=== PATIENT | female | born 1965 | race African-American/Black ===

== ENCOUNTER 2017-06-26 07:31 | Inpatient (IN) | payer OTHER, MEDICARE ==
[~2017-06-26] VITALS: Ht 167.6 cm; Wt 81.4 kg
[~2017-06-26 07:31] MED LIST: AMLODIPINE BESY10 M1 PO; ASPIRIN325 M2 PO; ATORVASTATIN CA40 M1 PO; BUPROPION XL150 MG PO; CARDIZEM CD240 M1 PO; CARTIA XT120 MG PO; CARVEDILOL25 M1 PO; CLONIDINE1 EAC2 TOP; DILTIAZEM ER120 M2 PO; DOXYCYCLINE MO100 MG PO; ESCITALOPRAM OX20 MG PO; FLUOXETINE HCL40 MG PO; GABAPENTIN100 M2 PO; GEMFIBROZIL600 MG PO; HYDRALAZINE HCL25 M1 PO; ISOSORBIDE MONO30 M1 PO; LABETALOL HCL200 M1 PO; LANTUS SOL100 UNIT/1 SC; LANTUS SOLOS100 U/ML SC; LINZESS145 MC1 PO; MINOXIDIL2.5 M1 PO; MIRALAX17 GM PO; NITROGLYCER0.4 MG/HR TOP; NOVOLOG FL100 UNIT/1 SC; PRINIVIL20 M1 PO; PROTONIX40 M3 PO; PROZAC 10MG10 MG PO; RENVELA800 M1 PO; SIMVASTATIN40 MG PO; Senokot S PO
--- NOTE | 2017-06-26 07:40 | ED CARDIAC/CP/PALPITATIONS ---
History of Present Illness General Chief Complaint: Chest Pain Stated Complaint: CHEST PAIN RADIATING TO JAW Source: patient Exam Limitations: no limitations Vital Signs & Intake/Output Vital Signs & Intake/Output Vital Signs Date Time Temp Pulse Resp B/P B/P Pulse O2 O2 Flow FiO2 Mean Ox Delivery Rate 06/28 0940 100 101/58 06/28 0940 94 101/58 06/28 0940 91 101/52 06/28 0835 98.2 91 26 112/64 98 Room Air 06/28 0400 95 Room Air 06/28 0000 96 Room Air Room Air 06/28 0000 98.0 88 18 110/60 96 Room Air 06/27 2130 103 151/66 06/27 2130 103 151/66 06/27 2129 103 151/66 06/27 1600 98 Room Air 06/27 1600 98.0 88 20 132/60 98 Room Air 06/27 1545 88 160/92 ED Intake and Output 06/28 0000 06/27 1200 Intake Total 855 128 Output Total 2500 Balance -1645 128 Intake, IV 345 128 Intake, Oral 510 Output, 2500 Dialysate Patient 179 lb Weight Allergies Coded Allergies: NO KNOWN ALLERGIES (11/19/15) Reconcile Medications Aspirin (Aspirin*) 325 MG TABLET 325 MG PO DAILY HEART HEALTH Atorvastatin Calcium 40 MG TABLET 1 TAB PO QPM CHOLESTEROL (Reported) Bupropion HCl (Bupropion XL) 150 MG TAB.ER.24H 1 TAB PO QAM MENTAL HEALTH ( Reported) Clonidine 0.3 MG/24 HOUR PATCH.TDWK 1 PAT TOP QSUN HEART (Reported) Clopidogrel Bisulfate (Clopidogrel) 75 MG TABLET 1 TAB PO DAILY BLOOD THINNER (Reported) Diltiazem Cd (Diltiazem ER) 120 MG CAP.ER.DEG 120 MG PO DAILY high blood pressure Escitalopram Oxalate 20 MG TABLET 1 TAB PO DAILY MENTAL HEALTH (Reported) Gabapentin 100 MG CAPSULE 1 CAP PO TID NEUROPATHY (Reported) Heparin (Heparin-1/2NS 25,000 Units/500) 25,000 UNIT/500 ML (50 UNIT/ML) IV.SOLN 25,000 UNITS IV DAILY ACS Hydralazine HCl 25 MG TABLET 4 TAB PO TID BP (Reported) Insulin Aspart, Recombinant (Novolog Flexpen) (Unknown Strength) INSULN.PEN ( Unknown Dose) SC SEE SLIDING SCALE DIABETES (Reported) Insulin Glargine,Hum.rec.anlog (Lantus Solostar) 100 UNIT/ML (3 ML) INSULN.PEN 30 UNIT SC BID DM (Reported) Isosorbide Mononitrate (Isosorbide Mononitrate ER) 30 MG TAB.ER.24H 1 TAB PO DAILY HEART (Reported) Labetalol HCl 200 MG TABLET 2 TAB PO BID HEART (Reported) Linaclotide (Linzess) 145 MCG CAPSULE 1 CAP PO DAILY PRN CONSTIPATION ( Reported) Lisinopril (Prinivil) 20 MG TABLET 1 TAB PO BID HEART (Reported) Minoxidil 2.5 MG TABLET 2 TAB PO DAILY UNKNOWN (Reported) Pantoprazole Sodium (Protonix) 40 MG TABLET.DR 1 TAB PO DAILY ACID REFLUX ( Reported) Sevelamer Carbonate (Renvela) 800 MG TABLET 1 TAB PO TID KIDNEY (Reported) Sevelamer Carbonate (Renvela) 800 MG TABLET 1 TAB PO BID KIDNEY (Reported) Triage Nurses Notes Reviewed? yes Onset: Abrupt Duration: hour(s): (FEW) Timing: single episode today Location: substernal, JAW Activities at Onset: none Modifying Factors: Worsens With: lying down. HPI: This is a 51-year-old female with history of end-stage renal disease on hemodialysis Tuesday, hypertension, coronary disease status post ID and 10 cardiac stents who presents to the ER with chief complaint of jaw pain which woke her up at 2 AM. She states she felt nauseous and around 3:00 vomited once and after that developed chest pain. Chest pain is substernal and heavy. The pain in her chest does not radiate. The jaw pain is still there. She didn' t take aspirin at home. History of previous MIs but states the jaw pain feels different. Last stents were placed emergently in December in [place]. Her previous stents have been placed with Dr. Mccormack at [facility]. She is compliant with her medications. She denies any illicit drug use. Past History Travel History Traveled to [place] past 21 day No Medical History Any Pertinent Medical History? see below for history Neurological: NONE EENT: NONE Cardiovascular: AFIB, CAD, hypertension, hyperlipidemia, myocardial infarction, 3 CARDIAC STENTS Respiratory: NONE Gastrointestinal: constipation Hepatic: NONE Renal: CKD stage 5 DIALYSIS Musculoskeletal: NONE Psychiatric: depression Endocrine: diabetes, GERD thyroid nodule Blood Disorders: anemia Cancer(s): NONE SHINGLER/Reproductive: uterine fibriods History of MRSA: No History of VRE: No History of CDIFF: No Surgical History Surgical History: STENTS X3 Psychosocial History Who do you live with Significant Other Services at Home Patient previously had home health aide and nursing services but these services were recently discontinued What is your primary language Turkmen Family History Family History, If Any: Relation not specified for: FH: CAD (coronary artery disease) FH: cancer FH: diabetes mellitus FH: HTN (hypertension) FH: schizophrenia Hx Contributory? Yes Review of Systems Review of Systems Constitutional: Denies: chills, fever. EENTM: Reports: see HPI (JAW PAIN). Respiratory: Reports: short of breath. Denies: see HPI, sputum production. Cardiovascular: Reports: chest pain. Denies: palpitations. GI: Reports: no symptoms. Genitourinary: Reports: no symptoms. Musculoskeletal: Denies: back pain, joint pain. Skin: Reports: no symptoms. Neurological/Psychological: Reports: no symptoms. Hematologic/Endocrine: Reports: no symptoms. Immunologic/Allergic: Reports: no symptoms. All Other Systems: Reviewed and Negative Physical Exam Physical Exam General Appearance: well developed/nourished, alert, awake, anxious, moderate distress Head: atraumatic, normal appearance Eyes: Bilateral: normal appearance, PERRL, EOMI. Ears, Nose, Throat: normal pharynx, normal ENT inspection, hearing grossly normal Neck: normal inspection, supple, full range of motion Respiratory: normal breath sounds, chest non-tender, no respiratory distress Cardiovascular: regular rate/rhythm Peripheral Pulses: 2+ radial (R), 2+ radial (L) Gastrointestinal: normal bowel sounds, soft, non-tender Extremities: RIGHT ARM SHUNT Neurologic/Psych: no motor/sensory deficits, awake, alert, oriented x 3 Skin: intact, normal color, warm/dry Core Measures ACS in differential dx? Yes CVA/TIA Diagnosis No Sepsis Present: No Sepsis Focused Exam Completed? No Progress Differential Diagnosis: AMI, aortic dissection, HYPERTENSIVE URGENCY, AORTIC DISSECTION, PE Plan of Care: Orders Procedure Date/time Status Nothing by Mouth 06/29 B Active ICU LAB BUNDLE 06/29 0500 Active CBC WITHOUT DIFFERENTIAL 06/29 0500 Active Heparin Drip- ACS 06/28 0823 Active PARTIAL THROMBOPLASTIN TIME 06/28 0700 Complete ICU LAB BUNDLE 06/28 0500 Complete CBC WITHOUT DIFFERENTIAL 06/28 0500 Complete Consistent Carbohydrate 3 06/27 L Active TROPONIN LEVEL 06/27 2200 Complete PARTIAL THROMBOPLASTIN TIME 06/27 2200 Complete EKG 06/27 2200 Active Current Medications Sig/[place] Start time Last Medication Dose Stop Time Status Admin Magnesium Oxide 400 MG BID 06/28 1000 AC 06/28 (Mag-Ox) 0940 Insulin Aspart 0 TIDAC 06/27 1700 AC (NovoLOG) Bupropion HCl 150 MG QAM 06/27 1000 AC 06/28 (Wellbutrin XL) 0939 Clopidogrel Bisulfate 75 MG DAILY 06/27 1000 AC 06/28 (Plavix) 0940 Escitalopram Oxalate 20 MG DAILY 06/27 1000 AC 06/28 (Lexapro) 0940 Labetalol HCl 400 MG BID 06/27 1000 AC 06/28 (Trandate-Normodyne 0940 200MG Tab) Minoxidil 5 MG DAILY 06/27 1000 AC 06/28 (Minoxidil 2.5 MG 0940 Tab) Lidocaine/Prilocaine 1 DEE MoWeFr 06/27 0800 AC 06/27 (EMLA) 0800 Epoetin José 2,000 UNIT MoWeFr PRN 06/27 0700 AC (Epogen Inj 2000 (DIALYSIS PATIENTS) Epoetin José 3,000 UNIT MoWeFr PRN 06/27 0700 AC (Epogen Inj 3000 (DIALYSIS PATIENTS) Omeprazole 40 MG DAILY AC 06/27 0700 AC 06/28 (Prilosec) 0636 Paricalcitol 4 MCG MoWeFr PRN 06/27 0700 AC (Zemplar Inj. 2MCG/ ML) Atorvastatin Calcium 40 MG QPM 06/26 2200 AC 06/27 (Lipitor) 2129 Lisinopril 20 MG BID 06/26 2200 AC 06/28 (Prinivil) 0940 Gabapentin 100 MG TID 06/26 1600 AC 06/28 (Neurontin) 0940 Aspirin 325 MG DAILY 06/26 1430 AC 06/28 (Aspirin) 0940 Sevelamer Carbonate 800 MG TIDAC 06/26 1200 AC 06/28 (Renvela) 1211 Acetaminophen 650 MG Q4P PRN 06/26 1145 AC (Tylenol) Hydralazine HCl 100 MG TID 06/26 1108 AC 06/28 (Apresoline) 0940 Diltiazem HCl 120 MG DAILY 06/26 1107 AC 06/28 (Cardizem CD) 0940 Heparin Sodium 25,000 UNIT Q24H 06/26 0815 AC 06/28 (Porcine) 0752 (Heparin) Sodium Chloride 500 ML Laboratory Tests 06/28/17 0645: Anion Gap 14, Estimated GFR 9 L, Glucose 123 H, Calcium 8.7, Phosphorus 4.7 H , Magnesium 1.6, Total Bilirubin 0.3, AST 17, ALT 25, Albumin 3.5, APTT 80 H, CBC w Diff NO MAN DIFF REQ, RBC 3.18 L, MCV 90.2, MCH 30.4, RDW 15.1 H, MPV 9.4, Gran % 63.8, Lymphocytes % 19.8 L, Monocytes % 10.3 H, Eosinophils % 4.5, Basophils % 1.6, Absolute Granulocytes 6.9 H, Absolute Lymphocytes 2.1, Absolute Monocytes 1.1 H, Absolute Eosinophils 0.5, Absolute Basophils 0.2, PUBS MCHC 33.7 06/27/17 2300: Troponin I 1.05 *H 06/27/172009: APTT 51 H 06/27/17 1630: Troponin I 1.27 *H 7:56 AM D/W DR BRYANT. WILL REVIEW EKG'S. 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 8:[address] REBEKAH SOUZA. 8:13 AM HEPARIN, NITRO, ASPIRIN, PLAVIX LOADING DOSE. WOULD LIKE TO BRING DOWN BP AND REEVALUATE WITH REPEAT EKG. 8:54 AM RELIEF WITH SECOND NITRO AFTER SHE DEVELOPED SOME ADDITIONAL JAW PAIN. Diagnostic Imaging: Viewed by Me: Radiology Read. Discussed w/RAD: Radiology Read. CXR Impression: PATIENT: THOMAS BARRIOS PRESENT AGE: 51 PATIENT ACCOUNT NO: [id number] : 67 LOCATION: [facility] ([place] ORDERING PHYSICIAN: Estefani Ross MD SERVICE DATE: 06/26/17 EXAM TYPE: RAD - XRY-PORTABLE CHEST XRAY EXAMINATION: XR PORTABLE CHEST CLINICAL INFORMATION: Chest pain. COMPARISON: Several priors including most recent of 03/30/17. TECHNIQUE: Portable frontal view of the chest was obtained. FINDINGS: Evaluation is limited because of patient body habitus. The lungs are well expanded and clear. Accounting for portable technique, the heart and mediastinal structures are unremarkable. IMPRESSION: Limited evaluation. No abnormality demonstrated. DICTATED BY: Enio Liao MD DATE/TIME DICTATED:06/26/17822 BAG WORKER:CHUY DATE/TIME TRANSCRIBED:06/26/17822 CONFIDENTIAL, DO NOT COPY WITHOUT APPROPRIATE AUTHORIZATION. <Electronically signed in Other Vendor System> SIGNED BY: Enio Liao MD 06/26/17828 Initial ED EKG: NSR, ST ELEVATION MILD V1-V2, ? LVH, ST DEPRESSION 1, AVL, V5, V6 Prior EKG: changed Rhythm Strip: normal sinus rhythm Departure Departure Time of Disposition: 1004 Disposition: STILL A PATIENT Condition: Stable Clinical Impression Primary Impression: Abnormal EKG Secondary Impressions: Chest pain Referrals: Violetta Reddy APRN (PCP/Family) Departure Forms: Customer Survey General Discharge Information Prescriptions: Current Visit Scripts Heparin (Heparin-1/2NS 25,000 Units/500) 25,000 UNITS IV DAILY #3 UNITS Admission Note Spoke With: Rebekah ORTEGA PHD,Luis Daniel Bond Documentation of Exam: Documentation of any treatments & extenuating circumstances including Concerns Regarding Discharge (functional status, medication knowledge or non-compliance, living conditions, etc.) that warrant an admission rather than observation: [ICU MONITOR, IV HEPARIN, ASPIRIN, PLAVIX, NITRATES, BETA BLOCKERS, SERIAL EKG/ TROPONIN, CONSIDER ECHOCARDIOGRAM, POSSIBLE TRANSFER IF INCREASING TROPONINS, NEPHRO CONSULT FOR DIALYSIS TOMORROW] Critical Care Note Critical Care Note Critical Care Time: 30-74 min
[2017-06-26 08:05] LABS: ABSOLUTE BASOPHIL COUNT 0 /CUMM (0.0-0.2); ABSOLUTE EOSINOPHIL COUNT 0.4 /CUMM (0.0-0.7); ABSOLUTE GRANULOCYTE CT 9.5 /CUMM (1.4-6.5); ABSOLUTE MONOCYTE COUNT 0.6 /CUMM (0.10-0.60); BASOPHIL % 0.2 % (0.0-2.0); EOSINOPHIL % 3.6 % (0-5); GRANULOCYTE % 82.9 % (42.2-75.2); HEMATOCRIT 35.2 % (37-47); MEAN CORPUSCULAR HGB 29.9 PG (27.0-31.0); MEAN CORPUSCULAR HGB CONC 33.1 G/DL (33.0-37.0); MEAN CORPUSCULAR VOLUME 90.2 FL (81.0-99.0); MEAN PLATELET VOLUME 8.7 FL (7.4-10.4); PLATELET COUNT 306 /CUMM (130-400); RBC DISTRIBUTION WIDTH 15.4 % (11.5-14.5); RED BLOOD CELL CT 3.91 /CUMM (4.20-5.40); WHITE BLOOD CELL COUNT 11.5 /CUMM (4.8-10.8)
--- NOTE | 2017-06-26 08:29 | RADIOLOGY REPORT ---
EXAMINATION: XR PORTABLE CHEST CLINICAL INFORMATION: Chest pain. COMPARISON: Several priors including most recent of 03/30/17. TECHNIQUE: Portable frontal view of the chest was obtained. FINDINGS: Evaluation is limited because of patient body habitus. The lungs are well expanded and clear. Accounting for portable technique, the heart and mediastinal structures are unremarkable. IMPRESSION: Limited evaluation. No abnormality demonstrated.
--- NOTE | 2017-06-26 10:13 | History & Physical ---
General Information and HPI MD Statement: I have seen and personally examined THOMAS BARRIOS and documented this H&P. The patient is a 51 year old F who presented with a patient stated chief complaint of jaw pain Source of Information: patient, old records Exam Limitations: no limitations History of Present Illness: 50-year old woman with pmh significant for coronary artery disease, status post multiple angioplasties with multiple stent placements total of 11 (recently had 3 stents placed in December 2016), hypertension, IDDM, ESRD on HD (MWF), here for evaluation of bilateral jaw pain. States that around 2 AM this morning she had bilateral aching jaw pain which is about 8 out of 10. Nonradiating however after a few minutes of the jaw pain she also felt some discomfort in her chest. At this time she also felt very nauseated and had had 3 episodes of non-bloody vomiting. She took ibuprofen however did not have any relief of the pain. On interview she is completely pain-free states that the nitroglycerin given to her in ED helped. Last few days she's also been having orthopnea. Complains of mild lower extremity swelling. Denies fever, cough, shortness of breath, chills, diaphoresis, palpitations, nausea, headaches, bowel or bladder symptoms. Per patient she ran out of her clonidine patch and has not been on it recently. Allergies/Medications Allergies: Coded Allergies: NO KNOWN ALLERGIES (11/19/15) Home Med list Aspirin (Aspirin*) 325 MG TABLET 325 MG PO DAILY HEART HEALTH Atorvastatin Calcium 40 MG TABLET 1 TAB PO QPM CHOLESTEROL (Reported) Bupropion HCl (Bupropion XL) 150 MG TAB.ER.24H 1 TAB PO QAM MENTAL HEALTH ( Reported) Clonidine 0.3 MG/24 HOUR PATCH.TDWK 1 PAT TOP QSUN HEART (Reported) Clopidogrel Bisulfate (Clopidogrel) 75 MG TABLET 1 TAB PO DAILY BLOOD THINNER (Reported) Diltiazem Cd (Diltiazem ER) 120 MG CAP.ER.DEG 120 MG PO DAILY high blood pressure Escitalopram Oxalate 20 MG TABLET 1 TAB PO DAILY MENTAL HEALTH (Reported) Gabapentin 100 MG CAPSULE 1 CAP PO TID NEUROPATHY (Reported) Hydralazine HCl 25 MG TABLET 4 TAB PO TID BP (Reported) Insulin Aspart, Recombinant (Novolog Flexpen) (Unknown Strength) INSULN.PEN ( Unknown Dose) SC SEE SLIDING SCALE DIABETES (Reported) Insulin Glargine,Hum.rec.anlog (Lantus Solostar) 100 UNIT/ML (3 ML) INSULN.PEN 30 UNIT SC BID DM (Reported) Insulin Glargine,Hum.rec.anlog (Lantus Solostar) (Unknown Strength) INSULN.PEN (Unknown Dose) SC BID DIABETES (Reported) Isosorbide Mononitrate (Isosorbide Mononitrate ER) 30 MG TAB.ER.24H 1 TAB PO DAILY HEART (Reported) Labetalol HCl 200 MG TABLET 2 TAB PO BID HEART (Reported) Linaclotide (Linzess) 145 MCG CAPSULE 1 CAP PO DAILY PRN CONSTIPATION ( Reported) Lisinopril (Prinivil) 20 MG TABLET 1 TAB PO BID HEART (Reported) Minoxidil 2.5 MG TABLET 2 TAB PO DAILY UNKNOWN (Reported) Pantoprazole Sodium (Protonix) 40 MG TABLET.DR 1 TAB PO DAILY ACID REFLUX ( Reported) Sevelamer Carbonate (Renvela) 800 MG TABLET 1 TAB PO TID KIDNEY (Reported) Sevelamer Carbonate (Renvela) 800 MG TABLET 1 TAB PO BID KIDNEY (Reported) Compliance With Home Meds: GOOD Past History Travel History Traveled to [place] past 21 day No Medical History Neurological: NONE EENT: NONE Cardiovascular: AFIB, CAD, hypertension, hyperlipidemia, myocardial infarction, 10 CARDIAC STENTS Respiratory: NONE Gastrointestinal: constipation Hepatic: NONE Renal: CKD stage 5 DIALYSIS Musculoskeletal: NONE Psychiatric: depression Endocrine: diabetes, GERD thyroid nodule Blood Disorders: anemia Cancer(s): NONE 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 significant other, child Services at Home: Patient previously had home health aide and nursing services but these services were recently discontinued Primary Language: Tamazight Functional Ability ADLs Independent: dressing, eating, toileting, bathing. Ambulation: independent Review of Systems Review of Systems Constitutional: Denies: chills, diaphoresis, fever, malaise, weakness, unexplained weight loss. Cardiovascular: Reports: peripheral edema. Denies: chest pain, edema, orthopena, palpitations, syncope. Respiratory: Denies: cough, hemoptysis, orthopnea, short of breath, sputum production, stridor, wheezing. GI: Denies: abdominal pain, bloating, constipation, diarrhea, distention, bowel incontinence, melena, nausea, bloody stool, changes in stool, vomiting, steatorrhea. Genitourinary: Denies: discharge, dysuria, frequency, hematuria, hesitation, nocturia, pain, urgency. Exam & Diagnostic Data Last 24 Hrs of Vital Signs/I&O Vital Signs Date Time Temp Pulse Resp B/P B/P Pulse O2 O2 Flow FiO2 Mean Ox Delivery Rate 06/26 1041 98.2 91 16 171/78 100 Nasal 2.0L Cannula 06/26 0931 97 18 151/72 06/26 0931 97 18 151/72 06/26 0913 95 Nasal 2.0L Cannula 06/26 0903 100 196/94 06/26 0903 98.3 94 15 151/73 95 Nasal 2.0L Cannula 06/26 0849 100 20 196/94 Nasal 2.0L Cannula 06/26 0833 98 15 167/81 06/26 0811 98 15 162/70 06/26 0810 106 181/85 06/26 0743 97.0 106 18 191/90 93 Room Air Intake & Output 06/26 1600 06/26 0800 06/26 0000 Intake Total 0 Output Total Balance 0 Intake, Oral 0 Patient 180 lb Weight Weight Reported by Patient Measurement Method Physical Exam General Appearance Alert, Oriented X3, Cooperative, No Acute Distress HEENT Atraumatic, PERRLA, EOMI, Mucous Membr. moist/pink Neck Supple, No JVD, No thryomegaly Lymphatic Axillary nl Cardiovascular Regular Rate, Normal S1, Normal S2 Lungs Clear to Auscultation, Normal Air Movement Abdomen Normal Bowel Sounds, Soft, No Tenderness Extremities b/l 2+edema Last 24 Hrs of Labs/Michi: Laboratory Tests 06/26/17 0750: Anion Gap 23 H, Estimated GFR 6 L, BUN/Creatinine Ratio 5.4 L, Glucose 184 H , Calcium 9.7, Total Bilirubin 0.5, AST 14, ALT 22, Alkaline Phosphatase 90, Troponin I 0.11 *H, Total Protein 8.8 H, Albumin 5.1 H, Globulin 3.7, Albumin/ Globulin Ratio 1.4, CBC w Diff NO MAN DIFF REQ, RBC 3.91 L, MCV 90.2, MCH 29.9, RDW 15.4 H, MPV 8.7, Gran % 82.9 H, Lymphocytes % 8.3 L, Monocytes % 5.0, Eosinophils % 3.6, Basophils % 0.2, Absolute Granulocytes 9.5 H, Absolute Lymphocytes 1.0 L, Absolute Monocytes 0.6, Absolute Eosinophils 0.4, Absolute Basophils 0, PUBS MCHC 33.1 Microbiology 06/26 1041 UPPER RESP: Surveillance Culture - COLB 06/26 104 GI: Surveillance Culture - COLB Diagnostic Data EKG Results Normal sinus, rate 92, QTC 505 left ventricular hypertrophy, ST depression in lead I,II, ST elevation 1mm in V1,V2 CXR Results SERVICE DATE: 06/26/17 EXAM TYPE: RAD - XRY-PORTABLE CHEST XRAY FINDINGS: Evaluation is limited because of patient body habitus. The lungs are well expanded and clear. Accounting for portable technique, the heart and mediastinal structures are unremarkable. IMPRESSION: Limited evaluation. No abnormality demonstrated. Assessment/Plan Assessment: 50-year old woman with pmh significant for coronary artery disease, status post multiple angioplasties with multiple stent placements total of 11 (recently had 3 stents placed in December 2016), hypertension, IDDM, ESRD on HD ([place]), here for evaluation of bilateral jaw pain. Vitals on it examination MAXIMUM TEMPERATURE 97.0, heart rate 106, respiratory rate 18, blood pressure 191/90, lab significant for WBC 11.5 hemoglobin 11.7, hematocrit 35.2, platelet 306, sodium 145, potassium 4.6, chloride 101, BUN 38, creatinine 7.0, glucose 184, troponin 0.11, anion gap 23, proBNP 18, 900 UA pending EKG shows normal sinus rhythm left ventricle hypertrophy prolonged QTC at 505 ST depression in lead I,II, ST wave elevation 1mm in V1-V2 ED course: Started on IV heparin given loading dose of Plavix started on nitroglycerin and given Lopressor Problem list: NSTEMI JESSICA on CKD ESRD on dialysis Anion gap metabolic acidosis HTN IDDM Plan: 1 unstable angina versus NSTEMI vs demand ischemia secondary to renal insufficiency * we'll admit the patient to ICU * patient started on IV heparin * we will do serial troponin EKG to rule out underlying ACS * Continue with high-dose aspirin, Plavix, atorvastatin, labetalol. * Continue sublingual nitroglycerin for chest pain * Last echo done 01/04/2016 showed normal EF of 60% with impaired LV relaxation, severe left ventricular hypertrophy mild left atrial enlargement and trace tricuspid regurgitation * Will keep the patient nothing by mouth for now for possible cardiac catheterization 2 Hypertension * we'll continue with home dose of labetalol, hydralazine and lisinopril (ok with nephro) 3. JESSICA on CKD/ End-stage renal disease(on dialysis) * nephrology consult placed * She will need dialysis tomorrow * will hold lisinopril for now 4. History of insulin-dependent diabetes * We'll start the patient on nothing by mouth insulin sliding scale. * half normal saline at 75 cc for one bag * Accu-Cheks. 5. History of Anxietyand depression * continue lexapro and buproprion 6.Mild pain pathway with Tylenol 7. DVT prophylaxis: IV heparin 8. Patient is full code As Ranked By This Provider Problem List: 1. Diabetes mellitus 2. Hypertension 3. HLD (hyperlipidemia) 4. CAD S/P percutaneous coronary angioplasty 5. NSTEMI (non-ST elevated myocardial infarction) Core Measures/Misc (02/27) Acute Coronary Syndrome ACS Diagnosis: Yes Last Known EF % 55 Congestive Heart Failure Congestive Heart Failure Diagnosis No Cerebrovascular Accident CVA/TIA Diagnosis: No VTE (View Protocol) VTE Risk Factors Age>40 No Mechanical VTE Prophylaxis d/t N/A MechProphylax Ordered No VTE Pharm Prophylaxis d/t NA PharmProphylax ordered Sepsis (View protocol) Sepsis Present: No
[2017-06-26 11:30] VITALS: BP 158/64
[2017-06-26] MEDS ORDERED: LANTUS SOL100 UNIT/1 SC (12:57)
--- NOTE | 2017-06-26 14:39 | Cons- Cardiology ---
General Information and HPI Consulting Request Date of Consult: 06/26/17 Requested By: Ksenia ORTEGA PHD,Luis Daniel Bond Reason for Consult: Chest pain; known coronary artery disease with history of multiple stents Source of Information: patient, family, old records Exam Limitations: no limitations History of Present Illness: The patient is a 50-year-old female who is followed by Dr. 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 Her past medical history is significant for significant coronary artery disease, status post multiple interventions, angioplasties and stents (sees reportedly 10-11) sees. The patient recently had 3 stents placed in December 2016. She also has history of hypertension, insulin-dependent diabetes, end-stage renal disease on hemodialysis, etc. The patient woke at approximately 2 AM this morning with chest discomfort and bilateral jaw discomfort which she rated at approximately an 8/10 in severity. She also had a sense of nausea and had multiple episodes of nonbloody emesis. Ultimately, the patient came to the emergency room. In the emergency him, the patient continued to have symptoms. An ECG was performed which showed nonspecific worsening of her prior ECG abnormalities with more prominent ST elevation in leads V1 and V2 and more prominent ST depressions in the lateral leads. At that time, the case was discussed with her regular wool brusher Dr. Mccormack in case emergent intervention would be required. After discussion with Dr. Mccormack, the decision was made to aggressively treat the patient medically with antiplatelet agents, anticoagulation, blood pressure control, etc. With medical management, the patient became asymptomatic and her ECG abnormalities improved somewhat. At the moment, the patient remains asymptomatic. She is to be admitted to the ICU for closer monitoring, she will likely need intervention at some point in the near future. Allergies/Medications Allergies: Coded Allergies: NO KNOWN ALLERGIES (11/19/15) Home Med List: Aspirin (Aspirin*) 325 MG TABLET 325 MG PO DAILY HEART HEALTH Atorvastatin Calcium 40 MG TABLET 1 TAB PO QPM CHOLESTEROL (Reported) Bupropion HCl (Bupropion XL) 150 MG TAB.ER.24H 1 TAB PO QAM MENTAL HEALTH ( Reported) Clonidine 0.3 MG/24 HOUR PATCH.TDWK 1 PAT TOP QSUN HEART (Reported) Clopidogrel Bisulfate (Clopidogrel) 75 MG TABLET 1 TAB PO DAILY BLOOD THINNER (Reported) Diltiazem Cd (Diltiazem ER) 120 MG CAP.ER.DEG 120 MG PO DAILY high blood pressure Escitalopram Oxalate 20 MG TABLET 1 TAB PO DAILY MENTAL HEALTH (Reported) Gabapentin 100 MG CAPSULE 1 CAP PO TID NEUROPATHY (Reported) Hydralazine HCl 25 MG TABLET 4 TAB PO TID BP (Reported) Insulin Aspart, Recombinant (Novolog Flexpen) (Unknown Strength) INSULN.PEN ( Unknown Dose) SC SEE SLIDING SCALE DIABETES (Reported) Insulin Glargine,Hum.rec.anlog (Lantus Solostar) 100 UNIT/ML (3 ML) INSULN.PEN 30 UNIT SC BID DM (Reported) Insulin Glargine,Hum.rec.anlog (Lantus Solostar) (Unknown Strength) INSULN.PEN (Unknown Dose) SC BID DIABETES (Reported) Isosorbide Mononitrate (Isosorbide Mononitrate ER) 30 MG TAB.ER.24H 1 TAB PO DAILY HEART (Reported) Labetalol HCl 200 MG TABLET 2 TAB PO BID HEART (Reported) Linaclotide (Linzess) 145 MCG CAPSULE 1 CAP PO DAILY PRN CONSTIPATION ( Reported) Lisinopril (Prinivil) 20 MG TABLET 1 TAB PO BID HEART (Reported) Minoxidil 2.5 MG TABLET 2 TAB PO DAILY UNKNOWN (Reported) Pantoprazole Sodium (Protonix) 40 MG TABLET.DR 1 TAB PO DAILY ACID REFLUX ( Reported) Sevelamer Carbonate (Renvela) 800 MG TABLET 1 TAB PO TID KIDNEY (Reported) Sevelamer Carbonate (Renvela) 800 MG TABLET 1 TAB PO BID KIDNEY (Reported) Current Medications: Current Medications Sig/[place] Start time Last Medication Dose Route Stop Time Status Admin Acetaminophen 650 MG Q4P PRN 06/26 1145 AC PO Aspirin 325 MG DAILY 06/27 1000 DC PO Aspirin 325 MG DAILY 06/26 1430 AC 06/26 PO 1430 Atorvastatin Calcium 40 MG QPM 06/26 2200 AC PO Bupropion HCl 150 MG QAM 06/27 1000 AC PO Clopidogrel Bisulfate 75 MG DAILY 06/27 1000 AC PO Clopidogrel Bisulfate 300 MG ONCE ONE 06/26 0815 DC 06/26 PO 06/26 0816 0837 Diltiazem HCl 120 MG DAILY 06/26 1107 AC 06/26 PO 1428 Escitalopram Oxalate 20 MG DAILY 06/27 1000 AC PO Gabapentin 100 MG TID 06/26 1600 AC PO Heparin Sodium 0 .STK-MED ONE 06/26 0828 DC (Porcine) .ROUTE Heparin Sodium 5,000 UNIT ONCE ONE 06/26 0815 DC 06/26 (Porcine) IV 06/26 0816 0837 Heparin Sodium 25,000 UNIT Q24H 06/26 0815 AC 06/26 (Porcine) IV 0837 Sodium Chloride 500 ML Hydralazine HCl 100 MG TID 06/26 1108 AC PO Insulin Human Regular 0 Q6 06/26 1200 AC SC Labetalol HCl 400 MG BID 06/26 2200 AC PO Lisinopril 20 MG BID 06/26 2200 CAN PO Metoprolol Tartrate 5 MG ONCE ONE 06/26 0930 DC 06/26 IV 06/26 0931 0931 Metoprolol Tartrate 0 .STK-MED ONE 06/26 0928 DC IV Metoprolol Tartrate 5 MG ONCE ONE 06/26 0900 DC 06/26 IV 06/26 0901 0903 Metoprolol Tartrate 0 .STK-MED ONE 06/26 0853 DC IV Metoprolol Tartrate 5 MG ONCE ONE 06/26 0800 DC 06/26 IV 06/26 0801 0810 Metoprolol Tartrate 0 .STK-MED ONE 06/26 0758 DC IV Minoxidil 5 MG DAILY 06/27 1000 AC PO Nitroglycerin 0.4 MG ONCE ONE 06/26 0900 DC 06/26 SL 06/26 0901 0903 Nitroglycerin 0 .STK-MED ONE 06/26 0828 [facility] Nitroglycerin 1 GM ONCE ONE 06/26 0815 DC 06/26 TOP 06/26 0816 0837 Nitroglycerin 0.4 MG ONCE ONE 06/26 0800 DC 06/26 SL 06/26 0801 0800 Nitroglycerin 0 .STK-MED ONE 06/26 0758 [facility] Omeprazole 40 MG DAILY AC 06/27 0700 AC PO Sevelamer Carbonate 800 MG TIDAC 06/26 1200 AC PO Sodium Chloride 1,000 ML .Q20H 06/26 1130 AC 06/26 IV 06/27 0627 1257 Past History Travel History Traveled to [place] past 21 day No Medical History Blood Transfusion Hx: No Neurological: NONE EENT: NONE Cardiovascular: AFIB, CAD, hypertension, hyperlipidemia, myocardial infarction, 10 CARDIAC STENTS Respiratory: NONE Gastrointestinal: constipation Hepatic: NONE Renal: CKD stage 5 DIALYSIS Musculoskeletal: NONE Psychiatric: depression Endocrine: diabetes, GERD thyroid nodule Blood Disorders: anemia Cancer(s): NONE 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 Home Who Do You Live With? significant other, child Services at Home: Patient previously had home health aide and nursing services but these services were recently discontinued Primary Language: Tamazight Smoking Status: Never Smoked Functional Ability ADLs Independent: dressing, eating, toileting, bathing. Ambulation: independent ECHO Results (as available) Date of last Echo 01/04/16 EF% 60 Exam & Diagnostic Data Vital Signs and I&O Vital Signs Date Time Temp Pulse Resp B/P B/P Pulse O2 O2 Flow FiO2 Mean Ox Delivery Rate 06/26 1140 100 Nasal 2.0L Cannula 06/26 1130 97.1 92 18 158/64 100 Nasal 2.0L Cannula 06/26 1041 98.2 91 16 171/78 100 Nasal 2.0L Cannula 06/26 0931 97 18 151/72 06/26 0931 97 18 151/72 06/26 0913 95 Nasal 2.0L Cannula 06/26 0903 100 196/94 06/26 0903 98.3 94 15 151/73 95 Nasal 2.0L Cannula 06/26 0849 100 20 196/94 Nasal 2.0L Cannula 06/26 0833 98 15 167/81 06/26 0811 98 15 162/70 06/26 0810 106 181/85 06/26 0743 97.0 106 18 191/90 93 Room Air Intake & Output 06/26 1600 06/26 0800 06/26 0000 06/25 1600 06/25 0800 06/25 0000 Intake Total 0 Output Total Balance 0 Intake, Oral 0 Patient 181 lb 180 lb Weight Weight Bed scale Reported by Patient Measurement Method Physical Exam: General Appearance well-developed, pleasant, overweight, -British female , Alert, Oriented X3, Cooperative, No Acute Distress at the present time HEENT Atraumatic, PERRLA, EOMI, Mucous Membr. moist/pink Neck Supple, No JVD, No thryomegaly, carotid upstroke normal bilaterally Lymphatic Axillary nl Cardiovascular Regular Rate, Normal S1, Normal S2, 1 to 2/6 systolic murmur left lower sternal border Lungs Clear to Auscultation and percussion bilaterally; no chest wall tenderness Abdomen Normal Bowel Sounds, Soft, No Tenderness Extremities b/l 1-2+edema Labs/Michi Results: Laboratory Tests 06/26 06/26 06/26 1430 1135 0750 Chemistry Sodium (137 - 145 mmol/L) 145 Potassium (3.5 - 5.1 mmol/L) 4.6 Chloride (98 - 107 mmol/L) 101 Carbon Dioxide (22 - 30 mmol/L) 21 L Anion Gap (5 - 16) 23 H BUN (7 - 17 mg/dL) 38 H Creatinine (0.5 - 1.0 mg/dL) 7.0 *H Estimated GFR (>60 ml/min) 6 L BUN/Creatinine Ratio (7 - 25 %) 5.4 L Glucose (65 - 99 mg/dL) 184 H Calcium (8.4 - 10.2 mg/dL) 9.7 Total Bilirubin (0.2 - 1.3 mg/dL) 0.5 AST (14 - 36 U/L) 14 ALT (9 - 52 U/L) 22 Alkaline Phosphatase (<127 U/L) 90 Troponin I (< 0.11 ng/ml) 0.21 *H 0.11 *H Fbj-F-[id number] Pept (<125 pg/mL) 29801 H Total Protein (6.3 - 8.2 g/dL) 8.8 H Albumin (3.5 - 5.0 g/dL) 5.1 H Globulin (1.9 - 4.2 gm/dL) 3.7 Albumin/Globulin Ratio (1.1 - 2.2 %) 1.4 TSH (0.270 - 4.200 uIU/mL) 0.776 Thyroxine (T4) (4.5 - 10.9 ug/dL) 8.4 Coagulation APTT Pending Hematology CBC w Diff NO MAN DIFF REQ WBC (4.8 - 10.8 /CUMM) 11.5 H RBC (4.20 - 5.40 /CUMM) 3.91 L Hgb (12.0 - 16.0 G/DL) 11.7 L Hct (37 - 47 %) 35.2 L MCV (81.0 - 99.0 FL) 90.2 MCH (27.0 - 31.0 PG) 29.9 RDW (11.5 - 14.5 %) 15.4 H Plt Count (130 - 400 /CUMM) 306 MPV (7.4 - 10.4 FL) 8.7 Gran % (42.2 - 75.2 %) 82.9 H Lymphocytes % (20.5 - 51.1 %) 8.3 L Monocytes % (1.7 - 9.3 %) 5.0 Eosinophils % (0 - 5 %) 3.6 Basophils % (0.0 - 2.0 %) 0.2 Absolute Granulocytes (1.4 - 6.5 /CUMM) 9.5 H Absolute Lymphocytes (1.2 - 3.4 /CUMM) 1.0 L Absolute Monocytes (0.10 - 0.60 /CUMM) 0.6 Absolute Eosinophils (0.0 - 0.7 /CUMM) 0.4 Absolute Basophils (0.0 - 0.2 /CUMM) 0 PUBS MCHC (33.0 - 37.0 G/DL) 33.1 Diagnostic Data EKG Results Sinus rhythm; left atrial under maladies; poorly progression; probable LVH with associated ST-T changes. ST segment abnormalities more prominent than noted on previous EKG. CXR Results FINDINGS: Evaluation is limited because of patient body habitus. The lungs are well expanded and clear. Accounting for portable technique, the heart and mediastinal structures are unremarkable. IMPRESSION: Limited evaluation. No abnormality demonstrated. Assessment/Plan Assessment/Plan Assessment: 1. Chest pain syndrome consistent with unstable angina versus non-ST elevation myocardial infarction with minimally elevated troponin. 2. Hypertension 3. Abnormal ECG 4. End-stage renal disease on hemodialysis 5. Insulin-dependent diabetes 6. History of anxiety/depression 7. Mild normocytic anemia 8. Elevated proBNP Recommendations: -Admit the patient to the ICU -Serial troponins until decreasing -ECG tonight and again in the morning -Antiplatelet and anticoagulant regimen as recommended by Dr. Mccormack -Continue other cardiac medications -Beta blockers adjusted per heart rate -Follow-up echocardiogram to reassess left ventricular function and wall motion -Nephrology consult -Follow-up laboratories in the morning -Please keep the patient nothing by mouth after midnight tonight pending further decisions with Dr. Mccormack about possible cardiac catheterization tomorrow. Consult Acknowledgment - Thank you for your consult request.
[2017-06-26 15:57] LABS: PTT 62 SEC (25-37)
[2017-06-26 16:00] VITALS: BP 152/88
--- NOTE | 2017-06-26 16:30 | Cons- Nephrology ---
General Information and HPI Consulting Request Date of Consult: 06/26/17 Requested By: Ksenia ORTEGA PHD,Luis Daniel Bond Reason for Consult: Evaluation and management of end-stage renal disease Source of Information: patient, old records Exam Limitations: no limitations History of Present Illness: This 51-year-old woman has a history of diabetes, hypertension and coronary artery disease. She is status post AK in the past. She presents now with not feeling well and with recurrent jaw pain. She tells me when she had her heart attack in the past that she actually had chest pain, not jaw pain. She's been on dialysis now since November 2015. She has had a number of percutaneous coronary interventions in the past. She is dialyzed 3 times a week at [facility]. Her estimated dry weight is listed as 78 kg. Her weight, post dialysis on Tuesday, was 82.5 kg. The last time that she had reached a weight of 78 kg was on 06/12/2017 essentially 2 weeks ago. Otherwise her dialysis has been uneventful. She has experienced jaw pain on occasion. Allergies/Medications Allergies: Coded Allergies: NO KNOWN ALLERGIES (11/19/15) Home Med List: Aspirin (Aspirin*) 325 MG TABLET 325 MG PO DAILY HEART HEALTH Atorvastatin Calcium 40 MG TABLET 1 TAB PO QPM CHOLESTEROL (Reported) Bupropion HCl (Bupropion XL) 150 MG TAB.ER.24H 1 TAB PO QAM MENTAL HEALTH ( Reported) Clonidine 0.3 MG/24 HOUR PATCH.TDWK 1 PAT TOP QSUN HEART (Reported) Clopidogrel Bisulfate (Clopidogrel) 75 MG TABLET 1 TAB PO DAILY BLOOD THINNER (Reported) Diltiazem Cd (Diltiazem ER) 120 MG CAP.ER.DEG 120 MG PO DAILY high blood pressure Escitalopram Oxalate 20 MG TABLET 1 TAB PO DAILY MENTAL HEALTH (Reported) Gabapentin 100 MG CAPSULE 1 CAP PO TID NEUROPATHY (Reported) Hydralazine HCl 25 MG TABLET 4 TAB PO TID BP (Reported) Insulin Aspart, Recombinant (Novolog Flexpen) (Unknown Strength) INSULN.PEN ( Unknown Dose) SC SEE SLIDING SCALE DIABETES (Reported) Insulin Glargine,Hum.rec.anlog (Lantus Solostar) 100 UNIT/ML (3 ML) INSULN.PEN 30 UNIT SC BID DM (Reported) Insulin Glargine,Hum.rec.anlog (Lantus Solostar) (Unknown Strength) INSULN.PEN (Unknown Dose) SC BID DIABETES (Reported) Isosorbide Mononitrate (Isosorbide Mononitrate ER) 30 MG TAB.ER.24H 1 TAB PO DAILY HEART (Reported) Labetalol HCl 200 MG TABLET 2 TAB PO BID HEART (Reported) Linaclotide (Linzess) 145 MCG CAPSULE 1 CAP PO DAILY PRN CONSTIPATION ( Reported) Lisinopril (Prinivil) 20 MG TABLET 1 TAB PO BID HEART (Reported) Minoxidil 2.5 MG TABLET 2 TAB PO DAILY UNKNOWN (Reported) Pantoprazole Sodium (Protonix) 40 MG TABLET.DR 1 TAB PO DAILY ACID REFLUX ( Reported) Sevelamer Carbonate (Renvela) 800 MG TABLET 1 TAB PO TID KIDNEY (Reported) Sevelamer Carbonate (Renvela) 800 MG TABLET 1 TAB PO BID KIDNEY (Reported) Review of Systems Review of Systems Constitutional: Reports: no symptoms. Denies: chills, diaphoresis, fever, malaise, weakness. EENTM: Denies: blurred vision, double vision, visual changes. Cardiovascular: Reports: see HPI. Denies: orthopena, palpitations. Respiratory: Denies: cough, hemoptysis, orthopnea. GI: Reports: constipation. Denies: abdominal pain, bloating, distention, melena, nausea, bloody stool, changes in stool. Musculoskeletal: Denies: back pain. Skin: Denies: cysts. Neurological/Psychological: Denies: confusion, paresthesia, tingling, tremors, tonic-clonic seizures, weakness. 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 Home Who Do You Live With? significant other, child Services at Home: Patient previously had home health aide and nursing services but these services were recently discontinued Primary Language: Amharic Smoking Status: Never Smoked Functional Ability ADLs Independent: dressing, eating, toileting, bathing. Ambulation: independent ECHO Results (as available) Date of last Echo 01/04/16 EF% 60 Exam & Diagnostic Data Vital Signs and I&O Vital Signs Date Time Temp Pulse Resp B/P B/P Pulse O2 O2 Flow FiO2 Mean Ox Delivery Rate 06/26 1140 100 Nasal 2.0L Cannula 06/26 1130 97.1 92 18 158/64 100 Nasal 2.0L Cannula 06/26 1041 98.2 91 16 171/78 100 Nasal 2.0L Cannula 06/26 0931 97 18 151/72 06/26 0931 97 18 151/72 06/26 0913 95 Nasal 2.0L Cannula 06/26 0903 100 196/94 06/26 0903 98.3 94 15 151/73 95 Nasal 2.0L Cannula 06/26 0849 100 20 196/94 Nasal 2.0L Cannula 06/26 0833 98 15 167/81 06/26 0811 98 15 162/70 06/26 0810 106 181/85 06/26 0743 97.0 106 18 191/90 93 Room Air Intake & Output 06/26 1600 06/26 0400 06/25 1600 06/25 0400 06/24 1600 06/24 0400 Intake Total 190 Output Total Balance 190 Intake, IV 190 Intake, Oral 0 Patient 181 lb Weight Weight Bed scale Measurement Method Physical Exam General Appearance: well developed/nourished, no apparent distress, alert, awake , comfortable Head: atraumatic, normal appearance Eyes: Bilateral: PERRL, EOMI, pale conjunctivae. Ears, Nose, Throat: normal pharynx, normal ENT inspection Neck: normal inspection, supple, full range of motion, trachea mid line, no midline tenderness Respiratory: chest non-tender, no respiratory distress, quiet respiration Cardiovascular: regular rate/rhythm Peripheral Pulses: 2+ popliteal (R), 2+ popliteal (L), 2+ tibialis posterior (R), 2+ tibialis posterior (L), 2+ dorsalis pedis (R), 2+ dorsalis pedis (L) Back: normal inspection, no vertebral tenderness Extremities: normal inspection Neurologic/Psych: no motor/sensory deficits, awake, alert, oriented x 3 Cranial Nerves: normal hearing, normal speech, PERRL Lymphatic: adenopathy, no anterior cervical dinah Results Pertinent Lab Results: Laboratory Tests 06/26 06/26 06/26 1430 1135 0750 Chemistry Sodium (137 - 145 mmol/L) 145 Potassium (3.5 - 5.1 mmol/L) 4.6 Chloride (98 - 107 mmol/L) 101 Carbon Dioxide (22 - 30 mmol/L) 21 L Anion Gap (5 - 16) 23 H BUN (7 - 17 mg/dL) 38 H Creatinine (0.5 - 1.0 mg/dL) 7.0 *H Estimated GFR (>60 ml/min) 6 L BUN/Creatinine Ratio (7 - 25 %) 5.4 L Glucose (65 - 99 mg/dL) 184 H Calcium (8.4 - 10.2 mg/dL) 9.7 Total Bilirubin (0.2 - 1.3 mg/dL) 0.5 AST (14 - 36 U/L) 14 ALT (9 - 52 U/L) 22 Alkaline Phosphatase (<127 U/L) 90 Troponin I (< 0.11 ng/ml) 0.21 *H 0.11 *H Ali-X-Xxyqibhiubs Pept (<125 pg/mL) 76552 H Total Protein (6.3 - 8.2 g/dL) 8.8 H Albumin (3.5 - 5.0 g/dL) 5.1 H Globulin (1.9 - 4.2 gm/dL) 3.7 Albumin/Globulin Ratio (1.1 - 2.2 %) 1.4 TSH (0.270 - 4.200 uIU/mL) 0.776 Thyroxine (T4) (4.5 - 10.9 ug/dL) 8.4 Coagulation APTT (25 - 37 SEC) 62 H Hematology CBC w Diff NO MAN DIFF REQ WBC (4.8 - 10.8 /CUMM) 11.5 H RBC (4.20 - 5.40 /CUMM) 3.91 L Hgb (12.0 - 16.0 G/DL) 11.7 L Hct (37 - 47 %) 35.2 L MCV (81.0 - 99.0 FL) 90.2 MCH (27.0 - 31.0 PG) 29.9 RDW (11.5 - 14.5 %) 15.4 H Plt Count (130 - 400 /CUMM) 306 MPV (7.4 - 10.4 FL) 8.7 Gran % (42.2 - 75.2 %) 82.9 H Lymphocytes % (20.5 - 51.1 %) 8.3 L Monocytes % (1.7 - 9.3 %) 5.0 Eosinophils % (0 - 5 %) 3.6 Basophils % (0.0 - 2.0 %) 0.2 Absolute Granulocytes (1.4 - 6.5 /CUMM) 9.5 H Absolute Lymphocytes (1.2 - 3.4 /CUMM) 1.0 L Absolute Monocytes (0.10 - 0.60 /CUMM) 0.6 Absolute Eosinophils (0.0 - 0.7 /CUMM) 0.4 Absolute Basophils (0.0 - 0.2 /CUMM) 0 PUBS MCHC (33.0 - 37.0 G/DL) 33.1 Assessment/Plan Assessment/Recommendations Assessment: 1. Jaw pain. Cardiac evaluation underway. 2. End-stage renal disease. She is due for dialysis tomorrow. Her weight leaving dialysis yesterday, was 82.5 kg. This is 4.2 kg above her dry weight she does not appear to be that fluid overloaded. 3. Known coronary artery disease 4. Hypertension Recommendations: 1. We'll plan dialysis in the morning 2. Fluid restrict to 2 g sodium 2 g potassium diet 3. Would limit by mouth fluids less than 1000 mL per day
[2017-06-27] VITALS: BP 152/60
[2017-06-27 02:56] LABS: PTT 49 SEC (25-37)
[2017-06-27 06:57] LABS: ABSOLUTE BASOPHIL COUNT 0.1 /CUMM (0.0-0.2); ABSOLUTE EOSINOPHIL COUNT 0.5 /CUMM (0.0-0.7); ABSOLUTE GRANULOCYTE CT 7.4 /CUMM (1.4-6.5); ABSOLUTE LYMPH COUNT 1.5 /CUMM (1.2-3.4); ABSOLUTE MONOCYTE COUNT 0.9 /CUMM (0.10-0.60); BASOPHIL % 0.6 % (0.0-2.0); EOSINOPHIL % 4.9 % (0-5); GRANULOCYTE % 71.3 % (42.2-75.2); HEMATOCRIT 30.5 % (37-47); MEAN CORPUSCULAR HGB 29.7 PG (27.0-31.0); MEAN CORPUSCULAR HGB CONC 32.9 G/DL (33.0-37.0); MEAN CORPUSCULAR VOLUME 90.4 FL (81.0-99.0); MEAN PLATELET VOLUME 9.2 FL (7.4-10.4); PLATELET COUNT 297 /CUMM (130-400); RBC DISTRIBUTION WIDTH 15.3 % (11.5-14.5); RED BLOOD CELL CT 3.37 /CUMM (4.20-5.40); WHITE BLOOD CELL COUNT 10.3 /CUMM (4.8-10.8)
--- NOTE | 2017-06-27 07:40 | Cons- CRCU ---
General Information and HPI Allergies/Medications Allergies: Coded Allergies: NO KNOWN ALLERGIES (11/19/15) Home Med List: Aspirin (Aspirin*) 325 MG TABLET 325 MG PO DAILY HEART HEALTH Atorvastatin Calcium 40 MG TABLET 1 TAB PO QPM CHOLESTEROL (Reported) Bupropion HCl (Bupropion XL) 150 MG TAB.ER.24H 1 TAB PO QAM MENTAL HEALTH ( Reported) Clonidine 0.3 MG/24 HOUR PATCH.TDWK 1 PAT TOP QSUN HEART (Reported) Clopidogrel Bisulfate (Clopidogrel) 75 MG TABLET 1 TAB PO DAILY BLOOD THINNER (Reported) Diltiazem Cd (Diltiazem ER) 120 MG CAP.ER.DEG 120 MG PO DAILY high blood pressure Escitalopram Oxalate 20 MG TABLET 1 TAB PO DAILY MENTAL HEALTH (Reported) Gabapentin 100 MG CAPSULE 1 CAP PO TID NEUROPATHY (Reported) Hydralazine HCl 25 MG TABLET 4 TAB PO TID BP (Reported) Insulin Aspart, Recombinant (Novolog Flexpen) (Unknown Strength) INSULN.PEN ( Unknown Dose) SC SEE SLIDING SCALE DIABETES (Reported) Insulin Glargine,Hum.rec.anlog (Lantus Solostar) 100 UNIT/ML (3 ML) INSULN.PEN 30 UNIT SC BID DM (Reported) Insulin Glargine,Hum.rec.anlog (Lantus Solostar) (Unknown Strength) INSULN.PEN (Unknown Dose) SC BID DIABETES (Reported) Isosorbide Mononitrate (Isosorbide Mononitrate ER) 30 MG TAB.ER.24H 1 TAB PO DAILY HEART (Reported) Labetalol HCl 200 MG TABLET 2 TAB PO BID HEART (Reported) Linaclotide (Linzess) 145 MCG CAPSULE 1 CAP PO DAILY PRN CONSTIPATION ( Reported) Lisinopril (Prinivil) 20 MG TABLET 1 TAB PO BID HEART (Reported) Minoxidil 2.5 MG TABLET 2 TAB PO DAILY UNKNOWN (Reported) Pantoprazole Sodium (Protonix) 40 MG TABLET.DR 1 TAB PO DAILY ACID REFLUX ( Reported) Sevelamer Carbonate (Renvela) 800 MG TABLET 1 TAB PO TID KIDNEY (Reported) Sevelamer Carbonate (Renvela) 800 MG TABLET 1 TAB PO BID KIDNEY (Reported) Past History Travel History Traveled to [place] past 21 day No Medical History Blood Transfusion Hx: No Neurological: NONE EENT: NONE Cardiovascular: AFIB, CAD, hypertension, hyperlipidemia, myocardial infarction, NSTEMI, 10 CARDIAC STENTS Respiratory: NONE Gastrointestinal: constipation Hepatic: NONE Renal: CKD stage 5 DIALYSIS Musculoskeletal: NONE Psychiatric: depression Endocrine: diabetes, GERD thyroid nodule Blood Disorders: anemia Cancer(s): NONE 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 Home Who Do You Live With? significant other, child Services at Home: Patient previously had home health aide and nursing services but these services were recently discontinued Primary Language: Togolese Smoking Status: Never Smoked Functional Ability ADLs Independent: dressing, eating, toileting, bathing. Ambulation: independent ECHO Results (as available) Date of last Echo 01/04/16 EF% 60 Assessment/Plan Consult Acknowledgment - Thank you for your consult request.
[2017-06-27 08:00] VITALS: BP 120/62
--- NOTE | 2017-06-27 08:36 | PN- Resident CRCU ---
Subjective HPI/CRCU Issues: NSTEMI vs demand ischemia JESSICA on CKD 24 Hour Events: No complaints overnight. She denies CP, palpitations, SOB, abdominal pain, nausea or vomiting Objective Vital Signs & I&O Last 8 Hrs of Vitals and I&O: BP: 104-150/43-73 HR:93-98 I:128 O:0 Exam General Appearance: well developed/nourished, no apparent distress, alert, awake , comfortable Head: atraumatic, normal appearance Ears, Nose, Throat: normal pharynx, normal ENT inspection, hearing grossly normal Neck: normal inspection, supple, full range of motion Respiratory: normal breath sounds, chest non-tender, no respiratory distress Cardiovascular: regular rate/rhythm Gastrointestinal: normal bowel sounds, soft, non-tender, no organomegaly Extremities: normal inspection, R arm AVF Current Medications: Current Medications Sig/[place] Start time Last Medication Dose Route Stop Time Status Admin Acetaminophen 650 MG Q4P PRN 06/26 1145 AC PO Aspirin 325 MG DAILY 06/27 1000 DC PO Aspirin 325 MG DAILY 06/26 1430 AC 06/26 PO 1430 Atorvastatin Calcium 40 MG QPM 06/26 2200 AC 06/26 PO 2213 Bupropion HCl 150 MG QAM 06/27 1000 AC PO Clopidogrel Bisulfate 75 MG DAILY 06/27 1000 AC PO Diltiazem HCl 120 MG DAILY 06/26 1107 AC 06/26 PO 1428 Epoetin José 2,000 UNIT MoWeFr PRN 06/27 0700 AC IV Epoetin José 3,000 UNIT MoWeFr PRN 06/27 0700 AC IV Escitalopram Oxalate 20 MG DAILY 06/27 1000 AC PO Gabapentin 100 MG TID 06/26 1600 AC 06/26 PO 2213 Heparin Sodium 2,500 UNIT ONCE ONE 06/27 0400 DC 06/27 (Porcine) IV 06/27 0401 0400 Heparin Sodium 25,000 UNIT Q24H 06/26 0815 AC 06/26 (Porcine) IV 0837 Sodium Chloride 500 ML Hydralazine HCl 100 MG TID 06/26 1108 AC 06/26 PO 2214 Insulin Aspart 0 TIDAC 06/26 1700 DC SC 06/27 0000 Insulin Human Regular 0 Q6 06/27 0000 AC 06/27 SC 0634 Insulin Human Regular 0 Q6 06/26 1200 DC SC Labetalol HCl 400 MG BID 06/27 1000 AC PO Labetalol HCl 400 MG BID 06/26 2200 DC PO Lidocaine/Prilocaine 1 DEE MoWeFr 06/27 0800 AC TOP Lisinopril 20 MG BID 06/26 2200 CAN PO Lisinopril 20 MG BID 06/26 2200 AC 06/26 PO 2213 Metoprolol Tartrate 5 MG ONCE ONE 06/26 0930 DC 06/26 IV 06/26 0931 0931 Metoprolol Tartrate 0 .STK-MED ONE 06/26 0928 DC IV Metoprolol Tartrate 5 MG ONCE ONE 06/26 0900 DC 06/26 IV 06/26 0901 0903 Metoprolol Tartrate 0 .STK-MED ONE 06/26 0853 DC IV Minoxidil 5 MG DAILY 06/27 1000 AC PO Nitroglycerin 0.4 MG ONCE ONE 06/26 0900 DC 06/26 SL 06/26 0901 0903 Omeprazole 40 MG DAILY AC 06/27 0700 AC PO Paricalcitol 4 MCG MoWeFr PRN 06/27 0700 AC IV Sevelamer Carbonate 800 MG TIDAC 06/26 1200 AC 06/26 PO 1709 Sodium Chloride 1,000 ML .Q20H 06/26 1130 DC 06/26 IV 06/27 0627 1257 Impression/Plan Impression/Problem List Impression: 50-year old woman with pmh significant for coronary artery disease, status post multiple angioplasties with multiple stent placements total of 11 (recently had 3 stents placed in December 2016), hypertension, IDDM, ESRD on HD ([facility]), here for evaluation of bilateral jaw pain. Problem list: NSTEMI vs demand ischemia JESSICA on CKD Anion gap metabolic acidosis History of ESRD on dialysis History of HTN History of IDDM Plan: * Patient is scheduled to have a cardiac cath today at 4:[address] Mccormack * Continue HD for ESRD, Cr 7.0>>7.5 * Continue Heparin, ASA, Plavix, Labatelol * Serial TROP/ECG .91>>1.16 * Keep NPO * Accuchecks and Novolog SS Code: Full Problem List: 1. ESRD (end stage renal disease) 2. NSTEMI (non-ST elevated myocardial infarction) Pain Ratin Tomorrow's Labs & Rationales: NA Plan DVT/Prophylaxis: pharmacological
--- NOTE | 2017-06-27 08:46 | Discharge Summary ---
See Addendum Visit Information Visit Dates Admission Date: 06/26/17 Discharge Date: 06/27/2017 Hospital Course Course Attending Physician: Ksenia ORTEGA PHD,Luis Daniel Bond Primary Care Physician: Violetta Reddy APRN [facility] Course: 50-year old woman with past medical history significant for coronary artery disease, NSTEMI, status post multiple angioplasties and multiple stent placements total of 11 (recently had 3 stents placed in December 2016), hypertension , IDDM, diabetic gastroparesis, ESRD on HD (MWF), anemia,thyroid nodule, depression, admitted to [facility] on 06/26/14 for evaluation of bilateral jaw pain which started around 2 AM on day of admission associated with some discomfort in her chest. Symptoms resolved after administration of nitroglycerin given to her in ED helped. Vitals on admission MAXIMUM TEMPERATURE 97.0, heart rate 106, respiratory rate 18, blood pressure 191/90, lab significant for WBC 11.5 hemoglobin 11.7, hematocrit 35.2, platelet 306, sodium 145, potassium 4.6, chloride 101, BUN 38, creatinine 7.0, glucose 184, troponin 0.11, anion gap 23, proBNP 18, 900 EKG: normal sinus rhythm left ventricle hypertrophy, prolonged QTC at 505, prominent ST elevation in leads V1 and V2 and more prominent ST depressions in the lateral leads. ED course: Started on IV heparin, given loading dose of Plavix and nitroglycerin. Ms Thapa was admitted to the ICU and the following issues were addressed: Unstable angina versus NSTEMI Troponins trended up to 1.16, with EKGs showing same changes as on admission. She was continued on high-dose aspirin, Plavix, atorvastatin, labetalol. Nitro sublingual nitroglycerin for chest pain. During her hospitalization she continue to have symptoms of jaw pain intermittently. Her last echo done 01/04/2016 showed normal EF of 60% with impaired LV relaxation, severe left ventricular hypertrophy mild left atrial enlargement and trace tricuspid regurgitation. Decision was made to transfer her for cardiac catheterization. Hypertension She was continue on her home doses of labetalol, hydralazine and lisinopril JESSICA on CKD/ End-stage renal disease(on dialysis) She has been on dialysis since November 2015. Dialyzed 3 times a week at [facility]. Her estimated dry weight is listed as 78 kg. Recieved dialysis on . Her next dialysis is due 06/29/17. History of insulin-dependent diabetes Kept on nothing by mouth insulin sliding scale. History of depression Continued home dose of Lexapro and Buproprion DVT prophylaxis: IV heparin Diet: Diabetic diet with 2 g sodium 2 g potassium and 1L fluid restriction. Patient is full code Complications: none Allergies: Coded Allergies: NO KNOWN ALLERGIES (11/19/15) Significant Procedures: SERVICE DATE: 06/26/17 EXAM TYPE: RAD - XRY-PORTABLE CHEST XRAY FINDINGS: Evaluation is limited because of patient body habitus. The lungs are well expanded and clear. Accounting for portable technique, the heart and mediastinal structures are unremarkable. IMPRESSION: Limited evaluation. No abnormality demonstrated. Disposition Summary Disposition Principal Diagnosis: ACS Additional Diagnosis: CAD ESRD on dialysis DMT2 HTN HLD Discharge Disposition: other general hospital Discharge Instructions General Discharge Information Code Status: Full Code Patient's Diet: Diabetic diet with 2 g sodium 2 g potassium diet Limit by mouth fluids less than 1000 mL per day Patient's Activity: As tolerated Follow-Up Instructions/Appts: follow up with PCP upon discharge follow up with Mail Handler upon discharge follow up with Medications at Discharge Discharge Medications: Continue taking these medications: Labetalol HCl (Labetalol HCl) 200 MG TABLET 2 Tablet ORAL TWICE DAILY Hydralazine HCl (Hydralazine HCl) 25 MG TABLET 4 Tablet ORAL THREE TIMES DAILY Clopidogrel Bisulfate (Clopidogrel) 75 MG TABLET 1 Tablet ORAL DAILY Comments: Last Taken: 06/27/17 Time: 12:30 PM Lisinopril (Prinivil) 20 MG TABLET 1 Tablet ORAL TWICE DAILY Gabapentin (Gabapentin) 100 MG CAPSULE 1 Capsule ORAL THREE TIMES DAILY Comments: Last Taken: 06/27/17 Time: 12:30 PM Clonidine (Clonidine) 0.3 MG/24 HOUR PATCH.TDWK 1 Patch On the skin EVERY TUESDAY Comments: DID NOT RECEIVE IN HOSPITAL Pantoprazole Sodium (Protonix) 40 MG TABLET.DR 1 Tablet ORAL DAILY Linaclotide (Linzess) 145 MCG CAPSULE 1 Capsule ORAL DAILY as needed for CONSTIPATION Comments: DID NOT RECEIVE IN HOSPITAL Insulin Aspart, Recombinant (Novolog Flexpen) (Unknown Strength) INSULN.PEN Unknown Dose Inject into fatty tissue SEE SLIDING SCALE Comments: DID NOT RECEIVE TODAY Aspirin (Aspirin*) 325 MG TABLET 325 Milligram ORAL DAILY Days = 30 Comments: Last Taken: 06/27/17 Time: 12:30 PM Diltiazem Cd (Diltiazem ER) 120 MG CAP.ER.DEG 120 Milligram ORAL DAILY Days = 30 Comments: Last Taken: 06/27/17 Time: 12:30 PM Atorvastatin Calcium (Atorvastatin Calcium) 40 MG TABLET 1 Tablet ORAL Every night Qty = 90 Comments: Last Taken: 06/26/17 Time: 5:00 PM Isosorbide Mononitrate (Isosorbide Mononitrate ER) 30 MG TAB.ER.24H 1 Tablet ORAL DAILY Comments: DID NOT RECEIVE IN HOSPITAL Bupropion HCl (Bupropion XL) 150 MG TAB.ER.24H 1 Tablet ORAL Every Morning Qty = 30 Comments: Last Taken: 06/27/17 Time: 12:30 PM Escitalopram Oxalate (Escitalopram Oxalate) 20 MG TABLET 1 Tablet ORAL DAILY Comments: Last Taken: 06/27/17 Time: 12:30 PM Sevelamer Carbonate (Renvela) 800 MG TABLET 1 Tablet ORAL THREE TIMES DAILY Qty = 150 Comments: Last Taken: 06/26/17 Time: 5:00 PM Sevelamer Carbonate (Renvela) 800 MG TABLET 1 Tablet ORAL TWICE DAILY Comments: SNACKS Minoxidil (Minoxidil) 2.5 MG TABLET 2 Tablet ORAL DAILY Qty = 30 Comments: Last Taken: 06/27/17 Time: 12:30 PM Insulin Glargine,Hum.rec.anlog (Lantus Solostar) 100 UNIT/ML (3 ML) INSULN.PEN 30 Unit Inject into fatty tissue TWICE DAILY Comments: DID NOT RECEIVE IN HOSPITAL Start taking the following new medications: Heparin (Heparin-1/2NS 25,000 Units/500) 25,000 UNIT/500 ML (50 UNIT/ML) IV.SOLN 25,000 Units INTRAVEN DAILY Qty = 3 No Refills Comments: INFUSING @ 14UNITS/KG/HR Copies To: Violetta Reddy APRN
--- NOTE | 2017-06-27 09:16 | PN- Nephrology ---
Assessment/Plan Assessment: 1. Jaw pain. Patient is going for cardiac catheter afternoon 2. End-stage renal disease seen with hemodialysis in aggressive stop she is tolerating it well. She is only 2 kg above her EDW today. 3. Diabetes mellitus 4. Coronary artery disease see #1 5. Anemia 6. Hypertension Suggestion: 1. Continue with hemodialysis. 2.We will plan 2.5 L off and see if she tolerates this 3. Await cardiac cath results. 4. Next hemodialysis will be on Tuesday Subjective Subjective: Patient seen with hemodialysis in progress. She feels fairly well. No further jaw pain. Objective Vital Signs and I&Os Vital Signs Date Time Temp Pulse Resp B/P B/P Pulse O2 O2 Flow FiO2 Mean Ox Delivery Rate 06/27 0800 97.8 86 18 120/62 98 Room Air 06/27 0800 98 Room Air 06/27 0400 97 Room Air 06/27 0000 97.8 92 18 152/60 97 Room Air 06/27 0000 97 Room Air 06/26 2214 95 135/61 06/26 2213 98 135/61 06/26 2000 99 Room Air 06/26 1632 93 152/86 06/26 1600 100 Nasal 2.0L Cannula 06/26 1600 98.0 91 20 152/88 100 Nasal 2.0L Cannula Intake & Output 06/27 1600 06/27 0400 06/26 1600 06/26 0400 06/25 1600 06/25 0400 Intake Total 128 631 190 Output Total Balance 128 631 190 Intake, IV 128 151 190 Intake, Oral 480 0 Patient 181 lb Weight Weight Bed scale Measurement Method Physical Exam: General Appearance: well developed/nourished, no apparent distress, alert, awake , comfortable Head: atraumatic, normal appearance Eyes: Bilateral: PERRL, EOMI, pale conjunctivae. Neck: normal inspection, supple, full range of motion, trachea mid line, no midline tenderness Respiratory: chest non-tender, no respiratory distress, quiet respiration Cardiovascular: regular rate/rhythm, no rubs/murmurs Extremities: normal inspection Neurologic/Psych: no motor/sensory deficits, awake, alert, oriented x 3 Cranial Nerves: normal hearing, normal speech, PERRL Lymphatic: adenopathy, no anterior cervical dinah Current Medications: Current Medications Sig/[place] Start time Last Medication Dose Route Stop Time Status Admin Acetaminophen 650 MG Q4P PRN 06/26 1145 AC PO Aspirin 325 MG DAILY 06/27 1000 DC PO Aspirin 325 MG DAILY 06/26 1430 AC 06/26 PO 1430 Atorvastatin Calcium 40 MG QPM 06/26 2200 AC 06/26 PO 2213 Bupropion HCl 150 MG QAM 06/27 1000 AC PO Clopidogrel Bisulfate 75 MG DAILY 06/27 1000 AC PO Diltiazem HCl 120 MG DAILY 06/26 1107 AC 06/26 PO 1428 Epoetin José 2,000 UNIT MoWeFr PRN 06/27 0700 AC IV Epoetin José 3,000 UNIT MoWeFr PRN 06/27 0700 AC IV Escitalopram Oxalate 20 MG DAILY 06/27 1000 AC PO Gabapentin 100 MG TID 06/26 1600 AC 06/26 PO 2213 Heparin Sodium 2,500 UNIT ONCE ONE 06/27 0400 DC 06/27 (Porcine) IV 06/27 0401 0400 Heparin Sodium 25,000 UNIT Q24H 06/26 0815 AC 06/26 (Porcine) IV 0837 Sodium Chloride 500 ML Hydralazine HCl 100 MG TID 06/26 1108 AC 06/26 PO 2214 Insulin Aspart 0 TIDAC 06/26 1700 DC SC 06/27 0000 Insulin Human Regular 0 Q6 06/27 0000 AC 06/27 SC 0634 Insulin Human Regular 0 Q6 06/26 1200 DC SC Labetalol HCl 400 MG BID 06/27 1000 AC PO Labetalol HCl 400 MG BID 06/26 2200 DC PO Lidocaine/Prilocaine 1 DEE MoWeFr 06/27 0800 AC TOP Lisinopril 20 MG BID 06/26 2200 CAN PO Lisinopril 20 MG BID 06/26 2200 AC 06/26 PO 2213 Metoprolol Tartrate 5 MG ONCE ONE 06/26 0930 DC 06/26 IV 06/26 0931 0931 Metoprolol Tartrate 0 .STK-MED ONE 06/26 0928 DC IV Minoxidil 5 MG DAILY 06/27 1000 AC PO Omeprazole 40 MG DAILY AC 06/27 0700 AC PO Paricalcitol 4 MCG MoWeFr PRN 06/27 0700 AC IV Sevelamer Carbonate 800 MG TIDAC 06/26 1200 AC 06/26 PO 1709 Sodium Chloride 1,000 ML .Q20H 06/26 1130 DC 06/26 IV 06/27 0627 1257 Results Pertinent Lab Results: Laboratory Tests 06/27 06/27 06/27 0626 0600 0600 Chemistry Sodium (137 - 145 mmol/L) 142 Potassium (3.5 - 5.1 mmol/L) 5.0 Chloride (98 - 107 mmol/L) 103 Carbon Dioxide (22 - 30 mmol/L) 21 L Anion Gap (5 - 16) 19 H BUN (7 - 17 mg/dL) 51 H Creatinine (0.5 - 1.0 mg/dL) 7.5 *H Estimated GFR (>60 ml/min) 6 L Glucose (65 - 99 mg/dL) 154 H Calcium (8.4 - 10.2 mg/dL) 8.6 Phosphorus (2.5 - 4.5 mg/dL) 6.2 H Magnesium (1.6 - 2.3 mg/dL) 1.6 Total Bilirubin (0.2 - 1.3 mg/dL) 0.2 AST (14 - 36 U/L) 15 ALT (9 - 52 U/L) 29 Troponin I (< 0.11 ng/ml) Cancelled 0.91 *H Albumin (3.5 - 5.0 g/dL) 3.8 Triglycerides (<150 mg/dL) 147 Cholesterol (<200 MG/DL) 154 LDL Cholesterol, Calc (65 - 129 mg/dL) 82 HDL Cholesterol (40 - 60 mg/dL) 43 Cholesterol/HDL Ratio (0.00 - 4.23 %) 4 Hematology CBC w Diff NO MAN DIFF REQ WBC (4.8 - 10.8 /CUMM) 10.3 RBC (4.20 - 5.40 /CUMM) 3.37 L Hgb (12.0 - 16.0 G/DL) 10.0 L Hct (37 - 47 %) 30.5 L MCV (81.0 - 99.0 FL) 90.4 MCH (27.0 - 31.0 PG) 29.7 RDW (11.5 - 14.5 %) 15.3 H Plt Count (130 - 400 /CUMM) 297 MPV (7.4 - 10.4 FL) 9.2 Gran % (42.2 - 75.2 %) 71.3 Lymphocytes % (20.5 - 51.1 %) 14.6 L Monocytes % (1.7 - 9.3 %) 8.6 Eosinophils % (0 - 5 %) 4.9 Basophils % (0.0 - 2.0 %) 0.6 Absolute Granulocytes (1.4 - 6.5 /CUMM) 7.4 H Absolute Lymphocytes (1.2 - 3.4 /CUMM) 1.5 Absolute Monocytes (0.10 - 0.60 /CUMM) 0.9 H Absolute Eosinophils (0.0 - 0.7 /CUMM) 0.5 Absolute Basophils (0.0 - 0.2 /CUMM) 0.1 PUBS MCHC (33.0 - 37.0 G/DL) 32.9 L Serology Hep Bs Antigen Cancelled Hep Bs Antibody Cancelled 06/27 06/27 06/27 06/26 06/26 0500 0230 0020 1800 1430 Chemistry Troponin I (< 0.11 ng/ml) 0.86 *H 0.58 *H Triglycerides Cancelled Cholesterol Cancelled LDL Cholesterol, Calc Cancelled HDL Cholesterol Cancelled Cholesterol/HDL Ratio Cancelled Coagulation APTT (25 - 37 SEC) 49 H 62 H Serology Hep Bs Antigen (NONREACTIVE) Pending Hep Bs Antibody (NONREACTIVE) Pending 06/26 06/26 1135 0750 Chemistry Sodium (137 - 145 mmol/L) 145 Potassium (3.5 - 5.1 mmol/L) 4.6 Chloride (98 - 107 mmol/L) 101 Carbon Dioxide (22 - 30 mmol/L) 21 L Anion Gap (5 - 16) 23 H BUN (7 - 17 mg/dL) 38 H Creatinine (0.5 - 1.0 mg/dL) 7.0 *H Estimated GFR (>60 ml/min) 6 L BUN/Creatinine Ratio (7 - 25 %) 5.4 L Glucose (65 - 99 mg/dL) 184 H Calcium (8.4 - 10.2 mg/dL) 9.7 Total Bilirubin (0.2 - 1.3 mg/dL) 0.5 AST (14 - 36 U/L) 14 ALT (9 - 52 U/L) 22 Alkaline Phosphatase (<127 U/L) 90 Troponin I (< 0.11 ng/ml) 0.21 *H 0.11 *H Oor-H-Dynjsphgljy Pept (<125 pg/mL) 18962 H Total Protein (6.3 - 8.2 g/dL) 8.8 H Albumin (3.5 - 5.0 g/dL) 5.1 H Globulin (1.9 - 4.2 gm/dL) 3.7 Albumin/Globulin Ratio (1.1 - 2.2 %) 1.4 TSH (0.270 - 4.200 uIU/mL) 0.776 Thyroxine (T4) (4.5 - 10.9 ug/dL) 8.4 Hematology CBC w Diff NO MAN DIFF REQ WBC (4.8 - 10.8 /CUMM) 11.5 H RBC (4.20 - 5.40 /CUMM) 3.91 L Hgb (12.0 - 16.0 G/DL) 11.7 L Hct (37 - 47 %) 35.2 L MCV (81.0 - 99.0 FL) 90.2 MCH (27.0 - 31.0 PG) 29.9 RDW (11.5 - 14.5 %) 15.4 H Plt Count (130 - 400 /CUMM) 306 MPV (7.4 - 10.4 FL) 8.7 Gran % (42.2 - 75.2 %) 82.9 H Lymphocytes % (20.5 - 51.1 %) 8.3 L Monocytes % (1.7 - 9.3 %) 5.0 Eosinophils % (0 - 5 %) 3.6 Basophils % (0.0 - 2.0 %) 0.2 Absolute Granulocytes (1.4 - 6.5 /CUMM) 9.5 H Absolute Lymphocytes (1.2 - 3.4 /CUMM) 1.0 L Absolute Monocytes (0.10 - 0.60 /CUMM) 0.6 Absolute Eosinophils (0.0 - 0.7 /CUMM) 0.4 Absolute Basophils (0.0 - 0.2 /CUMM) 0 PUBS MCHC (33.0 - 37.0 G/DL) 33.1
--- NOTE | 2017-06-27 10:03 | Patient Discharge Instructions ---
Discharge Instructions General Discharge Information You were seen/treated for: Acute coronary syndrome You had these procedures: Dialysis Special Instructions: Your will be transferred to another hospital for cardiac cathterization please follow up with your PCP, liquor tester and dumbwaiter operator upon discharge Diet Recommended Diet: Diabetic, Renal Dialysis Limit DAILY fluid amt to mls: 1000 Acute Coronary Syndrome Inclusion Criteria At DC or during hospital stay patient has or had the following: ACS DIAGNOSIS Yes Discharge Core Measures Meds if any: Prescribed or Continued at Discharge VERONICA/ARB if EF <40% Yes Aspirin Yes Beta-Torres Yes Statin No Meds if any: NOT Prescribed or Continued at Discharge Congestive Heart Failure Inclusion Criteria At DC or during hospital stay patient has or had the following: CHF DIAGNOSIS No Discharge Core Measures Meds if any: Prescribed or Continued at Discharge Meds if any: NOT Prescribed or Continued at Discharge Cerebrovascular accident Inclusion Criteria At DC or during hospital stay patient has or had the following: CVA/TIA Diagnosis No Discharge Core Measures Meds if any: Prescribed or Continued at Discharge Meds if any: NOT Prescribed or Continued at Discharge Venous thromboembolism Inclusion Criteria VTE Diagnosis No VTE Type NONE VTE Confirmed by (Test) NONE Discharge Core Measures - Per Current guidelines, there needs to be overlap - treatment for the first 5 days of Warfarin therapy. - If discharged on Warfarin prior to 5 days of - overlap therapy, the patient will need to be - assessed for post discharge needs including - *Post discharge parental anticoagulation - *Warfarin and/or parental anticoagulation education - *Follow up date to check INR post discharge Meds if any: Prescribed or Continued at Discharge Note: Overlap Therapy is Warfarin and Anticoagulant Meds if any: NOT Prescribed or Continued at Discharge
[2017-06-27] MEDS ORDERED: HEPARIN-1/25000 UNI1 IV (10:08)
[2017-06-27 11:12] LABS: PTT 70 SEC (25-37)
[2017-06-27 16:00] VITALS: BP 132/60
--- NOTE | 2017-06-27 20:59 | PN- Cardiology ---
Subjective Subjective: * No chest discomfort. * no arrhythmias * increasing but mildly elevated cardiac enzymes * Doing well post dialysis Objective Vital Signs and I&Os Vital Signs Date Time Temp Pulse Resp B/P B/P Pulse O2 O2 Flow FiO2 Mean Ox Delivery Rate 06/27 1600 98 Room Air 06/27 1600 98.0 88 20 132/60 98 Room Air 06/27 1545 88 160/92 06/27 1200 98 Room Air 06/27 0800 97.8 86 18 120/62 98 Room Air 06/27 0800 98 Room Air 06/27 0400 97 Room Air 06/27 0000 97.8 92 18 152/60 97 Room Air 06/27 0000 97 Room Air 06/26 2214 95 135/61 06/26 2213 98 135/61 Intake & Output 06/27 1600 06/27 0800 06/27 0000 06/26 1600 06/26 0800 06/26 0000 Intake Total 210 128 631 190 0 Output Total 2500 Balance -2290 128 631 190 0 Intake, IV 180 128 151 190 Intake, Oral 30 480 0 Output, 2500 Dialysate Patient 179 lb 181 lb 180 lb Weight Weight Bed scale Reported by Patient Measurement Method Physical Exam: General: WD/WN female in NAD; alert and oriented x 3 Neck: no jvd Heart: RRR w/o murmur Lungs: clear bilaterally Extremities: no edema Assessment/Plan Assessment/Plan * This patient was admitted for chest pain and severe hypertension. She is pain free with contol of her BP but likely had subendocardial ischemia related to severe hypertension causing an MT. The patient also had decreased clearance of troponin due to renal failure but she is status post dialysis today. * Continue aspirin, Plavix and IV heparin. No change in other medications. * Follow cardiac enzymes until peak. Keep NPO x meds after midnight. Continue telemetry? Yes
[2017-06-27 23:06] LABS: PTT 51 SEC (25-37)
[2017-06-28] VITALS: BP 110/60
--- NOTE | 2017-06-28 07:45 | ECHOCARDIOGRAM REPORT ---
THOMAS BARRIOS Age: 51 : 1965 Gender: F Exam Date: 06/27/2017 15:41 Exam Location: [facility] Ht (in): 66 Wt (lb): 180 BSA: 1.97 BP: 152 / 60 Ordering Physician: Milton Wei MD Referring Physician: Luis Daniel Mccormack MD, PhD Technologist: Lexii Collier [facility] [email or web address]] Room Number: 101 Indications: CHEST PAIN Rhythm: Sinus Technical Quality: good FINDINGS Left Ventricle Normal left ventricular size with moderate left ventricular hypertrophy. Normal systolic function with no obvious regional wall motion abnormalities. Normal left ventricular diastolic filling pattern for age. The ejection fraction is visually estimated at 70%. Right Ventricle The right ventricle is normal in size and function. Right Atrium The right atrium is normal in size. Left Atrium The left atrium is mildly enlarged. The interatrial septum is intact. Mitral Valve The mitral valve is normal in structure and function. There is mild mitral regurgitation. Aortic Valve Mildly thickened aortic valve without significant sclerosis or stenosis. There is no aortic regurgitation. Tricuspid Valve The tricuspid valve is normal in structure and function. There is mild tricuspid regurgitation. Pulmonary artery systolic pressure is mildly elevated to 37mmHg. Pulmonic Valve Structurally normal pulmonic valve. There is no pulmonic regurgitation. Pericardium Normal pericardium without effusion. No pleural effusion. Great Vessels Normal aortic root dimension. The aortic arch and great vessels are well seen and are normal. CONCLUSIONS 1. Normal EF of 79%. 2. Moderate left ventricular hypertrophy. 3. Mild left atrial enlargement. 4. Mild mitral regurgitation. 5. Mild tricuspid regurgitation. 6. Mild pulmonary hypertension. Luis Daniel Mccormack M.D. (Electronically Signed) Final Date: 28 June 2017 07:44 MEASUREMENTS (Male / Female) Normal Values 2D ECHO LV Diastolic Diameter PLAX 4.4 cm 4.2 - 5.9 / 3.9 - 5.3 cm LV Systolic Diameter PLAX 2.9 cm 2.1 - 4.0 cm LV Fractional Shortening PLAX 34.1 % 25 - 46 % LV Ejection Fraction 2D Teich 63.3 % IVS Diastolic Thickness 1.8 cm LVPW Diastolic Thickness 1.6 cm LV Relative Wall Thickness 0.8 RV Internal Dim ED PLAX 2.8 cm 1.9 - 3.8 cm LVOT Diameter 1.8 cm Aortic Root Diameter 2.6 cm LA Systolic Diameter LX 4.4 cm 3.0 - 4.0 / 2.7 - 3.8 cm LA Volume 34.0 cm 18 - 58 / 22 - 52 cm Ascending Aorta Diameter 2.8 cm DOPPLER AV Peak Velocity 166.0 cm/s AV Peak Gradient 11.0 mmHg AV Mean Velocity 118.0 cm/s AV Mean Gradient 6.0 mmHg AV Velocity Time Integral 33.6 cm LVOT Peak Velocity 120.0 cm/s LVOT Peak Gradient 5.8 mmHg LVOT Mean Velocity 87.6 cm/s LVOT Mean Gradient 3.0 mmHg LVOT Velocity Time Integral 26.0 cm LVOT Stroke Volume 66.2 cm AV Area Cont Eq vti 2.0 cm AV Area Cont Eq pk 1.8 cm MV Peak Velocity 148.0 cm/s MV Peak Gradient 8.8 mmHg MV Mean Velocity 94.2 cm/s MV Mean Gradient 4.0 mmHg Mitral E Point Velocity 110.0 cm/s Mitral A Point Velocity 107.0 cm/s Mitral E to A Ratio 1.0 MV PHT Velocity 153.0 cm/s MV Deceleration [place] 1220.0 cm/s MV Pressure Half Time 37.6 ms MV Area PHT 5.8 cm MV Deceleration Time 230.0 ms TR Peak Velocity 284.0 cm/s TR Peak Gradient 32.3 mmHg Right Atrial Pressure 5.0 mmHg Pulmonary Artery Systolic Pressu 37.3 mmHg Right Ventricular Systolic Press 37.3 mmHg PV Peak Velocity 55.0 cm/s PV Peak Gradient 1.2 mmHg PV Mean Velocity 78.8 cm/s PV Mean Gradient 3.0 mmHg PV Velocity Time Integral 23.3 cm LV E' Lateral Velocity 8.3 cm/s Mitral E to LV E' Lateral Ratio 13.3 LV E' Septal Velocity 5.9 cm/s Mitral E to LV E' Septal Ratio 18.8
[2017-06-28 07:55] LABS: ABSOLUTE BASOPHIL COUNT 0.2 /CUMM (0.0-0.2); ABSOLUTE EOSINOPHIL COUNT 0.5 /CUMM (0.0-0.7); ABSOLUTE GRANULOCYTE CT 6.9 /CUMM (1.4-6.5); ABSOLUTE LYMPH COUNT 2.1 /CUMM (1.2-3.4); ABSOLUTE MONOCYTE COUNT 1.1 /CUMM (0.10-0.60); BASOPHIL % 1.6 % (0.0-2.0); EOSINOPHIL % 4.5 % (0-5); GRANULOCYTE % 63.8 % (42.2-75.2); HEMATOCRIT 28.6 % (37-47); MEAN CORPUSCULAR HGB 30.4 PG (27.0-31.0); MEAN CORPUSCULAR HGB CONC 33.7 G/DL (33.0-37.0); MEAN CORPUSCULAR VOLUME 90.2 FL (81.0-99.0); MEAN PLATELET VOLUME 9.4 FL (7.4-10.4); PLATELET COUNT 304 /CUMM (130-400); RBC DISTRIBUTION WIDTH 15.1 % (11.5-14.5); RED BLOOD CELL CT 3.18 /CUMM (4.20-5.40); WHITE BLOOD CELL COUNT 10.8 /CUMM (4.8-10.8)
[2017-06-28 07:58] LABS: PTT 80 SEC (25-37)
--- NOTE | 2017-06-28 08:22 | PN- Resident CRCU ---
Subjective HPI/CRCU Issues: Type II GA JESSICA on CKD 24 Hour Events: Slept comfortably, no overnight events. Offers no complaints. Objective Vital Signs & I&O Last 8 Hrs of Vitals and I&O: Intake & Output 06/28 1600 Intake Total Output Total Balance Patient 179 lb Weight Weight Bed scale Measurement Method Exam General Appearance: well developed/nourished, no apparent distress, alert, awake , comfortable Head: atraumatic, normal appearance Respiratory: normal breath sounds, chest non-tender, no respiratory distress Cardiovascular: regular rate/rhythm Gastrointestinal: normal bowel sounds, soft, non-tender Extremities: no edema, R arm AVF Current Medications: Current Medications Sig/[place] Start time Last Medication Dose Route Stop Time Status Admin Acetaminophen 650 MG Q4P PRN 06/26 1145 AC PO Aspirin 325 MG DAILY 06/26 1430 AC 06/27 PO 1243 Atorvastatin Calcium 40 MG QPM 06/26 2200 AC 06/27 PO 2129 Bupropion HCl 150 MG QAM 06/27 1000 AC 06/27 PO 1244 Clopidogrel Bisulfate 75 MG DAILY 06/27 1000 AC 06/27 PO 1243 Diltiazem HCl 120 MG DAILY 06/26 1107 AC 06/27 PO 1244 Epoetin José 2,000 UNIT MoWeFr PRN 06/27 0700 AC IV Epoetin José 3,000 UNIT MoWeFr PRN 06/27 0700 AC IV Escitalopram Oxalate 20 MG DAILY 06/27 1000 AC 06/27 PO 1243 Gabapentin 100 MG TID 06/26 1600 AC 06/27 PO 2129 Heparin Sodium 25,000 UNIT Q24H 06/26 0815 AC 06/28 (Porcine) IV 0752 Sodium Chloride 500 ML Hydralazine HCl 100 MG TID 06/26 1108 AC 06/27 PO 2129 Insulin Aspart 0 TIDAC 06/27 1700 AC SC Insulin Human Regular 0 Q6 06/27 0000 DC 06/27 SC 0634 Labetalol HCl 400 MG BID 06/27 1000 AC 06/27 PO 2130 Lidocaine/Prilocaine 1 DEE MoWeFr 06/27 0800 AC 06/27 TOP 0800 Lisinopril 20 MG BID 06/26 2200 AC 06/27 PO 2130 Minoxidil 5 MG DAILY 06/27 1000 AC 06/27 PO 1244 Omeprazole 40 MG DAILY AC 06/27 0700 AC 06/28 PO 0636 Paricalcitol 4 MCG MoWeFr PRN 06/27 0700 AC IV Sevelamer Carbonate 800 MG TIDAC 06/26 1200 AC 06/28 PO 0751 Impression/Plan Impression/Problem List Impression: 50-year old woman with pmh significant for coronary artery disease, status post multiple angioplasties with multiple stent placements total of 11 (recently had 3 stents placed in December 2016), hypertension, IDDM, ESRD on HD (MWF), here for evaluation of bilateral jaw pain. Problem list: Type II GA JESSICA on CKD Anion gap metabolic acidosis History of ESRD on dialysis History of HTN History of IDDM Plan: * Patient is scheduled to have a cardiac cath tomorrow with Dr Mccormack. * Her blood pressure has been running on the soft side today. Will hold her meds if needed. * HD tomorrow. * Continue IV Heparin, ASA, Plavix, * NPO after midnight for cardiac cath * Accuchecks and Novolog SS Code: Full Problem List: 1. ESRD (end stage renal disease) Pain Ratin Tomorrow's Labs & Rationales: CBC, ICU Bundle Plan DVT/Prophylaxis: pharmacological Code Status: Full Code
[2017-06-28 08:35] VITALS: BP 112/64
--- NOTE | 2017-06-28 10:28 | PN- Nephrology ---
Assessment/Plan Assessment: ACS - Troponin leak - chest pain free - s/p TTE without wall motion abnormalities. Pending LHC. HTN - Well controlled - even relatively hypotensive. Anemia - 2/2 ESRD - on Epogen - Hg just below goal (10-11) - cont to monitor - may need to adjust MARYANNE. MBD - Phos at goal. Suggestion: -Routine HD tomorrow (will plan for first shift; coordinating with schedule for [facility]) -Monitor BP - may need to de-escalate anti-hypertensive regimen -Cont MARYANNE -Cont Phos binder Please call [phone] with ?'s Subjective Subjective: Chest pain free Trop started to downtrend last night to 1.05 (peaked at 1.27) BP 100's-110's overnight Objective Vital Signs and I&Os Vital Signs Date Time Temp Pulse Resp B/P B/P Pulse O2 O2 Flow FiO2 Mean Ox Delivery Rate 06/28 0940 100 101/58 06/28 0940 94 101/58 06/28 0940 91 101/52 06/28 0835 98.2 91 26 112/64 98 Room Air 06/28 0400 95 Room Air 06/28 0000 96 Room Air Room Air 06/28 0000 98.0 88 18 110/60 96 Room Air 06/27 2130 103 151/66 06/27 2130 103 151/66 06/27 2129 103 151/66 06/27 1600 98 Room Air 06/27 1600 98.0 88 20 132/60 98 Room Air 06/27 1545 88 160/92 06/27 1200 98 Room Air Intake & Output 06/28 1600 06/28 0400 06/27 1600 06/27 0400 06/26 1600 06/26 0400 Intake Total 282 645 338 631 190 Output Total 1 2500 Balance 281 645 -2162 631 190 Intake, IV 182 165 308 151 190 Intake, Oral 100 480 30 480 0 Output, 2500 Dialysate Output, Urine 1 Patient 179 lb 179 lb 181 lb Weight Weight Bed scale Bed scale Measurement Method Physical Exam: Gen - NAD HEENT - supple CV - RRR, no m/r/g Chest - clear, no w/r/r Abd - soft, NTND Ext - trace edema Neuro - AOX3, grossly nonfocal Access - RUE AVF +bruit Current Medications: Current Medications Sig/[place] Start time Last Medication Dose Route Stop Time Status Admin Acetaminophen 650 MG Q4P PRN 06/26 1145 AC PO Aspirin 325 MG DAILY 06/26 1430 AC 06/28 PO 0940 Atorvastatin Calcium 40 MG QPM 06/26 2200 AC 06/27 PO 2129 Bupropion HCl 150 MG QAM 06/27 1000 AC 06/28 PO 0939 Clopidogrel Bisulfate 75 MG DAILY 06/27 1000 AC 06/28 PO 0940 Diltiazem HCl 120 MG DAILY 06/26 1107 AC 06/28 PO 0940 Epoetin José 2,000 UNIT MoWeFr PRN 06/27 0700 AC IV Epoetin José 3,000 UNIT MoWeFr PRN 06/27 0700 AC IV Escitalopram Oxalate 20 MG DAILY 06/27 1000 AC 06/28 PO 0940 Gabapentin 100 MG TID 06/26 1600 AC 06/28 PO 0940 Heparin Sodium 5,000 UNIT .STK-MED ONE 06/28 0100 DC (Porcine) IV 06/28 0101 Heparin Sodium 25,000 UNIT Q24H 06/26 0815 AC 06/28 (Porcine) IV 0752 Sodium Chloride 500 ML Hydralazine HCl 100 MG TID 06/26 1108 AC 06/28 PO 0940 Insulin Aspart 0 TIDAC 06/27 1700 AC SC Insulin Human Regular 0 Q6 06/27 0000 DC 06/27 SC 0634 Labetalol HCl 400 MG BID 06/27 1000 AC 06/28 PO 0940 Lidocaine/Prilocaine 1 DEE MoWeFr 06/27 0800 AC 06/27 TOP 0800 Lisinopril 20 MG BID 06/26 2200 AC 06/28 PO 0940 Magnesium Oxide 400 MG BID 06/28 1000 AC 06/28 PO 0940 Minoxidil 5 MG DAILY 06/27 1000 AC 06/28 PO 0940 Omeprazole 40 MG DAILY AC 06/27 0700 AC 06/28 PO 0636 Paricalcitol 4 MCG MoWeFr PRN 06/27 0700 AC IV Sevelamer Carbonate 800 MG TIDAC 06/26 1200 AC 06/28 PO 0751 Results Pertinent Lab Results: Laboratory Tests 06/28 06/27 06/27 0645 2300 2009 Chemistry Sodium (137 - 145 mmol/L) 140 Potassium (3.5 - 5.1 mmol/L) 5.3 H Chloride (98 - 107 mmol/L) 102 Carbon Dioxide (22 - 30 mmol/L) 24 Anion Gap (5 - 16) 14 BUN (7 - 17 mg/dL) 40 H Creatinine (0.5 - 1.0 mg/dL) 5.2 *H Estimated GFR (>60 ml/min) 9 L Glucose (65 - 99 mg/dL) 123 H Calcium (8.4 - 10.2 mg/dL) 8.7 Phosphorus (2.5 - 4.5 mg/dL) 4.7 H Magnesium (1.6 - 2.3 mg/dL) 1.6 Total Bilirubin (0.2 - 1.3 mg/dL) 0.3 AST (14 - 36 U/L) 17 ALT (9 - 52 U/L) 25 Troponin I (< 0.11 ng/ml) 1.05 *H Albumin (3.5 - 5.0 g/dL) 3.5 Coagulation APTT (25 - 37 SEC) 80 H 51 H Hematology CBC w Diff NO MAN DIFF REQ WBC (4.8 - 10.8 /CUMM) 10.8 RBC (4.20 - 5.40 /CUMM) 3.18 L Hgb (12.0 - 16.0 G/DL) 9.6 L Hct (37 - 47 %) 28.6 L MCV (81.0 - 99.0 FL) 90.2 MCH (27.0 - 31.0 PG) 30.4 RDW (11.5 - 14.5 %) 15.1 H Plt Count (130 - 400 /CUMM) 304 MPV (7.4 - 10.4 FL) 9.4 Gran % (42.2 - 75.2 %) 63.8 Lymphocytes % (20.5 - 51.1 %) 19.8 L Monocytes % (1.7 - 9.3 %) 10.3 H Eosinophils % (0 - 5 %) 4.5 Basophils % (0.0 - 2.0 %) 1.6 Absolute Granulocytes (1.4 - 6.5 /CUMM) 6.9 H Absolute Lymphocytes (1.2 - 3.4 /CUMM) 2.1 Absolute Monocytes (0.10 - 0.60 /CUMM) 1.1 H Absolute Eosinophils (0.0 - 0.7 /CUMM) 0.5 Absolute Basophils (0.0 - 0.2 /CUMM) 0.2 PUBS MCHC (33.0 - 37.0 G/DL) 33.7 06/27 06/27 06/27 06/27 06/27 1630 1055 0945 0626 0600 Chemistry Troponin I (< 0.11 ng/ml) 1.27 *H 1.16 *H Cancelled Coagulation APTT (25 - 37 SEC) 70 H Serology Hep Bs Antigen Cancelled Hep Bs Antibody Cancelled 06/27 06/27 06/27 0600 0500 0230 Chemistry Sodium (137 - 145 mmol/L) 142 Potassium (3.5 - 5.1 mmol/L) 5.0 Chloride (98 - 107 mmol/L) 103 Carbon Dioxide (22 - 30 mmol/L) 21 L Anion Gap (5 - 16) 19 H BUN (7 - 17 mg/dL) 51 H Creatinine (0.5 - 1.0 mg/dL) 7.5 *H Estimated GFR (>60 ml/min) 6 L Glucose (65 - 99 mg/dL) 154 H Calcium (8.4 - 10.2 mg/dL) 8.6 Phosphorus (2.5 - 4.5 mg/dL) 6.2 H Magnesium (1.6 - 2.3 mg/dL) 1.6 Total Bilirubin (0.2 - 1.3 mg/dL) 0.2 AST (14 - 36 U/L) 15 ALT (9 - 52 U/L) 29 Troponin I (< 0.11 ng/ml) 0.91 *H Albumin (3.5 - 5.0 g/dL) 3.8 Triglycerides (<150 mg/dL) 147 Cancelled Cholesterol (<200 MG/DL) 154 Cancelled LDL Cholesterol, Calc (65 - 129 mg/dL) 82 Cancelled HDL Cholesterol (40 - 60 mg/dL) 43 Cancelled Cholesterol/HDL Ratio (0.00 - 4.23 %) 4 Cancelled Coagulation APTT (25 - 37 SEC) 49 H Hematology CBC w Diff NO MAN DIFF REQ WBC (4.8 - 10.8 /CUMM) 10.3 RBC (4.20 - 5.40 /CUMM) 3.37 L Hgb (12.0 - 16.0 G/DL) 10.0 L Hct (37 - 47 %) 30.5 L MCV (81.0 - 99.0 FL) 90.4 MCH (27.0 - 31.0 PG) 29.7 RDW (11.5 - 14.5 %) 15.3 H Plt Count (130 - 400 /CUMM) 297 MPV (7.4 - 10.4 FL) 9.2 Gran % (42.2 - 75.2 %) 71.3 Lymphocytes % (20.5 - 51.1 %) 14.6 L Monocytes % (1.7 - 9.3 %) 8.6 Eosinophils % (0 - 5 %) 4.9 Basophils % (0.0 - 2.0 %) 0.6 Absolute Granulocytes (1.4 - 6.5 /CUMM) 7.4 H Absolute Lymphocytes (1.2 - 3.4 /CUMM) 1.5 Absolute Monocytes (0.10 - 0.60 /CUMM) 0.9 H Absolute Eosinophils (0.0 - 0.7 /CUMM) 0.5 Absolute Basophils (0.0 - 0.2 /CUMM) 0.1 PUBS MCHC (33.0 - 37.0 G/DL) 32.9 L 06/27 06/26 06/26 06/26 06/26 0020 2045 1800 1430 1135 Chemistry Troponin I (< 0.11 ng/ml) 0.86 *H 0.58 *H 0.21 *H Coagulation APTT (25 - 37 SEC) 62 H Serology Hep Bs Antigen (NONREACTIVE) NONREACTIVE Hep Bs Antibody (NONREACTIVE) REACTIVE Urines Urine Color Cancelled Urine Clarity Cancelled Urine pH Cancelled Ur Specific [place] Cancelled Urine Protein Cancelled Urine Ketones Cancelled Urine Nitrite Cancelled Urine Bilirubin Cancelled Urine Urobilinogen Cancelled Ur Leukocyte Esterase Cancelled Ur Microscopic Cancelled Urine Hemoglobin Cancelled Urine Glucose Cancelled 06/26 0750 Chemistry Sodium (137 - 145 mmol/L) 145 Potassium (3.5 - 5.1 mmol/L) 4.6 Chloride (98 - 107 mmol/L) 101 Carbon Dioxide (22 - 30 mmol/L) 21 L Anion Gap (5 - 16) 23 H BUN (7 - 17 mg/dL) 38 H Creatinine (0.5 - 1.0 mg/dL) 7.0 *H Estimated GFR (>60 ml/min) 6 L BUN/Creatinine Ratio (7 - 25 %) 5.4 L Glucose (65 - 99 mg/dL) 184 H Calcium (8.4 - 10.2 mg/dL) 9.7 Total Bilirubin (0.2 - 1.3 mg/dL) 0.5 AST (14 - 36 U/L) 14 ALT (9 - 52 U/L) 22 Alkaline Phosphatase (<127 U/L) 90 Troponin I (< 0.11 ng/ml) 0.11 *H [id number] Pept (<125 pg/mL) 69665 H Total Protein (6.3 - 8.2 g/dL) 8.8 H Albumin (3.5 - 5.0 g/dL) 5.1 H Globulin (1.9 - 4.2 gm/dL) 3.7 Albumin/Globulin Ratio (1.1 - 2.2 %) 1.4 TSH (0.270 - 4.200 uIU/mL) 0.776 Thyroxine (T4) (4.5 - 10.9 ug/dL) 8.4 Hematology CBC w Diff NO MAN DIFF REQ WBC (4.8 - 10.8 /CUMM) 11.5 H RBC (4.20 - 5.40 /CUMM) 3.91 L Hgb (12.0 - 16.0 G/DL) 11.7 L Hct (37 - 47 %) 35.2 L MCV (81.0 - 99.0 FL) 90.2 MCH (27.0 - 31.0 PG) 29.9 RDW (11.5 - 14.5 %) 15.4 H Plt Count (130 - 400 /CUMM) 306 MPV (7.4 - 10.4 FL) 8.7 Gran % (42.2 - 75.2 %) 82.9 H Lymphocytes % (20.5 - 51.1 %) 8.3 L Monocytes % (1.7 - 9.3 %) 5.0 Eosinophils % (0 - 5 %) 3.6 Basophils % (0.0 - 2.0 %) 0.2 Absolute Granulocytes (1.4 - 6.5 /CUMM) 9.5 H Absolute Lymphocytes (1.2 - 3.4 /CUMM) 1.0 L Absolute Monocytes (0.10 - 0.60 /CUMM) 0.6 Absolute Eosinophils (0.0 - 0.7 /CUMM) 0.4 Absolute Basophils (0.0 - 0.2 /CUMM) 0 PUBS MCHC (33.0 - 37.0 G/DL) 33.1 Imaging/Other Studies: TTE CONCLUSIONS 1. Normal EF of 79%. 2. Moderate left ventricular hypertrophy. 3. Mild left atrial enlargement. 4. Mild mitral regurgitation. 5. Mild tricuspid regurgitation. 6. Mild pulmonary hypertension. Chest X-ray EXAM TYPE: RAD - XRY-PORTABLE CHEST XRAY EXAMINATION: XR PORTABLE CHEST CLINICAL INFORMATION: Chest pain. COMPARISON: Several priors including most recent of 03/30/17. TECHNIQUE: Portable frontal view of the chest was obtained. FINDINGS: Evaluation is limited because of patient body habitus. The lungs are well expanded and clear. Accounting for portable technique, the heart and mediastinal structures are unremarkable. IMPRESSION: Limited evaluation. No abnormality demonstrated.
--- NOTE | 2017-06-28 13:27 | PN- Cardiology ---
Subjective Subjective: * Patient remains pain free. No lightheadedness. * cardiac enzymes are trending down * cardiac cath tomorrow 06/29 * Normal EF on echo with no regional wall motion abnormalities Objective Vital Signs and I&Os Vital Signs Date Time Temp Pulse Resp B/P B/P Pulse O2 O2 Flow FiO2 Mean Ox Delivery Rate 06/28 0940 100 101/58 06/28 0940 94 101/58 06/28 0940 91 101/52 06/28 0835 98.2 91 26 112/64 98 Room Air 06/28 0400 95 Room Air 06/28 0000 96 Room Air Room Air 06/28 0000 98.0 88 18 110/60 96 Room Air 06/27 2130 103 151/66 06/27 2130 103 151/66 06/27 2129 103 151/66 06/27 1600 98 Room Air 06/27 1600 98.0 88 20 132/60 98 Room Air 06/27 1545 88 160/92 Intake & Output 06/28 1600 06/28 0800 06/28 0000 06/27 1600 06/27 0800 06/27 0000 Intake Total 282 645 210 128 631 Output Total 1 2500 Balance 281 645 -2290 128 631 Intake, IV 182 165 180 128 151 Intake, Oral 100 480 30 480 Output, 2500 Dialysate Output, Urine 1 Patient 179 lb 179 lb Weight Weight Bed scale Measurement Method Physical Exam: General: WD/WN female in NAD; alert and oriented x 3 Neck: no jvd Heart: RRR w/o murmur Lungs: clear bilaterally Extremities: no edema Assessment/Plan Assessment/Plan * This patient was admitted for chest pain and severe hypertension. Her blood pressure is now well controlled and her chest pain has resolved. Normal EF without any regional wall motion abnormalities on her echo. LVH is noted. Cardiac enzymes are trending down. She likely has subendocardial ischemia related to severe hypertension. Her cardiac catheterization is planned for tomorrow. * The patient also had decreased clearance of troponin due to renal failure. Dialysis is planned again for tomorrow. * Continue aspirin, Plavix and IV heparin. No change in other medications. * Keep NPO x meds after midnight. Continue telemetry? Yes
[2017-06-28 16:00] VITALS: BP 120/60
[2017-06-28 19:06] LABS: PTT 84 SEC (25-37)
[2017-06-28 23:00] VITALS: BP 120/70
[2017-06-29] MEDS ORDERED: CLOPIDOGREL75 M1 PO (05:54)
== END 2017-06-29 06:30 | disposition short-term general hospital (02) | DRG 280 ==
LOC: ERH 07:31 → CRI 10:04 → ERHI 10:04 → ENRESERV 10:30 → ENTRNSPT 11:03 → EDTRNSPTSTS 11:07 → EDTRNSPT 11:07 → CRI 11:22 → CMPTRNSPT 11:26 → CRI 18:51 → ENTRNSPT 18:52 → EDTRNSPT 19:17 → EDTRNSPTSTS 19:17 → CMPTRNSPT 19:36 → CRI 06-29 06:30
PROVIDERS: Emergency Medicine; Internal Medicine; Internal Medicine Interventional Cardiology; Student in an Organized Health Care Education/Training Program
PROC: 5A1D70Z Performance of Urinary Filtration, Intermittent, Less than 6 Hours Per Day (ICD-10-PCS; principal; 2017-06-27)
DX: I21.4 Non-ST elevation (NSTEMI) myocardial infarction (principal); N18.6 End stage renal disease; E87.2 Acidosis; E11.22 Type 2 diabetes mellitus with diabetic chronic kidney disease; I12.0 Hypertensive chronic kidney disease with stage 5 chronic kidney disease or end stage renal disease; K31.84 Gastroparesis; E11.43 Type 2 diabetes mellitus with diabetic autonomic (poly)neuropathy; Z99.2 Dependence on renal dialysis; Z79.4 Long term (current) use of insulin; F32.9 Major depressive disorder, single episode, unspecified; I25.10 Atherosclerotic heart disease of native coronary artery without angina pectoris; Z95.5 Presence of coronary angioplasty implant and graft; I25.2 Old myocardial infarction; E04.1 Nontoxic single thyroid nodule; I36.1 Nonrheumatic tricuspid (valve) insufficiency; D63.1 Anemia in chronic kidney disease
CPT/HCPCS: CCU; 36415; 71045; 82436; 93005; 93010; 93306; 96374; 96375; 96376; 99291; J0885; J1644; J1815; J2501; J3490

== ENCOUNTER 2017-09-19 06:00 | Inpatient (IN) | payer OTHER, MEDICARE ==
[~2017-09-19] VITALS: Ht 167.6 cm; Wt 87.2 kg
[~2017-09-19 06:00] MED LIST changes: +CLOPIDOGREL75 M1 PO; +HEPARIN-1/25000 UNI1 IV
--- NOTE | 2017-09-19 06:13 | ED GI/GU/ABDOMINAL COMPLAINT ---
History of Present Illness General Chief Complaint: General Adult Stated Complaint: "+N+V-D,CP, PAIN RADIATES TO JAW" Source: patient Exam Limitations: no limitations Vital Signs & Intake/Output Vital Signs & Intake/Output Vital Signs Date Time Temp Pulse Resp B/P B/P Pulse O2 O2 Flow FiO2 Mean Ox Delivery Rate 09/19 637 87 194/91 09/19 0535 87 194/91 99 Nasal 2.0L Cannula 09/19 633 Nasal 2.0L Cannula 09/20 611 98.7 96 24 229/104 97 Room Air Allergies Coded Allergies: NO KNOWN ALLERGIES (11/19/15) Reconcile Medications Aspirin (Aspirin*) 325 MG TABLET 325 MG PO DAILY HEART HEALTH Atorvastatin Calcium 40 MG TABLET 1 TAB PO QPM CHOLESTEROL (Reported) Bupropion HCl (Bupropion XL) 150 MG TAB.ER.24H 1 TAB PO QAM MENTAL HEALTH ( Reported) Clonidine 0.3 MG/24 HOUR PATCH.TDWK 1 PAT TOP QSUN HEART (Reported) Clopidogrel Bisulfate (Clopidogrel) 75 MG TABLET 1 TAB PO DAILY BLOOD THINNER (Reported) Diltiazem Cd (Diltiazem ER) 120 MG CAP.ER.DEG 120 MG PO DAILY high blood pressure Escitalopram Oxalate 20 MG TABLET 1 TAB PO DAILY MENTAL HEALTH (Reported) Gabapentin 100 MG CAPSULE 1 CAP PO TID NEUROPATHY (Reported) Heparin (Heparin-1/2NS 25,000 Units/500) 25,000 UNIT/500 ML (50 UNIT/ML) IV.SOLN 25,000 UNITS IV DAILY ACS Hydralazine HCl 25 MG TABLET 4 TAB PO TID BP (Reported) Insulin Aspart, Recombinant (Novolog Flexpen) (Unknown Strength) INSULN.PEN ( Unknown Dose) SC SEE SLIDING SCALE DIABETES (Reported) Insulin Glargine,Hum.rec.anlog (Lantus Solostar) 100 UNIT/ML (3 ML) INSULN.PEN 30 UNIT SC BID DM (Reported) Isosorbide Mononitrate (Isosorbide Mononitrate ER) 30 MG TAB.ER.24H 1 TAB PO DAILY HEART (Reported) Labetalol HCl 200 MG TABLET 2 TAB PO BID HEART (Reported) Linaclotide (Linzess) 145 MCG CAPSULE 1 CAP PO DAILY PRN CONSTIPATION ( Reported) Lisinopril (Prinivil) 20 MG TABLET 1 TAB PO BID HEART (Reported) Minoxidil 2.5 MG TABLET 2 TAB PO DAILY UNKNOWN (Reported) Pantoprazole Sodium (Protonix) 40 MG TABLET.DR 1 TAB PO DAILY ACID REFLUX ( Reported) Sevelamer Carbonate (Renvela) 800 MG TABLET 1 TAB PO TID KIDNEY (Reported) Sevelamer Carbonate (Renvela) 800 MG TABLET 1 TAB PO BID KIDNEY (Reported) Triage Note: PT FROM HOME WITH C/O MIDSTERNAL CP RADIATING TO JAW THAT STARTED LAST NIGHT AND HAS PROGRESSIVELY GOTTEN WORSE. C/O NAUSEA WITH 2 EPISODE VOMITING. C/O SOB Triage Nurses Notes Reviewed? yes ? n Is pt currently ? No Onset: Gradual Duration: hour(s): Timing: recent history Quality/Severity: dullness Past History Travel History Traveled to [place] past 21 day No Medical History Any Pertinent Medical History? see below for history Neurological: NONE EENT: NONE Cardiovascular: AFIB, CAD, hypertension, hyperlipidemia, myocardial infarction, NSTEMI, 10 CARDIAC STENTS Respiratory: NONE Gastrointestinal: constipation Hepatic: NONE Renal: CKD stage 5 DIALYSIS Musculoskeletal: NONE Psychiatric: depression Endocrine: diabetes, GERD thyroid nodule Blood Disorders: anemia Cancer(s): NONE TRANSPORTATION CLERK/Reproductive: uterine fibriods History of MRSA: No History of VRE: No History of CDIFF: No Influenza Vaccine: 03/13/07 Surgical History Surgical History: STENTS X3 aVF Michel catheter Psychosocial History Who do you live with Significant Other Services at Home Patient previously had home health aide and nursing services but these services were recently discontinued What is your primary language Nepali Tobacco Use: Quit >30 days ago ETOH Use: denies use Family History Family History, If Any: MOTHER Chronic renal disease uncle Chronic renal disease Relation not specified for: FH: CAD (coronary artery disease) FH: cancer FH: diabetes mellitus FH: HTN (hypertension) FH: schizophrenia Hx Contributory? No Review of Systems Review of Systems Constitutional: Reports: no symptoms. EENTM: Reports: no symptoms. Respiratory: Reports: no symptoms. Cardiovascular: Reports: no symptoms. GI: Reports: no symptoms. Genitourinary: Reports: no symptoms. Musculoskeletal: Reports: no symptoms. Skin: Reports: no symptoms. Neurological/Psychological: Reports: no symptoms. Hematologic/Endocrine: Reports: no symptoms. Immunologic/Allergic: Reports: no symptoms. All Other Systems: Reviewed and Negative Progress Plan of Care: Orders Procedure Date/time Status PARTIAL THROMBOPLASTIN TIME 09/19 614 Active PROTHROMBIN TIME 09/19 614 Active XRY-PORTABLE CHEST XRAY 09/19 613 Active TROPONIN LEVEL 09/19 613 Active LIPASE 09/19 613 Active HEPATIC FUNCTION PANEL 09/19 613 Active CBC WITHOUT DIFFERENTIAL 09/19 613 Active BASIC METABOLIC PANEL 09/19 613 Active AMYLASE 09/19 613 Active EKG 09/20 603 Active Current Medications Sig/[place] Start time Last Medication Dose Stop Time Status Admin Lisinopril 20 MG ONCE ONE 09/19 699 UNVr (Prinivil) 09/19 700 Minoxidil 5 MG ONCE ONE 09/19 699 UNVr (Minoxidil 2.5 MG 09/19 700 Tab) Diltiazem HCl 180 MG DAILY 09/19 644 UNVr (Cardizem CD) Nitroglycerin 0.4 MG Q 5 MINUTES X 3 DOSE 09/19 629 AC 09/19 (Nitrostat) 0625 Laboratory Tests 09/19/17 0630: Sodium Pending, Potassium Pending, Chloride Pending, Carbon Dioxide Pending, Anion Gap Pending, BUN Pending, Creatinine Pending, BUN/Creatinine Ratio Pending , Glucose Pending, Calcium Pending, Total Bilirubin Pending, Direct Bilirubin Pending, AST Pending, ALT Pending, Alkaline Phosphatase Pending, Troponin I Pending, Total Protein Pending, Albumin Pending, Amylase Pending, Lipase Pending , PT Pending, INR Pending, APTT Pending, CBC w Diff Pending, WBC Pending, RBC Pending, Hgb Pending, Hct Pending, MCV Pending, MCH Pending, MCHC Pending, RDW Pending, Plt Count Pending, MPV Pending, Gran % Pending, Lymphocytes % Pending, Monocytes % Pending, Eosinophils % Pending, Basophils % Pending, Absolute Granulocytes Pending, Absolute Lymphocytes Pending, Absolute Monocytes Pending, Absolute Eosinophils Pending, Absolute Basophils Pending 09/19/17 0614: D-Dimer High Sensitivty Cancelled Initial ED EKG: ST DEPRESSIONS IN V4-6,I,II, ST SEG ELEVATION V1, EQUIVOCAL IN V2. FLIPPED T IN AVL Departure Departure Condition: Stable Referrals: Violetta Reddy APRN (PCP/Family) Departure Forms: Customer Survey General Discharge Information Comments 09/19/17, 6:34AM... discussed with dr. myriam marshall who evaluated ekg.... there are st depressions, but no st seg elevations to merit transfer.... will work to lower blood pressure. 09/19/17, 6:50am... after nitro x 1 and labetolol 20mg iv, her chest pain is 0/10. will give her usual AM blood pressure meds. labs pending.
[2017-09-19 06:46] LABS: ABSOLUTE BASOPHIL COUNT 0 /CUMM (0.0-0.2); ABSOLUTE EOSINOPHIL COUNT 0.5 /CUMM (0.0-0.7); ABSOLUTE GRANULOCYTE CT 15.1 /CUMM (1.4-6.5); ABSOLUTE LYMPH COUNT 0.7 /CUMM (1.2-3.4); ABSOLUTE MONOCYTE COUNT 0.3 /CUMM (0.10-0.60); BASOPHIL % 0.1 % (0.0-2.0); EOSINOPHIL % 3.1 % (0-5); GRANULOCYTE % 90.8 % (42.2-75.2); HEMATOCRIT 40.3 % (37-47); MEAN CORPUSCULAR HGB 29.7 PG (27.0-31.0); MEAN CORPUSCULAR HGB CONC 31.9 G/DL (33.0-37.0); MEAN PLATELET VOLUME 9.4 FL (7.4-10.4); PLATELET COUNT 224 /CUMM (130-400); RBC DISTRIBUTION WIDTH 15.2 % (11.5-14.5); RED BLOOD CELL CT 4.34 /CUMM (4.20-5.40); WHITE BLOOD CELL COUNT 16.7 /CUMM (4.8-10.8)
--- NOTE | 2017-09-19 06:52 | ED CARDIAC/CP/PALPITATIONS ---
History of Present Illness General Chief Complaint: General Adult Stated Complaint: "+N+V-D,CP, PAIN RADIATES TO JAW" Source: patient, family, old records Exam Limitations: no limitations Vital Signs & Intake/Output Vital Signs & Intake/Output Vital Signs Date Time Temp Pulse Resp B/P B/P Pulse O2 O2 Flow FiO2 Mean Ox Delivery Rate 09/19 1159 98.4 85 18 159/74 100 Nasal 2.0L Cannula 09/19 0832 107 175/84 09/19 0830 102 20 175/84 99 Room Air 09/20 0740 94 20 193/93 99 Room Air 09/19 0640 110 20 144/89 98 Room Air 09/19 0712 84 189/76 09/19 0711 84 189/76 09/19 0706 82 16 186/76 100 Room Air Room Air 09/19 0638 87 194/91 09/19 0635 87 194/91 99 Nasal 2.0L Cannula 09/19 0634 Nasal 2.0L Cannula 09/20 611 98.7 96 24 229/104 97 Room Air Triage Note: PT FROM HOME WITH C/O MIDSTERNAL CP RADIATING TO JAW THAT STARTED LAST NIGHT AND HAS PROGRESSIVELY GOTTEN WORSE. C/O NAUSEA WITH 2 EPISODE VOMITING. C/O SOB Triage Nurses Notes Reviewed? yes Onset: Abrupt Duration: hour(s): Timing: recent history Quality/Severity: moderate Location: central Radiation: no radiation Activities at Onset: none Prior Chest Pain/Card Workup: heart attack Nitro Today/Relief: no nitro taken today Aspirin Today: no aspirin today Associated Symptoms: nausea/vomiting Patient currently breastfeeds: No HPI: 51 yo woman h/o MO s/p multiple stents, most recently in Jun 2017, h/ esrd on hemodialysis, diabetes, presents with 5-6 hours of 8/10 sub sternal chest pressure, radiating to jaw, associated with nausea and vomiting. She was unable to take her morning BP meds. She notes this feels similar to her prior MO's. She notes no diaphoresis, syncopal symptoms. She is otherwise well. (Navarro ORTEGA,Gal Steen) Allergies Coded Allergies: NO KNOWN ALLERGIES (NONE 09/19/17) Reconcile Medications Aspirin (Aspirin*) 81 MG TAB.CHEW 2 TAB PO DAILY HEART HEALTH (Reported) Atorvastatin Calcium 40 MG TABLET 1 TAB PO QPM CHOLESTEROL (Reported) Bupropion HCl (Bupropion XL) 150 MG TAB.ER.24H 1 TAB PO QAM MENTAL HEALTH ( Reported) Clonidine 0.3 MG/24 HOUR PATCH.TDWK 1 PAT TOP QSUN HEART (Reported) Clopidogrel Bisulfate (Clopidogrel) 75 MG TABLET 1 TAB PO DAILY BLOOD THINNER (Reported) Diltiazem Cd (Diltiazem ER) 120 MG CAP.ER.DEG 120 MG PO DAILY high blood pressure Escitalopram Oxalate 20 MG TABLET 1 TAB PO DAILY MENTAL HEALTH (Reported) Gabapentin 100 MG CAPSULE 1 CAP PO TID NEUROPATHY (Reported) Heparin (Heparin-1/2NS 25,000 Units/500) 25,000 UNIT/500 ML (50 UNIT/ML) IV.SOLN 25,000 UNITS IV DAILY ACS Hydralazine HCl 25 MG TABLET 4 TAB PO TID BP (Reported) Insulin Aspart, Recombinant (Novolog Flexpen) (Unknown Strength) INSULN.PEN ( Unknown Dose) SC SEE SLIDING SCALE DIABETES (Reported) Insulin Glargine,Hum.rec.anlog (Lantus Solostar) 100 UNIT/ML (3 ML) INSULN.PEN 30 UNIT SC BID DM (Reported) Isosorbide Mononitrate (Isosorbide Mononitrate ER) 30 MG TAB.ER.24H 1 TAB PO DAILY HEART (Reported) Labetalol HCl 200 MG TABLET 2 TAB PO BID HEART (Reported) Linaclotide (Linzess) 145 MCG CAPSULE 1 CAP PO DAILY PRN CONSTIPATION ( Reported) Lisinopril (Prinivil) 20 MG TABLET 1 TAB PO BID HEART (Reported) Minoxidil 2.5 MG TABLET 2 TAB PO DAILY UNKNOWN (Reported) Pantoprazole Sodium (Protonix) 40 MG TABLET.DR 1 TAB PO DAILY ACID REFLUX ( Reported) Sevelamer Carbonate (Renvela) 800 MG TABLET 1 TAB PO TID KIDNEY (Reported) Sevelamer Carbonate (Renvela) 800 MG TABLET 1 TAB PO BID KIDNEY (Reported) (Hunter Thompson MD) Past History Travel History Traveled to [place] past 21 day No Medical History Any Pertinent Medical History? 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 History of MRSA: No History of VRE: No History of CDIFF: No Influenza Vaccine: 03/13/07 Surgical History Surgical History: STENTS X4 aVF Michel catheter Psychosocial History Who do you live with Significant Other Services at Home Patient previously had home health aide and nursing services but these services were recently discontinued What is your primary language Zambian Tobacco Use: Quit >30 days ago ETOH Use: denies use Family History Family History, If Any: MOTHER Chronic renal disease uncle Chronic renal disease Relation not specified for: FH: CAD (coronary artery disease) FH: cancer FH: diabetes mellitus FH: HTN (hypertension) FH: schizophrenia Hx Contributory? No (Navarro ORTEGA,Gal Steen) Review of Systems Review of Systems Constitutional: Reports: no symptoms. EENTM: Reports: no symptoms. Respiratory: Reports: no symptoms. Cardiovascular: Reports: no symptoms. GI: Reports: no symptoms. Genitourinary: Reports: no symptoms. Musculoskeletal: Reports: no symptoms. Skin: Reports: no symptoms. Neurological/Psychological: Reports: no symptoms. Hematologic/Endocrine: Reports: no symptoms. Immunologic/Allergic: Reports: no symptoms. All Other Systems: Reviewed and Negative (Navarro ORTEGA,Gal Steen) Physical Exam Physical Exam General Appearance: well developed/nourished, mild distress Head: atraumatic, normal appearance Eyes: Bilateral: normal appearance. Ears, Nose, Throat: normal pharynx, normal ENT inspection Neck: normal inspection, supple, full range of motion Respiratory: normal breath sounds, chest non-tender, no respiratory distress, quiet respiration, lungs clear Cardiovascular: regular rate/rhythm Gastrointestinal: normal bowel sounds, soft, non-tender Back: normal inspection Extremities: normal inspection, normal capillary refill, normal range of motion, no edema Neurologic/Psych: no motor/sensory deficits, awake, alert, oriented x 3 Skin: intact, normal color Core Measures ACS in differential dx? Yes No ASA d/t asa given CVA/TIA Diagnosis No Sepsis Present: No Sepsis Focused Exam Completed? No (Gal Briceño MD) Progress Differential Diagnosis: AMI, unstable angina, vs other Plan of Care: Orders Procedure Date/time Status CBC WITHOUT DIFFERENTIAL 09/20 599 Active BASIC ELECTROLYTES PLUS BUN&CR 04/10 0600 Active Renal Dialysis Diet 09/19 L Active TROPONIN LEVEL 09/19 1155 Active EKG 09/19 1155 Active STREP PNEUMO URINARY ANTIGEN 09/19 1110 Active LEGIONELLA URINARY ANTIGEN 09/19 1110 Active LOWER RESPIRATORY CULTURE 09/19 1109 Active URINALYSIS 09/19 1109 Active Pathway - chart 09/19 1009 Active Patient Data 09/19 0835 Active OXYGEN SETUP (GEN) 09/19 0800 Active Saline Lock 09/19 0800 Active Admit to inpatient 09/19 0800 Active Vital Signs 09/19 0800 Active Activity/Ambulation 09/19 0800 Active Code Status 09/19 0800 Active BLOOD CULTURE 09/19 0753 Active Intake & Output 09/19 0717 Active EKG 09/19 0652 Active PARTIAL THROMBOPLASTIN TIME 09/19 0615 Complete PROTHROMBIN TIME 09/19 0615 Complete TROPONIN LEVEL 09/19 0614 Complete LIPASE 09/19 0614 Complete HEPATIC FUNCTION PANEL 09/19 0614 Complete CBC WITHOUT DIFFERENTIAL 09/19 0614 Complete BASIC METABOLIC PANEL 09/19 0614 Complete AMYLASE 09/19 0614 Complete EKG 09/19 0604 Active House Staff 09/19 UNK Active VTE Mechanical Prophylaxis 09/19 UNK Active Vital Signs 09/19 UNK Active Intake & Output 09/19 UNK Active FingerStick- Glucose 09/19 UNK Active Current Medications Sig/[place] Start time Last Medication Dose Stop Time Status Admin Aspirin 162 MG DAILY 09/20 1000 AC (Aspirin) Clopidogrel Bisulfate 75 MG DAILY 09/20 1000 AC (Plavix) Escitalopram Oxalate 20 MG DAILY 09/20 1000 AC (Lexapro) Atorvastatin Calcium 40 MG QPM 09/19 2200 AC (Lipitor) Insulin Detemir 15 UNITS BID 09/19 2200 AC (Levemir) Sevelamer Carbonate 800 MG WM 09/19 1700 UNVr (Renvela) Gabapentin 100 MG TID 09/19 1600 AC (Neurontin) Heparin Sodium 5,000 UNIT Q8 09/19 1400 UNVr (Porcine) Clonidine 3 PAT Q168 09/19 1215 UNVr (Catapres) Bupropion HCl 150 MG QAM 09/19 1200 UNVr (Wellbutrin XL) Insulin Aspart 0 TIDAC 09/19 1200 AC (NovoLOG) Lisinopril 20 MG BID 09/19 1159 UNVr (Prinivil) Multivitamins 1 TAB DAILY 09/19 1158 UNVr (Nephrocaps) Labetalol HCl 400 MG BID 09/19 115 UNVr (Trandate-Normodyne 200MG Tab) Omeprazole 40 MG DAILY AC 09/19 111 AC (Prilosec) Diltiazem HCl 180 MG DAILY 09/19 0645 AC 09/19 (Cardizem CD) 0936 Nitroglycerin 0.4 MG Q 5 MINUTES X 3 DOSE 09/19 06 AC 09/19 (Nitrostat) 0625 Laboratory Tests 09/19/17 0630: Anion Gap 18 H, Estimated GFR 7 L, BUN/Creatinine Ratio 7.0, Glucose 143 H, Calcium 9.4, Total Bilirubin 0.7, Direct Bilirubin 0.7 H, AST 14, ALT 14, Alkaline Phosphatase 82, Troponin I 0.09, Total Protein 8.8 H, Albumin 4.8, Amylase 91, Lipase 201, PT 10.8, INR 0.99, APTT 34, CBC w Diff MAN DIFF ORDERED, RBC 4.34, MCV 93.0, MCH 29.7, MCHC 31.9 L, RDW 15.2 H, MPV 9.4, Gran % 90.8 H , Lymphocytes % 4.3 L, Monocytes % 1.7, Eosinophils % 3.1, Basophils % 0.1, Absolute Granulocytes 15.1 H, Segmented Neutrophils 91 H, Absolute Lymphocytes 0.7 L, Lymphocytes 4 L, Monocytes 3, Absolute Monocytes 0.3, Eosinophils 2, Absolute Eosinophils 0.5, Absolute Basophils 0, Platelet Estimate ADEQUATE, Hypochromic-Microcytic 1+, Ovalocytes FEW, Fld Total RBCs Counted 100 09/19/17 0614: D-Dimer High Sensitivty Cancelled Microbiology 09/19 111 URINE ROUT: Legionella Antigen - ORD 09/19 1109 URINE ROUT: Streptococcus pneumoniae Antigen (M - ORD 09/19 1109 LOWER RESP: Respiratory Culture - ORD 09/19 110 LOWER RESP: Gram Stain - ORD 09/20 839 BLOOD: Blood Culture - RECD 09/20 839 BLOOD: Blood Culture - RECD Diagnostic Imaging: Viewed by Me: Radiology Read. Discussed w/RAD: Radiology Read. Initial ED EKG: st elevation in v1, equivocal in v2, s st depressions in v4-6, I , L Hand-Off Endorsed To: Hunter Thompson MD Endorsed Time: 0700 Pending: labs, Xray (Gal Briceño MD) Comments: Recurrent SSCP with HTN, additional NTG ordered with IV enalaprilat (Hunter Thompson MD) Departure Departure Disposition: STILL A PATIENT Condition: Stable Referrals: Violetta Reddy APRN (PCP/Family) Departure Forms: Customer Survey General Discharge Information Comments 09/19/17, 6:34AM... discussed with dr. myriam marshall who evaluated ekg.... there are st depressions, but no st seg elevations to merit transfer.... will work to lower blood pressure. 09/19/17, 6:50am... after nitro x 1 and labetolol 20mg iv, her chest pain is 0/10. will give her usual AM blood pressure meds. labs pending. (Gal Briceño MD) Departure Clinical Impression Primary Impression: Unstable angina Secondary Impressions: ESRD (end stage renal disease), Hypertension, Pneumonia Admission Note Spoke With: Ginny Rivera MD Documentation of Exam: Documentation of any treatments & extenuating circumstances including Concerns Regarding Discharge (functional status, medication knowledge or non-compliance, living conditions, etc.) that warrant an admission rather than observation: Cardiac monitoring serial lab exam medication adjustment renal evaluation cardiology evaluation IV antibiotics follow cultures physical therapy continuing care discharge planning (Hunter Thompson MD) Critical Care Note Critical Care Note Critical Care Time: 30-74 min (Gal Briceño MD) Critical Care Note Critical Care Time: 30-74 min (45) (Hunter Thompson MD)
[2017-09-19 06:56] LABS: PT 10.8 SEC (9.4-12.5); PTT 34 SEC (25-37)
--- NOTE | 2017-09-19 07:08 | RADIOLOGY REPORT ---
EXAMINATION: XR PORTABLE CHEST CLINICAL INFORMATION: Chest pain COMPARISON: Multiple chest x-rays most recent prior dated 06/26/2017 TECHNIQUE: Portable frontal view of the chest was obtained. FINDINGS: Stable cardiomediastinal silhouette. Patchy opacities with decreased aeration noted in bilateral lower lungs suspicious for evolving airspace disease or infiltrate. Bony thorax is intact. IMPRESSION: Patchy airspace disease suspected in bilateral lung bases. Findings may represent pneumonia in the appropriate clinical setting.
--- NOTE | 2017-09-19 10:05 | History & Physical ---
Kelle Palmer MD,Veto 09/19/17 1005: General Information and HPI MD Statement: I have seen and personally examined THOMAS BARRIOS and documented this H&P. The patient is a 51 year old F who presented with a patient stated chief complaint of [chest pain]. Source of Information: patient, old records Exam Limitations: clinical condition History of Present Illness: 51-year-old female with past medical history significant for coronary artery disease, status post multiple angioplasties,3 stents placed in December 2016, recent cardiac catheterization in June 2017, hypertension, insulin-dependent diabetes, end-stage renal disease on hemodialysis Tuesday and Tuesday, history of anxiety/depression, history of anemia, recently admitted at [facility] from June 26 2017 to November 25, 2017 with similar complaints of jaw pain and chest pain and eventually got transferred for cardiac catheterization, came back to ED with similar complaints. According to the patient her symptoms started 3 days ago. Initially she had productive cough greenish sputum without any significant fever but did experience some chills. Her daughter is also sick and has similar type of symptoms. Tuesday patient experienced some mild chest pain. She stayed at home and Tuesday night she experienced more significant chest pain, 8/10 most specifically aggravating or relieving factors, radiating to jaw, similar to the character as seen previously with multiple visits. Patient decided to go to emergency department. Review of system was negative for any acute headaches, visual changes, nausea, vomiting, high-grade fever, rash, shortness of breath, or insignificantly increased bilateral lower extremity edema. Allergies/Medications Allergies: Coded Allergies: NO KNOWN ALLERGIES (NONE 09/19/17) Home Med list Aspirin (Aspirin*) 81 MG TAB.CHEW 2 TAB PO DAILY HEART HEALTH (Reported) Atorvastatin Calcium 40 MG TABLET 1 TAB PO QPM CHOLESTEROL (Reported) Bupropion HCl (Bupropion XL) 150 MG TAB.ER.24H 1 TAB PO QAM MENTAL HEALTH ( Reported) Clonidine 0.3 MG/24 HOUR PATCH.TDWK 1 PAT TOP QSUN HEART (Reported) Clopidogrel Bisulfate (Clopidogrel) 75 MG TABLET 1 TAB PO DAILY BLOOD THINNER (Reported) Diltiazem Cd (Diltiazem ER) 120 MG CAP.ER.DEG 120 MG PO DAILY high blood pressure Escitalopram Oxalate 20 MG TABLET 1 TAB PO DAILY MENTAL HEALTH (Reported) Gabapentin 100 MG CAPSULE 1 CAP PO TID NEUROPATHY (Reported) Heparin (Heparin-1/2NS 25,000 Units/500) 25,000 UNIT/500 ML (50 UNIT/ML) IV.SOLN 25,000 UNITS IV DAILY ACS Hydralazine HCl 25 MG TABLET 4 TAB PO TID BP (Reported) Insulin Aspart, Recombinant (Novolog Flexpen) (Unknown Strength) INSULN.PEN ( Unknown Dose) SC SEE SLIDING SCALE DIABETES (Reported) Insulin Glargine,Hum.rec.anlog (Lantus Solostar) 100 UNIT/ML (3 ML) INSULN.PEN 30 UNIT SC BID DM (Reported) Isosorbide Mononitrate (Isosorbide Mononitrate ER) 30 MG TAB.ER.24H 1 TAB PO DAILY HEART (Reported) Labetalol HCl 200 MG TABLET 2 TAB PO BID HEART (Reported) Linaclotide (Linzess) 145 MCG CAPSULE 1 CAP PO DAILY PRN CONSTIPATION ( Reported) Lisinopril (Prinivil) 20 MG TABLET 1 TAB PO BID HEART (Reported) Minoxidil 2.5 MG TABLET 2 TAB PO DAILY UNKNOWN (Reported) Pantoprazole Sodium (Protonix) 40 MG TABLET.DR 1 TAB PO DAILY ACID REFLUX ( Reported) Sevelamer Carbonate (Renvela) 800 MG TABLET 1 TAB PO TID KIDNEY (Reported) Sevelamer Carbonate (Renvela) 800 MG TABLET 1 TAB PO BID KIDNEY (Reported) Compliance With Home Meds: POOR Past History Travel History Traveled to [place] past 21 day No Medical History Neurological: NONE EENT: NONE Cardiovascular: AFIB, CAD, hypertension, hyperlipidemia, myocardial infarction, NSTEMI, 10 CARDIAC STENTS Respiratory: NONE Gastrointestinal: constipation Hepatic: NONE Renal: CKD stage 5 DIALYSIS Musculoskeletal: NONE Psychiatric: depression Endocrine: diabetes, GERD thyroid nodule Blood Disorders: anemia Cancer(s): NONE 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 significant other, child Services at Home: Patient previously had home health aide and nursing services but these services were recently discontinued Primary Language: Estonian ETOH Use: denies use Functional Ability ADLs Independent: dressing, eating, toileting, bathing. Ambulation: independent Review of Systems Review of Systems Constitutional: Reports: chills, fever. Cardiovascular: Reports: chest pain, palpitations. Respiratory: Reports: cough, short of breath. GI: Denies: abdominal pain, nausea, vomiting. Genitourinary: Denies: dysuria. Musculoskeletal: Denies: back pain, joint pain. All Other Systems: Reviewed and Negative Exam & Diagnostic Data Last 24 Hrs of Vital Signs/I&O Vital Signs Date Time Temp Pulse Resp B/P B/P Pulse O2 O2 Flow FiO2 Mean Ox Delivery Rate 09/20 931 107 175/84 09/19 0830 102 20 175/84 99 Room Air 09/19 0840 94 20 193/93 99 Room Air 09/19 0740 110 20 144/89 98 Room Air 09/19 0712 84 189/76 09/19 0711 84 189/76 09/19 0706 82 16 186/76 100 Room Air Room Air 09/19 0638 87 194/91 09/19 0635 87 194/91 99 Nasal 2.0L Cannula 09/19 0634 Nasal 2.0L Cannula 09/20 611 98.7 96 24 229/104 97 Room Air Physical Exam General Appearance Alert, Oriented X3, Cooperative, No Acute Distress Skin DRY SKIN HEENT Atraumatic, PERRLA, Dry mucous membranes Neck No JVD Cardiovascular Regular Rate, Normal S1, Normal S2, No Murmurs, NO RUB Lungs Rales, right lung, decreased air entry at the lung bases Abdomen Normal Bowel Sounds, Soft, No Tenderness Neurological Normal Speech, Normal Tone, Sensation Intact Extremities 1+ EDEMA B/L Vascular Normal Pulses Last 24 Hrs of Labs/Michi: Laboratory Tests 09/19/17 0630: Anion Gap 18 H, Estimated GFR 7 L, BUN/Creatinine Ratio 7.0, Glucose 143 H, Calcium 9.4, Total Bilirubin 0.7, Direct Bilirubin 0.7 H, AST 14, ALT 14, Alkaline Phosphatase 82, Troponin I 0.09, Total Protein 8.8 H, Albumin 4.8, Amylase 91, Lipase 201, PT 10.8, INR 0.99, APTT 34, CBC w Diff MAN DIFF ORDERED, RBC 4.34, MCV 93.0, MCH 29.7, MCHC 31.9 L, RDW 15.2 H, MPV 9.4, Gran % 90.8 H , Lymphocytes % 4.3 L, Monocytes % 1.7, Eosinophils % 3.1, Basophils % 0.1, Absolute Granulocytes 15.1 H, Segmented Neutrophils 91 H, Absolute Lymphocytes 0.7 L, Lymphocytes 4 L, Monocytes 3, Absolute Monocytes 0.3, Eosinophils 2, Absolute Eosinophils 0.5, Absolute Basophils 0, Platelet Estimate ADEQUATE, Hypochromic-Microcytic 1+, Ovalocytes FEW, Fld Total RBCs Counted 100 09/19/17 0614: D-Dimer High Sensitivty Cancelled Microbiology 09/19 111 URINE ROUT: Legionella Antigen - ORD 09/19 111 URINE ROUT: Streptococcus pneumoniae Antigen (M - ORD 09/19 1109 LOWER RESP: Respiratory Culture - ORD 09/19 1109 LOWER RESP: Gram Stain - ORD 09/20 839 BLOOD: Blood Culture - RECD 09/20 839 BLOOD: Blood Culture - RECD Diagnostic Data EKG Results SR, Prolonged QTc, repolarization changes CXR Results Patchy airspace disease suspected in bilateral lung bases. Findings may represent pneumonia in the appropriate clinical setting. Assessment/Plan Assessment: 51-year-old female with past medical history significant for coronary artery disease, status post multiple angioplasties,3 stents placed in December 2016, recent cardiac catheterization in June 2017, hypertension, insulin-dependent diabetes, end-stage renal disease on hemodialysis Tuesday and Tuesday, history of anxiety/depression, history of anemia, recently admitted at [facility] from June 26 2017 to November 25, 2017 with similar complaints of jaw pain and chest pain and eventually got transferred for cardiac catheterization, came back to ED with similar complaints. Vitals in emergency department patient afebrile, no significant tachycardia, mild tachypnea, systolic blood pressure 229 on admission and diastolic blood pressure of 104. Patient was in room air and examined the patient. Labs significant for leukocytosis white count of 16.7, left shift, no bandemia, no anemia, significant electrolyte abnormalities include BUN 47, creatinine 6.7, increased anion gap of 18, troponin 0.09 which increased to 0.12 on the floors, lactic acid pending, INR of 0.99, UA pending, microbiology data pending. Chest x-ray showed Patchy airspace disease suspected in bilateral lung bases. Findings may represent pneumonia in the appropriate clinical setting. Patient was admitted on the telemetry floor for the management of following problems Uncontrolled hypertension Positive troponins End-stage renal disease on hemodialysis Community acquired pneumonia Insulin-dependent diabetes mellitus Patient's uncontrolled hypertension is likely secondary to her noncompliance. Patient forgot to wear her patch of clonidine on Tuesday as she was not feeling well. Patient might have rebound hypertension from not being compliant with her medication. This uncontrolled hypertension might have been contributing to her chest pain although we will rule out ACS to make sure that she is not having any acute ischemic myocardial event. Initial set of troponins were negative. Stent fibrosis is another possibility to be ruled out in this current setting, if she starts making troponins. Next set of troponin mildly positive in the setting of uncontrolled hypertension and end-stage renal disease. No acute EKG changes noticed, mild T-wave depressions in 1 and aVL. Patient will require hemodialysis and has been evaluated by nephrology. Patient afebrile, no significant tachycardia or tachypnea on my examination, with possiblesource of infection in the lungs that can qualify for sepsis. We' ll cover the patient with broad-spectrum antibiotics. TRC nebs, Patient currently has uncontrolled hypertension and no episodes of hypotension happened. Does not drink to criteria for sepsis. Lactic acid pending. Microbiological data pending. Start the patient on half the dose off long-acting insulin. Follow blood sugars and start short-acting insulin sliding scale. Patient is full code patient is on heparin for DVT prophylaxis Patient is on renal dialysis diet As Ranked By This Provider Problem List: 1. Chest pain 2. Community acquired pneumonia 3. Pneumonia Core Measures/Misc (02/27) Acute Coronary Syndrome ACS Diagnosis: No Congestive Heart Failure Congestive Heart Failure Diagnosis No Cerebrovascular Accident CVA/TIA Diagnosis: No VTE (View Protocol) VTE Risk Factors Obesity No Mechanical VTE Prophylaxis d/t N/A MechProphylax Ordered No VTE Pharm Prophylaxis d/t NA PharmProphylax ordered Sepsis (View protocol) Sepsis Present: No Mckayla Ryan 09/19/17 1251: Attending Review Statement Attending Statement Attending MD Statement: examined this patient, discuss w/resident/PA/STUD SETTER, agreed w/resident/PA/STUD SETTER, discussed with family, reviewed EMR data (avail), discussed with nursing, discussed with case mgmt, reviewed images, amended to note Attending Assessment/Plan: Patient with known history of CAD comes with chest pain and b/l infiltrates on chest xray with elevation of cardiac enzymes. Patient is admitted for uncontrolled hypertension, possible NSTEMI type 1 vs type2 in setting of pneumonia likely community acquired or fluid overload needing dialysis. Nephrolgy and cardioloy consulted. Patient started on iv antibiotics, dialysis plan as per nephrology.
--- NOTE | 2017-09-19 10:33 | Cons- Nephrology ---
General Information and HPI Consulting Request Date of Consult: 09/19/17 Requested By: Ginny Rivera MD Reason for Consult: ESRD & CP Source of Information: patient, old records Exam Limitations: no limitations History of Present Illness: 51 yr old AA F w DM, HTN, CAD s/p MT & PCI, & ESRD on chronic HD admit now w several days of nonproductive cough followed by substernal CP associated w vomiting & SOB this AM. Found to have accelerated HTN & pulm infiltrates. Given SL NTG & started on IV antibiotics, & IV labetalol & Vasotec w improved sx. Denies fever or rigors. Last HD 3 days ago. Allergies/Medications Allergies: Coded Allergies: NO KNOWN ALLERGIES (NONE 09/19/17) Home Med List: Aspirin (Aspirin*) 325 MG TABLET 325 MG PO DAILY HEART HEALTH Atorvastatin Calcium 40 MG TABLET 1 TAB PO QPM CHOLESTEROL (Reported) Bupropion HCl (Bupropion XL) 150 MG TAB.ER.24H 1 TAB PO QAM MENTAL HEALTH ( Reported) Clonidine 0.3 MG/24 HOUR PATCH.TDWK 1 PAT TOP QSUN HEART (Reported) Clopidogrel Bisulfate (Clopidogrel) 75 MG TABLET 1 TAB PO DAILY BLOOD THINNER (Reported) Diltiazem Cd (Diltiazem ER) 120 MG CAP.ER.DEG 120 MG PO DAILY high blood pressure Escitalopram Oxalate 20 MG TABLET 1 TAB PO DAILY MENTAL HEALTH (Reported) Gabapentin 100 MG CAPSULE 1 CAP PO TID NEUROPATHY (Reported) Heparin (Heparin-1/2NS 25,000 Units/500) 25,000 UNIT/500 ML (50 UNIT/ML) IV.SOLN 25,000 UNITS IV DAILY ACS Hydralazine HCl 25 MG TABLET 4 TAB PO TID BP (Reported) Insulin Aspart, Recombinant (Novolog Flexpen) (Unknown Strength) INSULN.PEN ( Unknown Dose) SC SEE SLIDING SCALE DIABETES (Reported) Insulin Glargine,Hum.rec.anlog (Lantus Solostar) 100 UNIT/ML (3 ML) INSULN.PEN 30 UNIT SC BID DM (Reported) Isosorbide Mononitrate (Isosorbide Mononitrate ER) 30 MG TAB.ER.24H 1 TAB PO DAILY HEART (Reported) Labetalol HCl 200 MG TABLET 2 TAB PO BID HEART (Reported) Linaclotide (Linzess) 145 MCG CAPSULE 1 CAP PO DAILY PRN CONSTIPATION ( Reported) Lisinopril (Prinivil) 20 MG TABLET 1 TAB PO BID HEART (Reported) Minoxidil 2.5 MG TABLET 2 TAB PO DAILY UNKNOWN (Reported) Pantoprazole Sodium (Protonix) 40 MG TABLET.DR 1 TAB PO DAILY ACID REFLUX ( Reported) Sevelamer Carbonate (Renvela) 800 MG TABLET 1 TAB PO TID KIDNEY (Reported) Sevelamer Carbonate (Renvela) 800 MG TABLET 1 TAB PO BID KIDNEY (Reported) Current Medications: Current Medications Sig/[place] Start time Last Medication Dose Route Stop Time Status Admin Aspirin 0 .STK-MED ONE 09/19 710 DC PO Aspirin 325 MG ONCE ONE 09/19 699 DC 09/19 PO 09/19 700 07 Atorvastatin Calcium 40 MG ONCE ONE 09/19 699 DC 09/19 PO 09/19 700 07 Azithromycin 500 MG ONCE ONE 09/20 799 DC 09/19 Dextrose/Water 250 ML IV 09/19 858 09 Ceftriaxone Sodium 0 .STK-MED ONE 09/19 809 DC .ROUTE Ceftriaxone Sodium 1,000 MG ONCE ONE 09/20 799 DC 09/19 IV 09/19 800 09 Clopidogrel Bisulfate 75 MG ONCE ONE 09/19 699 DC 09/19 PO 09/19 700 0711 Diltiazem HCl 180 MG DAILY 09/19 644 AC 09/19 PO 0936 Enalaprilat 0 .STK-MED ONE 09/19 933 DC IV Enalaprilat 1.25 MG ONCE ONE 09/19 929 DC 09/19 IV 09/19 930 0932 Hydralazine HCl 100 MG STAT STA 09/20 643 DC 09/19 PO 09/19 0545 0711 Labetalol HCl 0 .STK-MED ONE 09/19 630 DC IV Labetalol HCl 20 MG ONCE ONE 09/19 629 DC 09/19 IV 09/19 630 0638 Lisinopril 20 MG ONCE ONE 09/19 699 DC 09/19 PO 09/19 700 0712 Minoxidil 5 MG ONCE ONE 09/19 699 DC 09/19 PO 09/19 0601 0711 Nitroglycerin 0.4 MG ONCE ONE 09/19 929 DC 09/19 SL 09/19 930 0915 Nitroglycerin 0 .STK-MED ONE 04/09 0648 DC TOP Nitroglycerin 2 GM STAT STA 09/19 0542 DC 09/19 TOP 09/19 0543 0647 Nitroglycerin 0.4 MG Q 5 MINUTES X 3 DOSE 09/19 629 AC 09/19 06 Review of Systems Review of Systems Constitutional: Reports: no symptoms. EENTM: Reports: no symptoms. Cardiovascular: Reports: see HPI, chest pain. Respiratory: Reports: see HPI, cough, short of breath. GI: Reports: see HPI, diarrhea, vomiting. Genitourinary: Reports: no symptoms. Musculoskeletal: Reports: no symptoms. Skin: Reports: no symptoms. Neurological/Psychological: Reports: no symptoms. Hematologic/Endocrine: Reports: no symptoms. Immunologic/Allergic: Reports: no symptoms. 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 significant other, child Services at Home: Patient previously had home health aide and nursing services but these services were recently discontinued Primary Language: Hebrew ETOH Use: denies use Functional Ability ADLs Independent: dressing, eating, toileting, bathing. Ambulation: independent Exam & Diagnostic Data Vital Signs and I&O Vital Signs Date Time Temp Pulse Resp B/P B/P Pulse O2 O2 Flow FiO2 Mean Ox Delivery Rate 09/20 931 107 175/84 09/20 839 94 20 193/93 99 Room Air 09/20 739 110 20 144/89 98 Room Air 09/19 0612 84 189/76 09/19 710 84 189/76 09/19 705 82 16 186/76 100 Room Air Room Air 09/19 637 87 194/91 09/19 634 87 194/91 99 Nasal 2.0L Cannula 09/19 633 Nasal 2.0L Cannula 09/20 611 98.7 96 24 229/104 97 Room Air Physical Exam General Appearance: well developed/nourished, no apparent distress, alert Head: atraumatic, normal appearance Eyes: Bilateral: normal appearance. Ears, Nose, Throat: normal ENT inspection Neck: normal inspection, supple Respiratory: no respiratory distress, quiet respiration, rhonchi (R base) Cardiovascular: regular rate/rhythm, friction rub (none) Gastrointestinal: soft, non-tender, no organomegaly Back: normal inspection Extremities: swelling, + bruit MANUEL AVF Neurologic/Psych: no motor/sensory deficits, awake, alert, oriented x 3, turbine operator II- XII nml as tested Skin: intact, normal color, warm/dry Lymphatic: no anterior cervical dinah, noaxil adenpathy Results Pertinent Lab Results: Laboratory Tests 09/19 09/19 0630 0614 Chemistry Sodium (137 - 145 mmol/L) 145 Potassium (3.5 - 5.1 mmol/L) 4.8 Chloride (98 - 107 mmol/L) 106 Carbon Dioxide (22 - 30 mmol/L) 21 L Anion Gap (5 - 16) 18 H BUN (7 - 17 mg/dL) 47 H Creatinine (0.5 - 1.0 mg/dL) 6.7 *H Estimated GFR (>60 ml/min) 7 L BUN/Creatinine Ratio (7 - 25 %) 7.0 Glucose (65 - 99 mg/dL) 143 H Calcium (8.4 - 10.2 mg/dL) 9.4 Total Bilirubin (0.2 - 1.3 mg/dL) 0.7 Direct Bilirubin (< 0.4 mg/dL) 0.7 H AST (14 - 36 U/L) 14 ALT (9 - 52 U/L) 14 Alkaline Phosphatase (<127 U/L) 82 Troponin I (< 0.11 ng/ml) 0.09 Total Protein (6.3 - 8.2 g/dL) 8.8 H Albumin (3.5 - 5.0 g/dL) 4.8 Amylase (30 - 110 U/L) 91 Lipase (23 - 300 U/L) 201 Coagulation PT (9.4 - 12.5 SEC) 10.8 INR (0.90 - 1.19) 0.99 APTT (25 - 37 SEC) 34 D-Dimer High Sensitivty Cancelled Hematology CBC w Diff MAN DIFF ORDERED WBC (4.8 - 10.8 /CUMM) 16.7 H RBC (4.20 - 5.40 /CUMM) 4.34 Hgb (12.0 - 16.0 G/DL) 12.9 Hct (37 - 47 %) 40.3 MCV (81.0 - 99.0 FL) 93.0 MCH (27.0 - 31.0 PG) 29.7 MCHC (33.0 - 37.0 G/DL) 31.9 L RDW (11.5 - 14.5 %) 15.2 H Plt Count (130 - 400 /CUMM) 224 MPV (7.4 - 10.4 FL) 9.4 Gran % (42.2 - 75.2 %) 90.8 H Lymphocytes % (20.5 - 51.1 %) 4.3 L Monocytes % (1.7 - 9.3 %) 1.7 Eosinophils % (0 - 5 %) 3.1 Basophils % (0.0 - 2.0 %) 0.1 Absolute Granulocytes (1.4 - 6.5 /CUMM) 15.1 H Segmented Neutrophils (42.2 - 75.2 %) 91 H Absolute Lymphocytes (1.2 - 3.4 /CUMM) 0.7 L Lymphocytes (20.5 - 51.1 %) 4 L Monocytes (1.7 - 9.3 %) 3 Absolute Monocytes (0.10 - 0.60 /CUMM) 0.3 Eosinophils (0 - 5.0 %) 2 Absolute Eosinophils (0.0 - 0.7 /CUMM) 0.5 Absolute Basophils (0.0 - 0.2 /CUMM) 0 Platelet Estimate (ADEQUATE) ADEQUATE Hypochromic-Microcytic 1+ Ovalocytes FEW Other Body Source Fld Total RBCs Counted (%) 100 Imaging/Other Studies: XR PORTABLE CHEST CLINICAL INFORMATION: Chest pain COMPARISON: Multiple chest x-rays most recent prior dated 06/26/2017 TECHNIQUE: Portable frontal view of the chest was obtained. FINDINGS: Stable cardiomediastinal silhouette. Patchy opacities with decreased aeration noted in bilateral lower lungs suspicious for evolving airspace disease or infiltrate. Bony thorax is intact. IMPRESSION: Patchy airspace disease suspected in bilateral lung bases. Findings may represent pneumonia in the appropriate clinical setting. Assessment/Plan Assessment/Recommendations Assessment: 1. ESRD: due to DM & HN; will require HD today 2. CP: to r/o MT 3. Pulm infiltrates: w leukocytosis ---> presumed pneumonia; contiue antibiotics 4. HTN: restart anti HTN meds Recommendations: 1. HD today 2. sevelamer 800 mg w meals 3. clonidine patch 0.3 qwk 4. labetalol 400 mg po bid 5. minoxidil 2.5 mg qday 6. diltiazem 120 mg qday 7. lisinopril 40 mg qday 8. nephrovite 1 po qday
[2017-09-19] MEDS ORDERED: ASPIRIN81 M4 PO (11:12)
[2017-09-19 18:56] VITALS: BP 166/77
[2017-09-19 19:52] VITALS: BP 132/64
--- NOTE | 2017-09-19 21:03 | Cons- Cardiology ---
General Information and HPI Consulting Request Date of Consult: 09/19/17 Requested By: Ginny Rivera MD History of Present Illness: Patience is a 51 year old female who carries a history of hypertension, dyslipidemia, and diabetes mellitus which she has had for approximately 23 years. She also has severe renal insufficiency and is now on dialysis. I initially saw this patient for chest discomfort and she is now s/p multiple angioplasties. Patience felt poorly last Tuesday and therefore did not take her clonidine as prescribed. She also had a productive cough. She presented to the ER with chest discomfort and shortness of breath. In the ER the patient appeared to have an infiltrate on her chest X-ray and she was severely hypertensive. At present she is pain free and is breathing better. Cardiac enzymes are mildly elevated. It should be noted that this patient had a recent PCI and presented to [facility] with chest discomfort and positive cardiac enzymes following her cardiac cath. We have been attempting to treat this medically. She is still very inactive and she continues to gain weight. To Review the Patient's Past History: Prior to her recent angioplasty, the patient reported multiple recurrent episodes of chest discomfort with no clear exertional component, although she did rule in for a small non-ST elevation [place] with a troponin of 0.76. There was also some relief with nitroglycerin. Approximately one and one-half years ago, in the setting of dull chest discomfort radiating to her arm with shortness of breath that was exertional in nature and a consideration of a non-ST elevation [place], the patient underwent a cardiac catheterization. This resulted in angioplasty to the PDA with a 50% residual stenosis. At that time, I did not feel that this vessel was amenable to stent placement due to its tortuosity. The LAD, however, did receive a 2.5 x 18 mm [place] stent with zero percent residual stenosis and the patient was brought back a second time for angioplasty to the left circumflex with placement of a 2.75 x 20 mm Taxus stent with plain balloon angioplasty to the ostium of the Obtuse Marginal-1. This resulted in zero percent residual stenosis in the AV groove left circumflex and a 20% non-flow limiting residual stenosis in the Obtuse Marginal-1. Postprocedure, there remained a 50-60% mid non-flow limiting stenosis in the LAD. There was also a 50% non-flow limiting ostial stenosis of the diagonal branch. Lastly, it should be noted that renal angiography was performed at that time and there was no evidence of renal artery stenosis. Her EF was 55% with anterior wall hypokinesis. In consideration of the above mentioned symptoms with recurrent non-ST elevation [place], I did risk stratify the patient with a stress test which was abnormal and therefore repeated her cardiac catheterization. This study showed the following anatomy: Her left main was short and patent. The left circumflex was diminutive in the AV groove distally. It parented a large obtuse marginal one vessel with a 40% ostial to proximal stenosis. The obtuse marginal two is also a large vessel with luminal irregularities. The LAD was a large vessel that wrapped around the apex. It harbored a 70% mid stenosis just after the take-off of the first diagonal branch. There are luminal irregularities throughout its course. The first diagonal branch is a small vessel with an 80% ostial stenosis superimposed on diffuse disease. The right coronary artery is dominant with a 50% ostial posterior lateral branch lesion. The PDA has a 40% ostial and 50% mid lesion. Repeat angiography showed no significant stenosis bilaterally. In consideration of the above, I directly stented the LAD with placement of a 3.5 x 24 mm Taxus stent and a plain balloon angioplasty was done on the diagonal branch with a 2.0 x 12 mm [place] balloon. This resulted in zero percent residual stenosis in the LAD and an 80% diagonal one lesion with zero percent postprocedure. Finally, it should be recalled that the patient was found to have a 7 x 6 x 4 mm hypoechoic nodule extrinsic to the lower pole of the left lobe of thyroid gland that was considered to be a lymph node on extrinsic nodule vs. a parathyroid adenoma. The thyroid gland was also enlarged. The patient was asked to followup with Dr. Schmidt regarding this problem but she has not seen him recently. was also noted to have microcytic anemia which is being treated with iron supplements. I believe she is following up with a documentation billing clerk at this point in time. Allergies/Medications Allergies: Coded Allergies: NO KNOWN ALLERGIES (NONE 09/19/17) Home Med List: Aspirin (Aspirin*) 81 MG TAB.CHEW 2 TAB PO DAILY HEART HEALTH (Reported) Atorvastatin Calcium 40 MG TABLET 1 TAB PO QPM CHOLESTEROL (Reported) Bupropion HCl (Bupropion XL) 150 MG TAB.ER.24H 1 TAB PO QAM MENTAL HEALTH ( Reported) Clonidine 0.3 MG/24 HOUR PATCH.TDWK 1 PAT TOP QSUN HEART (Reported) Clopidogrel Bisulfate (Clopidogrel) 75 MG TABLET 1 TAB PO DAILY BLOOD THINNER (Reported) Diltiazem Cd (Diltiazem ER) 120 MG CAP.ER.DEG 120 MG PO DAILY high blood pressure Escitalopram Oxalate 20 MG TABLET 1 TAB PO DAILY MENTAL HEALTH (Reported) Gabapentin 100 MG CAPSULE 1 CAP PO TID NEUROPATHY (Reported) Heparin (Heparin-1/2NS 25,000 Units/500) 25,000 UNIT/500 ML (50 UNIT/ML) IV.SOLN 25,000 UNITS IV DAILY ACS Hydralazine HCl 25 MG TABLET 4 TAB PO TID BP (Reported) Insulin Aspart, Recombinant (Novolog Flexpen) (Unknown Strength) INSULN.PEN ( Unknown Dose) SC SEE SLIDING SCALE DIABETES (Reported) Insulin Glargine,Hum.rec.anlog (Lantus Solostar) 100 UNIT/ML (3 ML) INSULN.PEN 30 UNIT SC BID DM (Reported) Isosorbide Mononitrate (Isosorbide Mononitrate ER) 30 MG TAB.ER.24H 1 TAB PO DAILY HEART (Reported) Labetalol HCl 200 MG TABLET 2 TAB PO BID HEART (Reported) Linaclotide (Linzess) 145 MCG CAPSULE 1 CAP PO DAILY PRN CONSTIPATION ( Reported) Lisinopril (Prinivil) 20 MG TABLET 1 TAB PO BID HEART (Reported) Minoxidil 2.5 MG TABLET 2 TAB PO DAILY UNKNOWN (Reported) Pantoprazole Sodium (Protonix) 40 MG TABLET.DR 1 TAB PO DAILY ACID REFLUX ( Reported) Sevelamer Carbonate (Renvela) 800 MG TABLET 1 TAB PO TID KIDNEY (Reported) Sevelamer Carbonate (Renvela) 800 MG TABLET 1 TAB PO BID KIDNEY (Reported) Review of Systems Review of Systems: A review of systems is remarkable for cough and headache. 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 Home Who Do You Live With? significant other, child Services at Home: Patient previously had home health aide and nursing services but these services were recently discontinued Primary Language: Irish Smoking Status: Never Smoked ETOH Use: denies use Functional Ability ADLs Independent: dressing, eating, toileting, bathing. Ambulation: independent ECHO Results (as available) Date of last Echo 06/27/17 EF% 70 Exam & Diagnostic Data Vital Signs and I&O Vital Signs Date Time Temp Pulse Resp B/P B/P Pulse O2 O2 Flow FiO2 Mean Ox Delivery Rate 09/19 2049 86 132/64 09/19 2049 86 132/64 09/19 195 99.3 101 16 132/64 100 Room Air 09/19 1856 98.7 88 18 166/77 98 Room Air 09/19 1840 98.7 88 18 166/77 98 Room Air 09/19 1259 98.4 85 18 159/74 09/19 1159 98.4 85 18 159/74 100 Nasal 2.0L Cannula 09/19 0932 107 175/84 09/19 0930 102 20 175/84 99 Room Air 09/19 0840 94 20 193/93 99 Room Air 09/19 0740 110 20 144/89 98 Room Air 09/19 0712 84 189/76 09/19 0711 84 189/76 09/19 0706 82 16 186/76 100 Room Air Room Air 09/19 0638 87 194/91 09/19 0635 87 194/91 99 Nasal 2.0L Cannula 09/19 0634 Nasal 2.0L Cannula 09/19 0612 98.7 96 24 229/104 97 Room Air Physical Exam: General: WD/WN female in NAD; alert and oriented x 3 HEENT: NC/AT, PERRL, EOMI Neck: no jvd, no carotid bruit Heart: RRR w/o murmur Lungs: clear bilaterally Abdomen: soft, obese, NT, +ve bowel sounds Extremities: no edema Assessment/Plan Assessment/Plan * This patient appears to have a severe productive cough due to a pneumonia. She will need antibiotic therapy. * In the setting of physiologic stress including severe hypertension this patient has a rise in cardiac enzymes. This appears to be a recurrent occurence in the setting of minor stress. I suspect that she has intimal fibrosis of her stents. It is reasonable to begin IV heparin and otherwise restart all her usual cardiac medications. Abrupt stopping of clonidine will give rebound hypertension. Continue a NTG patch. * This patient will need a repeat cardiac catheterization. Consult Acknowledgment - Thank you for your consult request.
[2017-09-19 23:05] VITALS: BP 138/60
[2017-09-20 03:54] LABS: PTT 73 SEC (25-37)
[2017-09-20 06:54] VITALS: BP 138/72
[2017-09-20 08:00] LABS: ABSOLUTE BASOPHIL COUNT 0 /CUMM (0.0-0.2); ABSOLUTE EOSINOPHIL COUNT 0.4 /CUMM (0.0-0.7); ABSOLUTE MONOCYTE COUNT 0.8 /CUMM (0.10-0.60); GRANULOCYTE % 72.7 % (42.2-75.2); MEAN CORPUSCULAR HGB 30.5 PG (27.0-31.0); WHITE BLOOD CELL COUNT 9.4 /CUMM (4.8-10.8)
[2017-09-20 08:21] LABS: ABSOLUTE GRANULOCYTE CT 6.9 /CUMM (1.4-6.5); ABSOLUTE LYMPH COUNT 1.3 /CUMM (1.2-3.4); BASOPHIL % 0.3 % (0.0-2.0); EOSINOPHIL % 4.5 % (0-5); MEAN CORPUSCULAR HGB CONC 33.1 G/DL (33.0-37.0); MEAN CORPUSCULAR VOLUME 92.2 FL (81.0-99.0); MEAN PLATELET VOLUME 9.7 FL (7.4-10.4); PLATELET COUNT 193 /CUMM (130-400); RBC DISTRIBUTION WIDTH 15.2 % (11.5-14.5); RED BLOOD CELL CT 3.57 /CUMM (4.20-5.40)
--- NOTE | 2017-09-20 08:54 | PN- Housestaff ---
Kelle Plamer MD,Veto 09/20/17 0854: Subjective Follow-up For: ESRD with anion gap metabolic acidosis ACute hypoxic resp failure A fib with RVR HTN anxiety Complaints: no complaints Tele-Events Since Last Visit: Sinus rhythm 65-72 Subjective: Patient is still complaining of productive cough. Mild chest discomfort with cough. No acute shortness of breath but feels weak. Review of Systems Constitutional: Denies: chills, fever. EENTM: Denies: visual changes. Cardiovascular: Denies: chest pain, palpitations. Respiratory: Reports: cough, short of breath (chronic). Gastrointestinal: Denies: abdominal pain, nausea, vomiting. Genitourinary: Denies: dysuria. Objective Last 24 Hrs of Vital Signs/I&O Vital Signs Date Time Temp Pulse Resp B/P B/P Pulse O2 O2 Flow FiO2 Mean Ox Delivery Rate 09/20 1113 Room Air 09/20 0957 62 130/56 09/20 0654 98.4 64 20 138/72 100 Room Air 09/19 2305 99.1 71 18 138/60 91 Room Air 09/19 2049 86 132/64 09/19 2049 86 132/64 09/19 1952 99.3 101 16 132/64 100 Room Air 09/19 1856 98.7 88 18 166/77 98 Room Air 09/19 1840 98.7 88 18 166/77 98 Room Air 09/19 1259 98.4 85 18 159/74 09/19 1159 98.4 85 18 159/74 100 Nasal 2.0L Cannula Intake & Output 09/20 1600 09/20 0800 09/20 0000 Intake Total 360 240 Output Total Balance 360 240 Intake, IV 160 Intake, Oral 200 240 Patient 188 lb Weight Physical Exam General Appearance: Alert, Oriented X3, Cooperative Skin Temp/Moisture Exam: Warm/Dry HEENT: Atraumatic Neck: No JVD Cardiovascular: Regular Rate, Normal S1, Normal S2 Lungs: occasional rales and decreased air entry at the lung bases. Abdomen: Normal Bowel Sounds, Soft, No Tenderness Neurological: Normal Speech, Normal Tone, Sensation Intact Extremities: trace bilateral lower extremity edema Vascular: Normal Pulses Current Medications: Current Medications Sig/[place] Start time Last Medication Dose Route Stop Time Status Admin Aspirin 162 MG DAILY 09/20 1000 AC 09/20 PO 0950 Atorvastatin Calcium 40 MG QPM 09/19 2200 AC 09/19 PO 2207 Azithromycin 500 MG DAILY 09/20 1000 AC Dextrose/Water 250 ML IV Bupropion HCl 150 MG QAM 09/19 1200 AC 09/20 PO 0958 Ceftriaxone Sodium 1,000 MG DAILY 09/20 1000 AC 09/20 IV 0947 Clonidine 3 PAT Q168 09/19 1215 AC 09/19 TOP 1259 Clopidogrel Bisulfate 75 MG DAILY 09/20 1000 AC PO Diltiazem HCl 180 MG DAILY 09/19 0645 AC 09/20 PO 0951 Epoetin José 4,000 UNIT MoWeFr PRN 09/21 1115 AC IV Escitalopram Oxalate 20 MG DAILY 09/20 1000 AC 09/20 PO 0951 Gabapentin 100 MG TID 09/19 1600 AC 09/20 PO 0953 Heparin Sodium 25,000 UNIT Q24H 09/19 2045 AC 09/19 (Porcine) IV 2053 Sodium Chloride 500 ML Heparin Sodium 5,000 UNIT Q8 09/19 1400 DC (Porcine) SC Insulin Aspart 0 TIDAC 09/19 1200 AC SC Insulin Detemir 15 UNITS BID 09/19 2200 AC 09/20 SC 0946 Labetalol HCl 400 MG BID 09/19 1150 AC 09/19 PO 2050 Lisinopril 20 MG BID 09/19 1159 AC 09/20 PO 0957 Multivitamins 1 TAB DAILY 09/19 1158 AC 09/20 PO 0952 Nitroglycerin 0.1 MG DAILY 09/20 1000 AC TOP Nitroglycerin 0.4 MG Q 5 MINUTES X 3 DOSE 09/19 0630 AC 09/19 SL 0625 Omeprazole 40 MG DAILY AC 09/19 1117 AC 09/20 PO 0553 Sevelamer Carbonate 800 MG WM 09/19 1700 AC 09/20 PO 0949 Last 24 Hrs of Lab/Michi Results Last 24 Hrs of Labs/Mics: Laboratory Tests 09/20/17 0625: Anion Gap 15, Estimated GFR 10 L, BUN/Creatinine Ratio 6.5 L, Troponin I 0.92 *H, CBC w Diff NO MAN DIFF REQ, RBC 3.57 L, MCV 92.2, MCH 30.5, MCHC 33.1, RDW 15.2 H, MPV 9.7, Gran % 72.7, Lymphocytes % 13.8 L, Monocytes % 8.7, Eosinophils % 4.5, Basophils % 0.3, Absolute Granulocytes 6.9 H, Absolute Lymphocytes 1.3, Absolute Monocytes 0.8 H, Absolute Eosinophils 0.4, Absolute Basophils 0 09/20/17 0300: APTT 73 H 09/20/17 0025: Troponin I 0.80 *H 09/19/17 1819: Troponin I 0.53 *H 09/19/17 1225: Troponin I 0.12 *H Lines/Diet/Fluids Fluids/Infusions: none Lines: peripheral lines Restraints: none Assessment/Plan Assessment: 51-year-old female with past medical history significant for coronary artery disease, status post multiple angioplasties,3 stents placed in December 2016, recent cardiac catheterization in June 2017, hypertension, insulin-dependent diabetes, end-stage renal disease on hemodialysis Tuesday and Tuesday, history of anxiety/depression, history of anemia, recently admitted at [facility] from June 26 2017 to November 25, 2017 with similar complaints of jaw pain and chest pain and eventually got transferred for cardiac catheterization, came back to ED with similar complaints. Vitals in emergency department patient afebrile, no significant tachycardia, mild tachypnea, systolic blood pressure 229 on admission and diastolic blood pressure of 104. Patient was in room air and examined the patient. Labs significant for leukocytosis white count of 16.7, left shift, no bandemia, no anemia, significant electrolyte abnormalities include BUN 47, creatinine 6.7, increased anion gap of 18, troponin 0.09 which increased to 0.12 on the floors, lactic acid pending, INR of 0.99, UA pending, microbiology data pending. Chest x-ray showed Patchy airspace disease suspected in bilateral lung bases. Findings may represent pneumonia in the appropriate clinical setting. Patient was admitted on the telemetry floor for the management of following problems Uncontrolled hypertension Positive troponins End-stage renal disease on hemodialysis Community acquired pneumonia Insulin-dependent diabetes mellitus Uncontrolled hypertension and positive troponins Patient's uncontrolled hypertension is likely secondary to her noncompliance. Patient forgot to wear her patch of clonidine on Tuesday as she was not feeling well. Patient might have rebound hypertension from not being compliant with her medication. This uncontrolled hypertension might have been contributing to her chest pain although we will rule out ACS to make sure that she is not having any acute ischemic myocardial event. Initial set of troponins were negative. Stent fibrosis is another possibility to be ruled out in this current setting, if she starts making troponins. Next set of troponin mildly positive in the setting of uncontrolled hypertension and end-stage renal disease. No acute EKG changes noticed, mild T-wave depressions in 1 and aVL. Hypertension is well controlled now. We will continue to follow the troponins until peak. If patient develops chest pain or significant EKG changes patient will need urgent cardiac catheterization. End-stage renal disease on hemodialysis Patient was evaluated by nephrology yesterday and had her hemodialysis Community acquired pneumonia Patient afebrile, no significant tachycardia or tachypnea on my examination, with possible source of infection in the lungs that can qualify for sepsis. We 'll cover the patient with broad-spectrum antibiotics. TRC nebs, Patient currently has uncontrolled hypertension and no episodes of hypotension happened. Does not drink to criteria for sepsis. Lactic acid pending. Microbiological data pending. [id number] diabetes mellitus Start the patient on half the dose off long-acting insulin. Follow blood sugars and start short-acting insulin sliding scale. Based on the fingersticks will keep the current insulin sliding scale Patient is full code patient is on heparin for DVT prophylaxis Patient is on renal dialysis Problem List: 1. Pneumonia 2. Community acquired pneumonia 3. Generalized weakness 4. ESRD (end stage renal disease) Pain Ratin Pain Location: na Pain Goal: Pain 4 or less Pain Plan: Continue current pain medications Tomorrow's Labs & Rationales: CBC and BP DVT/Prophylaxis: pharmacological Mckayla Ryan 09/20/17 1118: Attending MD Review Statement Attending Statement Attending MD Statement: examined this patient, discuss w/resident/PA/SPECIAL EDUCATION ITINERANT TEACHER, agreed w/resident/PA/SPECIAL EDUCATION ITINERANT TEACHER, discussed with family, reviewed EMR data (avail), discussed with nursing, discussed with case mgmt, reviewed images, amended to note Attending Assessment/Plan: Patient with known history of CAD s/p stent placement in Jun 2017 comes with chest pain and b/l infiltrates on chest xray with elevation of cardiac enzymes with non specific EKG changes. Patient is admitted for uncontrolled hypertension , possible NSTEMI type 1 vs type2 in setting of pneumonia likely community acquired or fluid overload needing dialysis. Nephrolgy and cardioloy consulted. She remained afebrile with stable hemodynamcis. Patient contine on iv antibiotics follow cultures, Cardiology reocmmend iv heparin, antiplatelet therapy as per cardiology, cardiac cath as per cardiology. dialysis plan as per nephrology. Cont current care...
--- NOTE | 2017-09-20 11:12 | PN- Nephrology ---
Assessment/Plan Nephrology Assessment: 1. ESRD: due to DM & HTN; no HD need today 2. CP: improved --> ? SC w troponin rise ? due to presumed pneumonia 3. Pneumonia: continue antibiotics 4. HTN: much improved w meds & post UF Suggestion: 1. HD tomorrow 2. add EPO w HD Subjective Subjective: Still intermittent cough & CP No SOB On heparin drip Objective Vital Signs and I&Os Vital Signs Date Time Temp Pulse Resp B/P B/P Pulse O2 O2 Flow FiO2 Mean Ox Delivery Rate 09/20 956 62 130/56 09/20 0654 98.4 64 20 138/72 100 Room Air 09/19 2305 99.1 71 18 138/60 91 Room Air 09/19 2049 86 132/64 09/190 86 132/64 09/19 195 99.3 101 16 132/64 100 Room Air 09/19 1856 98.7 88 18 166/77 98 Room Air 09/19 1840 98.7 88 18 166/77 98 Room Air 09/19 1259 98.4 85 18 159/74 09/19 1159 98.4 85 18 159/74 100 Nasal 2.0L Cannula Intake & Output 09/20 1600 09/20 0400 09/19 1600 09/19 0400 09/18 1600 09/18 0400 Intake Total 360 240 Output Total Balance 360 240 Intake, IV 160 Intake, Oral 200 240 Patient 188 lb Weight Physical Exam General Appearance: well developed/nourished, no apparent distress Head: atraumatic, normal appearance Ears, Nose, Throat: normal ENT inspection Neck: normal inspection Respiratory: normal breath sounds, no respiratory distress, quiet respiration, lungs clear Cardiovascular: regular rate/rhythm Abdomen: soft, non-tender Extremities: no edema, + bruit R arm AVF Neurologic/Psychiatric: no motor/sensory deficits, alert, oriented x 3, 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- XII nml as tested Lymphatic: no anterior cervical dinah Current Medications: Current Medications Sig/[place] Start time Last Medication Dose Route Stop Time Status Admin Aspirin 162 MG DAILY 09/20 1000 AC 09/20 PO 0950 Atorvastatin Calcium 40 MG QPM 09/19 2200 AC 09/19 PO 2207 Azithromycin 500 MG DAILY 09/20 1000 AC Dextrose/Water 250 ML IV Bupropion HCl 150 MG QAM 09/19 1200 AC 09/20 PO 0958 Ceftriaxone Sodium 1,000 MG DAILY 09/20 1000 AC 09/20 IV 0947 Clonidine 3 PAT Q168 09/19 1215 AC 09/19 TOP 1259 Clopidogrel Bisulfate 75 MG DAILY 09/20 1000 AC PO Diltiazem HCl 180 MG DAILY 09/19 0645 AC 09/20 PO 0951 Escitalopram Oxalate 20 MG DAILY 09/20 1000 AC 09/20 PO 0951 Gabapentin 100 MG TID 09/19 1600 AC 09/20 PO 0953 Heparin Sodium 25,000 UNIT Q24H 09/19 2045 AC 09/19 (Porcine) IV 205 Sodium Chloride 500 ML Heparin Sodium 5,000 UNIT Q8 09/19 1400 DC (Porcine) SC Insulin Aspart 0 TIDAC 09/19 1200 AC SC Insulin Detemir 15 UNITS BID 09/19 2200 AC 09/20 SC 0946 Labetalol HCl 400 MG BID 09/19 1150 AC 09/19 PO 2050 Lisinopril 20 MG BID 09/19 1159 AC 09/20 PO 0957 Multivitamins 1 TAB DAILY 09/19 1158 AC 09/20 PO 0952 Nitroglycerin 0.1 MG DAILY 09/20 1000 AC TOP Nitroglycerin 0.4 MG Q 5 MINUTES X 3 DOSE 09/19 0630 AC 09/19 SL 0625 Omeprazole 40 MG DAILY AC 09/19 1117 AC 09/20 PO 0553 Sevelamer Carbonate 800 MG WM 09/19 1700 AC 09/20 PO 0949 Results Pertinent Lab Results: Laboratory Tests 09/20 09/20 09/20 0625 0300 0025 Chemistry Sodium (137 - 145 mmol/L) 141 Potassium (3.5 - 5.1 mmol/L) 4.0 Chloride (98 - 107 mmol/L) 101 Carbon Dioxide (22 - 30 mmol/L) 26 Anion Gap (5 - 16) 15 BUN (7 - 17 mg/dL) 30 H Creatinine (0.5 - 1.0 mg/dL) 4.6 H Estimated GFR (>60 ml/min) 10 L BUN/Creatinine Ratio (7 - 25 %) 6.5 L Troponin I (< 0.11 ng/ml) 0.92 *H 0.80 *H Coagulation APTT (25 - 37 SEC) 73 H Hematology CBC w Diff NO MAN DIFF REQ WBC (4.8 - 10.8 /CUMM) 9.4 RBC (4.20 - 5.40 /CUMM) 3.57 L Hgb (12.0 - 16.0 G/DL) 10.9 L Hct (37 - 47 %) 33.0 L MCV (81.0 - 99.0 FL) 92.2 MCH (27.0 - 31.0 PG) 30.5 MCHC (33.0 - 37.0 G/DL) 33.1 RDW (11.5 - 14.5 %) 15.2 H Plt Count (130 - 400 /CUMM) 193 MPV (7.4 - 10.4 FL) 9.7 Gran % (42.2 - 75.2 %) 72.7 Lymphocytes % (20.5 - 51.1 %) 13.8 L Monocytes % (1.7 - 9.3 %) 8.7 Eosinophils % (0 - 5 %) 4.5 Basophils % (0.0 - 2.0 %) 0.3 Absolute Granulocytes (1.4 - 6.5 /CUMM) 6.9 H Absolute Lymphocytes (1.2 - 3.4 /CUMM) 1.3 Absolute Monocytes (0.10 - 0.60 /CUMM) 0.8 H Absolute Eosinophils (0.0 - 0.7 /CUMM) 0.4 Absolute Basophils (0.0 - 0.2 /CUMM) 0 09/19 09/19 09/19 1819 1225 0630 Chemistry Sodium (137 - 145 mmol/L) 145 Potassium (3.5 - 5.1 mmol/L) 4.8 Chloride (98 - 107 mmol/L) 106 Carbon Dioxide (22 - 30 mmol/L) 21 L Anion Gap (5 - 16) 18 H BUN (7 - 17 mg/dL) 47 H Creatinine (0.5 - 1.0 mg/dL) 6.7 *H Estimated GFR (>60 ml/min) 7 L BUN/Creatinine Ratio (7 - 25 %) 7.0 Glucose (65 - 99 mg/dL) 143 H Calcium (8.4 - 10.2 mg/dL) 9.4 Total Bilirubin (0.2 - 1.3 mg/dL) 0.7 Direct Bilirubin (< 0.4 mg/dL) 0.7 H AST (14 - 36 U/L) 14 ALT (9 - 52 U/L) 14 Alkaline Phosphatase (<127 U/L) 82 Troponin I (< 0.11 ng/ml) 0.53 *H 0.12 *H 0.09 Total Protein (6.3 - 8.2 g/dL) 8.8 H Albumin (3.5 - 5.0 g/dL) 4.8 Amylase (30 - 110 U/L) 91 Lipase (23 - 300 U/L) 201 Coagulation PT (9.4 - 12.5 SEC) 10.8 INR (0.90 - 1.19) 0.99 APTT (25 - 37 SEC) 34 Hematology CBC w Diff MAN DIFF ORDERED WBC (4.8 - 10.8 /CUMM) 16.7 H RBC (4.20 - 5.40 /CUMM) 4.34 Hgb (12.0 - 16.0 G/DL) 12.9 Hct (37 - 47 %) 40.3 MCV (81.0 - 99.0 FL) 93.0 MCH (27.0 - 31.0 PG) 29.7 MCHC (33.0 - 37.0 G/DL) 31.9 L RDW (11.5 - 14.5 %) 15.2 H Plt Count (130 - 400 /CUMM) 224 MPV (7.4 - 10.4 FL) 9.4 Gran % (42.2 - 75.2 %) 90.8 H Lymphocytes % (20.5 - 51.1 %) 4.3 L Monocytes % (1.7 - 9.3 %) 1.7 Eosinophils % (0 - 5 %) 3.1 Basophils % (0.0 - 2.0 %) 0.1 Absolute Granulocytes (1.4 - 6.5 /CUMM) 15.1 H Segmented Neutrophils (42.2 - 75.2 %) 91 H Absolute Lymphocytes (1.2 - 3.4 /CUMM) 0.7 L Lymphocytes (20.5 - 51.1 %) 4 L Monocytes (1.7 - 9.3 %) 3 Absolute Monocytes (0.10 - 0.60 /CUMM) 0.3 Eosinophils (0 - 5.0 %) 2 Absolute Eosinophils (0.0 - 0.7 /CUMM) 0.5 Absolute Basophils (0.0 - 0.2 /CUMM) 0 Platelet Estimate (ADEQUATE) ADEQUATE Hypochromic-Microcytic 1+ Ovalocytes FEW Other Body Source Fld Total RBCs Counted (%) 100 04/09 0614 Coagulation D-Dimer High Sensitivty Cancelled Imaging/Other Studies: CXR: Patchy airspace disease suspected in bilateral lung bases. Findings may represent pneumonia in the appropriate clinical setting.
[2017-09-20 14:36] VITALS: BP 110/70
[2017-09-20 15:23] LABS: PTT 44 SEC (25-37)
--- NOTE | 2017-09-20 18:00 | PN- Cardiology ---
Subjective Subjective: * Patient continues to have a cough but she denies chest discomfort or shortness of breath. * positive cardiac enzymes Objective Vital Signs and I&Os Vital Signs Date Time Temp Pulse Resp B/P B/P Pulse O2 O2 Flow FiO2 Mean Ox Delivery Rate 09/20 1436 98.2 72 20 110/70 99 Room Air 09/20 1113 Room Air 09/20 0957 62 130/56 09/20 0954 64 138/72 09/20 0654 98.4 64 20 138/72 100 Room Air 09/19 2305 99.1 71 18 138/60 91 Room Air 09/190 86 132/64 09/19 2050 86 132/64 09/19 1952 99.3 101 16 132/64 100 Room Air 09/19 1856 98.7 88 18 166/77 98 Room Air 09/19 1840 98.7 88 18 166/77 98 Room Air Intake & Output 09/20 1600 09/20 0800 09/20 0000 09/19 1600 09/19 0800 09/19 0000 Intake Total 360 240 Output Total Balance 360 240 Intake, IV 160 Intake, Oral 200 240 Patient 188 lb Weight Physical Exam: General: WD/WN female in NAD; alert and oriented x 3 HEENT: NC/AT, PERRL, EOMI Neck: no jvd, no carotid bruit Heart: RRR w/o murmur Lungs: clear bilaterally Abdomen: soft, obese, NT, +ve bowel sounds Extremities: no edema Assessment/Plan Assessment/Plan * This patient has demonstrated repeated episodes of positive cardiac enzymes with chest pain. We will pursue a cardiac cath tomorrow. Keep NPO except for medications. Cath [facility] at [facility]. * Blood pressure is better controlled now. * Continue her course of antibiotics. Continue telemetry? Yes
--- NOTE | 2017-09-20 18:27 | Discharge Summary ---
See Addendum Visit Information Visit Dates Admission Date: 09/19/17 Discharge Date: 09/21/17 Hospital Course Course Attending Physician: Connor Block MD Primary Care Physician: Violetta Reddy APRN Consulting Request: 1 Consulting Specialty: Cardiology Consulting Request: 2 Consulting Specialty: Nephrology Hospital Course: 51-year-old female with past medical history significant for coronary artery disease, status post multiple angioplasties,3 stents placed in December 2016, recent cardiac catheterization in June 2017, hypertension, insulin-dependent diabetes, thyromegaly, end-stage renal disease on hemodialysis Tuesday and Tuesday, history of anxiety/depression, history of anemia, recently admitted at [facility] from June 26 2017 to June 27, 2017 with similar complaints of jaw pain and chest pain and eventually got transferred for cardiac catheterization, came back to ED with similar complaints of chest pain, weakness , chills and productive cough. Vitals in emergency department patient afebrile, no significant tachycardia, mild tachypnea, systolic blood pressure 229 on admission and diastolic blood pressure of 104. Patient was in room air and examined the patient. Labs on admission significant for leukocytosis white count of 16.7, left shift, no bandemia, no anemia, significant electrolyte abnormalities include BUN 47, creatinine 6.7, increased anion gap of 18, troponin 0.09 which increased to 0.12 on the floors, lactic acid pending, INR of 0.99, UA pending, microbiology data pending. Chest x-ray showed Patchy airspace disease suspected in bilateral lung bases. Findings may represent pneumonia in the appropriate clinical setting. Patient was admitted on the telemetry floor for the management of following problems Uncontrolled hypertension and positive troponins Patient's uncontrolled hypertension was likely secondary to her noncompliance. Patient forgot to wear her patch of clonidine on Tuesday before admission as she was not feeling well. Patient might have rebound hypertension from not being compliant with her medication. This uncontrolled hypertension might have contributed to her chest pain although we wanted to rule out ACS to make sure that she is not having any acute ischemic myocardial event. Initial set of troponins were negative. Stent fibrosis was another possibility to be ruled out in this current setting. Patient initial set of troponins were negative but later on the trend was 0.12, 0.53, 0.80, peaked at 0.92, and came down to 0.69 in the setting of ESRD. There were some T-wave changes in the lateral leads. Given positive troponins patient was started on IV heparin. Dual antiplatelet therapy was continued. Patient's blood pressure improved as soon restarted her clonidine, lisinopril and home dose labetalol. Due to a significant drop in blood pressure and the risk of vasodilator effects we held patient's hydralazine and minoxidil. Patient had a recent echocardiogram in general 2018 showing ejection fraction of 70%, and moderate left ventricle hypertrophy. Therefore we did not repeat echocardiogram. There were no overt signs of heart failure. Cardiology evaluated the patient and decided to do repeat cardiac catheterization. End-stage renal disease on hemodialysis Patient was evaluated by nephrology had her hemodialysis during hospitalization. Her HD was held today 09/21/17 pending cardiac cath. As per d/w cardiology and nephrology, patient received 100mg of IV Lasix this AM, and will get dialysis at [place]. Community acquired pneumonia Patient on admission was afebrile, no significant tachycardia or tachypnea. Possible source of infection was in the lungs therefore she was treated with broad-spectrum antibiotics. TRC nebs were ordered. insulin-dependent diabetes mellitus We started the patient on half the dose off long-acting insulin, short-acting insulin sliding scale and Accu-Cheks. Patient was full code patient was on heparin for DVT prophylaxis Patient was on renal dialysis diet, currently NPO. Allergies: Coded Allergies: NO KNOWN ALLERGIES (NONE 09/19/17) Significant Procedures: SERVICE DATE: 09/19/17 EXAM TYPE: RAD - XRY-PORTABLE CHEST XRAY FINDINGS: Stable cardiomediastinal silhouette. Patchy opacities with decreased aeration noted in bilateral lower lungs suspicious for evolving airspace disease or infiltrate. Bony thorax is intact. IMPRESSION: Patchy airspace disease suspected in bilateral lung bases. Findings may represent pneumonia in the appropriate clinical setting. Disposition Summary Disposition Principal Diagnosis: Uncontrolled hypertension and positive troponins End-stage renal disease on hemodialysis Community acquired pneumonia Insulin-dependent diabetes mellitus Additional Diagnosis: History of uncontrolled hypertension secondary to noncompliance History of anemia History of thyromegaly Discharge Disposition: other general hospital Discharge Instructions General Discharge Information Code Status: Full Code Patient's Diet: Hemodialysis diet Patient's Activity: As tolerated Follow-Up Instructions/Appts: Follow-up with mechanical manufacturing technician after discharge Discuss with mechanical manufacturing technician about restarting hydralazine and minoxidil Follow-up with PCP after discharge Follow-up with damper fitter after discharge Follow-up with program therapist for regular dialysis after discharge Medications at Discharge Discharge Medications: Stop taking the following medications: Hydralazine HCl (Hydralazine HCl) 25 MG TABLET ORAL THREE TIMES DAILY Diltiazem Cd (Diltiazem ER) 120 MG CAP.ER.DEG ORAL DAILY Days = 30 Minoxidil (Minoxidil) 2.5 MG TABLET ORAL DAILY Qty = 30 Continue taking these medications: Labetalol HCl (Labetalol HCl) 200 MG TABLET 2 Tablet ORAL TWICE DAILY Comments: Last Taken: 09/21/17 Time: 1000 Clopidogrel Bisulfate (Clopidogrel) 75 MG TABLET 1 Tablet ORAL DAILY Comments: Last Taken: 09/21/17 Time: 1000 Lisinopril (Prinivil) 20 MG TABLET 1 Tablet ORAL TWICE DAILY Comments: Last Taken: 09/21/17 Time: 1000 Gabapentin (Gabapentin) 100 MG CAPSULE 1 Capsule ORAL THREE TIMES DAILY Comments: Last Taken: 09/21/17 Time: 1000 Clonidine (Clonidine) 0.3 MG/24 HOUR PATCH.TDWK 1 Patch On the skin EVERY TUESDAY Comments: Last Taken:09/19/17 Time:1000 Pantoprazole Sodium (Protonix) 40 MG TABLET.DR 1 Tablet ORAL DAILY Comments: NOT GIVEN THIS HOSPITAL STAY- RECEIVED PRILOSEC 09/21/17 Linaclotide (Linzess) 145 MCG CAPSULE 1 Capsule ORAL DAILY as needed for CONSTIPATION Comments: DID NOT TAKE IN HOSPITAL Insulin Aspart, Recombinant (Novolog Flexpen) 100 UNIT/ML INSULN.PEN 1 Unit Inject into fatty tissue SEE SLIDING SCALE Instructions: BEFORE MEALS Blood Insulin Sugar Units <80 0 81-100 1 101-200 2 201-250 6 251-300 8 301-350 10 351-400 12 >400 Call Doctor AT BEDTIME Blood Insulin Sugar Units <80 0 81-100 0 101-200 0 201-250 2 251-300 3 301-350 4 351-400 5 >400 Call Doctor Comments: Last Taken: 09/20/17 Time: 2100 Atorvastatin Calcium (Atorvastatin Calcium) 40 MG TABLET 1 Tablet ORAL Every night Qty = 90 Comments: Last Taken: 09/20/17 Time: 2110 Isosorbide Mononitrate (Isosorbide Mononitrate ER) 30 MG TAB.ER.24H 1 Tablet ORAL DAILY Comments: DID NOT RECEIVE IN HOSPITAL- RECEIVED TRANSDERMAL NITRO 0950 09/21/17 Bupropion HCl (Bupropion XL) 150 MG TAB.ER.24H 1 Tablet ORAL Every Morning Qty = 30 Comments: Last Taken: 09/21/17 Time: 0958 Escitalopram Oxalate (Escitalopram Oxalate) 20 MG TABLET 1 Tablet ORAL DAILY Comments: Last Taken: 09/21/17 Time: 1000 Sevelamer Carbonate (Renvela) 800 MG TABLET 1 Tablet ORAL THREE TIMES DAILY Qty = 150 Instructions: TAKE THIS MEDICATION WITH MEALS Comments: Last Taken: 09/21/17 Time: 1700 Insulin Glargine,Hum.rec.anlog (Lantus Solostar) 100 UNIT/ML (3 ML) INSULN.PEN 30 Unit Inject into fatty tissue TWICE DAILY Comments: DID NOT RECEIVE IN HOSPITAL- RECEIVED LEVEMIR 15 UNITS 1000 Aspirin (Aspirin*) 81 MG TAB.CHEW 2 Tablet ORAL DAILY Comments: Last Taken:09/21/17 Time:0950 Start taking the following new medications: Diltiazem HCl (Diltiazem 24HR Cd) 180 MG CAP.ER.24H 180 Milligram ORAL DAILY Qty = 60 No Refills Comments: Last Taken:09/21/17 Time:1100 Ceftriaxone Sodium (Ceftriaxone) 1 GRAM VIAL 1,000 Milligram INTRAVEN DAILY Qty = 5 No Refills Comments: Last Taken:09/21/17 Time:1000 Epoetin José (Epogen) 4,000 UNIT/ML VIAL 4,000 Unit INTRAVEN MoWeFr as needed for WITH HEMODIALYSIS Qty = 30 No Refills Instructions: w dialysis MWF Azithromycin (Azithromycin) 250 MG TABLET 1 Tablet ORAL DAILY Qty = 5 No Refills Comments: RECEIVED IV 09/21/17 1000 Benzonatate (Tessalon Perle) 100 MG CAPSULE 1 Capsule ORAL THREE TIMES DAILY as needed for COUGH Qty = 15 No Refills Comments: DID NOT RECEIVE IN HOSPITAL Heparin Sod,Porcine/0.9 % NaCl (Heparin 25,000 Unit/500 Ml-Ns) 25,000 UNIT/500 ML (50 UNIT/ML) IV.SOLN 25,000 Units INTRAVEN DAILY Qty = 1 No Refills Comments: RECEIVING 19.8 ML/HR, Copies To: Adrien ORTEGA,Dhruv Blanco; LinVioletta roldan APRN, MD PHD,Luis Daniel Ibarra MD Review Statement Documenting Attending: Connor ORTEGA,Mckayla Other Findings: Overnight events noted: No new complaints, vital stable, tolerating heparin and abx. Patient with known history of CAD s/p stent placement in Jun 2017 comes with chest pain and b/l infiltrates on chest xray with elevation of cardiac enzymes with non specific EKG changes. Patient is admitted for uncontrolled hypertension , possible NSTEMI type 1 or type 2 in setting of pneumonia likely community acquired or fluid overload needing dialysis. Nephrolgy and cardioloy consulted. Patient contine on iv antibiotics follow cultures remain negative, Cardiology reocmmend iv heparin, antiplatelet therapy as per cardiology, cardiac cath as per cardiology. dialysis plan as per nephrology. Patient transfered to higher facility for cardiac cathetrization.
--- NOTE | 2017-09-20 18:46 | Patient Discharge Instructions ---
Discharge Instructions General Discharge Information You were seen/treated for: Uncontrolled hypertension and positive troponins End-stage renal disease on hemodialysis Community acquired pneumonia Insulin-dependent diabetes mellitus Special Instructions: Follow-up with development and planning engineer after discharge Discuss with development and planning engineer about restarting hydralazine and minoxidil Follow-up with PCP after discharge Follow-up with louver door assembler after discharge Follow-up with storyboard artist for regular dialysis after discharge Diet Continue normal diet: No Recommended Diet: Renal Dialysis Acute Coronary Syndrome Inclusion Criteria At DC or during hospital stay patient has or had the following: ACS DIAGNOSIS No Discharge Core Measures Meds if any: Prescribed or Continued at Discharge Meds if any: NOT Prescribed or Continued at Discharge Congestive Heart Failure Inclusion Criteria At DC or during hospital stay patient has or had the following: CHF DIAGNOSIS No Discharge Core Measures Meds if any: Prescribed or Continued at Discharge Meds if any: NOT Prescribed or Continued at Discharge Cerebrovascular accident Inclusion Criteria At DC or during hospital stay patient has or had the following: CVA/TIA Diagnosis No Discharge Core Measures Meds if any: Prescribed or Continued at Discharge Meds if any: NOT Prescribed or Continued at Discharge Venous thromboembolism Inclusion Criteria VTE Diagnosis No VTE Type NONE VTE Confirmed by (Test) NONE Discharge Core Measures - Per Current guidelines, there needs to be overlap - treatment for the first 5 days of Warfarin therapy. - If discharged on Warfarin prior to 5 days of - overlap therapy, the patient will need to be - assessed for post discharge needs including - *Post discharge parental anticoagulation - *Warfarin and/or parental anticoagulation education - *Follow up date to check INR post discharge At least 5 days overlap therapy as Inpatient No Meds if any: Prescribed or Continued at Discharge Note: Overlap Therapy is Warfarin and Anticoagulant Meds if any: NOT Prescribed or Continued at Discharge
[2017-09-20] MEDS ORDERED: DILTIAZEM 24HR180 M1 PO (18:59)
[2017-09-20] MEDS ORDERED: CEFTRIAXONE1 G1 IV (21:17)
[2017-09-20] MEDS ORDERED: AZITHROMYCIN250 M1 PO (21:17)
[2017-09-20] MEDS ORDERED: TESSALON PERLE100 M1 PO (21:19)
[2017-09-20] MEDS ORDERED: [UNRECOGNIZED DRUG - CODE] IV (21:26)
[2017-09-20 21:28] VITALS: BP 130/72
[2017-09-20 23:00] LABS: PTT 104 SEC (25-37)
[2017-09-20] MEDS ORDERED: EPOGEN4000 UNIT/ IV (23:38)
--- NOTE | 2017-09-21 07:23 | PN- Housestaff ---
See Addendum Subjective Follow-up For: ESRD with anion gap metabolic acidosis ACute hypoxic resp failure A fib with RVR HTN anxiety Complaints: no complaints Tele-Events Since Last Visit: Sinus rythm 63-88. No events overnight. Subjective: Patient seen and exmained at bedside. She denies any CP, SOB, N/V. She is currently NPO pending cardiac catheterization. Review of Systems Constitutional: Denies: chills, fever, weakness. Cardiovascular: Denies: chest pain, orthopena, palpitations, peripheral edema. Respiratory: Denies: cough, orthopnea, short of breath, sputum production. Gastrointestinal: Denies: abdominal pain, nausea, vomiting. Genitourinary: Reports: no symptoms. Neurological/Psychological: Denies: headache, numbness, tingling, tremors. Objective Last 24 Hrs of Vital Signs/I&O Vital Signs Date Time Temp Pulse Resp B/P B/P Pulse O2 O2 Flow FiO2 Mean Ox Delivery Rate 09/21 0000 Room Air 09/21 2127 98.6 68 20 130/72 100 Room Air 09/20 2118 72 110/70 09/20 2117 72 110/70 09/20 1436 98.2 72 20 110/70 99 Room Air 09/20 1113 Room Air 09/20 0957 62 130/56 09/20 0954 64 138/72 Intake & Output 09/21 0800 09/21 0000 09/20 1600 Intake Total 173.4 200 Output Total Balance 173.4 200 Intake, IV 158.4 Intake, Oral 15 200 Patient 192 lb Weight Physical Exam General Appearance: Alert, Oriented X3, Cooperative, No Acute Distress Skin Temp/Moisture Exam: Warm/Dry HEENT: Atraumatic, PERRLA, EOMI, Mucous Membr. moist/pink Neck: Supple, No JVD, No LAD Cardiovascular: Regular Rate, Normal S1, Normal S2, No Murmurs Lungs: Clear to Auscultation, Normal Air Movement Abdomen: Normal Bowel Sounds, Soft, No Tenderness Neurological: Normal Speech, Strength at 5/5 X4 Ext, Normal Tone, Sensation Intact, Cranial Nerves 3-12 NL, Reflexes 2+ Extremities: No Edema, Normal Pulses Current Medications: Current Medications Sig/[place] Start time Last Medication Dose Route Stop Time Status Admin Aspirin 162 MG DAILY 09/20 1000 AC 09/21 PO 1001 Atorvastatin Calcium 40 MG QPM 09/19 2200 AC 09/20 PO 2118 Azithromycin 500 MG DAILY 09/20 1000 AC 09/21 Dextrose/Water 250 ML IV 1003 Bupropion HCl 150 MG QAM 09/19 1200 AC 09/21 PO 1000 Ceftriaxone Sodium 1,000 MG DAILY 09/20 1000 AC 09/21 IV 1001 Clonidine 3 PAT Q168 09/19 1215 AC 09/19 TOP 1259 Clopidogrel Bisulfate 75 MG DAILY 09/20 1000 AC 09/21 PO 1000 Diltiazem HCl 180 MG DAILY 09/19 0645 AC 09/21 PO 1001 Epoetin José 4,000 UNIT MoWeFr PRN 09/21 1115 AC IV Escitalopram Oxalate 20 MG DAILY 09/20 1000 AC 09/21 PO 1000 Furosemide 100 MG ONCE ONE 09/21 1045 DC IV 09/21 1046 Gabapentin 100 MG TID 09/19 1600 AC 09/21 PO 1000 Heparin Sodium 5,100 UNIT ONCE ONE 09/20 1645 DC 09/20 (Porcine) IV 09/20 1646 1630 Heparin Sodium 5,000 UNIT .STK-MED ONE 09/20 1620 DC (Porcine) IV 09/20 1621 Heparin Sodium 25,000 UNIT Q24H 09/19 2045 AC 09/21 (Porcine) IV 0035 Sodium Chloride 500 ML Insulin Aspart 0 TIDAC 09/19 1200 AC 09/20 SC 1242 Insulin Detemir 15 UNITS BID 09/19 2200 AC 09/21 SC 1020 Labetalol HCl 400 MG BID 09/19 1150 AC 09/21 PO 1000 Lisinopril 20 MG BID 09/19 1159 AC 09/21 PO 1000 Multivitamins 1 TAB DAILY 09/19 1158 AC 09/21 PO 1000 Nitroglycerin 0.1 MG DAILY 09/20 1000 AC 09/21 TOP 0959 Nitroglycerin 0.4 MG Q 5 MINUTES X 3 DOSE 09/19 0630 AC 09/19 SL 0625 Omeprazole 40 MG DAILY AC 09/19 1117 AC 09/21 PO 0548 Sevelamer Carbonate 800 MG WM 09/19 1700 AC 09/20 PO 1712 Last 24 Hrs of Lab/Michi Results Last 24 Hrs of Labs/Mics: Laboratory Tests 09/21/17 0640: APTT 61 H, CBC w Diff NO MAN DIFF REQ, RBC 3.42 L, MCV 91.8, MCH 30.3, MCHC 33.0, RDW 15.1 H, MPV 10.0, Gran % 72.9, Lymphocytes % 14.4 L, Monocytes % 7.4 , Eosinophils % 4.7, Basophils % 0.6, Absolute Granulocytes 7.2 H, Absolute Lymphocytes 1.4, Absolute Monocytes 0.7 H, Absolute Eosinophils 0.5, Absolute Basophils 0.1 09/20/17 2232: APTT 104 *H 09/20/17 1420: Troponin I 0.69 *H, APTT 44 H Orders Fingersticks (last 24 hrs): 93, 224, 104, 127, 89 Assessment/Plan Assessment: 51-year-old female with past medical history significant for coronary artery disease, status post multiple angioplasties,3 stents placed in December 2016, recent cardiac catheterization in June 2017, hypertension, insulin-dependent diabetes, end-stage renal disease on hemodialysis Tuesday and Tuesday, history of anxiety/depression, history of anemia, recently admitted at [facility] from June 26 2017 to November 25, 2017 with similar complaints of jaw pain and chest pain and eventually got transferred for cardiac catheterization, came back to ED with similar complaints. Vitals in emergency department patient afebrile, no significant tachycardia, mild tachypnea, systolic blood pressure 229 on admission and diastolic blood pressure of 104. Patient was in room air and examined the patient. Labs significant for leukocytosis white count of 16.7, left shift, no bandemia, no anemia, significant electrolyte abnormalities include BUN 47, creatinine 6.7, increased anion gap of 18, troponin 0.09 which increased to 0.12 on the floors, lactic acid pending, INR of 0.99, UA pending, microbiology data pending. Chest x-ray showed Patchy airspace disease suspected in bilateral lung bases. Findings may represent pneumonia in the appropriate clinical setting. Patient was admitted on the telemetry floor for the management of following problems Uncontrolled hypertension Positive troponins End-stage renal disease on hemodialysis Community acquired pneumonia Insulin-dependent diabetes mellitus Uncontrolled hypertension and positive troponins Patient's uncontrolled hypertension was likely secondary to her noncompliance. Patient forgot to wear her patch of clonidine on Tuesday before admission as she was not feeling well. Patient might have rebound hypertension from not being compliant with her medication. This uncontrolled hypertension might have contributed to her chest pain although we wanted to rule out ACS to make sure that she is not having any acute ischemic myocardial event. Initial set of troponins were negative. Stent fibrosis was another possibility to be ruled out in this current setting. Patient initial set of troponins were negative but later on the trend was 0.12, 0.53, 0.80, peaked at 0.92, and came down to 0.69 in the setting of ESRD. There were some T-wave changes in the lateral leads. Given positive troponins patient was started on IV heparin. Dual antiplatelet therapy was continued. Patient's blood pressure improved as soon restarted her clonidine, lisinopril and home dose labetalol. Due to a significant drop in blood pressure and the risk of vasodilator effects we held patient's hydralazine and minoxidil. Patient had a recent echocardiogram in general 2018 showing ejection fraction of 70%, and moderate left ventricle hypertrophy. Therefore we did not repeat echocardiogram. There were no overt signs of heart failure. Cardiology evaluated the patient and decided to do repeat cardiac catheterization. Patient is currently NPO pending cardiac cath later today. End-stage renal disease on hemodialysis Patient was evaluated by nephrology . Scheduled for HD today, however, cardiology spoke with nephrology and plan is to admisnter 100mg of IV Lasix x1 and send patient over to cath at [facility], with plan for dialysis after cardiac cath. Community acquired pneumonia Patient afebrile, no significant tachycardia or tachypnea, with possible source of infection in the lungs that can qualify for sepsis. Continue patient on antibiotics for 5 days. TRC nebs, Patient currently has uncontrolled hypertension and no episodes of hypotension happened. Did not meet criteria for sepsis. Qfr-rxdypbc-gvuygslos diabetes mellitus Contineue insuln sliding scale while NPO Patient is full code patient is on heparin for DVT prophylaxis Patient is on renal dialysis Problem List: 1. Hypertensive urgency 2. Acute renal failure 3. CAD S/P percutaneous coronary angioplasty Pain Ratin Pain Location: n/a Pain Goal: Remain pain free Pain Plan: tylenol Tomorrow's Labs & Rationales: n/a Consulting Request: Consulting Specialty: Cardiology
[2017-09-21 07:28] VITALS: BP 142/76
[2017-09-21 08:22] LABS: PTT 61 SEC (25-37)
[2017-09-21 08:42] LABS: ABSOLUTE BASOPHIL COUNT 0.1 /CUMM (0.0-0.2); ABSOLUTE EOSINOPHIL COUNT 0.5 /CUMM (0.0-0.7); ABSOLUTE GRANULOCYTE CT 7.2 /CUMM (1.4-6.5); ABSOLUTE LYMPH COUNT 1.4 /CUMM (1.2-3.4); ABSOLUTE MONOCYTE COUNT 0.7 /CUMM (0.10-0.60); BASOPHIL % 0.6 % (0.0-2.0); EOSINOPHIL % 4.7 % (0-5); GRANULOCYTE % 72.9 % (42.2-75.2); HEMATOCRIT 31.4 % (37-47); MEAN CORPUSCULAR HGB 30.3 PG (27.0-31.0); MEAN CORPUSCULAR VOLUME 91.8 FL (81.0-99.0); PLATELET COUNT 190 /CUMM (130-400); RBC DISTRIBUTION WIDTH 15.1 % (11.5-14.5); RED BLOOD CELL CT 3.42 /CUMM (4.20-5.40); WHITE BLOOD CELL COUNT 9.9 /CUMM (4.8-10.8)
[2017-09-21 10:00] VITALS: BP 170/72
--- NOTE | 2017-09-21 10:19 | PN- Nephrology ---
Assessment/Plan Nephrology Assessment: 1. ESRD: due to DM & HTN; needs HD today 2. CP: improved --> ? CA w troponin rise; for cath 3. Pneumonia: continue antibiotics 4. HTN: UF w HD & continue meds Suggestion: OK for cath after HD today HD again Tue Subjective Subjective: No CP or SOB Cath plan noted Objective Vital Signs and I&Os Vital Signs Date Time Temp Pulse Resp B/P B/P Pulse O2 O2 Flow FiO2 Mean Ox Delivery Rate 09/21 1000 98.4 76 20 170/72 09/21 1000 98.4 76 20 170/72 09/21 0728 98.4 76 20 142/76 93 Room Air 09/21 0000 Room Air 09/20 2128 98.6 68 20 130/72 100 Room Air 09/20 2118 72 110/70 09/20 2117 72 110/70 09/20 1436 98.2 72 20 110/70 99 Room Air 09/20 1113 Room Air Intake & Output 09/21 1600 09/21 0400 09/20 1600 09/20 0400 09/19 1600 09/19 0400 Intake Total 173.4 200 360 240 Output Total Balance 173.4 200 360 240 Intake, IV 158.4 160 Intake, Oral 15 200 200 240 Patient 192 lb 188 lb Weight Physical Exam General Appearance: well developed/nourished, no apparent distress, alert Head: atraumatic, normal appearance Ears, Nose, Throat: normal ENT inspection Neck: normal inspection Respiratory: normal breath sounds, no respiratory distress, quiet respiration, lungs clear Cardiovascular: regular rate/rhythm, edema (2+ legs), friction rub (none) Abdomen: soft, non-tender, no organomegaly Extremities: swelling, + bruit R arm AVF Neurologic/Psychiatric: no motor/sensory deficits, awake, alert, oriented x 3 Skin: intact, normal color Lymphatic: no anterior cervical dinah Current Medications: Current Medications Sig/[place] Start time Last Medication Dose Route Stop Time Status Admin Aspirin 162 MG DAILY 09/20 1000 AC 09/21 PO 1001 Atorvastatin Calcium 40 MG QPM 09/19 2200 AC 09/20 PO 2118 Azithromycin 500 MG DAILY 09/20 1000 AC 09/21 Dextrose/Water 250 ML IV 1003 Bupropion HCl 150 MG QAM 09/19 1200 AC 09/21 PO 1000 Ceftriaxone Sodium 1,000 MG DAILY 09/20 1000 AC 09/21 IV 1001 Clonidine 3 PAT Q168 09/19 1215 AC 09/19 TOP 1259 Clopidogrel Bisulfate 75 MG DAILY 09/20 1000 AC 09/21 PO 1000 Diltiazem HCl 180 MG DAILY 09/19 0645 AC 09/21 PO 1001 Epoetin José 4,000 UNIT MoWeFr PRN 09/21 1115 AC IV Escitalopram Oxalate 20 MG DAILY 09/20 1000 AC 09/21 PO 1000 Gabapentin 100 MG TID 09/19 1600 AC 09/21 PO 1000 Heparin Sodium 5,100 UNIT ONCE ONE 09/20 1645 DC 09/20 (Porcine) IV 09/20 1646 1630 Heparin Sodium 5,000 UNIT .STK-MED ONE 09/20 1620 DC (Porcine) IV 09/20 1621 Heparin Sodium 25,000 UNIT Q24H 09/19 2045 AC 09/21 (Porcine) IV 0035 Sodium Chloride 500 ML Insulin Aspart 0 TIDAC 09/19 1200 AC 09/20 SC 1242 Insulin Detemir 15 UNITS BID 09/19 2200 AC 09/20 SC 2119 Labetalol HCl 400 MG BID 09/19 1150 AC 09/21 PO 1000 Lisinopril 20 MG BID 09/19 1159 AC 09/21 PO 1000 Multivitamins 1 TAB DAILY 09/19 1158 AC 09/21 PO 1000 Nitroglycerin 0.1 MG DAILY 09/20 1000 AC 09/21 TOP 0959 Nitroglycerin 0.4 MG Q 5 MINUTES X 3 DOSE 09/19 0630 AC 09/19 SL 0625 Omeprazole 40 MG DAILY AC 09/19 1117 AC 09/21 PO 0548 Sevelamer Carbonate 800 MG WM 09/19 1700 AC 09/20 PO 1712 Results Pertinent Lab Results: Laboratory Tests 09/21 09/20 09/20 0640 2232 1420 Chemistry Troponin I (< 0.11 ng/ml) 0.69 *H Coagulation APTT (25 - 37 SEC) 61 H 104 *H 44 H Hematology CBC w Diff NO MAN DIFF REQ WBC (4.8 - 10.8 /CUMM) 9.9 RBC (4.20 - 5.40 /CUMM) 3.42 L Hgb (12.0 - 16.0 G/DL) 10.4 L Hct (37 - 47 %) 31.4 L MCV (81.0 - 99.0 FL) 91.8 MCH (27.0 - 31.0 PG) 30.3 MCHC (33.0 - 37.0 G/DL) 33.0 RDW (11.5 - 14.5 %) 15.1 H Plt Count (130 - 400 /CUMM) 190 MPV (7.4 - 10.4 FL) 10.0 Gran % (42.2 - 75.2 %) 72.9 Lymphocytes % (20.5 - 51.1 %) 14.4 L Monocytes % (1.7 - 9.3 %) 7.4 Eosinophils % (0 - 5 %) 4.7 Basophils % (0.0 - 2.0 %) 0.6 Absolute Granulocytes (1.4 - 6.5 /CUMM) 7.2 H Absolute Lymphocytes (1.2 - 3.4 /CUMM) 1.4 Absolute Monocytes (0.10 - 0.60 /CUMM) 0.7 H Absolute Eosinophils (0.0 - 0.7 /CUMM) 0.5 Absolute Basophils (0.0 - 0.2 /CUMM) 0.1 09/20 09/20 09/20 0625 0300 0025 Chemistry Sodium (137 - 145 mmol/L) 141 Potassium (3.5 - 5.1 mmol/L) 4.0 Chloride (98 - 107 mmol/L) 101 Carbon Dioxide (22 - 30 mmol/L) 26 Anion Gap (5 - 16) 15 BUN (7 - 17 mg/dL) 30 H Creatinine (0.5 - 1.0 mg/dL) 4.6 H Estimated GFR (>60 ml/min) 10 L BUN/Creatinine Ratio (7 - 25 %) 6.5 L Troponin I (< 0.11 ng/ml) 0.92 *H 0.80 *H Coagulation APTT (25 - 37 SEC) 73 H Hematology CBC w Diff NO MAN DIFF REQ WBC (4.8 - 10.8 /CUMM) 9.4 RBC (4.20 - 5.40 /CUMM) 3.57 L Hgb (12.0 - 16.0 G/DL) 10.9 L Hct (37 - 47 %) 33.0 L MCV (81.0 - 99.0 FL) 92.2 MCH (27.0 - 31.0 PG) 30.5 MCHC (33.0 - 37.0 G/DL) 33.1 RDW (11.5 - 14.5 %) 15.2 H Plt Count (130 - 400 /CUMM) 193 MPV (7.4 - 10.4 FL) 9.7 Gran % (42.2 - 75.2 %) 72.7 Lymphocytes % (20.5 - 51.1 %) 13.8 L Monocytes % (1.7 - 9.3 %) 8.7 Eosinophils % (0 - 5 %) 4.5 Basophils % (0.0 - 2.0 %) 0.3 Absolute Granulocytes (1.4 - 6.5 /CUMM) 6.9 H Absolute Lymphocytes (1.2 - 3.4 /CUMM) 1.3 Absolute Monocytes (0.10 - 0.60 /CUMM) 0.8 H Absolute Eosinophils (0.0 - 0.7 /CUMM) 0.4 Absolute Basophils (0.0 - 0.2 /CUMM) 0 09/19 09/19 09/19 09/19 1819 1300 1225 1109 Chemistry Lactic Acid Cancelled Troponin I (< 0.11 ng/ml) 0.53 *H 0.12 *H Urines Urine Color Cancelled Urine Clarity Cancelled Urine pH Cancelled Ur Specific [place] Cancelled Urine Protein Cancelled Urine Ketones Cancelled Urine Nitrite Cancelled Urine Bilirubin Cancelled Urine Urobilinogen Cancelled Ur Leukocyte Esterase Cancelled Ur Microscopic Cancelled Urine Hemoglobin Cancelled Urine Glucose Cancelled 09/19 09/19 0630 0614 Chemistry Sodium (137 - 145 mmol/L) 145 Potassium (3.5 - 5.1 mmol/L) 4.8 Chloride (98 - 107 mmol/L) 106 Carbon Dioxide (22 - 30 mmol/L) 21 L Anion Gap (5 - 16) 18 H BUN (7 - 17 mg/dL) 47 H Creatinine (0.5 - 1.0 mg/dL) 6.7 *H Estimated GFR (>60 ml/min) 7 L BUN/Creatinine Ratio (7 - 25 %) 7.0 Glucose (65 - 99 mg/dL) 143 H Calcium (8.4 - 10.2 mg/dL) 9.4 Total Bilirubin (0.2 - 1.3 mg/dL) 0.7 Direct Bilirubin (< 0.4 mg/dL) 0.7 H AST (14 - 36 U/L) 14 ALT (9 - 52 U/L) 14 Alkaline Phosphatase (<127 U/L) 82 Troponin I (< 0.11 ng/ml) 0.09 Total Protein (6.3 - 8.2 g/dL) 8.8 H Albumin (3.5 - 5.0 g/dL) 4.8 Amylase (30 - 110 U/L) 91 Lipase (23 - 300 U/L) 201 Coagulation PT (9.4 - 12.5 SEC) 10.8 INR (0.90 - 1.19) 0.99 APTT (25 - 37 SEC) 34 D-Dimer High Sensitivty Cancelled Hematology CBC w Diff MAN DIFF ORDERED WBC (4.8 - 10.8 /CUMM) 16.7 H RBC (4.20 - 5.40 /CUMM) 4.34 Hgb (12.0 - 16.0 G/DL) 12.9 Hct (37 - 47 %) 40.3 MCV (81.0 - 99.0 FL) 93.0 MCH (27.0 - 31.0 PG) 29.7 MCHC (33.0 - 37.0 G/DL) 31.9 L RDW (11.5 - 14.5 %) 15.2 H Plt Count (130 - 400 /CUMM) 224 MPV (7.4 - 10.4 FL) 9.4 Gran % (42.2 - 75.2 %) 90.8 H Lymphocytes % (20.5 - 51.1 %) 4.3 L Monocytes % (1.7 - 9.3 %) 1.7 Eosinophils % (0 - 5 %) 3.1 Basophils % (0.0 - 2.0 %) 0.1 Absolute Granulocytes (1.4 - 6.5 /CUMM) 15.1 H Segmented Neutrophils (42.2 - 75.2 %) 91 H Absolute Lymphocytes (1.2 - 3.4 /CUMM) 0.7 L Lymphocytes (20.5 - 51.1 %) 4 L Monocytes (1.7 - 9.3 %) 3 Absolute Monocytes (0.10 - 0.60 /CUMM) 0.3 Eosinophils (0 - 5.0 %) 2 Absolute Eosinophils (0.0 - 0.7 /CUMM) 0.5 Absolute Basophils (0.0 - 0.2 /CUMM) 0 Platelet Estimate (ADEQUATE) ADEQUATE Hypochromic-Microcytic 1+ Ovalocytes FEW Other Body Source Fld Total RBCs Counted (%) 100 Imaging/Other Studies: CXR: IMPRESSION: Patchy airspace disease suspected in bilateral lung bases. Findings may represent pneumonia in the appropriate clinical setting.
== END 2017-09-21 11:21 | disposition short-term general hospital (02) | DRG 280 ==
LOC: ERH 06:00 → ERHI 08:00 → 1NO 08:00 → ENTRNSPT 12:53 → EDTRNSPTSTS 13:03 → EDTRNSPT 13:03 → CMPTRNSPT 13:32 → ENRESERV 18:03 → ENTRNSPT 18:42 → EDTRNSPTSTS 19:00 → EDTRNSPT 19:00 → 1NO 19:14 → CMPTRNSPT 19:29 → 1NO 09-20 18:34 → ENPENDDIS 09-21 10:57 → 1NO 09-21 11:21
PROVIDERS: Internal Medicine; Pediatrics; Student in an Organized Health Care Education/Training Program
DX: I21.4 Non-ST elevation (NSTEMI) myocardial infarction (principal); J18.9 Pneumonia, unspecified organism; N18.6 End stage renal disease; E87.2 Acidosis; I12.0 Hypertensive chronic kidney disease with stage 5 chronic kidney disease or end stage renal disease; E11.22 Type 2 diabetes mellitus with diabetic chronic kidney disease; E04.1 Nontoxic single thyroid nodule; E78.5 Hyperlipidemia, unspecified; F32.9 Major depressive disorder, single episode, unspecified; F41.9 Anxiety disorder, unspecified; I25.10 Atherosclerotic heart disease of native coronary artery without angina pectoris; Z99.2 Dependence on renal dialysis; I25.2 Old myocardial infarction; Z79.4 Long term (current) use of insulin; K59.00 Constipation, unspecified; Z91.14 Patient's other noncompliance with medication regimen; K21.9 Gastro-esophageal reflux disease without esophagitis; Z95.5 Presence of coronary angioplasty implant and graft
CPT/HCPCS: 1NP; 1NSP; 36415; 36592; 71045; 82436; 87040; 87070; 87449; 87450; 93005; 93010; 96374; 99291; J0456; J0696; J1644; J1940; J3490; J7060

== ENCOUNTER 2017-12-07 21:29 | Inpatient (IN) | payer OTHER, MEDICARE ==
[~2017-12-07] VITALS: Ht 167.6 cm; Wt 85.0 kg
[~2017-12-07 21:29] MED LIST changes: +ASPIRIN81 M4 PO; +AZITHROMYCIN250 M1 PO; +CEFTRIAXONE1 G1 IV; +DILTIAZEM 24HR180 M1 PO; +EPOGEN4000 UNIT/ IV; +TESSALON PERLE100 M1 PO; +[UNRECOGNIZED DRUG - CODE] IV
--- NOTE | 2017-12-07 21:42 | ED CARDIAC/CP/PALPITATIONS ---
History of Present Illness General Chief Complaint: General Adult Stated Complaint: "CP,N+V-D" Source: patient Exam Limitations: no limitations Vital Signs & Intake/Output Vital Signs & Intake/Output Vital Signs Date Time Temp Pulse Resp B/P B/P Pulse O2 O2 Flow FiO2 Mean Ox Delivery Rate 12/08 0225 98.1 93 15 187/98 100 Room Air 12/08 0221 95 220/104 12/08 0106 95 218/103 12/08 0025 97 219/105 12/08 0009 96 219/105 12/07 2318 95 16 195/92 100 Room Air 12/07 2240 90 235/112 12/07 2149 98.1 91 18 218/110 100 Allergies Coded Allergies: NO KNOWN ALLERGIES (NONE 09/19/17) Reconcile Medications Aspirin (Aspirin*) 81 MG TAB.CHEW 2 TAB PO DAILY HEART HEALTH (Reported) Atorvastatin Calcium 40 MG TABLET 1 TAB PO QPM CHOLESTEROL (Reported) Azithromycin 250 MG TABLET 1 TAB PO DAILY PNA Benzonatate (Tessalon Perle) 100 MG CAPSULE 1 CAP PO TID PRN COUGH Bupropion HCl (Bupropion XL) 150 MG TAB.ER.24H 1 TAB PO QAM MENTAL HEALTH ( Reported) Ceftriaxone Sodium (Ceftriaxone) 1 GRAM VIAL 1,000 MG IV DAILY PNA Clonidine 0.3 MG/24 HOUR PATCH.TDWK 1 PAT TOP QSUN HEART (Reported) Clopidogrel Bisulfate (Clopidogrel) 75 MG TABLET 1 TAB PO DAILY BLOOD THINNER (Reported) Diltiazem HCl (Diltiazem 24HR Cd) 180 MG CAP.ER.24H 180 MG PO DAILY HTN Epoetin José (Epogen) 4,000 UNIT/ML VIAL 4,000 UNIT IV MoWeFr PRN WITH HEMODIALYSIS w dialysis MWF Escitalopram Oxalate 20 MG TABLET 1 TAB PO DAILY MENTAL HEALTH (Reported) Gabapentin 100 MG CAPSULE 1 CAP PO TID NEUROPATHY (Reported) Heparin Sod,Porcine/0.9 % NaCl (Heparin 25,000 Unit/500 Ml-Ns) 25,000 UNIT/500 ML (50 UNIT/ML) IV.SOLN 25,000 UNITS IV DAILY ACS Insulin Aspart, Recombinant (Novolog Flexpen) 100 UNIT/ML INSULN.PEN 1 UNIT SC SEE SLIDING SCALE DIABETES (Reported) BEFORE MEALS Blood Insulin Sugar Units <80 0 81-100 1 101-200 2 201-250 6 251-300 8 301-350 10 351-400 12 >400 Call Doctor AT BEDTIME Blood Insulin Sugar Units <80 0 81-100 0 101-200 0 201-250 2 251-300 3 301-350 4 351-400 5 >400 Call Doctor Insulin Glargine,Hum.rec.anlog (Lantus Solostar) 100 UNIT/ML (3 ML) INSULN.PEN 30 UNIT SC BID DM (Reported) Isosorbide Mononitrate (Isosorbide Mononitrate ER) 30 MG TAB.ER.24H 1 TAB PO DAILY HEART (Reported) Labetalol HCl 200 MG TABLET 2 TAB PO BID HEART (Reported) Linaclotide (Linzess) 145 MCG CAPSULE 1 CAP PO DAILY PRN CONSTIPATION ( Reported) Lisinopril (Prinivil) 20 MG TABLET 1 TAB PO BID HEART (Reported) Pantoprazole Sodium (Protonix) 40 MG TABLET.DR 1 TAB PO DAILY ACID REFLUX ( Reported) Sevelamer Carbonate (Renvela) 800 MG TABLET 1 TAB PO TID KIDNEY (Reported) TAKE THIS MEDICATION WITH MEALS Triage Nurses Notes Reviewed? yes Onset: Abrupt Duration: constant Timing: recent history Location: substernal Radiation: shoulders HPI: Patient is a 52-year-old female with past medical history significant for coronary artery disease, status post multiple angioplasties,3 stents placed in December 2016, recent cardiac catheterization in June 2017, hypertension, insulin -dependent diabetes, thyromegaly, end-stage renal disease on hemodialysis Tuesday and Tuesday, history of anxiety/depression, history of anemia currently on Plavix due known history who presents emergency room with chest pain that began at 1900 this evening in which she was at rest eating her dinner in which the pain has been described as 4/10 substernal with associated symptoms of nausea Patient states that this week she's had similar episodes of chest pain after eating however today is the worst. Patient is compliant with her medications denies any illicit drug use (David Kunz) Past History Travel History Traveled to [place] past 21 day No Medical History Any Pertinent Medical History? 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: uterine fibriods History of MRSA: No History of VRE: No History of CDIFF: No Influenza Vaccine: 03/13/17 Surgical History Surgical History: STENTS X4 aVF Michel catheter Psychosocial History Who do you live with Significant Other Services at Home Patient previously had home health aide and nursing services but these services were recently discontinued What is your primary language Zimbabwean Family History Family History, If Any: MOTHER Chronic renal disease uncle Chronic renal disease Relation not specified for: FH: CAD (coronary artery disease) FH: cancer FH: diabetes mellitus FH: HTN (hypertension) FH: schizophrenia Hx Contributory? No (David Kunz) Review of Systems Review of Systems Constitutional: Reports: no symptoms. EENTM: Reports: no symptoms. Respiratory: Reports: see HPI. Cardiovascular: Reports: no symptoms. GI: Reports: no symptoms. Genitourinary: Reports: no symptoms. Musculoskeletal: Reports: no symptoms. Skin: Reports: no symptoms. Neurological/Psychological: Reports: no symptoms. Hematologic/Endocrine: Reports: no symptoms. Immunologic/Allergic: Reports: no symptoms. All Other Systems: Reviewed and Negative (David Kunz) Physical Exam Physical Exam General Appearance: lethargic Head: atraumatic Eyes: Bilateral: normal appearance, PERRL, EOMI. Ears, Nose, Throat: normal pharynx, normal ENT inspection Neck: normal inspection Respiratory: normal breath sounds, chest non-tender, no respiratory distress Cardiovascular: regular rate/rhythm Peripheral Pulses: 2+ radial (R) Gastrointestinal: normal bowel sounds, soft, non-tender Extremities: no edema Skin: intact, normal color, warm/dry Core Measures ACS in differential dx? Yes CVA/TIA Diagnosis No Sepsis Present: No Sepsis Focused Exam Completed? No (David Kunz) Progress Differential Diagnosis: AMI, aortic dissection, atrial fibrillation, cholecystitis, CHF/pulm edema, costochondritis, hyperkalemia, hypovolemia, hyperthyroid, hyperventilation, intracranial hemorrhage, musculoskeletal pain, myocarditis, pancreatitis, pericarditis, pneumonia, pneumothorax, PSVT, pulmonary embolism, PUD/GERD, PVCs/PACs, respiratory failure, sepsis, unstable angina, V-fib/V-Tach, WPW syndrome Plan of Care: Orders Procedure Date/time Status Nothing by Mouth 12/08 B Active TROPONIN LEVEL 12/08 1000 Active EKG 12/08 1000 Active TROPONIN LEVEL 12/08 0400 Active MAGNESIUM 12/08 0400 Active CBC WITHOUT DIFFERENTIAL 12/08 0400 Active BASIC ELECTROLYTES PLUS BUN&CR 12/08 0400 Active EKG 12/08 0400 Active TRC EVALUATION (GEN) 12/08 0230 Active Pathway - chart 12/08 0230 Active PARTIAL THROMBOPLASTIN TIME 12/08 0228 Complete PROTHROMBIN TIME 12/08 0228 Complete OXYGEN SETUP (GEN) 12/08 0114 Active Saline Lock 12/08 0114 Active Admit to inpatient 12/08 0114 Active Vital Signs 12/08 0114 Active Activity/Ambulation 12/08 0114 Active Code Status 12/08 0114 Active Patient Data 12/08 0034 Active Pathway - chart 12/08 UNK Active House Staff 12/08 UNK Active VTE Mechanical Prophylaxis 12/08 UNK Active CASE MANAGEMENT CONSULT 12/08 UNK Active Intake & Output 12/07 2245 Active Add-on Test (ER Only) 12/07 2217 Active Add-on Test (ER Only) 12/07 221 Active URINE DRUG SCREEN FOR ER ONLY 12/07 220 Active URINALYSIS 12/07 2206 Active LIPASE 12/07 2148 Complete ETHANOL 12/07 2148 Complete Telemetry/Core Checker 12/07 214 Active TROPONIN LEVEL 12/07 2141 Complete COMPREHENSIVE METABOLIC PANEL 12/07 2141 Complete CBC WITHOUT DIFFERENTIAL 12/07 214 Complete EKG 12/07 213 Active Current Medications Sig/[place] Start time Last Medication Dose Stop Time Status Admin Multivitamins 1 TAB DAILY 12/08 0900 AC (Theragran Vitamins) Acetaminophen 650 MG Q6P PRN 12/08 0230 AC (Tylenol) Morphine Sulfate 2 MG Q6P PRN 12/08 0230 AC (MORPHINE SULFATE) Heparin Sodium/ 25,000 UNIT Q24H 12/08 0215 AC 12/08 Dextrose 0255 (Heparin) Dextrose/Water 500 ML (D5W) Nitroglycerin 0.4 MG Q 5 MINUTES X 3 DO.. 12/08 0215 AC 12/08 (Nitrostat) 0300 Ondansetron HCl 4 MG Q6P PRN 12/08 0215 AC 12/08 (Zofran) 0221 Trimethobenzamide HCl 200 MG TID PRN 12/08 0215 AC 12/08 (Tigan) 0223 Laboratory Tests 12/08/17 0230: PT 11.1, INR 1.02, APTT 24 L 12/07/17 2148: Anion Gap 19 H, Estimated GFR 9 L, BUN/Creatinine Ratio 4.0 L, Glucose 210 H , Calcium 9.7, Total Bilirubin 0.5, AST 19, ALT 18, Alkaline Phosphatase 134 H, Troponin I 0.32 *H, Total Protein 8.7 H, Albumin 4.9, Globulin 3.8, Albumin/ Globulin Ratio 1.3, Lipase 263, CBC w Diff NO MAN DIFF REQ, RBC 4.01 L, MCV 91.8, MCH 30.3, MCHC 33.0, RDW 15.9 H, MPV 9.3, Gran % 68.8, Lymphocytes % 15.9 L, Monocytes % 9.7 H, Eosinophils % 4.8, Basophils % 0.8, Absolute Granulocytes 8.1 H, Absolute Lymphocytes 1.9, Absolute Monocytes 1.2 H, Absolute Eosinophils 0.6, Absolute Basophils 0.1, Serum Alcohol < 10.0 Patient upon initial arrival is noted to be lethargic and swaying and nodding off I strongly advised patient to lie down in her bed however she declines and states that "this is how I always AM" patient denies any illicit drug use or alcohol use. She will initially be administered aspirin for prophylaxis and GI cocktail for evaluation due to patient's persistent chest pain after eating Patient upon initial presentation is noted to be lethargic and which she states that she had temporary relief of her chest pain after nitroglycerin was ordered. Patient is requesting on multiple occasions morphine there is suspicion of drug intoxication however urine specimen was unobtainable due to patient stating that she has dialysis and she has a difficult time urinating patient still continues to state that she has severe pain 2 mg of morphine was ordered Patient does have concerns of hypertensive urgency patient was given labetalol with mild improvement over blood pressure still was significantly elevated Vasotec was administered patient still complaining of pain a second morphine was administered calls were placed to Dr. Mccormack however he was unobtainable Dr. Hunt was aware of patient's presentation and advised patient to be admitted and to hold the heparin Discussed admission with patient Diagnostic Imaging: Viewed by Me: Radiology Read. CXR Impression: no acute abnormality, no infiltrates Initial ED EK SINUS, FIRST DEGREE AV BLOCK, LVH Prior EKG: unchanged Comments: PATIENT: THOMAS BARRIOS PRESENT AGE: 52 PATIENT ACCOUNT NO: [id number] : 69 LOCATION: [facility] ORDERING PHYSICIAN: David CRAWFORD SERVICE DATE: 12/07/17 EXAM TYPE: RAD - XRY-PORTABLE CHEST XRAY EXAMINATION: XR PORTABLE CHEST CLINICAL INFORMATION: Chest pain. COMPARISON: Chest x-ray 09/19/2017 TECHNIQUE: Portable frontal view of the chest was obtained. 10:43 PM FINDINGS: No significant abnormality is noted involving the heart, lungs, mediastinum, bony thorax or soft tissues. IMPRESSION: Unremarkable examination. DICTATED BY: Vaughn Lopez MD DATE/TIME DICTATED:12/07/172316 PHARMACEUTICAL OFFICER:CHUY DATE/TIME TRANSCRIBED: (David Kunz) Departure Departure Disposition: STILL A PATIENT Condition: Stable Clinical Impression Primary Impression: Hypertensive urgency Secondary Impressions: Angina at rest, Troponin level elevated Referrals: Violetta Reddy APRN (PCP/Family) Departure Forms: Customer Survey General Discharge Information Admission Note Spoke With: Romero Orozco MD Documentation of Exam: Documentation of any treatments & extenuating circumstances including Concerns Regarding Discharge (functional status, medication knowledge or non-compliance, living conditions, etc.) that warrant an admission rather than observation: [ Patient requires repeat labs IV pain medication nitroglycerin cardiology consultation 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 I have also reviewed all the pertinent lab results and diagnostic results. I agree with the findings and the plan of care as documented in the PA's/RADIOCOMMUNICATIONS TECHNICIAN's documentation. Chest pain, nausea with hypertension, EKG with increased ischemic changes and positive troponin, CKD [] I have reviewed the ED Record and agree with the PA's/RADIOCOMMUNICATIONS TECHNICIAN's documentation. [] Additions or exceptions (if any) to the PAs/RADIOCOMMUNICATIONS TECHNICIAN's note and plan are summarized below: [] (Jay ORTEGA,Hunter) Critical Care Note Critical Care Note Critical Care Time: 30-74 min (David Kunz)
[2017-12-07 22:05] LABS: ABSOLUTE BASOPHIL COUNT 0.1 /CUMM (0.0-0.2); ABSOLUTE EOSINOPHIL COUNT 0.6 /CUMM (0.0-0.7); ABSOLUTE GRANULOCYTE CT 8.1 /CUMM (1.4-6.5); ABSOLUTE LYMPH COUNT 1.9 /CUMM (1.2-3.4); ABSOLUTE MONOCYTE COUNT 1.2 /CUMM (0.10-0.60); BASOPHIL % 0.8 % (0.0-2.0); EOSINOPHIL % 4.8 % (0-5); GRANULOCYTE % 68.8 % (42.2-75.2); HEMATOCRIT 36.8 % (37-47); MEAN CORPUSCULAR HGB 30.3 PG (27.0-31.0); MEAN CORPUSCULAR VOLUME 91.8 FL (81.0-99.0); MEAN PLATELET VOLUME 9.3 FL (7.4-10.4); PLATELET COUNT 249 /CUMM (130-400); RBC DISTRIBUTION WIDTH 15.9 % (11.5-14.5); RED BLOOD CELL CT 4.01 /CUMM (4.20-5.40); WHITE BLOOD CELL COUNT 11.8 /CUMM (4.8-10.8)
--- NOTE | 2017-12-07 23:21 | RADIOLOGY REPORT ---
EXAMINATION: XR PORTABLE CHEST CLINICAL INFORMATION: Chest pain. COMPARISON: Chest x-ray 09/19/2017 TECHNIQUE: Portable frontal view of the chest was obtained. 10:43 PM FINDINGS: No significant abnormality is noted involving the heart, lungs, mediastinum, bony thorax or soft tissues. IMPRESSION: Unremarkable examination.
--- NOTE | 2017-12-08 02:01 | History & Physical ---
Arun Lin MD 12/08/17 0200: General Information and HPI History of Present Illness: 52-year-old woman with past medical history of coronary artery disease status post multiple PCI with many cardiac stents, ESRD on HD (M/W/F), insulin- dependent diabetes mellitus, anxiety, depression, anemia, hypertension, and medication noncompliance seen for evaluation of chest pain with nausea/vomiting. Patient was reportedly in her normal state of health today where she sat down to eat dinner and shortly thereafter developed acute onset 4/10 substernal chest pain without radiation characterized as a pressure/discomfort. She took a Tums without any relief. The pain was non-positional nonpleuritic in not reproducible to palpation. For further evaluation of her chest pain she came to the [place] [facility] ED. In the ED patient's blood pressure was found to be elevated to >200 systolic with vital signs otherwise within normal limits. She received full strength aspirin, Zofran, sublingual nitroglycerin 2, intravenous labetalol, morphine, and enalapril in the ED. Her chest pain resolved after the second round of nitroglycerin but her blood pressure remained uncontrolled. Presently patient states that her chest pain has now returned and is similar character as before. She admits to feeling very nauseous and is continuously retching during the interview giving very limited other subjective complaints or review of systems. She reports that she misses her medications "sometimes" including today where she accidentally missed taking her aspirin. She went to hemodialysis today which was uneventful. Review of systems She otherwise denies any headache, blurred/double vision, numbness, tingling, weakness, fever, chills, palpitations, current heartburn, shortness of breath, cough, diarrhea, urinary complaints Objective Vitals-Temp 98.1, HR 90-97, RR 16-18, BP 195-235/92-110, SPO2 100% on room Physical Exam -General: Obese middle-aged black woman in moderate distress -HEENT: NCAT, PERRLA, EOMI, anicteric sclera, moist mucous membranes -Neck: Supple, no JVD/HJR, no bruits, trachea midline, no accessory respiratory muscle use -Cardio: Normal S1/S2 without murmurs, gallops, or rub; regular rate and rhythm -Pulmonary: Diminished bibasilar airflow -Abdomen: Soft, obese, non-tender, non-distended, bowel sounds intact -Neuro: Awake and alert, CN II-XII grossly intact, speech/sensation/coordination intact; gait not assessed -Extremities: Normal pulses, trace pedal edema Labs / Imaging / Studies -CBC: WBC 11.8, hemoglobin 12.1, hematocrit 36.8, platelet 249 -BMP: Sodium 141, potassium 3.9, chloride 97, CO2 25, BUN 21, creatinine 5.3, anion gap 19, glucose 210 -LFT: AST 19, ALT 18, ALP 134 -Misc: Troponin I 0.32, lipase 263, EtOH <10 -UA/U tox: Pending on admission -CXR: Unremarkable -Echocardiogram 06/27/17: LVEF 70% without regional wall motion abnormalities -EKG 09/20/17: NSR with prolonged QT interval, ST depression I and aVL -EKG 12/07/17 2144: NSR, first degree AVB, concave ST segment elevation V1-V2, hyperacute T waves in V3-V5, horizontal ST segment depression I AvL V5 V6 -Cardiac cath 10/12/17: * Left main: patent * LAD: luminal irregularities * D1: Moderate size 80% ostial to proximal with diffuse luminal irregularities * LCx: 50% proximal, 80% AV groove and long 90% OM1 * RCA: Not re-visualized. As per her recent cardiac cath this is a dominant vessel that is patent except for a99% ostial posterolateral branch * 2.5 x 12 mm resolute stent in AV groove to OM 2 portion of LCx -Cardiac cath 09/21/17: * Left main: patent * LAD: luminal irregularities * D1: Moderate size 99% ostial * LCx: 80% AV groove and long 90% OM1 * RCA: Dominant vessel. ~99% ostial posterolateral branch * Left ventriculography: not done * Stent placed in LAD at takeoff of diagonal branch -Cardiac cath 06/29/17: * Left main: short and patent * LAD: 75% proximal followed by a 50% mid lesion. The LAD has a 70% very distal stenosis after wrapping around the apex * D1; 70% long in stent stenosis * LCx: 90% proximal OM1 and 90% ostial OM2 * RCA: Dominant vessel. ~Luminal irregularities with a 99% ostial stenosis of a small posterolateral branch. * Left ventriculography: not done * 4.0 x 12 mm resolute stent to proximal LAD * 2.5 x 8 mm resolute stent to OM 2 Assessment 52-year-old woman with multiple medical problems significant for an extensive cardiovascular history including multiple cardiac catheterizations with percutaneous intervention and deployment of cardiac stents in the past 6 months on dual antiplatelet therapy, ESRD on HD, obesity, hypertension, and insulin- dependent diabetes mellitus seen for evaluation of acute chest pain at rest improving with nitroglycerin. Presently patient reports that her chest pain has returned but did improve after the second dose of sublingual nitroglycerin; she is still visibly nauseated with continuous retching of white clear material. Vital signs are as significant for elevated systolic blood pressure ranging 195-235. Physical exam reveals a middle-aged obese black woman in moderate discomfort with an otherwise unremarkable cardiopulmonary examination. Lab studies are significant for WBC 11.8, creatinine 5.3, troponin I 0.32. Chest x-ray is unremarkable. EKG demonstrates new concave ST segment elevation in V1-V2, hyperacute T waves, and horizontal ST segment depression in lateral/high lateral leads. Patient received full strength aspirin, enalapril, labetalol, morphine, nitroglycerin, and Zofran in the ED. Patient has known coronary artery disease with multiple atherosclerotic risk factors including obesity, hypertension, diabetes mellitus in the context of medication noncompliance and hypertensive urgency. Case was discussed with field mechanic Luis Daniel Mccormack MD whom felt EKG changes may be due to patient's poorly controlled hypertension, however considering her elevated troponin and chest pain improved with nitroglycerin patient should be heparinized and monitored on the telemetry floor with serial troponin/EKG. Patient's EDVIN score is 6 putting her at a 41% risk at 14 days of all cause mortality. Patient is started on intravenous heparin, continued on aspirin/Plavix, and kept nothing by mouth in anticipation of a possible cardiac catheterization procedure. Problem List -Chest pain with nausea and elevated troponin-probable acute coronary syndrome -EKG changes, possibly due to hypertensive urgency versus acute coronary syndrome -Hypertensive urgency -CAD status post PCI/JAMILA to LAD/OM 2/LCx, on dual antiplatelet therapy -ESRD, on HD (M/W/F) -Insulin-dependent diabetes mellitus -Poorly controlled hypertension -Anxiety/depression -Obesity Plan -Admit to ICU -Telemetry monitoring -Total respiratory care -Closely monitor blood pressure -Accu-Cheks every 6 hours while n.p.o. with Novolin sliding scale -EDVIN score: 6, 41% risk at 14 days of all cause mortality -Heparin GGT -Zofran and Tigan as needed for nausea -morphine as needed for chest pain -Nitro paste 1" Q6H -Continue home meds: Aspirin, atorvastatin, bupropion, clonidine patch, Plavix, clonidine, Cardizem, gabapentin, Imdur, lisinopril, omeprazole -Consult with cardiology for EKG changes and chest pain -Consult with nephrology for hemodialysis -Serial troponin/EKG until peak or 3 negative sets -Pain control with acetaminophen/nitroglycerin/morphine -N.p.o. for possible cardiac catheterization -DVT prophylaxis with intravenous heparin -Full code -Contact patient's Khoi for updates Allergies/Medications Allergies: Coded Allergies: NO KNOWN ALLERGIES (NONE 09/19/17) Home Med list Aspirin (Aspirin*) 81 MG TAB.CHEW 2 TAB PO DAILY HEART HEALTH (Reported) Atorvastatin Calcium 40 MG TABLET 1 TAB PO QPM CHOLESTEROL (Reported) Bupropion HCl (Bupropion XL) 150 MG TAB.ER.24H 1 TAB PO QAM MENTAL HEALTH ( Reported) Clonidine 0.3 MG/24 HOUR PATCH.TDWK 1 PAT TOP QSUN HEART (Reported) Clopidogrel Bisulfate (Clopidogrel) 75 MG TABLET 1 TAB PO DAILY BLOOD THINNER (Reported) Diltiazem HCl (Diltiazem 24HR Cd) 180 MG CAP.ER.24H 180 MG PO DAILY HTN Epoetin José (Epogen) 4,000 UNIT/ML VIAL 4,000 UNIT IV MoWeFr PRN WITH HEMODIALYSIS w dialysis MWF Escitalopram Oxalate 20 MG TABLET 1 TAB PO DAILY MENTAL HEALTH (Reported) Gabapentin 100 MG CAPSULE 1 CAP PO TID NEUROPATHY (Reported) Hydralazine HCl 100 MG TABLET 1 TAB PO TID HTN (Reported) Insulin Aspart, Recombinant (Novolog Flexpen) 100 UNIT/ML INSULN.PEN 1 UNIT SC SEE SLIDING SCALE DIABETES (Reported) BEFORE MEALS Blood Insulin Sugar Units <80 0 81-100 1 101-200 2 201-250 6 251-300 8 301-350 10 351-400 12 >400 Call Doctor AT BEDTIME Blood Insulin Sugar Units <80 0 81-100 0 101-200 0 201-250 2 251-300 3 301-350 4 351-400 5 >400 Call Doctor Insulin Glargine,Hum.rec.anlog (Lantus Solostar) 100 UNIT/ML (3 ML) INSULN.PEN 30 UNIT SC BID DM (Reported) Isosorbide Dinitrate 30 MG TABLET 1 TAB PO DAILY CHEST PAIN (Reported) Labetalol HCl 200 MG TABLET 2 TAB PO BID HEART (Reported) Linaclotide (Linzess) 145 MCG CAPSULE 1 CAP PO DAILY PRN CONSTIPATION ( Reported) Lisinopril 40 MG TABLET 1 TAB PO DAILY HTN (Reported) Pantoprazole Sodium (Protonix) 40 MG TABLET.DR 1 TAB PO DAILY ACID REFLUX ( Reported) Sevelamer Carbonate (Renvela) 800 MG TABLET 1 TAB PO TID KIDNEY (Reported) TAKE THIS MEDICATION WITH MEALS Past History Travel History Traveled to [facility] past 21 day No Medical History Neurological: NONE EENT: NONE Cardiovascular: AFIB, CAD, hypertension, hyperlipidemia, myocardial infarction, NSTEMI, 10 CARDIAC STENTS Respiratory: NONE Gastrointestinal: constipation Hepatic: NONE Renal: CKD stage 5 DIALYSIS Musculoskeletal: NONE Psychiatric: depression Endocrine: diabetes, GERD thyroid nodule Blood Disorders: anemia Cancer(s): NONE DAYCARE ASSISTANT/Reproductive: uterine fibriods History of MRSA: No History of VRE: No History of CDIFF: No Influenza Vaccine: 03/13/17 Surgical History Surgical History: STENTS X4 aVF Michel catheter Past Family/Social History Family History Relations & Conditions if any MOTHER Chronic renal disease uncle Chronic renal disease Relation not specified for: FH: CAD (coronary artery disease) FH: cancer FH: diabetes mellitus FH: HTN (hypertension) FH: schizophrenia Psychosocial History Who Do You Live With? significant other, child Services at Home: Patient previously had home health aide and nursing services but these services were recently discontinued Primary Language: [place] Islander Functional Ability ADLs Independent: dressing, eating, toileting, bathing. Ambulation: independent Review of Systems Review of Systems Constitutional: Reports: see HPI. Exam & Diagnostic Data Last 24 Hrs of Vital Signs/I&O Vital Signs Date Time Temp Pulse Resp B/P B/P Pulse O2 O2 Flow FiO2 Mean Ox Delivery Rate 12/08 224 98.1 93 15 187/98 100 Room Air 12/08 0221 95 220/104 12/08 0106 95 218/103 12/08 0025 97 219/105 12/08 0009 96 219/105 12/07 2318 95 16 195/92 100 Room Air 12/07 2240 90 235/112 12/07 2149 98.1 91 18 218/110 100 Intake & Output 12/08 0800 12/08 0000 12/07 1600 Intake Total Output Total Balance Patient 83.149 kg Weight Weight Standing Scale Measurement Method Assessment/Plan As Ranked By This Provider Problem List: 1. Abnormal EKG 2. Troponin level elevated 3. Chest pain Core Measures/Misc (02/27) Acute Coronary Syndrome ACS Diagnosis: Yes Last Known EF % 70 Congestive Heart Failure Congestive Heart Failure Diagnosis No Cerebrovascular Accident CVA/TIA Diagnosis: No VTE (View Protocol) VTE Risk Factors Age>40 No Mechanical VTE Prophylaxis d/t N/A MechProphylax Ordered No VTE Pharm Prophylaxis d/t NA PharmProphylax ordered Sepsis (View protocol) Sepsis Present: No If YES complete Sepsis Event Note If YES complete Sepsis Event Note Romero Orozco 12/08/17 0555: Core Measures/Misc (02/27) Sepsis (View protocol) If YES complete Sepsis Event Note If YES complete Sepsis Event Note Attending MD Review Statement Attending Statement Attending MD Statement: examined this patient, discuss w/resident/PA/CLINICAL APPEALS RN, agreed w/resident/PA/CLINICAL APPEALS RN, reviewed EMR data (avail), reviewed images, amended to note Attending Assessment/Plan: CC: Chest pain PMH: CAD, S/P multiple PCI, ESRD on hemodialysis, DM, anxiety, depression, HTN, anemia Patient came to ER for sudden onset substernal chest pain occurred at rest, nonradiating, pressure-like, no relieving factors. It was associated with nausea vomiting followed by dry heaving. As she had history of previous stenting she came to ER. Initially her pain improved after 2 nitroglycerin sublingually but then recurred again in ER. Vitals: Temperature 98.1, pulse 91, RR 18, blood pressure 218 110, saturating 100% on room air On exam: A O 3, cooperative, in distress due to pain and dry heaving, neck supple, JVD normal, no lymphadenopathy, mucosa moist, no focal neurological deficit, no dependent edema, no obvious skin rashes or inflammation CVS: S1-S2, RRR. RS: Clear to auscultate bilaterally. Abdomen: Soft, NT, ND, bowel sounds present. CXR: Unremarkable examination. Assessment and plan 52-year-old female with extensive cardiac history presented in ER for substernal chest pain started at rest, nonradiating, 4/10, pressure-like, relieved after 2 nitro given in ER. So associated with nausea, vomiting and multiple dry heaving. Patient has significant coronary artery disease with multiple stent placements since June. Even though examination was unremarkable she had ST depression and one aVL and V5 V6 and ST elevation in V1 and V2. These findings were discussed with patient's field mechanic, with concern of stent stenosis or thrombosis, new ACS. Is also likely that she has hypertensive emergency, which could be contributing to this ECG changes and her symptoms. Patient has issues with noncompliance, which may have led to hypertensive emergency as well as ACS. Patient's troponin is 0.32. Second ECG obtain in ER showed resolution of ST elevation in V1 and V2 after better control of blood pressure but increased depression and 1, aVL, V5 and V6, thus patient was admitted to ICU for closer monitoring. Heparin was started after discussing with field mechanic + Hypertensive emergency + Acute coronary syndrome likely NSTEMI + Noncompliance + Hx of CAD, S/P multiple PCI, ESRD on hemodialysis, DM, anxiety, depression, HTN, anemia - Admit to ICU - Continuous telemetry monitoring - Serial troponin and EKGs - 2-D echo in a.m. - Cardiology consult in a.m. - Continue aspirin, atorvastatin, beta harrison, Plavix - Continue heparin drip - Nothing by mouth after midnight - Adequate blood pressure control, resume all her home medications for blood pressure - Sliding scale insulin TTS 30 min
[2017-12-08 02:54] LABS: PT 11.1 SEC (9.4-12.5); PTT 24 SEC (25-37)
[2017-12-08] MEDS ORDERED: HYDRALAZINE HC100 M1 PO (03:11)
[2017-12-08] MEDS ORDERED: LISINOPRIL40 M1 PO (03:12)
[2017-12-08] MEDS ORDERED: NITROGLYCERIN PAT (03:13)
[2017-12-08] MEDS ORDERED: ISOSORBIDE DINI30 M1 PO (03:14)
[2017-12-08 05:04] LABS: ABSOLUTE BASOPHIL COUNT 0 /CUMM (0.0-0.2); ABSOLUTE EOSINOPHIL COUNT 0 /CUMM (0.0-0.7); ABSOLUTE GRANULOCYTE CT 13.3 /CUMM (1.4-6.5); ABSOLUTE LYMPH COUNT 0.6 /CUMM (1.2-3.4); ABSOLUTE MONOCYTE COUNT 0.2 /CUMM (0.10-0.60); BASOPHIL % 0 % (0.0-2.0); EOSINOPHIL % 0.2 % (0-5); HEMATOCRIT 36.8 % (37-47); MEAN CORPUSCULAR HGB 30.5 PG (27.0-31.0); MEAN CORPUSCULAR HGB CONC 33.3 G/DL (33.0-37.0); MEAN CORPUSCULAR VOLUME 91.7 FL (81.0-99.0); MEAN PLATELET VOLUME 9.1 FL (7.4-10.4); PLATELET COUNT 248 /CUMM (130-400); RBC DISTRIBUTION WIDTH 15.4 % (11.5-14.5); RED BLOOD CELL CT 4.01 /CUMM (4.20-5.40); WHITE BLOOD CELL COUNT 14.1 /CUMM (4.8-10.8)
[2017-12-08 05:20] LABS: GRANULOCYTE % 94.2 % (42.2-75.2)
[2017-12-08 05:45] VITALS: BP 140/90
--- NOTE | 2017-12-08 05:56 | Admission Certification ---
Admission Certification Certification Statement - As attending physician, I certify that at the time of - admission, based on clinical presentation, severity of - symptoms, need for further diagnostic testing and - therapeutic interventions, and risk of adverse outcomes - without in-hospital treatment, in my clinical assessment, - this patient requires an acute hospital stay for a minimum - of two nights or longer. I have also considered psychsocial - factors such as support system, advanced age, financial - issues, cognitive issues, and failed out-patient treatments, - past re-admission history, safety of patient, and lack of - compliance as applicable. Specific rationale supporting this admission is: Acute coronary syndrome, hypertensive emergency
--- NOTE | 2017-12-08 07:41 | Cons- CRCU ---
[facility] 12/08/17 0741: General Information and HPI Consulting Request Date of Consult: 12/08/17 Requested By: Hieu Cash Source of Information: patient, old records Exam Limitations: no limitations History of Present Illness: Ms. Thapa is a 52yo F w/ PMH of CAD s/p Multiple PCI w/ cardiac stents in LAD/ LCx/OM2 currently on dual antiplatelet therapy, ESRD on HD (MWF), IDDM, 90/ depression, anemia, hypertension, and noncompliance with medications, presented with chest pain with nausea and vomiting,, that was occurred at rest, nonradiating, pressure-like, and without any particular precipitating or relieving factors. Patient was in her normal state of health today, and tissue sat down to eat dinner, and suddenly developed acute onset 09/20 substernal chest pain. Patient took Tums without any relief, and the pain was not reproducible to palpation. Upon ER admission, patient's pain was improved after 2 nitroglycerin sublingually, and then recurred again ER. In ER, patient's blood pressure was found to be elevated >200 SBP, and receive full strength aspirin, Zofran, sublingual nitroglycerin 2, IV labetalol, morphine, and Avapro in the ED, her chest pain resolved temporarily after nitroglycerin, however again recurred in the ER, with again feeling nauseous, retching, during the interview with physicians. Patient claimed that she missed some of her medication sometimes including the day prior admission, that she accidentally missed taking her aspirin. Patient had dialysis on 12/07 uneventful. On presentation: Labs / Imaging / Studies -CBC: WBC 11.8, H/H 12.1/36.8, platelet 249 -BMP: Na 141, K 3.9 -> 4.5, CL 97, CO2 25, BUN 21, Cr 5.3 -> 5.9, anion gap 19, glucose 210 -LFT: AST 19, ALT 18, ALP 134 -Misc: Troponin I 0.32 -> 0.59, lipase 263, EtOH <10 -UA/U tox: Pending on admission -CXR: Unremarkable -Echocardiogram 06/27/17: LVEF 70% without regional wall motion abnormalities -EKG 09/20/17: NSR with prolonged QT interval, ST depression I and aVL -EKG 12/07/17 2144: NSR, first degree AVB, concave ST segment elevation V1-V2, hyperacute T waves in V3-V5, horizontal ST segment depression I AvL V5 V6 -Cardiac cath 10/12/17: * Left main: patent * LAD: luminal irregularities * D1: Moderate size 80% ostial to proximal with diffuse luminal irregularities * LCx: 50% proximal, 80% AV groove and long 90% OM1 * RCA: Not re-visualized. As per her recent cardiac cath this is a dominant vessel that is patent except for a99% ostial posterolateral branch * 2.5 x 12 mm resolute stent in AV groove to OM 2 portion of LCx -Cardiac cath 09/21/17: * Left main: patent * LAD: luminal irregularities * D1: Moderate size 99% ostial * LCx: 80% AV groove and long 90% OM1 * RCA: Dominant vessel. ~99% ostial posterolateral branch * Left ventriculography: not done * Stent placed in LAD at takeoff of diagonal branch -Cardiac cath 06/29/17: * Left main: short and patent * LAD: 75% proximal followed by a 50% mid lesion. The LAD has a 70% very distal stenosis after wrapping around the apex * D1; 70% long in stent stenosis * LCx: 90% proximal OM1 and 90% ostial OM2 * RCA: Dominant vessel. ~Luminal irregularities with a 99% ostial stenosis of a small posterolateral branch. * Left ventriculography: not done * 4.0 x 12 mm resolute stent to proximal LAD * 2.5 x 8 mm resolute stent to OM 2 Allergies/Medications Allergies: Coded Allergies: NO KNOWN ALLERGIES (NONE 09/19/17) Home Med List: Aspirin (Aspirin*) 81 MG TAB.CHEW 2 TAB PO DAILY HEART HEALTH (Reported) Atorvastatin Calcium 40 MG TABLET 1 TAB PO QPM CHOLESTEROL (Reported) Bupropion HCl (Bupropion XL) 150 MG TAB.ER.24H 1 TAB PO QAM MENTAL HEALTH ( Reported) Clonidine 0.3 MG/24 HOUR PATCH.TDWK 1 PAT TOP QSUN HEART (Reported) Clopidogrel Bisulfate (Clopidogrel) 75 MG TABLET 1 TAB PO DAILY BLOOD THINNER (Reported) Diltiazem HCl (Diltiazem 24HR Cd) 180 MG CAP.ER.24H 180 MG PO DAILY HTN Epoetin José (Epogen) 4,000 UNIT/ML VIAL 4,000 UNIT IV MoWeFr PRN WITH HEMODIALYSIS w dialysis MWF Escitalopram Oxalate 20 MG TABLET 1 TAB PO DAILY MENTAL HEALTH (Reported) Gabapentin 100 MG CAPSULE 1 CAP PO TID NEUROPATHY (Reported) Hydralazine HCl 100 MG TABLET 1 TAB PO TID HTN (Reported) Insulin Aspart, Recombinant (Novolog Flexpen) 100 UNIT/ML INSULN.PEN 1 UNIT SC SEE SLIDING SCALE DIABETES (Reported) BEFORE MEALS Blood Insulin Sugar Units <80 0 81-100 1 101-200 2 201-250 6 251-300 8 301-350 10 351-400 12 >400 Call Doctor AT BEDTIME Blood Insulin Sugar Units <80 0 81-100 0 101-200 0 201-250 2 251-300 3 301-350 4 351-400 5 >400 Call Doctor Insulin Glargine,Hum.rec.anlog (Lantus Solostar) 100 UNIT/ML (3 ML) INSULN.PEN 30 UNIT SC BID DM (Reported) Isosorbide Dinitrate 30 MG TABLET 1 TAB PO DAILY CHEST PAIN (Reported) Labetalol HCl 200 MG TABLET 2 TAB PO BID HEART (Reported) Linaclotide (Linzess) 145 MCG CAPSULE 1 CAP PO DAILY PRN CONSTIPATION ( Reported) Lisinopril 40 MG TABLET 1 TAB PO DAILY HTN (Reported) Pantoprazole Sodium (Protonix) 40 MG TABLET.DR 1 TAB PO DAILY ACID REFLUX ( Reported) Sevelamer Carbonate (Renvela) 800 MG TABLET 1 TAB PO TID KIDNEY (Reported) TAKE THIS MEDICATION WITH MEALS Review of Systems Review of Systems Constitutional: Reports: see HPI. 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 significant other, child Services at Home: Patient previously had home health aide and nursing services but these services were recently discontinued Primary Language: Lithuanian Functional Ability ADLs Independent: dressing, eating, toileting, bathing. Ambulation: independent Exam & Diagnostic Data Last 24 Hrs of Vital Signs/I&O Vital Signs Date Time Temp Pulse Resp B/P B/P Pulse O2 O2 Flow FiO2 Mean Ox Delivery Rate 12/08 0435 96.8 100 18 138/102 100 Room Air 12/08 0344 95 16 148/102 100 Room Air 12/08 0225 98.1 93 15 187/98 100 Room Air 12/08 0221 95 220/104 12/08 0106 95 218/103 12/08 0025 97 219/105 12/08 0009 96 219/105 12/07 2318 95 16 195/92 100 Room Air 12/07 2240 90 235/112 12/07 2149 98.1 91 18 218/110 100 Intake & Output 12/08 0800 12/08 0000 12/07 1600 Intake Total Output Total Balance Patient 83.149 kg Weight Weight Standing Scale Measurement Method Physical Exam General Appearance: alert, awake, mild distress, obese Head: atraumatic, normal appearance Respiratory: normal breath sounds, chest non-tender, no respiratory distress Cardiovascular: regular rate/rhythm, edema Gastrointestinal: normal bowel sounds, soft, non-tender Extremities: normal inspection, normal range of motion, no edema Neurologic/Psych: no motor/sensory deficits, awake, alert, oriented x 3, normal gait Last 48 Hrs of Labs/Michi: Laboratory Tests 12/08/17 0700: Lactic Acid Pending, Acetone Level Pending 12/08/17 0655: pH 7.40, pCO2 36, pO2 55 L, HCO3 22, ABG O2 Sat (Measured) 89.0 L, P-50 (Temp Corrected) Y, Carboxyhemoglobin 0.9 L, O2 Concentration % RA, Temperature 96.4 L, Phlebotomy Draw Site LEFT RADIAL 12/08/17 0458: Anion Gap 18 H, Estimated GFR 8 L, BUN/Creatinine Ratio 4.4 L, Magnesium 1.8, Troponin I 0.59 *H, RBC 4.01 L, MCV 91.7, MCH 30.5, MCHC 33.3, RDW 15.4 H, MPV 9.1, Gran % 94.2 H, Lymphocytes % 4.1 L, Monocytes % 1.5 L, Eosinophils % 0.2 , Basophils % 0, Absolute Granulocytes 13.3 H, Absolute Lymphocytes 0.6 L, Absolute Monocytes 0.2, Absolute Eosinophils 0, Absolute Basophils 0 12/08/17 0230: PT 11.1, INR 1.02, APTT 24 L 12/07/17 2148: Anion Gap 19 H, Estimated GFR 9 L, BUN/Creatinine Ratio 4.0 L, Glucose 210 H , Calcium 9.7, Total Bilirubin 0.5, AST 19, ALT 18, Alkaline Phosphatase 134 H, Troponin I 0.32 *H, Total Protein 8.7 H, Albumin 4.9, Globulin 3.8, Albumin/ Globulin Ratio 1.3, Lipase 263, CBC w Diff NO MAN DIFF REQ, RBC 4.01 L, MCV 91.8, MCH 30.3, MCHC 33.0, RDW 15.9 H, MPV 9.3, Gran % 68.8, Lymphocytes % 15.9 L, Monocytes % 9.7 H, Eosinophils % 4.8, Basophils % 0.8, Absolute Granulocytes 8.1 H, Absolute Lymphocytes 1.9, Absolute Monocytes 1.2 H, Absolute Eosinophils 0.6, Absolute Basophils 0.1, Serum Alcohol < 10.0 Assessment/Plan CRCU Impression/Plan: VS: stable w/ BP trended down to from 219/105 -> 138/102 In/Out/24hrs: Sedation: None Vent Setting: None [id number]: NGTD Problem List #Hypertensive emergency #ACS/NSTEMI #Leukocytosis likely reactive #Medication noncompliance #PMHx of CAD s/p multiple PCI/stents, ESRD on hemodialysis MWF, IDDM, anxiety/ depression, HTN, anemia Respiratory: no underlying l pulmonary conditions. Will notify [facility], continue monitoring. Infection: 94.2%, that could be likely reactive to current clinical conditions. Cardio: Patient had extensive history of CAD, with multiple atherosclerotic risk factors including obesity/hypertension/diabetes/medical noncompliance, and who presented now with hypertensive urgency/emergency. Night float team has discussed with Dr. Luis Daniel Mccormack felt that the EKG changes may be due to patient's poorly controlled hypertension, however considering her elevated troponin and chest pain improved with nitroglycerin, patient should be heparinized. -Patient's HEART scored 8 points w/ 50-65% MACE risk, that may warrant patient for early invasive measures including catheterization. procedures. -Continue Plavix/aspirin, keep n.p.o. for now for possible procedures in a.m. , gabapentin, Imdur, lisinopril, omeprazole. enalapril 1.25 mg IV 1, currently on hydralazine 100 mg 3 times daily p.o., labetalol 400 mg twice daily p.o., lisinopril 40 mg daily, and clonidine patch. Currently her blood pressure was being controlled with SBP in the 130s. Will continue monitor Hem: Metabolism: Patient had dialysis on 12/07 without any event. elevation of troponin was unlikely to be result of ESRD. Alimentary: possible DKA. However patient was able 3 at this point, will continue monitor Neuro: due to the fact that patient will be at risk of stroke as well was hypertensive emergency, and underlying cardiac conditions. DVT prophylaxis: Heparin Drip + ALPS NPO IV Access: Peripheral IV Full Code Consult Acknowledgment - Thank you for your consult request. Hieu Low MD 12/08/17 0852: Assessment/Plan CRCU Other Findings/Comments: Impression 52 year old woman * ESRD on HD * troponinemia * htn urgency Plan -cardiology consultation -nephrology consultation -bp control - meds reviewed -heparin gtt DVT prophylaxis at all times TTS 35 min Consult Acknowledgment - Thank you for your consult request. Attending MD Statement Pt examined & info reviewed Yes Agree w/findings/assess/plan Yes Documenting Attending Hieu Low MD
[2017-12-08 08:00] VITALS: BP 196/108
--- NOTE | 2017-12-08 08:13 | Cons- Nephrology ---
General Information and HPI Consulting Request Date of Consult: 12/08/17 Requested By: Romero Orozco MD Reason for Consult: ESRD & CP Source of Information: patient, old records Exam Limitations: no limitations History of Present Illness: 52 ur old AA female w mult med problems including severe HTN, DM, CAD s/p NV & PCI, & ESRD on chronic HD admit yesterday evening w substernal CP. Pain began after eating dinner & nonradiating but associated w nausea, vomiting, & diaphoresis. Found to have accelerated HTN after missing evening meds. Given SL NTL, IV labetaolol, IV enalapril, & started on heparin drip but continued mild CP this morning. Denies SOB or cough. No fever or rigors. Last HD yesterday uneventful. Allergies/Medications Allergies: Coded Allergies: NO KNOWN ALLERGIES (NONE 09/19/17) Home Med List: Aspirin (Aspirin*) 81 MG TAB.CHEW 2 TAB PO DAILY HEART HEALTH (Reported) Atorvastatin Calcium 40 MG TABLET 1 TAB PO QPM CHOLESTEROL (Reported) Bupropion HCl (Bupropion XL) 150 MG TAB.ER.24H 1 TAB PO QAM MENTAL HEALTH ( Reported) Clonidine 0.3 MG/24 HOUR PATCH.TDWK 1 PAT TOP QSUN HEART (Reported) Clopidogrel Bisulfate (Clopidogrel) 75 MG TABLET 1 TAB PO DAILY BLOOD THINNER (Reported) Diltiazem HCl (Diltiazem 24HR Cd) 180 MG CAP.ER.24H 180 MG PO DAILY HTN Epoetin José (Epogen) 4,000 UNIT/ML VIAL 4,000 UNIT IV MoWeFr PRN WITH HEMODIALYSIS w dialysis MWF Escitalopram Oxalate 20 MG TABLET 1 TAB PO DAILY MENTAL HEALTH (Reported) Gabapentin 100 MG CAPSULE 1 CAP PO TID NEUROPATHY (Reported) Hydralazine HCl 100 MG TABLET 1 TAB PO TID HTN (Reported) Insulin Aspart, Recombinant (Novolog Flexpen) 100 UNIT/ML INSULN.PEN 1 UNIT SC SEE SLIDING SCALE DIABETES (Reported) BEFORE MEALS Blood Insulin Sugar Units <80 0 81-100 1 101-200 2 201-250 6 251-300 8 301-350 10 351-400 12 >400 Call Doctor AT BEDTIME Blood Insulin Sugar Units <80 0 81-100 0 101-200 0 201-250 2 251-300 3 301-350 4 351-400 5 >400 Call Doctor Insulin Glargine,Hum.rec.anlog (Lantus Solostar) 100 UNIT/ML (3 ML) INSULN.PEN 30 UNIT SC BID DM (Reported) Isosorbide Dinitrate 30 MG TABLET 1 TAB PO DAILY CHEST PAIN (Reported) Labetalol HCl 200 MG TABLET 2 TAB PO BID HEART (Reported) Linaclotide (Linzess) 145 MCG CAPSULE 1 CAP PO DAILY PRN CONSTIPATION ( Reported) Lisinopril 40 MG TABLET 1 TAB PO DAILY HTN (Reported) Pantoprazole Sodium (Protonix) 40 MG TABLET.DR 1 TAB PO DAILY ACID REFLUX ( Reported) Sevelamer Carbonate (Renvela) 800 MG TABLET 1 TAB PO TID KIDNEY (Reported) TAKE THIS MEDICATION WITH MEALS Current Medications: Current Medications Sig/[place] Start time Last Medication Dose Route Stop Time Status Admin Acetaminophen 650 MG Q6P PRN 12/08 0230 AC PO Aspirin 162 MG DAILY 12/08 0900 AC PO Aspirin 0 .STK-MED ONE 12/07 2232 DC PO Aspirin 325 MG ONCE ONE 12/07 221 DC 12/07 PO 12/07 221 223 Atorvastatin Calcium 40 MG QPM 12/08 2100 AC PO Bupropion HCl 150 MG QAM 12/08 0900 AC PO Clonidine 1 PAT QSUN 12/11 0900 AC TOP Clopidogrel Bisulfate 75 MG DAILY 12/08 0900 AC PO Dextrose/Sodium 1,000 ML Q20H 12/08 0330 DC Chloride IV Diltiazem HCl 180 MG DAILY 12/08 0900 AC PO Enalaprilat 0 .STK-MED ONE 12/08 0017 DC IV Enalaprilat 1.25 MG ONCE ONE 12/08 0015 DC 12/08 IV 12/08 0016 0025 Gabapentin 100 MG TID 12/08 0900 AC PO Heparin Sodium/ 25,000 UNIT Q24H 12/08 0215 AC 12/08 Dextrose IV 0255 Dextrose/Water 500 ML Insulin Human Regular 0 Q6 12/08 0600 AC 12/08 SC 0611 Isosorbide 30 MG DAILY 12/08 0900 AC Mononitrate PO Labetalol HCl 400 MG BID 12/08 0900 UNVr PO Labetalol HCl 10 MG ONCE ONE 12/08 0215 DC 12/08 IV 12/08 0216 0221 Labetalol HCl 0 .STK-MED ONE 06/27 2233 DC IV Labetalol HCl 10 MG ONCE ONE 12/07 2215 DC 12/07 IV 12/07 2216 2240 Lisinopril 40 MG DAILY 12/08 0900 AC PO Morphine Sulfate 0 .STK-MED ONE 12/08 0451 DC .ROUTE Morphine Sulfate 2 MG Q6P PRN 12/08 0230 AC IV Morphine Sulfate 0 .STK-MED ONE 12/08 0017 DC .ROUTE Morphine Sulfate 2 MG ONCE ONE 12/08 0015 DC 12/08 IV 12/08 0016 0022 Morphine Sulfate 2 MG ONCE ONE 12/07 2345 DC 12/07 IV 12/07 2346 2347 Morphine Sulfate 0 .STK-MED ONE 12/07 2341 DC .ROUTE Multivitamins 1 TAB DAILY 12/08 0900 AC PO Nitroglycerin 1 GM Q6 12/08 0600 AC 12/08 TOP 0556 Nitroglycerin 0.4 MG Q 5 MINUTES X 3 DO.. 12/08 0215 AC 12/08 SL 0300 Nitroglycerin 0.4 MG ONCE ONE 12/07 2345 DC 12/07 SL 12/07 2346 2347 Nitroglycerin 0.4 MG ONCE ONE 12/07 2300 DC 12/07 SL 12/07 2301 2302 Nitroglycerin 0 .STK-MED ONE 12/07 2300 DC Omeprazole 40 MG DAILY AC 12/08 0700 AC PO Ondansetron HCl 4 MG Q6P PRN 12/08 0215 AC 12/08 IV 0221 Ondansetron HCl 0 .STK-MED ONE 12/08 0212 DC .ROUTE Ondansetron HCl 0 .STK-MED ONE 12/07 2233 DC .ROUTE Ondansetron HCl 4 MG ONCE ONE 12/07 2215 DC 12/07 IV 12/07 2216 2238 Trimethobenzamide HCl 200 MG ONCE ONE 12/08 0545 CAN IM 12/08 0546 Trimethobenzamide HCl 200 MG TID PRN 12/08 0215 AC 12/08 IM 0223 Trimethobenzamide HCl 0 .STK-MED ONE 12/08 0212 DC IM Review of Systems Review of Systems Constitutional: Reports: no symptoms. EENTM: Reports: no symptoms. Cardiovascular: Reports: chest pain. Respiratory: Reports: no symptoms. GI: Reports: nausea, vomiting. Genitourinary: Reports: no symptoms. Musculoskeletal: Reports: no symptoms. Skin: Reports: no symptoms. Neurological/Psychological: Reports: no symptoms. Hematologic/Endocrine: Reports: no symptoms. Immunologic/Allergic: Reports: no symptoms. 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 significant other, child Services at Home: Patient previously had home health aide and nursing services but these services were recently discontinued Primary Language: Norwegian Functional Ability ADLs Independent: dressing, eating, toileting, bathing. Ambulation: independent Exam & Diagnostic Data Vital Signs and I&O Vital Signs Date Time Temp Pulse Resp B/P B/P Pulse O2 O2 Flow FiO2 Mean Ox Delivery Rate 12/08 0435 96.8 100 18 138/102 100 Room Air 12/08 0344 95 16 148/102 100 Room Air 12/08 0225 98.1 93 15 187/98 100 Room Air 12/08 0221 95 220/104 12/08 0106 95 218/103 12/08 0025 97 219/105 12/08 0009 96 219/105 12/07 2318 95 16 195/92 100 Room Air 12/07 2240 90 235/112 12/07 2149 98.1 91 18 218/110 100 Intake & Output 12/08 1600 12/08 0400 12/07 1600 12/07 0400 12/06 1600 12/06 0400 Intake Total Output Total Balance Patient 183 lb Weight Weight Standing Scale Measurement Method Physical Exam General Appearance: well developed/nourished, no apparent distress, alert Head: atraumatic, normal appearance Eyes: Bilateral: normal appearance. 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 Skin: intact, normal color, warm/dry Lymphatic: no anterior cervical dinah, no axil adenopathy Results Pertinent Lab Results: Laboratory Tests 12/08 12/08 12/08 12/08 0700 0655 0458 0230 Blood Gas pH (7.35 - 7.45 PH) 7.40 pCO2 (35 - 45 TORR) 36 pO2 (80 - 100 TORR) 55 L HCO3 (21 - 28 MEQ/L) 22 ABG O2 Sat (Measured) (>96.0 %) 89.0 L P-50 (Temp Corrected) Y Carboxyhemoglobin (1.5 - 5.0 %) 0.9 L O2 Concentration % RA Temperature (97.0 - 100.0 FARH) 96.4 L Chemistry Sodium (137 - 145 mmol/L) 143 Potassium (3.5 - 5.1 mmol/L) 4.5 Chloride (98 - 107 mmol/L) 100 Carbon Dioxide (22 - 30 mmol/L) 25 Anion Gap (5 - 16) 18 H BUN (7 - 17 mg/dL) 26 H Creatinine (0.5 - 1.0 mg/dL) 5.9 *H Estimated GFR (>60 ml/min) 8 L BUN/Creatinine Ratio (7 - 25 %) 4.4 L Lactic Acid Pending Magnesium (1.6 - 2.3 mg/dL) 1.8 Troponin I (< 0.11 ng/ml) 0.59 *H Coagulation PT (9.4 - 12.5 SEC) 11.1 INR (0.90 - 1.19) 1.02 APTT (25 - 37 SEC) 24 L Hematology WBC (4.8 - 10.8 /CUMM) 14.1 H RBC (4.20 - 5.40 /CUMM) 4.01 L Hgb (12.0 - 16.0 G/DL) 12.3 Hct (37 - 47 %) 36.8 L MCV (81.0 - 99.0 FL) 91.7 MCH (27.0 - 31.0 PG) 30.5 MCHC (33.0 - 37.0 G/DL) 33.3 RDW (11.5 - 14.5 %) 15.4 H Plt Count (130 - 400 /CUMM) 248 MPV (7.4 - 10.4 FL) 9.1 Gran % (42.2 - 75.2 %) 94.2 H Lymphocytes % (20.5 - 51.1 %) 4.1 L Monocytes % (1.7 - 9.3 %) 1.5 L Eosinophils % (0 - 5 %) 0.2 Basophils % (0.0 - 2.0 %) 0 Absolute Granulocytes (1.4 - 6.5 /CUMM) 13.3 H Absolute Lymphocytes (1.2 - 3.4 /CUMM) 0.6 L Absolute Monocytes (0.10 - 0.60 /CUMM) 0.2 Absolute Eosinophils (0.0 - 0.7 /CUMM) 0 Absolute Basophils (0.0 - 0.2 /CUMM) 0 Miscellaneous Phlebotomy Draw Site LEFT RADIAL Toxicology Acetone Level (NEGATIVE) NEGATIVE 12/08 2147 Chemistry Sodium (137 - 145 mmol/L) 141 Potassium (3.5 - 5.1 mmol/L) 3.9 Chloride (98 - 107 mmol/L) 97 L Carbon Dioxide (22 - 30 mmol/L) 25 Anion Gap (5 - 16) 19 H BUN (7 - 17 mg/dL) 21 H Creatinine (0.5 - 1.0 mg/dL) 5.3 *H Estimated GFR (>60 ml/min) 9 L BUN/Creatinine Ratio (7 - 25 %) 4.0 L Glucose (65 - 99 mg/dL) 210 H Calcium (8.4 - 10.2 mg/dL) 9.7 Total Bilirubin (0.2 - 1.3 mg/dL) 0.5 AST (14 - 36 U/L) 19 ALT (9 - 52 U/L) 18 Alkaline Phosphatase (<127 U/L) 134 H Troponin I (< 0.11 ng/ml) 0.32 *H Total Protein (6.3 - 8.2 g/dL) 8.7 H Albumin (3.5 - 5.0 g/dL) 4.9 Globulin (1.9 - 4.2 gm/dL) 3.8 Albumin/Globulin Ratio (1.1 - 2.2 %) 1.3 Lipase (23 - 300 U/L) 263 Hematology CBC w Diff NO MAN DIFF REQ WBC (4.8 - 10.8 /CUMM) 11.8 H RBC (4.20 - 5.40 /CUMM) 4.01 L Hgb (12.0 - 16.0 G/DL) 12.1 Hct (37 - 47 %) 36.8 L MCV (81.0 - 99.0 FL) 91.8 MCH (27.0 - 31.0 PG) 30.3 MCHC (33.0 - 37.0 G/DL) 33.0 RDW (11.5 - 14.5 %) 15.9 H Plt Count (130 - 400 /CUMM) 249 MPV (7.4 - 10.4 FL) 9.3 Gran % (42.2 - 75.2 %) 68.8 Lymphocytes % (20.5 - 51.1 %) 15.9 L Monocytes % (1.7 - 9.3 %) 9.7 H Eosinophils % (0 - 5 %) 4.8 Basophils % (0.0 - 2.0 %) 0.8 Absolute Granulocytes (1.4 - 6.5 /CUMM) 8.1 H Absolute Lymphocytes (1.2 - 3.4 /CUMM) 1.9 Absolute Monocytes (0.10 - 0.60 /CUMM) 1.2 H Absolute Eosinophils (0.0 - 0.7 /CUMM) 0.6 Absolute Basophils (0.0 - 0.2 /CUMM) 0.1 Toxicology Serum Alcohol (<10 MG/DL) < 10.0 Imaging/Other Studies: EXAMINATION: XR PORTABLE CHEST CLINICAL INFORMATION: Chest pain. COMPARISON: Chest x-ray 09/19/2017 TECHNIQUE: Portable frontal view of the chest was obtained. 10:43 PM FINDINGS: No significant abnormality is noted involving the heart, lungs, mediastinum, bony thorax or soft tissues. IMPRESSION: Unremarkable examination. Assessment/Plan Assessment/Recommendations Assessment: 1. ESRD: due to DM & HTN; dialyzed yesterday & no HD need today 2. CP: ? new NSTEMI; no infiltrate to suggest aspiration w vomitng but concerned re hypoxia on ABG --> can exclude PE via CTA 3. HTN: poor control; restart meds but favor substituting minoxidil for hydralazine Recommendations: 1. HD tomorrow 2. minoxidil 5 mg bid 3. d/c hydralazine 4. consider CTA or V/Q to exclude PE
[2017-12-08 08:32] VITALS: BP 190/109
--- NOTE | 2017-12-08 14:20 | ULTRASOUND REPORT ---
EXAMINATION: US TRIPLEX OF LOWER EXTREMITIES, BILATERAL CLINICAL INFORMATION: Sudden onset of hypoxia. COMPARISON: None TECHNIQUE: Color-flow triplex imaging with spectral analysis and compression Doppler were performed on the lower extremities. FINDINGS: Respiratory variation, normal compression and augmented flow are noted throughout the lower extremities. The visualized common femoral vein, superficial femoral vein, profunda femoral vein, popliteal vein and midcalf peroneal and posterior tibial venous segments show no evidence of deep venous thrombosis. There is no Burkett's cyst. IMPRESSION: No evidence of deep venous thrombosis involving the bilateral lower extremities.
--- NOTE | 2017-12-08 14:27 | Cons- Cardiology ---
General Information and HPI Consulting Request Date of Consult: 12/08/17 Requested By: Romero Orozco MD History of Present Illness: Patience carries a history of hypertension, dyslipidemia, and diabetes mellitus which she has had for approximately 22 years. I initially saw this patient for chest discomfort and she is now s/p multiple angioplasties. Patience was recently admitted to the hospital for chest pain and shortness of breath with PND. She ruled in for an WI and underwent POBA of an ostial diagonal branch. This lesion was only minimally improved since the balloon did not expand well in the lesion. At that time her LCX system was also noted to be diseased and was recently brought back to the forestry laborer for PCI of this lesion. Over the past week this patient has noted intermittent chest discomfort. Last eventing the pain was particularly severe which prompted her presentation to the ER. She continues to report chest discomfort and has rising cardiac enzymes. Her blood pressure is also severely elevated and she is tachycardic. There is no associated nausea, vomiting or diaphoresis. She also denies lightheadedness or palpitations. Prior to the above this patient underwent a POBA to a 70% long first diagonal lesion, a 4.0 x 12mm Resolute stent was placed in the 75% proximal LAD lesion, the OM1 underwent POBA and the OM2 underwent POBA with placement of a 2.5 x 8mm Resolute stent. Both OM lesions were in the 90% range. To review this patient's prior history, she underwent a stress test is response to exertional chest pain which was abnormal and was followed by PCI which occured while she was traveling in [place]. Patience was previously in the hospital for hypertension, renal failure and another NSTEMI. She is now on dialysis which is going well. It should be recalled that this patient has also had a prior PCI of the RCA, LCX and LAD. She now feels better than she has is years although she has been fatigued over the past several days. This tireness was initially attributed to Minoxidil which I recently prescribed for her hypertension; but she has been off this medication and continues to be tired. Previously, Patience was very inactive and this was attributed to a lack of motivation and depression. On last visit she reported some occasional lightheadedness that occurs about an hour after she takes her medications and lasts for about an hour at a time. Otherwise, lightheadedness is not a major problem. On a previous visit, the patient reported that walking half a block, even at a slow pace, would get her winded, but she feels she can do a bit more now. Her diabetes has also been under somewhat suboptimal control. The patients latest stress test is from 08/2013. It showed a hyperdynamic EFof 83% with no regional wall motion abnormalities. There was a small region of inferoapical ischemia without Regadenoson induced symptoms. To Review the Patient's Past History: Prior to her recent angioplasty, the patient reported multiple recurrent episodes of chest discomfort with no clear exertional component, although she did rule in for a small non-ST elevation WI with a troponin of 0.76. There was also some relief with nitroglycerin. Approximately one and one-half years ago, in the setting of dull chest discomfort radiating to her arm with shortness of breath that was exertional in nature and a consideration of a non-ST elevation WI, the patient underwent a cardiac catheterization. This resulted in angioplasty to the PDA with a 50% residual stenosis. At that time, I did not feel that this vessel was amenable to stent placement due to its tortuosity. The LAD, however, did receive a 2.5 x 18 mm [place] stent with zero percent residual stenosis and the patient was brought back a second time for angioplasty to the left circumflex with placement of a 2.75 x 20 mm Taxus stent with plain balloon angioplasty to the ostium of the Obtuse Marginal-1. This resulted in zero percent residual stenosis in the AV groove left circumflex and a 20% non-flow limiting residual stenosis in the Obtuse Marginal-1. Postprocedure, there remained a 50-60% mid non-flow limiting stenosis in the LAD. There was also a 50% non-flow limiting ostial stenosis of the diagonal branch. Lastly, it should be noted that renal angiography was performed at that time and there was no evidence of renal artery stenosis. Her EF was 55% with anterior wall hypokinesis. In consideration of the above mentioned symptoms with recurrent non-ST elevation WI, I did risk stratify the patient with a stress test which was abnormal and therefore repeated her cardiac catheterization. This study showed the following anatomy: Her left main was short and patent. The left circumflex was diminutive in the AV groove distally. It parented a large obtuse marginal one vessel with a 40% ostial to proximal stenosis. The obtuse marginal two is also a large vessel with luminal irregularities. The LAD was a large vessel that wrapped around the apex. It harbored a 70% mid stenosis just after the take-off of the first diagonal branch. There are luminal irregularities throughout its course. The first diagonal branch is a small vessel with an 80% ostial stenosis superimposed on diffuse disease. The right coronary artery is dominant with a 50% ostial posterior lateral branch lesion. The PDA has a 40% ostial and 50% mid lesion. Repeat angiography showed no significant stenosis bilaterally. In consideration of the above, I directly stented the LAD with placement of a 3.5 x 24 mm Taxus stent and a plain balloon angioplasty was done on the diagonal branch with a 2.0 x 12 mm [place] balloon. This resulted in zero percent residual stenosis in the LAD and an 80% diagonal one lesion with zero percent postprocedure. Finally, it should be recalled that the patient was found to have a 7 x 6 x 4 mm hypoechoic nodule extrinsic to the lower pole of the left lobe of thyroid gland that was considered to be a lymph node on extrinsic nodule vs. a parathyroid adenoma. The thyroid gland was also enlarged. The patient was asked to followup with Dr. Schmidt regarding this problem but she has not seen him recently. was also noted to have microcytic anemia which is being treated with iron supplements. I believe she is following up with a biomedical specialist at this point in time. Allergies/Medications Allergies: Coded Allergies: NO KNOWN ALLERGIES (NONE 09/19/17) Home Med List: Aspirin (Aspirin*) 81 MG TAB.CHEW 2 TAB PO DAILY HEART HEALTH (Reported) Atorvastatin Calcium 40 MG TABLET 1 TAB PO QPM CHOLESTEROL (Reported) Bupropion HCl (Bupropion XL) 150 MG TAB.ER.24H 1 TAB PO QAM MENTAL HEALTH ( Reported) Clonidine 0.3 MG/24 HOUR PATCH.TDWK 1 PAT TOP QSUN HEART (Reported) Clopidogrel Bisulfate (Clopidogrel) 75 MG TABLET 1 TAB PO DAILY BLOOD THINNER (Reported) Diltiazem HCl (Diltiazem 24HR Cd) 180 MG CAP.ER.24H 180 MG PO DAILY HTN Epoetin José (Epogen) 4,000 UNIT/ML VIAL 4,000 UNIT IV MoWeFr PRN WITH HEMODIALYSIS w dialysis MWF Escitalopram Oxalate 20 MG TABLET 1 TAB PO DAILY MENTAL HEALTH (Reported) Gabapentin 100 MG CAPSULE 1 CAP PO TID NEUROPATHY (Reported) Hydralazine HCl 100 MG TABLET 1 TAB PO TID HTN (Reported) Insulin Aspart, Recombinant (Novolog Flexpen) 100 UNIT/ML INSULN.PEN 1 UNIT SC SEE SLIDING SCALE DIABETES (Reported) BEFORE MEALS Blood Insulin Sugar Units <80 0 81-100 1 101-200 2 201-250 6 251-300 8 301-350 10 351-400 12 >400 Call Doctor AT BEDTIME Blood Insulin Sugar Units <80 0 81-100 0 101-200 0 201-250 2 251-300 3 301-350 4 351-400 5 >400 Call Doctor Insulin Glargine,Hum.rec.anlog (Lantus Solostar) 100 UNIT/ML (3 ML) INSULN.PEN 30 UNIT SC BID DM (Reported) Isosorbide Dinitrate 30 MG TABLET 1 TAB PO DAILY CHEST PAIN (Reported) Labetalol HCl 200 MG TABLET 2 TAB PO BID HEART (Reported) Linaclotide (Linzess) 145 MCG CAPSULE 1 CAP PO DAILY PRN CONSTIPATION ( Reported) Lisinopril 40 MG TABLET 1 TAB PO DAILY HTN (Reported) Pantoprazole Sodium (Protonix) 40 MG TABLET.DR 1 TAB PO DAILY ACID REFLUX ( Reported) Sevelamer Carbonate (Renvela) 800 MG TABLET 1 TAB PO TID KIDNEY (Reported) TAKE THIS MEDICATION WITH MEALS Review of Systems Review of Systems: A twelve point review of systems is unremarkable. Past History Travel History Traveled to [place] past 21 day No Medical History Blood Transfusion Hx: Yes Neurological: NONE EENT: NONE Cardiovascular: AFIB, CAD, hypertension, hyperlipidemia, myocardial infarction, NSTEMI, 10 CARDIAC STENTS Respiratory: NONE Gastrointestinal: constipation Hepatic: NONE Renal: CKD stage 5 DIALYSIS Musculoskeletal: NONE Psychiatric: depression Endocrine: diabetes, GERD thyroid nodule Blood Disorders: anemia Cancer(s): NONE REAL ESTATE CLOSER/Reproductive: uterine fibriods Surgical History Surgical History: STENTS X4 aVF Michel catheter S/P AV SHUNT Family History Relations & Conditions If Any: MOTHER Chronic renal disease uncle Chronic renal disease Relation not specified for: FH: CAD (coronary artery disease) FH: cancer FH: diabetes mellitus FH: HTN (hypertension) FH: schizophrenia Psychosocial History Where Do You Live? Home Who Do You Live With? significant other, child Services at Home: Patient previously had home health aide and nursing services but these services were recently discontinued Primary Language: Kazakh Smoking Status: Never Smoked Functional Ability ADLs Independent: dressing, eating, toileting, bathing. Ambulation: independent Exam & Diagnostic Data Vital Signs and I&O Vital Signs Date Time Temp Pulse Resp B/P B/P Pulse O2 O2 Flow FiO2 Mean Ox Delivery Rate 12/08 1105 Nasal 2.0L Cannula 12/08 0832 110 190/109 12/08 0831 110 190/109 12/08 0830 11 198/109 12/08 0829 110 198/109 12/08 0545 100 Room Air 12/08 0545 96.4 101 26 140/90 100 Room Air 12/08 0435 96.8 100 18 138/102 100 Room Air 12/08 0344 95 16 148/102 100 Room Air 12/08 0225 98.1 93 15 187/98 100 Room Air 12/08 0221 95 220/104 12/08 0106 95 218/103 12/08 0025 97 219/105 12/08 0009 96 219/105 12/07 2318 95 16 195/92 100 Room Air 12/07 2240 90 235/112 12/07 2149 98.1 91 18 218/110 100 Intake & Output 12/08 1600 12/08 0800 12/08 0000 12/07 1600 12/07 0800 12/07 0000 Intake Total 42 Output Total Balance 42 Intake, IV 42 Patient 187 lb Weight Weight Bed scale Measurement Method Physical Exam: General: WD/WN male in NAD; alert and oriented HEENT: NC/AT, PERRL, EOMI Neck: no JVD, no carotid bruit Heart: RRR w/o murmur Lungs: clear bilaterally Abdomen: soft, NT, +ve bowel sounds Extremities: no edema Assessment/Plan Assessment/Plan * This patient underwent a recent PCI and may have restenosis. We will follow cardiac enzymes until they peak. She will be anticoagulated with aspirin, Plavix and IV heparin and we will begin NTG paste 1/2 inch Q 6 hours. The patient is hypertensive and tachycardic. She will need to continue her Labetolol and add IV metoprolol as needed to control her heart rate. Begin IV hydralazine to control her BP. * Obtain an echocardiogram * We will have a low threshold for urgent cardiac catheterization if her chest pain continues and cardiac enzymes continue to rise. * Continue Labetolol 400mg BID, cardizem as previously prescribed, clonidine patch and hydralazine 100mb TID. Add Minoxidil 5mg BID. * Obtain a renal consult. Consult Acknowledgment - Thank you for your consult request.
[2017-12-08] MEDS ORDERED: MINOXIDIL2.5 M1 PO (14:34)
--- NOTE | 2017-12-08 14:37 | Patient Discharge Instructions ---
Discharge Instructions General Discharge Information Special Instructions: - Please continue your care for Cardiac Catherization Diet Continue normal diet: No Recommended Diet: NPO for procedure Activity Full Activity/No Limits: No Acute Coronary Syndrome Inclusion Criteria At DC or during hospital stay patient has or had the following: ACS DIAGNOSIS Yes Discharge Core Measures Meds if any: Prescribed or Continued at Discharge Aspirin Yes Beta-Torres Yes Statin Yes Meds if any: NOT Prescribed or Continued at Discharge Congestive Heart Failure Inclusion Criteria At DC or during hospital stay patient has or had the following: CHF DIAGNOSIS No Discharge Core Measures Meds if any: Prescribed or Continued at Discharge Meds if any: NOT Prescribed or Continued at Discharge Cerebrovascular accident Inclusion Criteria At DC or during hospital stay patient has or had the following: CVA/TIA Diagnosis No Discharge Core Measures Meds if any: Prescribed or Continued at Discharge Meds if any: NOT Prescribed or Continued at Discharge Venous thromboembolism Inclusion Criteria VTE Diagnosis No VTE Type NONE VTE Confirmed by (Test) LUNG SCAN (V/Q) Discharge Core Measures - Per Current guidelines, there needs to be overlap - treatment for the first 5 days of Warfarin therapy. - If discharged on Warfarin prior to 5 days of - overlap therapy, the patient will need to be - assessed for post discharge needs including - *Post discharge parental anticoagulation - *Warfarin and/or parental anticoagulation education - *Follow up date to check INR post discharge At least 5 days overlap therapy as Inpatient No Meds if any: Prescribed or Continued at Discharge Note: Overlap Therapy is Warfarin and Anticoagulant Meds if any: NOT Prescribed or Continued at Discharge
[2017-12-08 14:42] LABS: PTT > 120 SEC (25-37)
--- NOTE | 2017-12-08 14:46 | Discharge Summary ---
Visit Information Visit Dates Admission Date: 12/08/17 Discharge Date: 12/08/2017 Hospital Course Course Attending Physician: Romero Orozco MD Primary Care Physician: Violetta Reddy APRN Hospital Course: Ms. Thapa is a 52yo F w/ PMH of CAD s/p Multiple PCI w/ cardiac stents in LAD/ LCx/OM2 currently on dual antiplatelet therapy, ESRD on HD (MWF), IDDM, 90/ depression, anemia, hypertension, and noncompliance with medications, presented with chest pain with nausea and vomiting,, that was occurred at rest, nonradiating, pressure-like, and without any particular precipitating or relieving factors. Patient was in her normal state of health today, and tissue sat down to eat dinner, and suddenly developed acute onset 4/10 substernal chest pain. Patient took Tums without any relief, and the pain was not reproducible to palpation. Upon ER admission, patient's pain was improved after 2 nitroglycerin sublingually, and then recurred again ER. In ER, patient's blood pressure was found to be elevated >200 SBP, and receive full strength aspirin, Zofran, sublingual nitroglycerin 2, IV labetalol, morphine, and Avapro in the ED, her chest pain resolved temporarily after nitroglycerin, however again recurred in the ER, with again feeling nauseous, retching, during the interview with physicians. Patient claimed that she missed some of her medication sometimes including the day prior admission, that she accidentally missed taking her aspirin. Patient had dialysis on 12/07 uneventful. On presentation: Labs / Imaging / Studies -CBC: WBC 11.8, H/H 12.1/36.8, platelet 249 -BMP: Na 141, K 3.9 -> 4.5, CL 97, CO2 25, BUN 21, Cr 5.3 -> 5.9, anion gap 19, glucose 210 -LFT: AST 19, ALT 18, ALP 134 -Misc: Troponin I 0.32 -> 0.59, lipase 263, EtOH <10 -UA/U tox: Pending on admission -CXR: Unremarkable -Echocardiogram 06/27/17: LVEF 70% without regional wall motion abnormalities -EKG 09/20/17: NSR with prolonged QT interval, ST depression I and aVL -EKG 12/07/17 2144: NSR, first degree AVB, concave ST segment elevation V1-V2, hyperacute T waves in V3-V5, horizontal ST segment depression I AvL V5 V6 -Cardiac cath 10/12/17: * Left main: patent * LAD: luminal irregularities * D1: Moderate size 80% ostial to proximal with diffuse luminal irregularities * LCx: 50% proximal, 80% AV groove and long 90% OM1 * RCA: Not re-visualized. As per her recent cardiac cath this is a dominant vessel that is patent except for a99% ostial posterolateral branch * 2.5 x 12 mm resolute stent in AV groove to OM 2 portion of LCx -Cardiac cath 09/21/17: * Left main: patent * LAD: luminal irregularities * D1: Moderate size 99% ostial * LCx: 80% AV groove and long 90% OM1 * RCA: Dominant vessel. ~99% ostial posterolateral branch * Left ventriculography: not done * Stent placed in LAD at takeoff of diagonal branch -Cardiac cath 06/29/17: * Left main: short and patent * LAD: 75% proximal followed by a 50% mid lesion. The LAD has a 70% very distal stenosis after wrapping around the apex * D1; 70% long in stent stenosis * LCx: 90% proximal OM1 and 90% ostial OM2 * RCA: Dominant vessel. ~Luminal irregularities with a 99% ostial stenosis of a small posterolateral branch. * Left ventriculography: not done * 4.0 x 12 mm resolute stent to proximal LAD * 2.5 x 8 mm resolute stent to OM 2 Patient was admitted to ICU for the management of following: Problem List #Hypertensive emergency #ACS/NSTEMI #Leukocytosis likely reactive #Medication noncompliance #PMHx of CAD s/p multiple PCI/stents, ESRD on hemodialysis MWF, IDDM, anxiety/ depression, HTN, anemia ICU Course: Patient had extensive history of CAD, with multiple atherosclerotic risk factors including obesity/hypertension/diabetes/medical noncompliance, and who presented now with hypertensive emergency, with HEART scored 8 points w/ 50-65% MACE risk, that may warrant patient for early invasive measures including catheterization.. Night float team has discussed with Dr. Luis Daniel Mccormack felt that the EKG changes may be due to patient's poorly controlled hypertension, however considering her elevated troponin and chest pain improved with nitroglycerin, patient was started on heparin drip, continued on Plavix/aspirin, Nitropaste 1" every 6 hours, and patient received labetalol 10 mg IV 2, enalapril 1.25 mg IV labetalol 400 mg twice daily p.o., lisinopril 40 mg daily, and clonidine patch and continue home medications including atorvastatin, bupropion, Cardizem, gabapentin, Imdur, omeprazole. Patient's chest pain was maintained with morphine, however was not completely resolved during the ICU course. EKG/ troponin has been trended up from 0.32 -> 5.3 with a significant dynamic change on EKG testing showing an STEMI picture. Patient plus pressure was not adequately controlled with above medication prior to transferring, however appeared to be improved from before admission (SBP of 210). Discussed with Dr. Mccormack regarding patient's current condition, that patient will be a candidate for cardiac catheterization due to concern of restenosis after recent PCI. Echocardiogram was done at bedside pending results. Patient will be transferred to cardiac For further catheterization/ management. Morning ABG showed patient was being hypoxic on room air, and patient underwent VQ scan due to renal insufficiency to rule out PE, currently pending results. Nephrology consult was on board for underlying ESRD on hemodialysis. Patient had dialysis on 12/07 was on event. During previous admissions, patient's troponins were elevated, however was never as high as 5.3 during this admission. Hemodialysis was scheduled for tomorrow 12/09, provided that patient could make to the hemodialysis unit. Renal advised to start minoxidil 5 mg twice daily for blood pressure control. Taking into account the patient's blood pressure was not adequately controlled with IV hydralazine plus IV Lopressor at this point, IV hydralazine will remain in place to treat the hypertension, until stabilized on SBP DVT prophylaxis: Heparin Drip + ALPS NPO pending procedures IV Access: Peripheral IV Full Code Allergies: Coded Allergies: NO KNOWN ALLERGIES (NONE 09/19/17) Pertinent Lab Results: SERVICE DATE: 12/07/17-2203 EXAM TYPE: RAD - XRY-PORTABLE CHEST XRAY IMPRESSION: Unremarkable examination. SERVICE DATE: 12/08/17- EXAM TYPE: US - US-EXT BILAT VENOUS DOPPLER IMPRESSION: No evidence of deep venous thrombosis involving the bilateral lower extremities. Laboratory Tests 12/08 12/08 12/08 1100 0700 0655 Blood Gas pH (7.35 - 7.45 PH) 7.40 pCO2 (35 - 45 TORR) 36 pO2 (80 - 100 TORR) 55 L HCO3 (21 - 28 MEQ/L) 22 ABG O2 Sat (Measured) (>96.0 %) 89.0 L P-50 (Temp Corrected) Y Carboxyhemoglobin (1.5 - 5.0 %) 0.9 L O2 Concentration % RA Temperature (97.0 - 100.0 FARH) 96.4 L Chemistry Lactic Acid (0.7 - 2.1 mmol/L) 1.8 Troponin I (< 0.11 ng/ml) 5.30 *H Coagulation APTT (25 - 37 SEC) > 120 *H Miscellaneous Phlebotomy Draw Site LEFT RADIAL Toxicology Acetone Level (NEGATIVE) NEGATIVE 12/08 12/08 12/07 0458 0230 2206 Chemistry Sodium (137 - 145 mmol/L) 143 Potassium (3.5 - 5.1 mmol/L) 4.5 Chloride (98 - 107 mmol/L) 100 Carbon Dioxide (22 - 30 mmol/L) 25 Anion Gap (5 - 16) 18 H BUN (7 - 17 mg/dL) 26 H Creatinine (0.5 - 1.0 mg/dL) 5.9 *H Estimated GFR (>60 ml/min) 8 L BUN/Creatinine Ratio (7 - 25 %) 4.4 L Magnesium (1.6 - 2.3 mg/dL) 1.8 Troponin I (< 0.11 ng/ml) 0.59 *H Coagulation PT (9.4 - 12.5 SEC) 11.1 INR (0.90 - 1.19) 1.02 APTT (25 - 37 SEC) 24 L Hematology WBC (4.8 - 10.8 /CUMM) 14.1 H RBC (4.20 - 5.40 /CUMM) 4.01 L Hgb (12.0 - 16.0 G/DL) 12.3 Hct (37 - 47 %) 36.8 L MCV (81.0 - 99.0 FL) 91.7 MCH (27.0 - 31.0 PG) 30.5 MCHC (33.0 - 37.0 G/DL) 33.3 RDW (11.5 - 14.5 %) 15.4 H Plt Count (130 - 400 /CUMM) 248 MPV (7.4 - 10.4 FL) 9.1 Gran % (42.2 - 75.2 %) 94.2 H Lymphocytes % (20.5 - 51.1 %) 4.1 L Monocytes % (1.7 - 9.3 %) 1.5 L Eosinophils % (0 - 5 %) 0.2 Basophils % (0.0 - 2.0 %) 0 Absolute Granulocytes (1.4 - 6.5 /CUMM) 13.3 H Absolute Lymphocytes (1.2 - 3.4 /CUMM) 0.6 L Absolute Monocytes (0.10 - 0.60 /CUMM) 0.2 Absolute Eosinophils (0.0 - 0.7 /CUMM) 0 Absolute Basophils (0.0 - 0.2 /CUMM) 0 Urines Urine Color Cancelled Urine Clarity Cancelled Urine pH Cancelled Ur Specific Eldred Cancelled Urine Protein Cancelled Urine Ketones Cancelled Urine Nitrite Cancelled Urine Bilirubin Cancelled Urine Urobilinogen Cancelled Ur Leukocyte Esterase Cancelled Ur Microscopic Cancelled Urine Hemoglobin Cancelled Urine Glucose Cancelled 12/078 Chemistry Sodium (137 - 145 mmol/L) 141 Potassium (3.5 - 5.1 mmol/L) 3.9 Chloride (98 - 107 mmol/L) 97 L Carbon Dioxide (22 - 30 mmol/L) 25 Anion Gap (5 - 16) 19 H BUN (7 - 17 mg/dL) 21 H Creatinine (0.5 - 1.0 mg/dL) 5.3 *H Estimated GFR (>60 ml/min) 9 L BUN/Creatinine Ratio (7 - 25 %) 4.0 L Glucose (65 - 99 mg/dL) 210 H Calcium (8.4 - 10.2 mg/dL) 9.7 Total Bilirubin (0.2 - 1.3 mg/dL) 0.5 AST (14 - 36 U/L) 19 ALT (9 - 52 U/L) 18 Alkaline Phosphatase (<127 U/L) 134 H Troponin I (< 0.11 ng/ml) 0.32 *H Total Protein (6.3 - 8.2 g/dL) 8.7 H Albumin (3.5 - 5.0 g/dL) 4.9 Globulin (1.9 - 4.2 gm/dL) 3.8 Albumin/Globulin Ratio (1.1 - 2.2 %) 1.3 Lipase (23 - 300 U/L) 263 Hematology CBC w Diff NO MAN DIFF REQ WBC (4.8 - 10.8 /CUMM) 11.8 H RBC (4.20 - 5.40 /CUMM) 4.01 L Hgb (12.0 - 16.0 G/DL) 12.1 Hct (37 - 47 %) 36.8 L MCV (81.0 - 99.0 FL) 91.8 MCH (27.0 - 31.0 PG) 30.3 MCHC (33.0 - 37.0 G/DL) 33.0 RDW (11.5 - 14.5 %) 15.9 H Plt Count (130 - 400 /CUMM) 249 MPV (7.4 - 10.4 FL) 9.3 Gran % (42.2 - 75.2 %) 68.8 Lymphocytes % (20.5 - 51.1 %) 15.9 L Monocytes % (1.7 - 9.3 %) 9.7 H Eosinophils % (0 - 5 %) 4.8 Basophils % (0.0 - 2.0 %) 0.8 Absolute Granulocytes (1.4 - 6.5 /CUMM) 8.1 H Absolute Lymphocytes (1.2 - 3.4 /CUMM) 1.9 Absolute Monocytes (0.10 - 0.60 /CUMM) 1.2 H Absolute Eosinophils (0.0 - 0.7 /CUMM) 0.6 Absolute Basophils (0.0 - 0.2 /CUMM) 0.1 Toxicology Serum Alcohol (<10 MG/DL) < 10.0 Disposition Summary Disposition Principal Diagnosis: #Hypertensive emergency #ACS/NSTEMI #Leukocytosis likely reactive #Medication noncompliance #PMHx of CAD s/p multiple PCI/stents, ESRD on hemodialysis MWF, IDDM, anxiety/ depression, HTN, anemia Additional Diagnosis: As above Discharge Disposition: other general hospital Discharge Instructions General Discharge Information Code Status: Full Code Patient's Diet: NPO pending procedures Patient's Activity: As tolerated Follow-Up Instructions/Appts: - Please continue your care for cardiac catherization. - Please follow up with your philosophy faculty member Dr. Mccormack within 1-2 weeks of discharge. - Please follow up with your primary care physician within 1-2 weeks of discharge. Inform your primary care physician of this admission to . - Continue your current medications per discharge instructions. - Please watch for these problems: Fever, Chills, Nausea, Vomiting, Shortness of Breath, Productive Cough, Chest Pain/Discomfort, Abdominal Pain, Active Bleeding or Bloody urine/stool. Medications at Discharge Discharge Medications: Stop taking the following medications: Hydralazine HCl (Hydralazine HCl) 100 MG TABLET ORAL THREE TIMES DAILY Continue taking these medications: Labetalol HCl (Labetalol HCl) 200 MG TABLET 2 Tablet ORAL TWICE DAILY Comments: Last Taken: 09/21/17 Time: 1000 Clopidogrel Bisulfate (Clopidogrel) 75 MG TABLET 1 Tablet ORAL DAILY Comments: Last Taken: 09/21/17 Time: 1000 Gabapentin (Gabapentin) 100 MG CAPSULE 1 Capsule ORAL THREE TIMES DAILY Comments: Last Taken: 09/21/17 Time: 1000 Clonidine (Clonidine) 0.3 MG/24 HOUR PATCH.TDWK 1 Patch On the skin EVERY TUESDAY Comments: Last Taken:09/19/17 Time:1000 Pantoprazole Sodium (Protonix) 40 MG TABLET. 1 Tablet ORAL DAILY Comments: NOT GIVEN THIS HOSPITAL STAY- RECEIVED PRILOSEC 09/21/17 Linaclotide (Linzess) 145 MCG CAPSULE 1 Capsule ORAL DAILY as needed for CONSTIPATION Comments: DID NOT TAKE IN HOSPITAL Insulin Aspart, Recombinant (Novolog Flexpen) 100 UNIT/ML INSULN.PEN 1 Unit Inject into fatty tissue SEE SLIDING SCALE Instructions: BEFORE MEALS Blood Insulin Sugar Units <80 0 81-100 1 101-200 2 201-250 6 251-300 8 301-350 10 351-400 12 >400 Call Doctor AT BEDTIME Blood Insulin Sugar Units <80 0 81-100 0 101-200 0 201-250 2 251-300 3 301-350 4 351-400 5 >400 Call Doctor Comments: Last Taken: 09/20/17 Time: 2100 Atorvastatin Calcium (Atorvastatin Calcium) 40 MG TABLET 1 Tablet ORAL Every night Qty = 90 Comments: Last Taken: 09/20/17 Time: 2110 Bupropion HCl (Bupropion XL) 150 MG TAB.ER.24H 1 Tablet ORAL Every Morning Qty = 30 Comments: Last Taken: 09/21/17 Time: 0958 Escitalopram Oxalate (Escitalopram Oxalate) 20 MG TABLET 1 Tablet ORAL DAILY Comments: Last Taken: 09/21/17 Time: 1000 Sevelamer Carbonate (Renvela) 800 MG TABLET 1 Tablet ORAL THREE TIMES DAILY Qty = 150 Instructions: TAKE THIS MEDICATION WITH MEALS Comments: Last Taken: 09/21/17 Time: 1700 Insulin Glargine,Hum.rec.anlog (Lantus Solostar) 100 UNIT/ML (3 ML) INSULN.PEN 30 Unit Inject into fatty tissue TWICE DAILY Comments: DID NOT RECEIVE IN HOSPITAL- RECEIVED LEVEMIR 15 UNITS 1000 Aspirin (Aspirin*) 81 MG TAB.CHEW 2 Tablet ORAL DAILY Comments: Last Taken:09/21/17 Time:0950 Diltiazem HCl (Diltiazem 24HR Cd) 180 MG CAP.ER.24H 180 Milligram ORAL DAILY Qty = 60 Comments: Last Taken:09/21/17 Time:1100 Epoetin José (Epogen) 4,000 UNIT/ML VIAL 4,000 Unit INTRAVEN MoWeFr as needed for WITH HEMODIALYSIS Qty = 30 Instructions: w dialysis MWF Lisinopril (Lisinopril) 40 MG TABLET 1 Tablet ORAL DAILY Isosorbide Dinitrate (Isosorbide Dinitrate) 30 MG TABLET 1 Tablet ORAL DAILY Start taking the following new medications: Minoxidil (Minoxidil) 2.5 MG TABLET 5 Milligram ORAL TWICE DAILY Qty = 10 No Refills Copies To: Violetta Reddy APRN, MD PHD,Luis Daniel Bond
--- NOTE | 2017-12-08 14:56 | NUCLEAR MEDICINE REPORT ---
EXAMINATION: PULMONARY VENTILATION PERFUSION STUDY CLINICAL INFORMATION: Chest pain pending possible cardiac intervention. Hypoxic with sudden onset without underlying lung conditions. COMPARISON: No previous lung scan is available for comparison. TECHNIQUE: Serial gamma scintillation camera images were obtained over the posterior chest during the single breath, equilibrium rebreathing and washout of 7.2 mCi Xe 133 gas. The patient then received 4.0 mCi Tc-99m MAA intravenously and a 6-view perfusion study was performed. FINDINGS: Ventilation images: On the single breath and equilibrium images there is homogeneous distribution of gas bilaterally. During the washout phase there is moderate retention in the lower lobes bilaterally, slightly more prominently on the right. Perfusion images: No segmental perfusion defects are present. There is minimal heterogeneity present bilaterally, but no focal or anatomic appearing perfusion defects are present. The cardiac silhouette and mediastinum are moderately dilated. IMPRESSION: Very low probability of pulmonary embolism. Cardiomegaly. Some gas trapping noted on the ventilation images is evidence of obstructive airway disease.
--- NOTE | 2017-12-09 07:58 | ECHOCARDIOGRAM REPORT ---
THOMAS BARRIOS Age: 52 : 1965 Gender: F Exam Date: 12/08/2017 10:11 Exam Location: [facility] Ht (in): 66 Wt (lb): 183 BSA: 1.99 BP: 183 / 102 Ordering Physician: Balwinder Cruz MD Referring Physician: Balwinder Cruz MD Technologist: Amos Payton INES Room Number: 114 Indications: Chest Pain Rhythm: Sinus Technical Quality: fair FINDINGS Left Ventricle Normal left ventricular size and wall thickness. Moderately decreased systolic function with anterior and anterolateral wall hypokinesis. Normal left ventricular diastolic filling pattern for age. The ejection fraction is visually estimated at 30%. Right Ventricle The right ventricle is normal in size and function. Right Atrium The right atrium is normal in size. Left Atrium The left atrium is mildly enlarged. The interatrial septum is intact. Mitral Valve The mitral valve is normal in structure and function. There is mild mitral regurgitation. Aortic Valve Structurally normal aortic valve without significant sclerosis or stenosis. There is no aortic regurgitation. Tricuspid Valve The tricuspid valve is normal in structure and function. There is no tricuspid regurgitation. Pulmonic Valve Structurally normal pulmonic valve. There is no pulmonic regurgitation. Pericardium Normal pericardium without effusion. No pleural effusion. Great Vessels Normal aortic root dimension. The aortic arch and great vessels are well seen and are normal. CONCLUSIONS 1. Moderately decreased EF of 30% with anterior and anterolateral wall hypokinesis. 2. Mild left atrial enlargement. 3. Mild mitral regurgitation. Luis Daniel Mccormack M.D. (Electronically Signed) Final Date: 09 December 2017 07:57 MEASUREMENTS (Male / Female) Normal Values 2D ECHO LV Diastolic Diameter PLAX 4.5 cm 4.2 - 5.9 / 3.9 - 5.3 cm LV Systolic Diameter PLAX 3.4 cm 2.1 - 4.0 cm LV Fractional Shortening PLAX 24.4 % 25 - 46 % LV Ejection Fraction 2D Teich 48.7 % IVS Diastolic Thickness 1.0 cm LVPW Diastolic Thickness 1.1 cm LV Relative Wall Thickness 0.5 RV Internal Dim ED PLAX 2.8 cm 1.9 - 3.8 cm LVOT Diameter 1.7 cm Aortic Root Diameter 2.4 cm LA Systolic Diameter LX 4.1 cm 3.0 - 4.0 / 2.7 - 3.8 cm LV Ejection Fraction MOD BP 34.5 % >= 55 % LV Diastolic Length 4C 7.9 cm 6.9 - 10.3 cm LV Diastolic Area 4C 24.6 cm LV Diastolic Volume MOD 4C 64.0 cm LV Ejection Fraction MOD 4C 18.8 % LV Stroke Volume MOD 4C 12.0 cm LV Systolic Length 4C 7.5 cm LV Systolic Area 4C 21.7 cm LV Systolic Volume MOD 4C 52.0 cm LV Ejection Fraction MOD 2C 48.9 % LV Diastolic Volume 4C AL 65.4 cm 85 - 139 / 69 - 109 cm LV Systolic Volume 4C AL 53.0 cm LV Ejection Fraction 4C AL 18.9 % LV Stroke Volume 4C AL 12.3 cm LV Ejection Fraction 2C AL 47.0 % LA Volume 39.0 cm 18 - 58 / 22 - 52 cm Ascending Aorta Diameter 2.6 cm DOPPLER AV Peak Velocity 131.0 cm/s AV Peak Gradient 6.9 mmHg AV Mean Velocity 85.6 cm/s AV Mean Gradient 3.0 mmHg AV Velocity Time Integral 23.1 cm LVOT Peak Velocity 78.2 cm/s LVOT Peak Gradient 2.4 mmHg LVOT Mean Velocity 51.1 cm/s LVOT Mean Gradient 1.0 mmHg LVOT Velocity Time Integral 21.9 cm LVOT Stroke Volume 49.7 cm AV Area Cont Eq vti 2.2 cm AV Area Cont Eq pk 1.4 cm Mitral E Point Velocity 128.0 cm/s Mitral A Point Velocity 49.4 cm/s Mitral E to A Ratio 2.6 MV Deceleration Time 151.0 ms PV Peak Velocity 85.5 cm/s PV Peak Gradient 2.9 mmHg PV Mean Velocity 58.1 cm/s PV Mean Gradient 1.0 mmHg PV Velocity Time Integral 15.9 cm LV E' Lateral Velocity 6.1 cm/s Mitral E to LV E' Lateral Ratio 20.8 LV E' Septal Velocity 3.7 cm/s Mitral E to LV E' Septal Ratio 34.6
== END 2017-12-08 15:00 | disposition short-term general hospital (02) | DRG 280 ==
LOC: ERH 21:29 → ERHI 12-08 01:14 → CRI 12-08 01:14 → EDBEDREQ 12-08 04:17 → ENRESERV 12-08 04:18 → ERHI 12-08 04:32 → CRI 12-08 05:27
PROVIDERS: Emergency Medicine; Internal Medicine Interventional Cardiology; Physician Assistant
DX: I16.1 Hypertensive emergency (principal); N18.6 End stage renal disease; I21.4 Non-ST elevation (NSTEMI) myocardial infarction; I24.9 Acute ischemic heart disease, unspecified; I12.0 Hypertensive chronic kidney disease with stage 5 chronic kidney disease or end stage renal disease; I25.10 Atherosclerotic heart disease of native coronary artery without angina pectoris; Z95.5 Presence of coronary angioplasty implant and graft; I25.2 Old myocardial infarction; E01.0 Iodine-deficiency related diffuse (endemic) goiter; I48.91 Unspecified atrial fibrillation; Z79.01 Long term (current) use of anticoagulants; K21.9 Gastro-esophageal reflux disease without esophagitis; E11.22 Type 2 diabetes mellitus with diabetic chronic kidney disease; Z99.2 Dependence on renal dialysis; Z79.4 Long term (current) use of insulin; E66.9 Obesity, unspecified; Z68.30 Body mass index [BMI] 30.0-30.9, adult; R94.31 Abnormal electrocardiogram [ECG] [EKG]; F32.9 Major depressive disorder, single episode, unspecified; R07.9 Chest pain, unspecified; Z91.14 Patient's other noncompliance with medication regimen; D50.9 Iron deficiency anemia, unspecified
CPT/HCPCS: CCU; 71045; 78582; 80307; 82436; 93005; 93010; 93306; 93970; 96374; 96375; 96376; 99291; A9540; A9558; G0480; J1644; J1815; J2405; J3250; J3490; J7042; J7060

== ENCOUNTER 2018-01-23 18:21 | Inpatient (IN) | payer OTHER, MEDICARE ==
[~2018-01-23] VITALS: Ht 167.6 cm; Wt 81.8 kg
[~2018-01-23 18:21] MED LIST changes: +HYDRALAZINE HC100 M1 PO; +ISOSORBIDE DINI30 M1 PO; +LISINOPRIL40 M1 PO; +NITROGLYCERIN PAT
[2018-01-23 19:06] LABS: ABSOLUTE BASOPHIL COUNT 0 /CUMM (0.0-0.2); ABSOLUTE EOSINOPHIL COUNT 0 /CUMM (0.0-0.7); ABSOLUTE GRANULOCYTE CT 14.1 /CUMM (1.4-6.5); ABSOLUTE LYMPH COUNT 0.5 /CUMM (1.2-3.4); ABSOLUTE MONOCYTE COUNT 0.3 /CUMM (0.10-0.60); BASOPHIL % 0 % (0.0-2.0); EOSINOPHIL % 0.1 % (0-5); HEMATOCRIT 39.4 % (37-47); MEAN CORPUSCULAR HGB 30.5 PG (27.0-31.0); MEAN CORPUSCULAR HGB CONC 32.5 G/DL (33.0-37.0); MEAN CORPUSCULAR VOLUME 93.7 FL (81.0-99.0); MEAN PLATELET VOLUME 9.2 FL (7.4-10.4); PLATELET COUNT 319 /CUMM (130-400); RBC DISTRIBUTION WIDTH 15.3 % (11.5-14.5); WHITE BLOOD CELL COUNT 14.8 /CUMM (4.8-10.8)
[2018-01-23 19:20] LABS: GRANULOCYTE % 95.1 % (42.2-75.2)
--- NOTE | 2018-01-23 20:26 | ED GENERAL ADULT ---
History of Present Illness General Chief Complaint: General Adult Stated Complaint: VOMITING SINCE LAST EVENING, CHEST HURTS Source: patient, family, old records Exam Limitations: clinical condition Vital Signs & Intake/Output Vital Signs & Intake/Output Vital Signs Date Time Temp Pulse Resp B/P B/P Pulse O2 O2 Flow FiO2 Mean Ox Delivery Rate 01/24 2148 142/98 01/24 2144 128/88 01/23 2143 192/98 01/23 2127 98.7 114 18 203/107 01/23 2031 98.7 114 18 [id number] Room Air Room Air 01/23 1841 98.6 112 18 203/97 97 Room Air Room Air Allergies Coded Allergies: NO KNOWN ALLERGIES (NONE 09/19/17) Reconcile Medications Aspirin (Aspirin*) 81 MG TAB.CHEW 2 TAB PO DAILY HEART HEALTH (Reported) Atorvastatin Calcium 40 MG TABLET 1 TAB PO QPM CHOLESTEROL (Reported) Bupropion HCl (Bupropion XL) 150 MG TAB.ER.24H 1 TAB PO QAM MENTAL HEALTH ( Reported) Clonidine 0.3 MG/24 HOUR PATCH.TDWK 1 PAT TOP QSUN HEART (Reported) Clopidogrel Bisulfate (Clopidogrel) 75 MG TABLET 1 TAB PO DAILY BLOOD THINNER (Reported) Diltiazem HCl (Diltiazem 24HR Cd) 180 MG CAP.ER.24H 180 MG PO DAILY HTN Epoetin José (Epogen) 4,000 UNIT/ML VIAL 4,000 UNIT IV MoWeFr PRN WITH HEMODIALYSIS w dialysis MWF Escitalopram Oxalate 20 MG TABLET 1 TAB PO DAILY MENTAL HEALTH (Reported) Gabapentin 100 MG CAPSULE 1 CAP PO TID NEUROPATHY (Reported) Insulin Aspart, Recombinant (Novolog Flexpen) 100 UNIT/ML INSULN.PEN 1 UNIT SC SEE SLIDING SCALE DIABETES (Reported) BEFORE MEALS Blood Insulin Sugar Units <80 0 81-100 1 101-200 2 201-250 6 251-300 8 301-350 10 351-400 12 >400 Call Doctor AT BEDTIME Blood Insulin Sugar Units <80 0 81-100 0 101-200 0 201-250 2 251-300 3 301-350 4 351-400 5 >400 Call Doctor Insulin Glargine,Hum.rec.anlog (Lantus Solostar) 100 UNIT/ML (3 ML) INSULN.PEN 30 UNIT SC BID DM (Reported) Isosorbide Dinitrate 30 MG TABLET 1 TAB PO DAILY CHEST PAIN (Reported) Labetalol HCl 200 MG TABLET 2 TAB PO BID HEART (Reported) Linaclotide (Linzess) 145 MCG CAPSULE 1 CAP PO DAILY PRN CONSTIPATION ( Reported) Lisinopril 40 MG TABLET 1 TAB PO DAILY HTN (Reported) Minoxidil 2.5 MG TABLET 5 MG PO BID HTN Pantoprazole Sodium (Protonix) 40 MG TABLET.DR 1 TAB PO DAILY ACID REFLUX ( Reported) Sevelamer Carbonate (Renvela) 800 MG TABLET 1 TAB PO TID KIDNEY (Reported) TAKE THIS MEDICATION WITH MEALS Triage Note: PT TO ED WITH C/O "VIOLENT VOMITING SINCE YESTERDAY NIGHT", OCCASSIONAL DIARRHEA. UNABLE TO KEEP MEDS DOWN, BP MEDS. Triage Nurses Notes Reviewed? yes Onset: Abrupt Duration: day(s): (2) Timing: recent history Injury Environment: home No Modifying Factors: none HPI: 52-year-old female comes into the emergency room for further evaluation of vomiting abdominal pain and chest pain. Patient has a history of dialysis. She missed dialysis today because she isn't DC on medication and was due to get it tomorrow. She started vomiting yesterday and got progressively worse. She complains of some lower abdominal pain and some chest pain. Denies any shortness of breath. Nothing seems to make the symptoms better. She has not had a bowel movement in days. (Toan Hobson) Past History Travel History Traveled to [place] past 21 day No Medical History Any Pertinent Medical History? see below for history Neurological: NONE EENT: NONE Cardiovascular: AFIB, CAD, hypertension, hyperlipidemia, myocardial infarction, NSTEMI, 10 CARDIAC STENTS Respiratory: NONE Gastrointestinal: constipation Hepatic: NONE Renal: CKD stage 5 DIALYSIS Musculoskeletal: NONE Psychiatric: depression Endocrine: diabetes, GERD thyroid nodule Blood Disorders: anemia Cancer(s): NONE DRAPERY HEMMER AUTOMATIC/Reproductive: uterine fibriods History of MRSA: No History of VRE: No History of CDIFF: No Surgical History Surgical History: STENTS X4 aVF Michel catheter S/P AV SHUNT Psychosocial History Who do you live with Significant Other Services at Home Patient previously had home health aide and nursing services but these services were recently discontinued What is your primary language Czech Tobacco Use: Never used Family History Family History, If Any: MOTHER Chronic renal disease uncle Chronic renal disease Relation not specified for: FH: CAD (coronary artery disease) FH: cancer FH: diabetes mellitus FH: HTN (hypertension) FH: schizophrenia Hx Contributory? No (Toan Hobson) Review of Systems Review of Systems Constitutional: Reports: no symptoms. EENTM: Reports: no symptoms. Respiratory: Reports: no symptoms. Cardiovascular: Reports: see HPI. GI: Reports: see HPI. Genitourinary: Reports: no symptoms. Musculoskeletal: Reports: no symptoms. Skin: Reports: no symptoms. Neurological/Psychological: Reports: no symptoms. Hematologic/Endocrine: Reports: no symptoms. Immunologic/Allergic: Reports: no symptoms. All Other Systems: Reviewed and Negative (Toan Hobson) Physical Exam Physical Exam General Appearance: alert, awake, moderate distress Head: atraumatic Eyes: Bilateral: normal appearance. Ears, Nose, Throat: normal ENT inspection Neck: normal inspection Respiratory: no respiratory distress Cardiovascular: regular rate/rhythm, tachycardia Gastrointestinal: soft Rectal: heme negative stool Back: normal inspection Extremities: normal inspection Neurologic/Psych: awake, alert Skin: intact Core Measures ACS in differential dx? No CVA/TIA Diagnosis: No Sepsis Present: No Sepsis Focused Exam Completed? No (Toan Hobson) Progress Differential Diagnoses I considered the following diagnoses in my evaluation of the patient: Hypertensive urgency, hypertensive emergency, PA, fluid overload, small bowel obstruction, Plan of Care: Orders Procedure Date/time Status Patient Data 01/23 2239 Active Admit to inpatient 01/24 2232 Active Add-on Test (ER Only) 01/23 2026 Active TROPONIN LEVEL 01/23 185 Complete URINALYSIS 01/23 185 Active LIPASE 01/23 185 Complete COMPREHENSIVE METABOLIC PANEL 01/23 185 Complete CBC WITHOUT DIFFERENTIAL 01/23 185 Complete AMYLASE 01/23 185 Complete EKG 01/23 1823 Active Current Medications Sig/[place] Start time Last Medication Dose Stop Time Status Admin Ondansetron HCl 4 MG ONCE ONE 01/23 2245 UNVr (Zofran) 01/23 2246 Minoxidil 5 MG ONCE ONE 01/23 2145 CANr (Minoxidil 2.5 MG 01/23 2146 Tab) Aspirin 325 MG ONCE ONE 01/23 2130 UNVr 01/23 (Aspirin) 01/23 2131 220 Clopidogrel Bisulfate 75 MG ONCE ONE 01/23 2130 UNVr 01/23 (Plavix) 01/23 Heparin Sodium 5,000 UNIT ONCE ONE 01/23 2130 CANr (Porcine) 01/23 2131 (Heparin Bolus) Heparin Sodium 25,000 UNIT Q24H 01/23 2130 UNVr 01/23 (Porcine) 2199 (Heparin) Sodium Chloride 500 ML Heparin Sodium 4,000 UNIT ONCE ONE 01/23 2130 UNVr 01/23 (Porcine) 01/23 (Heparin Bolus) Hydralazine HCl 1,000 MG TID 01/23 2130 CANr (Apresoline) Labetalol HCl 400 MG ONCE ONE 01/23 2130 UNVr (Trandate-Normodyne 01/23 2131 200MG Tab) Laboratory Tests 01/23/185: Anion Gap 17 H, Estimated GFR 5 L, BUN/Creatinine Ratio 5.8 L, Glucose 212 H , Calcium 9.9, Total Bilirubin 0.6, AST 26, ALT 16, Alkaline Phosphatase 126, Troponin I 2.82 *H, Total Protein 8.7 H, Albumin 4.8, Globulin 3.9, Albumin/ Globulin Ratio 1.2, Amylase 74, Lipase 110, CBC w Diff NO MAN DIFF REQ, RBC 4.20 , MCV 93.7, MCH 30.5, MCHC 32.5 L, RDW 15.3 H, MPV 9.2, Gran % 95.1 H, Lymphocytes % 3.1 L, Monocytes % 1.7, Eosinophils % 0.1, Basophils % 0, Absolute Granulocytes 14.1 H, Absolute Lymphocytes 0.5 L, Absolute Monocytes 0.3, Absolute Eosinophils 0, Absolute Basophils 0 Diagnostic Imaging: Viewed by Me: Radiology Read, CT Scan. Discussed w/RAD: Radiology Read, CT Scan. Initial ED EKG: normal sinus rhythm, rate (116), nonspecific ST T wave chg, ST depression (V3,V4,V5,V6) (Toan Hobson) Departure Departure Disposition: STILL A PATIENT Condition: Stable Referrals: Violetta Reddy APRN (PCP/Family) Departure Forms: Customer Survey General Discharge Information (Toan Hobson) Departure Clinical Impression Primary Impression: NSTEMI (non-ST elevated myocardial infarction) Secondary Impressions: ESRD (end stage renal disease) on dialysis, Hypertensive urgency Admission Note Spoke With: Arun Roque MD Documentation of Exam: Documentation of any treatments & extenuating circumstances including Concerns Regarding Discharge (functional status, medication knowledge or non-compliance, living conditions, etc.) that warrant an admission rather than observation: 01/23/18, 8pm discussed with dr. marshall who knows patient well. I took over patient's care when troponin resulted positive. Pt with hypertensive urgency, requiring parenteral labetolol. Pt also with st seg depressions, slightly more pronounced than prior, requiring treatment for unstable angina. pt merits admission to ICU. (Navarro ORTEGA,Gal Steen) Critical Care Note Critical Care Note Critical Care Time: 30-74 min (45) (Aubrey CRAWFORD,Toan)
--- NOTE | 2018-01-23 21:29 | RADIOLOGY REPORT ---
EXAMINATION: XR PORTABLE CHEST CLINICAL INFORMATION: Chest pain. COMPARISON: Chest x-ray 12/07/2017 TECHNIQUE: Portable frontal view of the chest was obtained. 8:30 PM FINDINGS: Heart size is enlarged. Lung volume is low. There is prominence of the right and left hilum and perivascular lung markings suggesting a congestive heart failure though the expiratory phase of the chest x-ray would accentuate the pulmonary vascular markings. No focal dense consolidation. There is no large pleural effusion. IMPRESSION: Cardiomegaly. Lung volume low. There is central hilar pulmonary vascular congestion.
--- NOTE | 2018-01-23 22:00 | CT SCAN REPORT ---
EXAMINATION: CT ABDOMEN AND PELVIS WITHOUT CONTRAST CLINICAL INFORMATION: Abdominal pain and vomiting. COMPARISON: CT abdomen 04/05/2017. TECHNIQUE: Multidetector volumetric imaging was performed from the superior aspect of the liver through the pubic symphysis. Sagittal and coronal reformatted images were obtained on the technologist's workstation. DLP: 505.44 mGy-cm FINDINGS: LUNG BASES: There are ground-glass infiltrates present at the lung bases along with small pleural effusions. Similar findings were present previously. LIVER, GALLBLADDER, AND BILIARY TREE: The liver remains enlarged. A few punctate calcifications persist. Gallstones remain present. No pericholecystic fluid collections are seen. No bile duct dilatation is seen. PANCREAS: Unremarkable. SPLEEN: Unremarkable. ADRENAL GLANDS: Unremarkable. KIDNEYS AND URETERS: The kidneys are normal in size, shape, and attenuation. Bilateral renal calculi are seen without obstruction. No suspicious renal masses are present. BLADDER: There is marked compression of the bladder from the markedly distended rectum filled with stool. GASTROINTESTINAL TRACT: The rectum is markedly distended with stool with some associated wall thickening which could be due to colitis induced by impaction. There is no proximal obstruction. Small bowel is unremarkable. A small hiatal hernia is present. The appendix is normal. ABDOMINAL WALL: No significant hernia is appreciated. LYMPH NODES: Normal. VASCULAR: Infrarenal aortic atherosclerotic calcifications are present along with iliofemoral atherosclerotic disease. PELVIC VISCERA: The markedly compressed uterus demonstrates multiple subserosal fibroids, one with calcification. No other adnexal masses are seen. No free fluid is seen. OSSEOUS STRUCTURES: Unremarkable. IMPRESSION: 1. Marked rectal distention with wall thickening possibly causing a colitis. Rectal impaction should be considered. 2. Cholelithiasis. 3. Bilateral nephrolithiasis. 4. Multiple subserosal uterine fibroids. 5. Ground-glass infiltrates with small pleural effusions. 6. Punctate liver calcifications consistent with granulomatous disease.
--- NOTE | 2018-01-23 22:58 | History & Physical ---
Olamide ORTEGA,Zo 01/23/18 1493: General Information and HPI MD Statement: I have seen and personally examined THOMAS BARRIOS and documented this H&P. The patient is a 52 year old F who presented with a patient stated chief complaint of [vomiting and chest pain]. Source of Information: patient, old records History of Present Illness: 52-year-old woman with past medical history of coronary artery disease status post multiple PCI with many cardiac stents, ESRD on HD (M/W/F), insulin- dependent diabetes mellitus, anxiety, depression, anemia, hypertension, and medication noncompliance seen for evaluation of chest pain with nausea/vomiting. Patient said that it all started after having dinner she had multiple episodes of vomiting and retching in addition to few episodes of bloody diarrhea. Patient started having brief episodes of chest pain which radiates to her jaws, lasts only for less than 5 minutes. She denies any palpitation dizziness or shortness of breath In addition the patient reports having few episodes of loose bowel movement with fresh blood in it. However the patient was guaiac negative in the ED (was performed by the ED staff before starting IV heparin drip) In the ED patient's blood pressure was found to be elevated to >200 systolic with vital signs otherwise within normal limits. She received labetalol 10 mg IV, aspirin 325, Plavix, was started on heparin drip Labs on admission: Leukocytosis WBC 14.8, hemoglobin 12.8, platelets 319, sodium 140, potassium 4.3, creatinine 8, BUN 46, glucose 212, troponin 2.82, Chest x-ray: Cardiomegaly,Lung volume low. There is central hilar pulmonary vascular congestion. CT abdomen: And rectal distention with wall thickening causing colitis, rectal infection should be considered, cholelithiasis, bilateral nephrolithiasis, multiple subserosal uterine fibroid, groundglass infiltrate with small pleural effusion, punctate liver calcification, granulomatous disease EKG 01/23/2018: Sinus tachycardia heart rate 106, first degree AVB, concave ST segment elevation V1-V2, hyperacute T waves in V3-V5, horizontal ST segment depression I AvL V5 V6 EKG 12/07/17 1734: NSR, first degree AVB, concave ST segment elevation V1-V2, hyperacute T waves in V3-V5, horizontal ST segment depression I AvL V5 V6 -Cardiac cath 10/12/17: * Left main: patent * LAD: luminal irregularities * D1: Moderate size 80% ostial to proximal with diffuse luminal irregularities * LCx: 50% proximal, 80% AV groove and long 90% OM1 * RCA: Not re-visualized. As per her recent cardiac cath this is a dominant vessel that is patent except for a99% ostial posterolateral branch * 2.5 x 12 mm resolute stent in AV groove to OM 2 portion of LCx -Cardiac cath 09/21/17: * Left main: patent * LAD: luminal irregularities * D1: Moderate size 99% ostial * LCx: 80% AV groove and long 90% OM1 * RCA: Dominant vessel. ~99% ostial posterolateral branch * Left ventriculography: not done * Stent placed in LAD at takeoff of diagonal branch -Cardiac cath 06/29/17: * Left main: short and patent * LAD: 75% proximal followed by a 50% mid lesion. The LAD has a 70% very distal stenosis after wrapping around the apex * D1; 70% long in stent stenosis * LCx: 90% proximal OM1 and 90% ostial OM2 * RCA: Dominant vessel. ~Luminal irregularities with a 99% ostial stenosis of a small posterolateral branch. * Left ventriculography: not done * 4.0 x 12 mm resolute stent to proximal LAD * 2.5 x 8 mm resolute stent to OM 2 Allergies/Medications Allergies: Coded Allergies: NO KNOWN ALLERGIES (NONE 09/19/17) Home Med list Aspirin (Aspirin*) 81 MG TAB.CHEW 2 TAB PO DAILY HEART HEALTH (Reported) Atorvastatin Calcium 40 MG TABLET 1 TAB PO QPM CHOLESTEROL (Reported) Bupropion HCl (Bupropion XL) 150 MG TAB.ER.24H 1 TAB PO QAM MENTAL HEALTH ( Reported) Clonidine 0.3 MG/24 HOUR PATCH.TDWK 1 PAT TOP QSUN HEART (Reported) Clopidogrel Bisulfate (Clopidogrel) 75 MG TABLET 1 TAB PO DAILY BLOOD THINNER (Reported) Diltiazem HCl (Diltiazem 24HR Cd) 180 MG CAP.ER.24H 180 MG PO DAILY HTN Epoetin José (Epogen) 4,000 UNIT/ML VIAL 4,000 UNIT IV MoWeFr PRN WITH HEMODIALYSIS w dialysis MWF Escitalopram Oxalate 20 MG TABLET 1 TAB PO DAILY MENTAL HEALTH (Reported) Gabapentin 100 MG CAPSULE 1 CAP PO TID NEUROPATHY (Reported) Insulin Aspart, Recombinant (Novolog Flexpen) 100 UNIT/ML INSULN.PEN 1 UNIT SC SEE SLIDING SCALE DIABETES (Reported) BEFORE MEALS Blood Insulin Sugar Units <80 0 81-100 1 101-200 2 201-250 6 251-300 8 301-350 10 351-400 12 >400 Call Doctor AT BEDTIME Blood Insulin Sugar Units <80 0 81-100 0 101-200 0 201-250 2 251-300 3 301-350 4 351-400 5 >400 Call Doctor Insulin Glargine,Hum.rec.anlog (Lantus Solostar) 100 UNIT/ML (3 ML) INSULN.PEN 30 UNIT SC BID DM (Reported) Isosorbide Dinitrate 30 MG TABLET 1 TAB PO DAILY CHEST PAIN (Reported) Labetalol HCl 200 MG TABLET 2 TAB PO BID HEART (Reported) Linaclotide (Linzess) 145 MCG CAPSULE 1 CAP PO DAILY PRN CONSTIPATION ( Reported) Lisinopril 40 MG TABLET 1 TAB PO DAILY HTN (Reported) Minoxidil 2.5 MG TABLET 5 MG PO BID HTN Pantoprazole Sodium (Protonix) 40 MG TABLET.DR 1 TAB PO DAILY ACID REFLUX ( Reported) Sevelamer Carbonate (Renvela) 800 MG TABLET 1 TAB PO TID KIDNEY (Reported) TAKE THIS MEDICATION WITH MEALS Past History Travel History Traveled to [place] past 21 day No Medical History Neurological: NONE EENT: NONE Cardiovascular: AFIB, CAD, hypertension, hyperlipidemia, myocardial infarction, NSTEMI, 10 CARDIAC STENTS Respiratory: NONE Gastrointestinal: constipation Hepatic: NONE Renal: CKD stage 5 DIALYSIS Musculoskeletal: NONE Psychiatric: depression Endocrine: diabetes, GERD thyroid nodule Blood Disorders: anemia Cancer(s): NONE 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 significant other, child Services at Home: Patient previously had home health aide and nursing services but these services were recently discontinued Primary Language: Persian Functional Ability ADLs Independent: dressing, eating, toileting, bathing. Ambulation: independent Review of Systems Review of Systems Constitutional: Reports: malaise, weakness. Cardiovascular: Reports: chest pain. GI: Reports: abdominal pain, nausea, bloody stool, vomiting. Genitourinary: Denies: no symptoms. Musculoskeletal: Denies: no symptoms. Skin: Denies: no symptoms. Exam & Diagnostic Data Last 24 Hrs of Vital Signs/I&O Vital Signs Date Time Temp Pulse Resp B/P B/P Pulse O2 O2 Flow FiO2 Mean Ox Delivery Rate 01/24 2148 142/98 01/24 2144 128/88 01/23 2143 192/98 01/23 2127 98.7 114 18 203/107 01/23 2031 98.7 114 18 [id number] 94 Room Air Room Air 01/23 1841 98.6 112 18 /97 97 Room Air Room Air Physical Exam General Appearance Alert, Oriented X3, Cooperative, No Acute Distress HEENT Atraumatic, PERRLA, Mucous Membr. moist/pink Cardiovascular Normal S1, Normal S2 Lungs Clear to Auscultation Abdomen Normal Bowel Sounds, Soft, No Tenderness Neurological Normal Speech, Strength at 5/5 X4 Ext, Normal Tone Extremities 2 + pitting edema bilateral Assessment/Plan Assessment: 52-year-old woman with multiple medical problems significant for an extensive cardiovascular history including multiple cardiac catheterizations with percutaneous intervention and deployment of cardiac stents in the past 6 months on dual antiplatelet therapy, ESRD on HD, obesity, hypertension, and insulin- dependent diabetes mellitus seen for evaluation of acute chest pain at rest radiating to her jaw, it lasted for 5 minutes and she had many episodes which resolved spontaneously. Given the patient extensive cardiac history she needs to be treated aggressively for possible non-STEMI, her labs were significant for leukocytosis with WBC 14.8, elevated BUN and creatinine 46/8, troponin 2.8 ,EKG demonstrates concave ST segment elevation in V1-V2, hyperacute T waves, and horizontal ST segment depression in lateral/high lateral leads which are not changed from the previous EKG back in November. Patient received full strength aspirin, Plavix, was started on IV heparin drip enalapril, labetalol, morphine, nitroglycerin, and Zofran in the ED. Patient has known coronary artery disease with multiple atherosclerotic risk factors including obesity, hypertension, diabetes mellitus in the context of medication noncompliance and hypertensive urgency. Case was discussed with heel seat filler Luis Daniel Mccormack MD Patient's EDVIN score is 6 putting her at a 41% risk at 14 days of all cause mortality. Patient is started on intravenous heparin, continued on aspirin/Plavix, and kept nothing by mouth in anticipation of a possible cardiac catheterization procedure. I discussed with Dr. Mccormack over the phone, he recommended to continue with aspirin Plavix and heparin drip and to monitor her tropes and EKG, if troponin continues to rise or EKG changes he should be informant because the patient might need to be transferred for cardiac cath Problem List -Non-STEMI -Hypertensive urgency -CAD status post PCI/JAMILA to LAD/OM 2/LCx, on dual antiplatelet therapy -ESRD, on HD (M/W/F)-patient missed her dialysis this morning, she was scheduled to go for dialysis on 01/24/18 -GI bleeding (patient reported having few bloody bowel movement however she was guaiac negative in the EDperformed by the ED staff) -Insulin-dependent diabetes mellitus -Poorly controlled hypertension -Anxiety/depression -Obesity Plan -Admit to ICU -Telemetry monitoring -IV Protonix -Monitor CBCs every 6 -Closely monitor blood pressure -Accu-Cheks every 6 hours while n.p.o. with Novolin sliding scale -EDVIN score: 6, 41% risk at 14 days of all cause mortality -Continue heparin drip -Zofran and Tigan as needed for nausea -morphine as needed for chest pain -Isosorbide dinitrate 30 mg daily -Continue home meds: Aspirin, atorvastatin, bupropion, clonidine patch, Plavix, clonidine, Cardizem, -gabapentin, Imdur, lisinopril, omeprazole -Consult with cardiology for elevaed troponin, chest pain, most likely NSTEMI -Consult with nephrology for hemodialysis -GI consult for reported GI bleed -Serial troponin/EKG until peak or 3 negative sets -Pain control with acetaminophen/nitroglycerin/morphine -N.p.o. for possible cardiac catheterization -DVT prophylaxis with intravenous heparin -Full code -Contact patient's Khoi for updates As Ranked By This Provider Problem List: 1. Hyperglycemia 2. ACS (acute coronary syndrome) 3. ESRD (end stage renal disease) on dialysis 4. Troponin level elevated Core Measures/Misc (02/27) Acute Coronary Syndrome ACS Diagnosis: Yes Last Known EF % 30 Congestive Heart Failure Congestive Heart Failure Diagnosis No Cerebrovascular Accident CVA/TIA Diagnosis: No VTE (View Protocol) VTE Risk Factors Age>40 No Mechanical VTE Prophylaxis d/t N/A MechProphylax Ordered No VTE Pharm Prophylaxis d/t NA PharmProphylax ordered Sepsis (View protocol) Sepsis Present: No If YES complete Sepsis Event Note If YES complete Sepsis Event Note Arun Roque MD 01/24/18 0223: Core Measures/Misc (02/27) Sepsis (View protocol) If YES complete Sepsis Event Note If YES complete Sepsis Event Note Attending MD Review Statement Attending Statement Attending MD Statement: examined this patient, discuss w/resident/PA/MEMBERSHIP COUNSELOR, agreed w/resident/PA/MEMBERSHIP COUNSELOR Attending Assessment/Plan: Patient is seen and examined independently by me. Care plan discussed with medical technologist blood bank and resident. I agree with the physical exam findings and plan of care as outlined above with the following changes and additions. 52 yo F with history of ESRD on HD (MWF), CAD s/p PCI and stents, HTN, HLD, DM, presented with chest pain, nausea and vomiting since yesterday. She was lasted admitted 12/08 for NSTEMI with troponin up to 5.3. She has intermittent chest pain with radiates to her jaw and lasting for 5 min. She also reports several bloody loose BM with only one today at home. She had a bowel movement in the ED and nurse reported no blood in stool and guaiac negative. Of note, her last HD was 01/20 (Tue) and she missed her dialysis due to a trip to [place]. In the ED, patient noted to have BP 203/97. She got labetalol 10 mg IV, labetalol 400 mg PO, hydralazine 1000 mg PO and minoxidil 2.5 mg PO in the ED. Repeat BP 142/98. Troponin 2.82. EKG shows sinus tachy at [address] depression and RBB pattern. H/H 12.8/39.4. WBC 14.8 K 4.3. BUN/Cr 46/8.0. Lipase 110. LFT unremarkable. CXR shows increased vascular marking. CT abdomen and pelvis shows rectal distention with stool and wall thickening possible colitis. Patient is admitted to ICU for ACS/NSTEMI, colitis and GI bleed. NPO for now. Cardiac monitoring. Check serial troponin/EKG. On ASA, Plavix, IV heparin drip. Continue nitrate, labetalol, Lisinopril, diltiazem, clonidine, minoxidil and statin. Cardiology consult. Check stool culture, O+P and C diff. Start Cipro and flagyl. Patient is guaiac negative in the ED. She is on anticoagulation for NSTEMI. Monitor H/H and stool guaiac. On Protonix. GI consult. Renal consult for ESRD and plan for HD. Arun Roque MD FACP
[2018-01-24 01:29] LABS: ABSOLUTE BASOPHIL COUNT 0.1 /CUMM (0.0-0.2); ABSOLUTE EOSINOPHIL COUNT 0 /CUMM (0.0-0.7); ABSOLUTE GRANULOCYTE CT 18.8 /CUMM (1.4-6.5); ABSOLUTE LYMPH COUNT 0.4 /CUMM (1.2-3.4); ABSOLUTE MONOCYTE COUNT 0.6 /CUMM (0.10-0.60); BASOPHIL % 0.4 % (0.0-2.0); EOSINOPHIL % 0 % (0-5); HEMATOCRIT 35.5 % (37-47); MEAN CORPUSCULAR HGB 30.8 PG (27.0-31.0); MEAN CORPUSCULAR HGB CONC 33.1 G/DL (33.0-37.0); MEAN CORPUSCULAR VOLUME 93.1 FL (81.0-99.0); MEAN PLATELET VOLUME 9.3 FL (7.4-10.4); PLATELET COUNT 306 /CUMM (130-400); RBC DISTRIBUTION WIDTH 15.3 % (11.5-14.5); RED BLOOD CELL CT 3.82 /CUMM (4.20-5.40); WHITE BLOOD CELL COUNT 19.9 /CUMM (4.8-10.8)
[2018-01-24 01:54] LABS: GRANULOCYTE % 94.6 % (42.2-75.2)
[2018-01-24 02:40] VITALS: BP 170/100
[2018-01-24 04:45] LABS: ABSOLUTE BASOPHIL COUNT 0 /CUMM (0.0-0.2); ABSOLUTE EOSINOPHIL COUNT 0 /CUMM (0.0-0.7); ABSOLUTE GRANULOCYTE CT 20.9 /CUMM (1.4-6.5); ABSOLUTE LYMPH COUNT 0.5 /CUMM (1.2-3.4); ABSOLUTE MONOCYTE COUNT 0.2 /CUMM (0.10-0.60); BASOPHIL % 0 % (0.0-2.0); EOSINOPHIL % 0 % (0-5); GRANULOCYTE % 96.6 % (42.2-75.2); HEMATOCRIT 36.7 % (37-47); MEAN CORPUSCULAR HGB 30.9 PG (27.0-31.0); MEAN CORPUSCULAR HGB CONC 33.5 G/DL (33.0-37.0); MEAN CORPUSCULAR VOLUME 92.3 FL (81.0-99.0); MEAN PLATELET VOLUME 9.4 FL (7.4-10.4); PLATELET COUNT 309 /CUMM (130-400); RBC DISTRIBUTION WIDTH 15.1 % (11.5-14.5); RED BLOOD CELL CT 3.98 /CUMM (4.20-5.40); WHITE BLOOD CELL COUNT 21.6 /CUMM (4.8-10.8)
[2018-01-24 04:53] LABS: PTT 58 SEC (25-37)
--- NOTE | 2018-01-24 07:19 | Cons- CRCU ---
Starla Gusman MD 01/24/18 0718: General Information and HPI Consulting Request Date of Consult: 01/24/18 Requested By: Reason for Consult: NSTEMI, ESRD Source of Information: patient, old records, EMS Exam Limitations: no limitations History of Present Illness: 52-year-old woman with past medical history of coronary artery disease status post multiple PCI with many cardiac stents, ESRD on HD (M/W/F), insulin- dependent diabetes mellitus, anxiety, depression, anemia, hypertension, and medication noncompliance seen for evaluation of chest pain with nausea/vomiting. Patient said that it all started after having dinner she had multiple episodes of vomiting and retching in addition to few episodes of bloody diarrhea. Patient started having brief episodes of chest pain which radiates to her jaws, lasts only for less than 5 minutes. She denies any palpitation dizziness or shortness of breath. In addition the patient reports having few episodes of loose bowel movement with fresh blood in it. However the patient was guaiac negative in the ED. Allergies/Medications Allergies: Coded Allergies: NO KNOWN ALLERGIES (NONE 09/19/17) Home Med List: Aspirin (Aspirin*) 81 MG TAB.CHEW 2 TAB PO DAILY HEART HEALTH (Reported) Atorvastatin Calcium 40 MG TABLET 1 TAB PO QPM CHOLESTEROL (Reported) Bupropion HCl (Bupropion XL) 150 MG TAB.ER.24H 1 TAB PO QAM MENTAL HEALTH ( Reported) Clonidine 0.3 MG/24 HOUR PATCH.TDWK 1 PAT TOP QSUN HEART (Reported) Clopidogrel Bisulfate (Clopidogrel) 75 MG TABLET 1 TAB PO DAILY BLOOD THINNER (Reported) Diltiazem HCl (Diltiazem 24HR Cd) 180 MG CAP.ER.24H 180 MG PO DAILY HTN Epoetin José (Epogen) 4,000 UNIT/ML VIAL 4,000 UNIT IV MoWeFr PRN WITH HEMODIALYSIS w dialysis MWF Escitalopram Oxalate 20 MG TABLET 1 TAB PO DAILY MENTAL HEALTH (Reported) Gabapentin 100 MG CAPSULE 1 CAP PO TID NEUROPATHY (Reported) Insulin Aspart, Recombinant (Novolog Flexpen) 100 UNIT/ML INSULN.PEN 1 UNIT SC SEE SLIDING SCALE DIABETES (Reported) BEFORE MEALS Blood Insulin Sugar Units <80 0 81-100 1 101-200 2 201-250 6 251-300 8 301-350 10 351-400 12 >400 Call Doctor AT BEDTIME Blood Insulin Sugar Units <80 0 81-100 0 101-200 0 201-250 2 251-300 3 301-350 4 351-400 5 >400 Call Doctor Insulin Glargine,Hum.rec.anlog (Lantus Solostar) 100 UNIT/ML (3 ML) INSULN.PEN 30 UNIT SC BID DM (Reported) Isosorbide Dinitrate 30 MG TABLET 1 TAB PO DAILY CHEST PAIN (Reported) Labetalol HCl 200 MG TABLET 2 TAB PO BID HEART (Reported) Linaclotide (Linzess) 145 MCG CAPSULE 1 CAP PO DAILY PRN CONSTIPATION ( Reported) Lisinopril 40 MG TABLET 1 TAB PO DAILY HTN (Reported) Minoxidil 2.5 MG TABLET 5 MG PO BID HTN Pantoprazole Sodium (Protonix) 40 MG TABLET.DR 1 TAB PO DAILY ACID REFLUX ( Reported) Promethazine HCl 25 MG/ML AMPUL 12.5 MG IV Q6-PRN PRN NAUSEA/VOMITING Sevelamer Carbonate (Renvela) 800 MG TABLET 1 TAB PO TID KIDNEY (Reported) TAKE THIS MEDICATION WITH MEALS Current Medications: Current Medications Sig/[place] Start time Last Medication Dose Route Stop Time Status Admin Aspirin 162 MG DAILY 01/24 0900 AC 01/24 PO 0845 Aspirin 0 .STK-MED ONE 01/24 2208 DC PO Aspirin 325 MG ONCE ONE 01/23 2130 DC 01/23 PO 01/23 Atorvastatin Calcium 40 MG QPM 01/24 2100 AC PO Bupropion HCl 150 MG QAM 01/24 0900 AC 01/24 PO 0846 Carvedilol 12.5 MG ONCE ONE 01/24 0800 CAN PO 01/24 0801 Ceftriaxone Sodium 1,000 MG DAILY 01/24 0915 AC IV Ciprofloxacin 400 MG Q12 01/24 0900 DC Dextrose/Water 200 ML IV Clonidine 1 PAT Q168 01/24 0900 AC 01/24 TOP 0845 Clopidogrel Bisulfate 75 MG DAILY 01/24 0900 AC 01/24 PO 0844 Clopidogrel Bisulfate 75 MG ONCE ONE 01/23 2130 DC 01/23 PO 01/23 2131 2200 Diltiazem HCl 180 MG DAILY 01/24 0900 DC PO Diltiazem HCl 180 MG DAILY 01/24 0115 AC 01/24 PO 0150 Epoetin José 2,000 UNIT MoWeFr PRN 01/24 1100 AC IV Escitalopram Oxalate 10 MG DAILY 01/24 0900 AC 01/24 PO 0845 Gabapentin 100 MG TID 01/24 0900 DC PO Heparin Sodium 0 .STK-MED ONE 01/24 2208 DC (Porcine) .ROUTE Heparin Sodium 5,000 UNIT ONCE ONE 01/23 2130 CAN (Porcine) IV 01/23 2131 Heparin Sodium 25,000 UNIT Q24H 01/23 2130 AC 01/23 (Porcine) IV 2200 Sodium Chloride 500 ML Heparin Sodium 4,000 UNIT ONCE ONE 01/23 2130 DC 01/23 (Porcine) IV 01/23 2131 2200 Hydralazine HCl 100 MG TID 01/24 1400 AC PO Hydralazine HCl 1,000 MG TID 01/23 213 CAN PO Insulin Aspart 0 TIDAC 01/24 1200 AC SC Insulin Aspart 0 TIDAC 01/24 08 CAN SC Insulin Detemir 30 UNITS BID 01/24 09 CAN SC Insulin Human Regular 0 Q6 01/24 0045 DC 01/24 SC 0641 Isosorbide Dinitrate 30 MG DAILY 01/24 09 DC PO Labetalol HCl 400 MG BID 01/24 09 AC 01/24 PO 0846 Labetalol HCl 400 MG ONCE ONE 01/23 2130 DC PO 01/23 2131 Labetalol HCl 0 .STK-MED ONE 01/23 2127 DC IV Labetalol HCl 10 MG ONCE ONE 01/23 2030 DC 01/23 IV 01/23 Lidocaine 1 DEE APPLY TO SKIN 01/24 1100 CAN TOP Lidocaine/Prilocaine See Dose PER PROTOCL PRN 01/24 1115 AC Insts (1) TOP Linaclotide 145 MCG DAILY 01/24 09 AC PO Lisinopril 40 MG DAILY 01/24 0900 AC 01/24 PO 0844 Metronidazole 500 MG IQ8 01/24 0800 AC 01/24 N/A 1 UNIT IV 1137 Minoxidil 5 MG BID 01/24 09 AC 01/24 PO 0844 Minoxidil 5 MG ONCE ONE 01/23 2145 CAN PO 01/23 2146 Multivitamins 1 TAB DAILY 01/24 0900 AC 01/24 PO 0844 Non-Formulary 0 SEE ADMIN CRITERIA 01/24 0030 DC Medication ANY Ondansetron HCl 4 MG ONCE ONE 01/23 2245 DC 01/23 IV 08/13 2246 2225 Ondansetron HCl 0 .STK-MED ONE 01/23 2215 DC .ROUTE Ondansetron HCl 4 MG ONCE ONE 01/23 1900 DC 01/23 PO 01/23 1901 1850 Ondansetron HCl 0 .STK-MED ONE 01/23 1850 DC PO Pantoprazole Sodium 0 .STK-MED ONE 01/24 0047 DC IV Pantoprazole Sodium 40 MG DAILY 01/24 0045 AC 01/24 IV 0042 Paricalcitol 6 MCG MoWeFr PRN 01/24 1100 AC IV Promethazine HCl 12.5 MG Q6-PRN PRN 01/24 0815 AC 01/24 IV 01/31 0814 0836 Sevelamer Carbonate 800 MG TID 01/24 0900 AC PO Trimethobenzamide HCl 200 MG Q12H 01/24 0945 AC IM Dose Instructions: (1)Lidocaine/Prilocaine: APPLY Review of Systems Review of Systems Constitutional: Reports: see HPI. 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 Home Who Do You Live With? significant other, child Services at Home: Patient previously had home health aide and nursing services but these services were recently discontinued Primary Language: Lao Smoking Status: Never Smoked Functional Ability ADLs Independent: dressing, eating, toileting, bathing. Ambulation: independent Exam & Diagnostic Data Last 24 Hrs of Vital Signs/I&O Vital Signs Date Time Temp Pulse Resp B/P B/P Pulse O2 O2 Flow FiO2 Mean Ox Delivery Rate 01/24 0400 96 Room Air Room Air 01/24 0240 98 Room Air 01/24 0240 98 Room Air 01/24 0240 98.9 108 24 170/100 98 Room Air 01/24 0020 97.6 110 22 122/96 96 Room Air 01/235 98.2 88 20 138/92 95 Room Air 01/238 142/98 01/234 128/88 01/233 192/98 01/23 2127 98.7 114 18 203/107 01/23 2031 98.7 114 18 203/107 94 Room Air Room Air 01/23 1841 98.6 112 18 203/97 97 Room Air Room Air Intake & Output 01/24 0800 01/24 0000 01/23 1600 Intake Total 144 Output Total Balance 144 Intake, IV 144 Patient 84.822 kg 85.049 kg Weight Weight Standing Scale Measurement Method Physical Exam General Appearance: well developed/nourished, no apparent distress, alert, awake , mild distress Head: atraumatic, normal appearance Eyes: Bilateral: normal appearance, PERRL, EOMI. Ears, Nose, Throat: normal pharynx, normal ENT inspection Neck: normal inspection, supple Respiratory: normal breath sounds, chest non-tender, no respiratory distress, quiet respiration Cardiovascular: regular rate/rhythm, edema, normal peripheral pulses, tachycardia Peripheral Pulses: 2+ radial (R), 2+ radial (L) Gastrointestinal: normal bowel sounds, soft, non-tender Extremities: normal inspection, normal capillary refill, swelling Last 48 Hrs of Labs/Michi: Laboratory Tests 01/24/18 1137: Troponin I Pending, APTT 60 H, D-Dimer High Sensitivty < 200 01/24/18 1102: Potassium Cancelled 01/24/18 0818: D-Dimer High Sensitivty Cancelled 01/24/18 0600: Troponin I 4.80 *H 01/24/18 0400: Anion Gap 19 H, Estimated GFR 5 L, Glucose 187 H, Calcium 9.5, Phosphorus 4.3 , Magnesium 1.7, Total Bilirubin 0.8, AST 31, ALT 18, Pxo-S-[place] Pept [id number] H, Albumin 4.5, TSH 0.291, Free T4 1.71, PT 11.9, INR 1.09, APTT 58 H, D-Dimer High Sensitivty < 200, CBC w Diff NO MAN DIFF REQ, RBC 3.98 L, MCV 92.3 , MCH 30.9, MCHC 33.5, RDW 15.1 H, MPV 9.4, Gran % 96.6 H, Lymphocytes % 2.3 L, Monocytes % 1.1 L, Eosinophils % 0, Basophils % 0, Absolute Granulocytes 20.9 H, Absolute Lymphocytes 0.5 L, Absolute Monocytes 0.2, Absolute Eosinophils 0, Absolute Basophils 0 01/24/18 0115: Troponin I 4.26 *H, CBC w Diff NO MAN DIFF REQ, RBC 3.82 L, MCV 93.1, MCH 30.8, MCHC 33.1, RDW 15.3 H, MPV 9.3, Gran % 94.6 H, Lymphocytes % 2.0 L, Monocytes % 3.0, Eosinophils % 0, Basophils % 0.4, Absolute Granulocytes 18.8 H, Absolute Lymphocytes 0.4 L, Absolute Monocytes 0.6, Absolute Eosinophils 0, Absolute Basophils 0.1 01/23/18 1855: Anion Gap 17 H, Estimated GFR 5 L, BUN/Creatinine Ratio 5.8 L, Glucose 212 H , Calcium 9.9, Total Bilirubin 0.6, AST 26, ALT 16, Alkaline Phosphatase 126, Troponin I 2.82 *H, Total Protein 8.7 H, Albumin 4.8, Globulin 3.9, Albumin/ Globulin Ratio 1.2, Amylase 74, Lipase 110, CBC w Diff NO MAN DIFF REQ, RBC 4.20 , MCV 93.7, MCH 30.5, MCHC 32.5 L, RDW 15.3 H, MPV 9.2, Gran % 95.1 H, Lymphocytes % 3.1 L, Monocytes % 1.7, Eosinophils % 0.1, Basophils % 0, Absolute Granulocytes 14.1 H, Absolute Lymphocytes 0.5 L, Absolute Monocytes 0.3, Absolute Eosinophils 0, Absolute Basophils 0 Assessment/Plan CRCU Impression/Plan: 52-year-old woman with multiple medical problems significant for an extensive cardiovascular h/o multiple cardiac catheterizations with percutaneous intervention and deployment of cardiac stents in the past 6 months on DAPT, ESRD on HD, obesity, hypertension, IDDM presents to [place] with transient chest pain episode after retching, vomiting for the past few days. She recently travelled from [place] in a car for around 8hrs. She missed her dialysis yesterday and reports significant shortness of breath upon lying down. VS at presentation are afebrile, Pulse 112, BP 203/97mmHg, saturating well on RA. Physical exam did show edema of legs, heart normal S1, S2, lungs clear. Labs did show trop 2-->4.8 , proBNP of 120,000, AG 19, bicarbonate of 20, BUN/Cr 50/8, GFR 5, negative D- Dimer. Imaging did show mild interstitial edema on CXR, CTA negative for PE but did show right sided infiltrate. CT abdomen and plevis did show mild colitis, rectal impaction, b/l nephrolithiasis. puctate liver calcifications consistent with granulomatous disease. Problem list 1.CAD s/p multiple caths and stenting, now with stable angina 2. ESRD on dialysis 3. Elevated troponin without EKG changes - unknown significance in the setting of missed dialysis 4. Resistent HTN on multiple antihypertensives, now with hypertensive urgency ( overload?) 5. Aspirtion pneumonia 6. Colitis - fecal impaction vs infectious, intaractable nausea/vomiting 7. Secondary hyperparathyroidism 8. IDDM 9. anxiety/depression plan Admitted to ICU CAD s/p multiple caths chest pain free. ACS protocol with IV heparin, aspirin 81mg, Plavix, high intensity statin, PRN nitroglycerine. she was on multiple antihypertensives which were continued as she had significantly elevated HTN at presentation. She did have significant atherosclerotic burden which is not amenable to PCI. we will get an ECHO and continue to monitor her trops after dialysis ESRD on dialysis M/W/F Missed it yesterday. Today she received 3.5hrs of dialysis. she is scheduled for tomorrow again. We will continue epogen, sevelamir. blood pressure control. Scheduled for dialysis tomorrow again. Resistent HTN on multiple antihypertensives She was on Labetalol 400mg bid, clonidine, diltiazem 180mg daily, lisinorpil 40mg daily, minoxidil 5mg bid. She is started on Hydralazine 100mg tid and as needed metoprolol IV PRN for control. Aspiration pneumonia h/o nausea/vomiting. CT chest consistent with infiltrates on right side. temp of 100 today. On IV ceftriaxone and flagyl. Intaractable N/V with colitis rectal bleeding, nausea/retching, white count. CT findings of thickening consistent with colitis. She was on linzess for possible constipation in the past. we will monitor for bleeding, she was guiac negative at presentation. Currently on IV ceftriaxone and flagyl. antiemetics. we will monitor white count. Secondary hyperparathyroidism continue procalcitriol IDDM continue insulin - levemir and short acting. Accuchecks. Carb consistent 1 diet. anxiety/depression continue bupropion DVT prophylaxis IV heparin code status full code Recommendations: as above Problem List: 1. Hypertension 2. Diabetes mellitus 3. HLD (hyperlipidemia) 4. GERD (gastroesophageal reflux disease) 5. Hypertensive urgency 6. ESRD (end stage renal disease) 7. Chest pain Consult Acknowledgment - Thank you for your consult request. Kashif Gore MD 01/24/18 0850: General Information and HPI Consulting Request Date of Consult: 01/24/18 Allergies/Medications Current Medications: Current Medications Sig/[place] Start time Last Medication Dose Route Stop Time Status Admin Aspirin 162 MG DAILY 01/24 09 AC 01/24 PO 0845 Aspirin 0 .STK-MED ONE 01/24 2208 DC PO Aspirin 325 MG ONCE ONE 01/23 2130 DC 01/23 PO 01/23 2131 2200 Atorvastatin Calcium 40 MG QPM 01/24 2100 AC PO Bupropion HCl 150 MG QAM 01/24 0900 AC 01/24 PO 0846 Carvedilol 12.5 MG ONCE ONE 01/24 0800 CAN PO 01/24 0801 Ciprofloxacin 400 MG Q12 01/24 0900 AC Dextrose/Water 200 ML IV Clonidine 1 PAT Q168 01/24 0900 AC 01/24 TOP 0845 Clopidogrel Bisulfate 75 MG DAILY 01/24 0900 AC 01/24 PO 0844 Clopidogrel Bisulfate 75 MG ONCE ONE 01/23 2130 DC 01/23 PO 01/23 2131 2200 Diltiazem HCl 180 MG DAILY 01/24 0900 DC PO Diltiazem HCl 180 MG DAILY 01/24 0115 AC 01/24 PO 0150 Escitalopram Oxalate 10 MG DAILY 01/24 0900 AC 01/24 PO 0845 Gabapentin 100 MG TID 01/24 0900 DC PO Heparin Sodium 0 .STK-MED ONE 01/24 2208 DC (Porcine) .ROUTE Heparin Sodium 5,000 UNIT ONCE ONE 01/23 2130 CAN (Porcine) IV 01/23 2131 Heparin Sodium 25,000 UNIT Q24H 01/23 2130 AC 01/23 (Porcine) IV 2200 Sodium Chloride 500 ML Heparin Sodium 4,000 UNIT ONCE ONE 01/23 2130 DC 01/23 (Porcine) IV 01/23 2131 2200 Hydralazine HCl 1,000 MG TID 01/23 213 CAN PO Insulin Aspart 0 TIDAC 01/24 08 CAN SC Insulin Detemir 30 UNITS BID 01/24 900 CAN SC Insulin Human Regular 0 Q6 01/24 0045 AC 01/24 SC 0641 Isosorbide Dinitrate 30 MG DAILY 01/24 09 DC PO Labetalol HCl 400 MG BID 01/24 09 AC 01/24 PO 0846 Labetalol HCl 400 MG ONCE ONE 01/23 2130 DC PO 01/23 2131 Labetalol HCl 0 .STK-MED ONE 01/23 2127 DC IV Labetalol HCl 10 MG ONCE ONE 01/23 2030 DC 01/23 IV 01/23 Linaclotide 145 MCG DAILY 01/24 09 AC PO Lisinopril 40 MG DAILY 01/24 0900 AC 01/24 PO 0844 Metronidazole 500 MG IQ8 01/24 0800 AC N/A 1 UNIT IV Minoxidil 5 MG BID 01/24 09 AC 01/24 PO 0844 Minoxidil 5 MG ONCE ONE 01/23 2145 CAN PO 01/23 214 Multivitamins 1 TAB DAILY 01/24 09 AC 01/24 PO 0844 Non-Formulary 0 SEE ADMIN CRITERIA 01/24 0030 DC Medication ANY Ondansetron HCl 4 MG ONCE ONE 01/23 2245 DC 01/23 IV 01/23 2246 2225 Ondansetron HCl 0 .STK-MED ONE 01/23 2215 DC .ROUTE Ondansetron HCl 4 MG ONCE ONE 01/23 1900 DC 01/23 PO 01/23 1901 1850 Ondansetron HCl 0 .STK-MED ONE 01/23 1850 DC PO Pantoprazole Sodium 0 .STK-MED ONE 01/24 0047 DC IV Pantoprazole Sodium 40 MG DAILY 01/24 0045 AC 01/24 IV 0042 Promethazine HCl 12.5 MG Q6-PRN PRN 01/24 0815 AC 01/24 IV 01/31 0814 0836 Sevelamer Carbonate 800 MG TID 01/24 0900 AC PO Trimethobenzamide HCl 200 MG 4 TIMES/DAY 01/24 09 UNV IM Assessment/Plan CRCU Other Findings/Comments: I have personally seen and examined the patient, and agree with the resident's assessment and plan as detailed above. Briefly, the patient is a 52-year-old female with a past medical history significant for end-stage renal disease on hemodialysis (Tuesday, Tuesday and Tuesday), CAD status post PCI with stenting, hypertension, hyperlipidemia, and diabetes. She had a recent non-ST elevation [place] on 12/08/2017 with a troponin up to 5.3. The patient was admitted overnight with complaints of chest pain, nausea and vomiting for 1 day. She missed her dialysis on 01/20. The patient was evaluated in the ED for her acute chest pain. The patient was reported to have EKG changes, not changed since November. The patient was also hypertensive in the ED with a blood pressure of 203/97. The patient also had a CT of the abdomen that showed possible colitis. The patient' s troponin was elevated and she was admitted to the CRCU, on a heparin drip. We are aggressively managing the patient's blood pressure, noting she has evidence of hypertensive urgency. Cardiology was consulted. The patient is awake and alert, but slightly lethargic. She notes her chest pain resolved. The patient is now tachycardic, with some shortness of breath, although there is no desaturation on the monitor. A CT angiogram of the chest has been ordered and results are pending. For now, we will monitor the patient's laboratory studies including her electrolytes. Will follow up on the CT angiogram results. She is scheduled for dialysis later today. We will discuss the case further with cardiology and follow-up Dr. Mccormack's recommendations.We will continue the patient on aspirin,,Plavix IV heparin, Nitropaste, labetalol, as needed IV metoprolol, and IV hydralazine to control her blood pressure. An echocardiogram will be checked. We will monitor for bleeding and check regular CBCs. GI will be consulted if there is any evidence of active bleeding. We will also follow- up culture data, and discontinue ceftriaxone if there remains no evidence of infection. The patient will continue to be monitored in the critical care unit. I have discussed the plan of care with house staff and asked them to contact me should the patient's condition change or should they have any questions. Consult Acknowledgment - Thank you for your consult request.
[2018-01-24 08:00] VITALS: BP 144/72; BP 162/80
--- NOTE | 2018-01-24 08:01 | Discharge Summary ---
Visit Information Visit Dates Admission Date: 01/23/18 Hospital Course Course Attending Physician: Arun Roque MD Primary Care Physician: Violetta Reddy APRN Consulting Request: Consulting Specialty: Cardiology Consulting Physician: Reason for Consult: elevated troponin Hospital Course: 52-year-old woman with multiple medical problems significant for an extensive cardiovascular h/o multiple cardiac catheterizations with percutaneous intervention and deployment of cardiac stents in the past 6 months on DAPT, ESRD on HD, obesity, hypertension, IDDM presents to [facility] with transient chest pain episode after retching, vomiting for the past few days. She recently travelled from [place] in a car for around 8hrs. She missed her dialysis yesterday and reports significant shortness of breath upon lying down. VS at presentation are afebrile, Pulse 112, BP 203/97mmHg, saturating well on RA. Physical exam did show edema of legs, heart normal S1, S2, lungs clear. Labs did show trop 2-->4.8 , proBNP of 120,000, AG 19, bicarbonate of 20, BUN/Cr 50/8, GFR 5, negative D- Dimer. Imaging did show mild interstitial edema on CXR, CTA negative for PE but did show right sided infiltrate. CT abdomen and plevis did show mild colitis, rectal impaction, b/l nephrolithiasis. puctate liver calcifications consistent with granulomatous disease. Problem list 1. CAD s/p multiple caths and stenting, significant atherosclerotic burden 2. ESRD on dialysis M/W/F 3. Type II IL 4. Resistent HTN on multiple antihypertensives 5. Aspirtion pneumonia 6. Colitis - intaractable nausea/vomiting 7. Secondary hyperparathyroidism 8. IDDM plan Admitted to ICU CAD s/p multiple caths - now with type II IL chest pain free. ACS protocol with IV heparin , aspirin 81mg, Plavix, high intensity statin, PRN nitroglycerine. she was on multiple antihypertensives which were continued as she had significantly elevated HTN at presentation. She did have significant atherosclerotic burden which is not amenable to PCI. ECHO did show high lateral wall hypokinesis. EF 60%. mild TR, MA. No plan for catheterization so far as the atherosclerotic burden is not amenable to PCI. IV heparin stopped on 01/26/18. Stable. Labile hypertension with episodes of Hypotension She presented with hypertensive urgency 203/97 mmHg, slowly reduced her blood pressure to normal. She sustained episodes of hypotension on 2017 and 01/27/18 prior to dialysis. She is completely symptomatic during these periods. She got 500 mL of fluid bolus today and she is getting 200 mL of fluid with dialysis. She is on multiple antihypertensive medications. I've reduced hydralazine to twice a day. We will continue to monitor and other differential would be a autonomic dysfunction in the setting of long-standing diabetes. ESRD on dialysis Missed dialysis a day prior to presentation, Underwent consequetive days dialysis for 2 days. we will continue her usual scheduel - M/W /F. Back to normal schedule. Underwent dialysis today. Aspiration pneumonia Patient had significant shortness of breath at presentation after nausea and vomiting. She might have aspirated. CT chest did show fluffy alveolar infiltrates throughout the right lung. we will cover with IV ceftriaxone for the 5 days. repeat CXR did show improvement on 01/26/18. so we will continue IV ceftriaxone - 4/5 days. Blood in stools Possibly hemorrhoids She had Blood in stools prior to presenation, none after admission. She had constipation, probably might have sustained hemorrhoidal bleed. She was nausea secondary to difficulty with bowel movements. She did have bowel movements for 2 consequetive days without any blood in it. Her nausea is much better after the bowel movement. Secondary hyperparathyroidism continue procalcitriol IDDM continue insulin - levemir and short acting. Accuchecks. Carb consistent 1 diet. anxiety/depression continue bupropion DVT prophylaxis SC heparin code status full code Complications: none Allergies: Coded Allergies: NO KNOWN ALLERGIES (NONE 09/19/17) Significant Procedures: CT abdomen & pelvis IMPRESSION: 1. Marked rectal distention with wall thickening possibly causing a colitis. Rectal impaction should be considered. 2. Cholelithiasis. 3. Bilateral nephrolithiasis. 4. Multiple subserosal uterine fibroids. 5. Ground-glass infiltrates with small pleural effusions. 6. Punctate liver calcifications consistent with granulomatous disease. CXR on 01/23/18 IMPRESSION: Cardiomegaly. Lung volume low. There is central hilar pulmonary vascular congestion. CT angio on 01/24/18 IMPRESSION: 1. No evidence of pulmonary embolism. 2. There are extensive fluffy alveolar infiltrates seen throughout the right lung and to a lesser extent in the left lingula and left lower lobe. Findings are highly suspicious for a diffuse pneumonia. Close clinical correlation is requested to exclude other etiologies for diffuse airspace disease. 3. Small bilateral pleural effusions. These appear simple by imaging. 4. Severe three-vessel coronary artery disease. 5. Other incidental findings include a subcentimeter sized thyroid nodule, doubtful clinical significance and cholelithiasis. Echocardiogram on 01/24/18 CONCLUSIONS 1. Normal EF of 60% with hild high lateral wall hypokinsis. 2. Mild left ventricular hypertrophy. 3. Mild tricuspid regurgitation. 4. Mild pulmonic regurgitation. Luis Daniel Mccormack M.D. (Electronically Signed) Final Date: 24 January 2018 CXR on 01/26/18 IMPRESSION: 1. Cardiomegaly. 2. Fluffy airspace opacities seen on CT scan are poorly appreciated. Slight reticular prominence in the lungs bilaterally is noted. 3. Trace bilateral pleural effusions. Pertinent Lab Results: as above Disposition Summary Disposition Principal Diagnosis: Type II IL Missed dialysis session Hypertensive urgency Additional Diagnosis: 1. CAD s/p multiple caths and stenting, significant atherosclerotic burden 2. ESRD on dialysis M/W/F 3. Labile hypertension with episodes of hypotension 4. Aspirtion pneumonia 5. Secondary hyperparathyroidism 6. IDDM Discharge Disposition: home or self care Discharge Instructions General Discharge Information Code Status: Full Code Patient's Diet: Consistent carb 1 diet Heart healthy Patient's Activity: as tolerated Follow-Up Instructions/Appts: Please follow up with your PCP in a week Please follow up with your plugger in a week Please follow up with Dialysis as per your schedule Please monitor blood pressure at home. Medications at Discharge Discharge Medications: Continue taking these medications: Labetalol HCl (Labetalol HCl) 200 MG TABLET 2 Tablet ORAL TWICE DAILY Comments: Last Taken: 09/21/17 Time: 1000 Clopidogrel Bisulfate (Clopidogrel) 75 MG TABLET 1 Tablet ORAL DAILY Comments: Last Taken: 09/21/17 Time: 1000 Gabapentin (Gabapentin) 100 MG CAPSULE 1 Capsule ORAL THREE TIMES DAILY Comments: Last Taken: 09/21/17 Time: 1000 Clonidine (Clonidine) 0.3 MG/24 HOUR PATCH.TDWK 1 Patch On the skin EVERY TUESDAY Comments: Last Taken:09/19/17 Time:1000 Pantoprazole Sodium (Protonix) 40 MG TABLET. 1 Tablet ORAL DAILY Comments: NOT GIVEN THIS HOSPITAL STAY- RECEIVED PRILOSEC 09/21/17 Linaclotide (Linzess) 145 MCG CAPSULE 1 Capsule ORAL DAILY as needed for CONSTIPATION Comments: DID NOT TAKE IN HOSPITAL Insulin Aspart, Recombinant (Novolog Flexpen) 100 UNIT/ML INSULN.PEN 1 Unit SC SEE SLIDING SCALE Instructions: BEFORE MEALS Blood Insulin Sugar Units <80 0 81-100 1 101-200 2 201-250 6 251-300 8 301-350 10 351-400 12 >400 Call Doctor AT BEDTIME Blood Insulin Sugar Units <80 0 81-100 0 101-200 0 201-250 2 251-300 3 301-350 4 351-400 5 >400 Call Doctor Comments: Last Taken: 09/20/17 Time: 2100 Atorvastatin Calcium (Atorvastatin Calcium) 40 MG TABLET 1 Tablet ORAL Every night Qty = 90 Comments: Last Taken: 09/20/17 Time: 2111 Bupropion HCl (Bupropion XL) 150 MG TAB.ER.24H 1 Tablet ORAL Every Morning Qty = 30 Comments: Last Taken: 09/21/17 Time: 0958 Escitalopram Oxalate (Escitalopram Oxalate) 20 MG TABLET 1 Tablet ORAL DAILY Comments: Last Taken: 09/21/17 Time: 1000 Sevelamer Carbonate (Renvela) 800 MG TABLET 1 Tablet ORAL THREE TIMES DAILY Qty = 150 Instructions: TAKE THIS MEDICATION WITH MEALS Comments: Last Taken: 09/21/17 Time: 1700 Insulin Glargine,Hum.rec.anlog (Lantus Solostar) 100 UNIT/ML (3 ML) INSULN.PEN 30 Unit SC TWICE DAILY Comments: DID NOT RECEIVE IN HOSPITAL- RECEIVED LEVEMIR 15 UNITS 1000 Aspirin (Aspirin*) 81 MG TAB.CHEW 2 Tablet ORAL DAILY Comments: Last Taken:09/21/17 Time:0950 Diltiazem HCl (Diltiazem 24HR Cd) 180 MG CAP.ER.24H 180 Milligram ORAL DAILY Qty = 60 Comments: Last Taken:09/21/17 Time:1100 Epoetin José (Epogen) 4,000 UNIT/ML VIAL 4,000 Unit IV MoWeFr as needed for WITH HEMODIALYSIS Qty = 30 Instructions: w dialysis MWF Lisinopril (Lisinopril) 40 MG TABLET 1 Tablet ORAL DAILY Isosorbide Dinitrate (Isosorbide Dinitrate) 30 MG TABLET 1 Tablet ORAL DAILY Minoxidil (Minoxidil) 2.5 MG TABLET 5 Milligram ORAL TWICE DAILY Qty = 10 Start taking the following new medications: Promethazine HCl (Promethazine HCl) 25 MG/ML AMPUL 12.5 Milligram IV EVERY 6 HOURS NEEDED as needed for NAUSEA/VOMITING Qty = 10 No Refills Attending MD Review Statement Documenting Attending: Kashif Gore MD
--- NOTE | 2018-01-24 08:47 | Cons- Cardiology ---
General Information and HPI Consulting Request Date of Consult: 01/24/18 Requested By: Arun Roque MD History of Present Illness: Patience carries a history of hypertension, dyslipidemia, and diabetes mellitus which she has had for approximately 22 years. I initially saw this patient for chest discomfort and she is now s/p multiple angioplasties. Patience presents to the ER for evaluation of wretching vomiting followed by a mild chest discomfort that radiated toward her jaw. She feels weak and shaky. She also reports mild bilateral leg discomfort and swelling but it should be noted that she missed her dialysis due to a trip to [facility]. Her blood pressure was very high upon initial presentation. The patient has an elevated WBC count and reports noting blood in her stool. she also has a mildly elevated troponin. Shortness of breath is not a prominent symptom although she appears to be orthopneic. The patient was recently admitted to [facility] for chest discomfort with positive cardiac enzymes. We attempted to treat her medically since her prior cardiac catheterization showed disease that was not amenable to percutaneous intervention. In particular, her ostial diagonal branch did not significantly improve following POBA. Prior to the above this patient underwent a POBA to a 70% long first diagonal lesion, a 4.0 x 12mm Resolute stent was placed in the 75% proximal LAD lesion, the OM1 underwent POBA and the OM2 underwent POBA with placement of a 2.5 x 8mm Resolute stent. Both OM lesions were in the 90% range. To review this patient's prior history, she underwent a stress test is response to exertional chest pain which was abnormal and was followed by PCI which occured while she was traveling in [place]. Patience was previously in the hospital for hypertension, renal failure and another NSTEMI. She is now on dialysis which is going well. It should be recalled that this patient has also had a prior PCI of the RCA, LCX and LAD. She now feels better than she has is years although she has been fatigued over the past several days. This tireness was initially attributed to Minoxidil which I recently prescribed for her hypertension; but she has been off this medication and continues to be tired. Previously, Patience was very inactive and this was attributed to a lack of motivation and depression. On last visit she reported some occasional lightheadedness that occurs about an hour after she takes her medications and lasts for about an hour at a time. Otherwise, lightheadedness is not a major problem. On a previous visit, the patient reported that walking half a block, even at a slow pace, would get her winded, but she feels she can do a bit more now. Her diabetes has also been under somewhat suboptimal control. The patients latest stress test is from 08/2013. It showed a hyperdynamic EFof 83% with no regional wall motion abnormalities. There was a small region of inferoapical ischemia without Regadenoson induced symptoms. A prior cardiac catheterization prompted by chest pain and positive enzymes resulted in angioplasty to the PDA with a 50% residual stenosis. At that time, I did not feel that this vessel was amenable to stent placement due to its tortuosity. The LAD, however, did receive a 2.5 x 18 mm Blanch stent with zero percent residual stenosis and the patient was brought back a second time for angioplasty to the left circumflex with placement of a 2.75 x 20 mm Taxus stent with plain balloon angioplasty to the ostium of the Obtuse Marginal-1. This resulted in zero percent residual stenosis in the AV groove left circumflex and a 20% non-flow limiting residual stenosis in the Obtuse Marginal-1. Postprocedure, there remained a 50-60% mid non-flow limiting stenosis in the LAD. There was also a 50% non-flow limiting ostial stenosis of the diagonal branch. Lastly, it should be noted that renal angiography was performed at that time and there was no evidence of renal artery stenosis. Her EF was 55% with anterior wall hypokinesis. In consideration of the above mentioned symptoms with recurrent non-ST elevation WI, I did risk stratify the patient with a stress test which was abnormal and therefore repeated her cardiac catheterization. This study showed the following anatomy: Her left main was short and patent. The left circumflex was diminutive in the AV groove distally. It parented a large obtuse marginal one vessel with a 40% ostial to proximal stenosis. The obtuse marginal two is also a large vessel with luminal irregularities. The LAD was a large vessel that wrapped around the apex. It harbored a 70% mid stenosis just after the take-off of the first diagonal branch. There are luminal irregularities throughout its course. The first diagonal branch is a small vessel with an 80% ostial stenosis superimposed on diffuse disease. The right coronary artery is dominant with a 50% ostial posterior lateral branch lesion. The PDA has a 40% ostial and 50% mid lesion. Repeat angiography showed no significant stenosis bilaterally. In consideration of the above, I directly stented the LAD with placement of a 3.5 x 24 mm Taxus stent and a plain balloon angioplasty was done on the diagonal branch with a 2.0 x 12 mm Ingomar balloon. This resulted in zero percent residual stenosis in the LAD and an 80% diagonal one lesion with zero percent postprocedure. Finally, it should be recalled that the patient was found to have a 7 x 6 x 4 mm hypoechoic nodule extrinsic to the lower pole of the left lobe of thyroid gland that was considered to be a lymph node on extrinsic nodule vs. a parathyroid adenoma. The thyroid gland was also enlarged. The patient was asked to followup with Dr. Schmidt regarding this problem but she has not seen him recently. Patience has also had heavy periods and was noted to have uterine fibroids. She was also noted to have microcytic anemia which is being treated with iron supplements. I believe she is following up with a foot roentgenologist at this point in time. Allergies/Medications Allergies: Coded Allergies: NO KNOWN ALLERGIES (NONE 09/19/17) Home Med List: Aspirin (Aspirin*) 81 MG TAB.CHEW 2 TAB PO DAILY HEART HEALTH (Reported) Atorvastatin Calcium 40 MG TABLET 1 TAB PO QPM CHOLESTEROL (Reported) Bupropion HCl (Bupropion XL) 150 MG TAB.ER.24H 1 TAB PO QAM MENTAL HEALTH ( Reported) Clonidine 0.3 MG/24 HOUR PATCH.TDWK 1 PAT TOP QSUN HEART (Reported) Clopidogrel Bisulfate (Clopidogrel) 75 MG TABLET 1 TAB PO DAILY BLOOD THINNER (Reported) Diltiazem HCl (Diltiazem 24HR Cd) 180 MG CAP.ER.24H 180 MG PO DAILY HTN Epoetin José (Epogen) 4,000 UNIT/ML VIAL 4,000 UNIT IV MoWeFr PRN WITH HEMODIALYSIS w dialysis MWF Escitalopram Oxalate 20 MG TABLET 1 TAB PO DAILY MENTAL HEALTH (Reported) Gabapentin 100 MG CAPSULE 1 CAP PO TID NEUROPATHY (Reported) Insulin Aspart, Recombinant (Novolog Flexpen) 100 UNIT/ML INSULN.PEN 1 UNIT SC SEE SLIDING SCALE DIABETES (Reported) BEFORE MEALS Blood Insulin Sugar Units <80 0 81-100 1 101-200 2 201-250 6 251-300 8 301-350 10 351-400 12 >400 Call Doctor AT BEDTIME Blood Insulin Sugar Units <80 0 81-100 0 101-200 0 201-250 2 251-300 3 301-350 4 351-400 5 >400 Call Doctor Insulin Glargine,Hum.rec.anlog (Lantus Solostar) 100 UNIT/ML (3 ML) INSULN.PEN 30 UNIT SC BID DM (Reported) Isosorbide Dinitrate 30 MG TABLET 1 TAB PO DAILY CHEST PAIN (Reported) Labetalol HCl 200 MG TABLET 2 TAB PO BID HEART (Reported) Linaclotide (Linzess) 145 MCG CAPSULE 1 CAP PO DAILY PRN CONSTIPATION ( Reported) Lisinopril 40 MG TABLET 1 TAB PO DAILY HTN (Reported) Minoxidil 2.5 MG TABLET 5 MG PO BID HTN Pantoprazole Sodium (Protonix) 40 MG TABLET.DR 1 TAB PO DAILY ACID REFLUX ( Reported) Sevelamer Carbonate (Renvela) 800 MG TABLET 1 TAB PO TID KIDNEY (Reported) TAKE THIS MEDICATION WITH MEALS Review of Systems Review of Systems: A review of systems is unremarkable other than the above. 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 Home Who Do You Live With? significant other, child Services at Home: Patient previously had home health aide and nursing services but these services were recently discontinued Primary Language: Greenlandic Smoking Status: Never Smoked Functional Ability ADLs Independent: dressing, eating, toileting, bathing. Ambulation: independent Exam & Diagnostic Data Vital Signs and I&O Vital Signs Date Time Temp Pulse Resp B/P B/P Pulse O2 O2 Flow FiO2 Mean Ox Delivery Rate 01/24 0400 96 Room Air Room Air 01/24 024 98 Room Air 01/24 0240 98 Room Air 01/24 0240 98.9 108 24 170/100 98 Room Air 01/24 0020 97.6 110 22 122/96 96 Room Air 01/23 2225 98.2 88 20 138/92 95 Room Air 01/23 2148 142/98 01/23 2144 128/88 01/23 2143 192/98 01/23 2127 98.7 114 18 203/107 01/23 2031 98.7 114 18 203/107 94 Room Air Room Air 01/23 1841 98.6 112 18 203/97 97 Room Air Room Air Intake & Output 01/24 1600 01/24 0800 01/24 0000 01/23 1600 01/23 0801/23 0000 Intake Total 144 Output Total Balance 144 Intake, IV 144 Patient 187 lb 188 lb Weight Weight Standing Scale Measurement Method Physical Exam: General: WD/WN male in NAD; alert and oriented HEENT: NC/AT, PERRL, EOMI Neck: no JVD, no carotid bruit Heart: RRR w/o murmur Lungs: clear bilaterally Abdomen: soft, NT, +ve bowel sounds Extremities: 1+ bilateral leg edema Assessment/Plan Assessment/Plan * This patient underwent a recent PCI and may have restenosis. Unfortunately, these vessels do not appear amenable to revascularization; especially the ostial diagonal branch which would not dilate. I also suspect that her symptoms may be multifactorial and perhaps related to severe hypertension and wretching vomiting which, in turn, may be related to missing her dialysis and non-compliance with medications. It is also reasonable to evaluate this patient for a pulmonary embolism since this can also cause small rises in troponin. Hopefully, a CT angiogram will help in this evaluation. We will follow cardiac enzymes until they peak. She will be anticoagulated with aspirin, Plavix and IV heparin and we will begin NTG paste 1/2 inch Q 6 hours. The patient is hypertensive and tachycardic. She will need to continue her Labetolol and add IV metoprolol as needed to control her heart rate. Begin IV hydralazine to control her BP. * Obtain an echocardiogram. * Continue Labetolol 400mg BID, cardizem as previously prescribed, clonidine patch and hydralazine 100mg TID and Minoxidil 5mg BID. * Obtain a renal consult for dialysis. Consult Acknowledgment - Thank you for your consult request.
[2018-01-24] MEDS ORDERED: PROMETHAZI25 MG/1 M1 IV (08:58)
[2018-01-24 09:15] LABS: PT 11.9 SEC (9.4-12.5)
--- NOTE | 2018-01-24 10:06 | CT SCAN REPORT ---
EXAMINATION: CT CHEST PE STUDY CLINICAL INFORMATION: Tachycardia. Elevated troponins. Chest pain. Rule out PE. COMPARISON: VQ scan dated 12/08/2017 read as very low probability for pulmonary embolism. CT scan of the abdomen and pelvis dated 01/23/2018. TECHNIQUE: Prior to contrast administration, localization images were obtained. After the administration of 95 and mL of intravenous Optiray 320, multidetector CT volume acquisition of the chest was performed. 3-D postprocessing was performed with multiplanar reconstructions and MIP images obtained at the acquisition workstation under concurrent physician supervision. DLP: 719.42 mGy-cm. FINDINGS: Pulmonary arteries: The bolus timing on this study was acceptable for visualization of the pulmonary arterial tree. Evaluation is, however, limited by extensive beam hardening artifact related to dense contrast bolus within the left brachiocephalic vein and SVC. This leads to multiple areas of pseudodefects within the segmental and subsegmental branches of the pulmonary artery (example right upper lobe subsegmental branches on image 102 and 108 of series 2). The reconstructed sequences confirm this impression of pseudodefect. There are no suspicious intraluminal pulmonary arterial filling defects seen to suggest pulmonary embolism in the main pulmonary artery, right and left main pulmonary artery, lobar and segmental branches. Lungs: There are small bilateral pleural effusions, similar to the previous CT scan from yesterday. There are fluffy diffuse alveolar airspace groundglass opacities seen in the right upper lobe, right middle lobe and right lower lobe and to a lesser extent in the lingula and left lower lobe with associated air bronchograms. Findings are suspicious for a diffuse pneumonia. The central airways are patent. Aorta and heart: The aortic and heart size is normal. Severe three-vessel coronary artery calcifications are seen. There is no pericardial effusion Lymphatic structures: There is no lymphadenopathy. Thyroid gland: There is a tiny 0.6 cm peripheral hypodense nodule in the right mid lobe (series 4, image 5), of doubtful clinical significance. Remainder of the visualized portions of the thyroid gland are unremarkable. Upper abdomen: Calcified gallstones are seen within the gallbladder, incompletely imaged. Limited evaluation of the upper abdominal viscera demonstrates no focal abnormality. Bones: No significant focal findings. IMPRESSION: 1. No evidence of pulmonary embolism. 2. There are extensive fluffy alveolar infiltrates seen throughout the right lung and to a lesser extent in the left lingula and left lower lobe. Findings are highly suspicious for a diffuse pneumonia. Close clinical correlation is requested to exclude other etiologies for diffuse airspace disease. 3. Small bilateral pleural effusions. These appear simple by imaging. 4. Severe three-vessel coronary artery disease. 5. Other incidental findings include a subcentimeter sized thyroid nodule, doubtful clinical significance and cholelithiasis. VTE: Negative
--- NOTE | 2018-01-24 10:35 | Cons- Nephrology ---
General Information and HPI Consulting Request Date of Consult: 01/24/18 Requested By: Arun Roque MD Reason for Consult: Evaluation and management of end-stage renal disease Source of Information: patient, old records Exam Limitations: no limitations History of Present Illness: This 52-year-old woman has a history of end-stage renal disease, coronary artery disease, hyperlipidemia, diabetes mellitus and secondary hyperparathyroidism, missed dialysis yesterday because of travel plans. She was scheduled to get her Tuesday treatment, and his yesterday's treatment, today. She, however, presented to the emergency room with nausea and vomiting as well as chest pain. She was admitted because of chest pain along with nausea and vomiting. She was found to have positive troponins. Transferred to the [facility] is being considered. She otherwise has a previous history of having coronary artery disease status post KS with multiple different cardiac stents. Her most recent visit to the hospital was in November 2017. This seemed to be similar to this present hospital stay. She was admitted to [facility], ruled in for an non-ST elevation KS, and was transferred to [facility] for coronary angiography as well as deployment of a cardiac stent. She returns now with nausea and vomiting along with chest pain. The tropones are likewise are positive. Allergies/Medications Allergies: Coded Allergies: NO KNOWN ALLERGIES (NONE 09/19/17) Home Med List: Aspirin (Aspirin*) 81 MG TAB.CHEW 2 TAB PO DAILY HEART HEALTH (Reported) Atorvastatin Calcium 40 MG TABLET 1 TAB PO QPM CHOLESTEROL (Reported) Bupropion HCl (Bupropion XL) 150 MG TAB.ER.24H 1 TAB PO QAM MENTAL HEALTH ( Reported) Clonidine 0.3 MG/24 HOUR PATCH.TDWK 1 PAT TOP QSUN HEART (Reported) Clopidogrel Bisulfate (Clopidogrel) 75 MG TABLET 1 TAB PO DAILY BLOOD THINNER (Reported) Diltiazem HCl (Diltiazem 24HR Cd) 180 MG CAP.ER.24H 180 MG PO DAILY HTN Epoetin José (Epogen) 4,000 UNIT/ML VIAL 4,000 UNIT IV MoWeFr PRN WITH HEMODIALYSIS w dialysis MWF Escitalopram Oxalate 20 MG TABLET 1 TAB PO DAILY MENTAL HEALTH (Reported) Gabapentin 100 MG CAPSULE 1 CAP PO TID NEUROPATHY (Reported) Insulin Aspart, Recombinant (Novolog Flexpen) 100 UNIT/ML INSULN.PEN 1 UNIT SC SEE SLIDING SCALE DIABETES (Reported) BEFORE MEALS Blood Insulin Sugar Units <80 0 81-100 1 101-200 2 201-250 6 251-300 8 301-350 10 351-400 12 >400 Call Doctor AT BEDTIME Blood Insulin Sugar Units <80 0 81-100 0 101-200 0 201-250 2 251-300 3 301-350 4 351-400 5 >400 Call Doctor Insulin Glargine,Hum.rec.anlog (Lantus Solostar) 100 UNIT/ML (3 ML) INSULN.PEN 30 UNIT SC BID DM (Reported) Isosorbide Dinitrate 30 MG TABLET 1 TAB PO DAILY CHEST PAIN (Reported) Labetalol HCl 200 MG TABLET 2 TAB PO BID HEART (Reported) Linaclotide (Linzess) 145 MCG CAPSULE 1 CAP PO DAILY PRN CONSTIPATION ( Reported) Lisinopril 40 MG TABLET 1 TAB PO DAILY HTN (Reported) Minoxidil 2.5 MG TABLET 5 MG PO BID HTN Pantoprazole Sodium (Protonix) 40 MG TABLET.DR 1 TAB PO DAILY ACID REFLUX ( Reported) Promethazine HCl 25 MG/ML AMPUL 12.5 MG IV Q6-PRN PRN NAUSEA/VOMITING Sevelamer Carbonate (Renvela) 800 MG TABLET 1 TAB PO TID KIDNEY (Reported) TAKE THIS MEDICATION WITH MEALS Current Medications: Current Medications Sig/[place] Start time Last Medication Dose Route Stop Time Status Admin Aspirin 162 MG DAILY 01/24 900 AC 01/24 PO 0845 Aspirin 0 .STK-MED ONE 01/24 2208 DC PO Aspirin 325 MG ONCE ONE 01/23 2130 DC 01/23 PO 01/23 2131 220 Atorvastatin Calcium 40 MG QPM 01/24 2100 AC PO Bupropion HCl 150 MG QAM 01/24 09 AC 01/24 PO 0846 Carvedilol 12.5 MG ONCE ONE 01/24 0800 CAN PO 01/24 0801 Ceftriaxone Sodium 1,000 MG DAILY 01/24 0915 AC IV Ciprofloxacin 400 MG Q12 01/24 900 DC Dextrose/Water 200 ML IV Clonidine 1 PAT Q168 01/24 0900 AC 01/24 TOP 0845 Clopidogrel Bisulfate 75 MG DAILY 01/24 0900 AC 01/24 PO 0844 Clopidogrel Bisulfate 75 MG ONCE ONE 01/23 2130 DC 01/23 PO 01/23 2131 2200 Diltiazem HCl 180 MG DAILY 01/24 09 DC PO Diltiazem HCl 180 MG DAILY 01/24 0115 AC 01/24 PO 0150 Escitalopram Oxalate 10 MG DAILY 01/24 0900 AC 01/24 PO 0845 Gabapentin 100 MG TID 01/24 09 DC PO Heparin Sodium 0 .STK-MED ONE 01/24 2208 DC (Porcine) .ROUTE Heparin Sodium 5,000 UNIT ONCE ONE 01/23 2130 CAN (Porcine) IV 01/23 2131 Heparin Sodium 25,000 UNIT Q24H 01/23 2130 AC 01/23 (Porcine) IV 220 Sodium Chloride 500 ML Heparin Sodium 4,000 UNIT ONCE ONE 01/23 2130 DC 01/23 (Porcine) IV 01/23 2131 2200 Hydralazine HCl 100 MG TID 01/24 1400 AC PO Hydralazine HCl 1,000 MG TID 01/23 2130 CAN PO Insulin Aspart 0 TIDAC 01/24 1200 AC SC Insulin Aspart 0 TIDAC 01/24 0800 CAN SC Insulin Detemir 30 UNITS BID 01/24 09 CAN SC Insulin Human Regular 0 Q6 01/24 0045 DC 01/24 SC 0641 Isosorbide Dinitrate 30 MG DAILY 01/24 0900 DC PO Labetalol HCl 400 MG BID 01/24 09 AC 01/24 PO 0846 Labetalol HCl 400 MG ONCE ONE 01/23 2130 DC PO 01/23 2131 Labetalol HCl 0 .STK-MED ONE 01/23 2127 DC IV Labetalol HCl 10 MG ONCE ONE 01/23 2030 DC 01/23 IV 01/23 Linaclotide 145 MCG DAILY 01/24 09 AC PO Lisinopril 40 MG DAILY 01/24 0900 AC 01/24 PO 0844 Metronidazole 500 MG IQ8 01/24 0800 AC N/A 1 UNIT IV Minoxidil 5 MG BID 01/24 09 AC 01/24 PO 0844 Minoxidil 5 MG ONCE ONE 01/23 214 CAN PO 01/23 2146 Multivitamins 1 TAB DAILY 01/24 09 AC 01/24 PO 0844 Non-Formulary 0 SEE ADMIN CRITERIA 01/24 0030 DC Medication ANY Ondansetron HCl 4 MG ONCE ONE 01/23 2245 DC 01/23 IV 01/23 2246 222 Ondansetron HCl 0 .STK-MED ONE 08/13 2215 DC .ROUTE Ondansetron HCl 4 MG ONCE ONE 01/23 1900 DC 01/23 PO 01/23 1901 1850 Ondansetron HCl 0 .STK-MED ONE 01/23 1850 DC PO Pantoprazole Sodium 0 .STK-MED ONE 01/24 0047 DC IV Pantoprazole Sodium 40 MG DAILY 01/24 0045 AC 01/24 IV 0042 Promethazine HCl 12.5 MG Q6-PRN PRN 01/24 0815 AC 01/24 IV 01/31 0814 0836 Sevelamer Carbonate 800 MG TID 01/24 0900 AC PO Trimethobenzamide HCl 200 MG Q12H 01/24 0945 AC IM Review of Systems Review of Systems Constitutional: Denies: chills, fever, malaise. EENTM: Denies: blurred vision, double vision, visual changes. Cardiovascular: Denies: chest pain. Respiratory: Denies: cough, hemoptysis, orthopnea, short of breath, wheezing. GI: Reports: nausea, vomiting. Denies: diarrhea, distention, bloody stool, changes in stool. Genitourinary: Denies: dysuria, frequency, hematuria. Musculoskeletal: Denies: joint pain, joint swelling, muscle pain. Skin: Denies: rash. Neurological/Psychological: Reports: headache. Denies: numbness, paresthesia. Hematologic/Endocrine: Denies: bruising, bleeding. 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 Home Who Do You Live With? significant other, child Services at Home: Patient previously had home health aide and nursing services but these services were recently discontinued Primary Language: Mohawk Smoking Status: Never Smoked Functional Ability ADLs Independent: dressing, eating, toileting, bathing. Ambulation: independent Exam & Diagnostic Data Vital Signs and I&O Vital Signs Date Time Temp Pulse Resp B/P B/P Pulse O2 O2 Flow FiO2 Mean Ox Delivery Rate 01/24 0846 114 162/80 01/24 0845 114 162/80 01/24 0844 114 162/80 01/24 0400 96 Room Air Room Air 01/24 0240 98 Room Air 01/24 0240 98 Room Air 01/24 0240 98.9 108 24 170/100 98 Room Air 01/24 0020 97.6 110 22 122/96 96 Room Air 01/23 2225 98.2 88 20 138/92 95 Room Air 01/23 2148 142/98 01/23 2144 128/88 01/23 2143 192/98 01/23 2127 98.7 114 18 203/107 01/23 2031 98.7 114 18 203/107 94 Room Air Room Air 01/23 1841 98.6 112 18 203/97 97 Room Air Room Air Intake & Output 01/24 1600 01/24 0400 01/23 1600 01/23 0400 01/22 1600 01/22 0400 Intake Total 144 Output Total Balance 144 Intake, IV 144 Patient 187 lb Weight Weight Standing Scale Measurement Method Physical Exam General Appearance: well developed/nourished, no apparent distress, alert, awake Head: atraumatic, normal appearance Eyes: Bilateral: PERRL, EOMI, pale conjunctivae. Ears, Nose, Throat: hearing grossly normal Neck: normal inspection, supple, trachea mid line Respiratory: normal breath sounds, chest non-tender, no respiratory distress, lungs clear Cardiovascular: regular rate/rhythm, gallop Peripheral Pulses: 2+ femoral (R), 2+ femoral (L) Gastrointestinal: normal bowel sounds, soft, non-tender, no organomegaly Back: no vertebral tenderness, No CVA tenderness Extremities: normal inspection, no edema Neurologic/Psych: no motor/sensory deficits, awake, alert, oriented x 3 Skin: intact, normal color, warm/dry Lymphatic: no anterior cervical dinah Results Pertinent Lab Results: Laboratory Tests 01/24 01/24 0600 0400 Chemistry Sodium (137 - 145 mmol/L) 142 Potassium (3.5 - 5.1 mmol/L) 4.1 Chloride (98 - 107 mmol/L) 104 Carbon Dioxide (22 - 30 mmol/L) 20 L Anion Gap (5 - 16) 19 H BUN (7 - 17 mg/dL) 50 H Creatinine (0.5 - 1.0 mg/dL) 8.1 *H Estimated GFR (>60 ml/min) 5 L Glucose (65 - 99 mg/dL) 187 H Calcium (8.4 - 10.2 mg/dL) 9.5 Phosphorus (2.5 - 4.5 mg/dL) 4.3 Magnesium (1.6 - 2.3 mg/dL) 1.7 Total Bilirubin (0.2 - 1.3 mg/dL) 0.8 AST (14 - 36 U/L) 31 ALT (9 - 52 U/L) 18 Troponin I (< 0.11 ng/ml) 4.80 *H [id number] Pept (<125 pg/mL) 859937 H Albumin (3.5 - 5.0 g/dL) 4.5 TSH (0.270 - 4.200 uIU/mL) 0.291 Free T4 (0.64 - 1.79 ng/dL) 1.71 Coagulation PT (9.4 - 12.5 SEC) 11.9 INR (0.90 - 1.19) 1.09 APTT (25 - 37 SEC) 58 H D-Dimer High Sensitivty (0 - 243 ng/ml) < 200 Hematology CBC w Diff NO MAN DIFF REQ WBC (4.8 - 10.8 /CUMM) 21.6 H RBC (4.20 - 5.40 /CUMM) 3.98 L Hgb (12.0 - 16.0 G/DL) 12.3 Hct (37 - 47 %) 36.7 L MCV (81.0 - 99.0 FL) 92.3 MCH (27.0 - 31.0 PG) 30.9 MCHC (33.0 - 37.0 G/DL) 33.5 RDW (11.5 - 14.5 %) 15.1 H Plt Count (130 - 400 /CUMM) 309 MPV (7.4 - 10.4 FL) 9.4 Gran % (42.2 - 75.2 %) 96.6 H Lymphocytes % (20.5 - 51.1 %) 2.3 L Monocytes % (1.7 - 9.3 %) 1.1 L Eosinophils % (0 - 5 %) 0 Basophils % (0.0 - 2.0 %) 0 Absolute Granulocytes (1.4 - 6.5 /CUMM) 20.9 H Absolute Lymphocytes (1.2 - 3.4 /CUMM) 0.5 L Absolute Monocytes (0.10 - 0.60 /CUMM) 0.2 Absolute Eosinophils (0.0 - 0.7 /CUMM) 0 Absolute Basophils (0.0 - 0.2 /CUMM) 0 01/24 01/23 0115 1855 Chemistry Sodium (137 - 145 mmol/L) 140 Potassium (3.5 - 5.1 mmol/L) 4.3 Chloride (98 - 107 mmol/L) 102 Carbon Dioxide (22 - 30 mmol/L) 21 L Anion Gap (5 - 16) 17 H BUN (7 - 17 mg/dL) 46 H Creatinine (0.5 - 1.0 mg/dL) 8.0 *H Estimated GFR (>60 ml/min) 5 L BUN/Creatinine Ratio (7 - 25 %) 5.8 L Glucose (65 - 99 mg/dL) 212 H Calcium (8.4 - 10.2 mg/dL) 9.9 Total Bilirubin (0.2 - 1.3 mg/dL) 0.6 AST (14 - 36 U/L) 26 ALT (9 - 52 U/L) 16 Alkaline Phosphatase (<127 U/L) 126 Troponin I (< 0.11 ng/ml) 4.26 *H 2.82 *H Total Protein (6.3 - 8.2 g/dL) 8.7 H Albumin (3.5 - 5.0 g/dL) 4.8 Globulin (1.9 - 4.2 gm/dL) 3.9 Albumin/Globulin Ratio (1.1 - 2.2 %) 1.2 Amylase (30 - 110 U/L) 74 Lipase (23 - 300 U/L) 110 Hematology CBC w Diff NO MAN DIFF REQ NO MAN DIFF REQ WBC (4.8 - 10.8 /CUMM) 19.9 H 14.8 H RBC (4.20 - 5.40 /CUMM) 3.82 L 4.20 Hgb (12.0 - 16.0 G/DL) 11.8 L 12.8 Hct (37 - 47 %) 35.5 L 39.4 MCV (81.0 - 99.0 FL) 93.1 93.7 MCH (27.0 - 31.0 PG) 30.8 30.5 MCHC (33.0 - 37.0 G/DL) 33.1 32.5 L RDW (11.5 - 14.5 %) 15.3 H 15.3 H Plt Count (130 - 400 /CUMM) 306 319 MPV (7.4 - 10.4 FL) 9.3 9.2 Gran % (42.2 - 75.2 %) 94.6 H 95.1 H Lymphocytes % (20.5 - 51.1 %) 2.0 L 3.1 L Monocytes % (1.7 - 9.3 %) 3.0 1.7 Eosinophils % (0 - 5 %) 0 0.1 Basophils % (0.0 - 2.0 %) 0.4 0 Absolute Granulocytes (1.4 - 6.5 /CUMM) 18.8 H 14.1 H Absolute Lymphocytes (1.2 - 3.4 /CUMM) 0.4 L 0.5 L Absolute Monocytes (0.10 - 0.60 /CUMM) 0.6 0.3 Absolute Eosinophils (0.0 - 0.7 /CUMM) 0 0 Absolute Basophils (0.0 - 0.2 /CUMM) 0.1 0 Imaging/Other Studies: PATIENT: THOMAS BARRIOS PRESENT AGE: 52 PATIENT ACCOUNT NO: [id number] : 67 LOCATION: [facility] ORDERING PHYSICIAN: Starla Gusman MD SERVICE DATE: 01/24/18 EXAM TYPE: CAT - CTA CHEST-PULMONARY EMBOLISM EXAMINATION: CT CHEST PE STUDY CLINICAL INFORMATION: Tachycardia. Elevated troponins. Chest pain. Rule out PE. COMPARISON: VQ scan dated 12/08/2017 read as very low probability for pulmonary embolism. CT scan of the abdomen and pelvis dated 01/23/2018. TECHNIQUE: Prior to contrast administration, localization images were obtained. After the administration of 95 and mL of intravenous Optiray 320, multidetector CT volume acquisition of the chest was performed. 3-D postprocessing was performed with multiplanar reconstructions and MIP images obtained at the acquisition workstation under concurrent physician supervision. DLP: 719.42 mGy-cm. FINDINGS: Pulmonary arteries: The bolus timing on this study was acceptable for visualization of the pulmonary arterial tree. Evaluation is, however, limited by extensive beam hardening artifact related to dense contrast bolus within the left brachiocephalic vein and SVC. This leads to multiple areas of pseudodefects within the segmental and subsegmental branches of the pulmonary artery (example right upper lobe subsegmental branches on image 102 and 108 of series 2). The reconstructed sequences confirm this impression of pseudodefect. There are no suspicious intraluminal pulmonary arterial filling defects seen to suggest pulmonary embolism in the main pulmonary artery, right and left main pulmonary artery, lobar and segmental branches. Lungs: There are small bilateral pleural effusions, similar to the previous CT scan from yesterday. There are fluffy diffuse alveolar airspace groundglass opacities seen in the right upper lobe, right middle lobe and right lower lobe and to a lesser extent in the lingula and left lower lobe with associated air bronchograms. Findings are suspicious for a diffuse pneumonia. The central airways are patent. Aorta and heart: The aortic and heart size is normal. Severe three-vessel coronary artery calcifications are seen. There is no pericardial effusion Lymphatic structures: There is no lymphadenopathy. Thyroid gland: There is a tiny 0.6 cm peripheral hypodense nodule in the right mid lobe (series 4, image 5), of doubtful clinical significance. Remainder of the visualized portions of the thyroid gland are unremarkable. Upper abdomen: Calcified gallstones are seen within the gallbladder, incompletely imaged. Limited evaluation of the upper abdominal viscera demonstrates no focal abnormality. Bones: No significant focal findings. IMPRESSION: 1. No evidence of pulmonary embolism. 2. There are extensive fluffy alveolar infiltrates seen throughout the right lung and to a lesser extent in the left lingula and left lower lobe. Findings are highly suspicious for a diffuse pneumonia. Close clinical correlation is requested to exclude other etiologies for diffuse airspace disease. 3. Small bilateral pleural effusions. These appear simple by imaging. 4. Severe three-vessel coronary artery disease. 5. Other incidental findings include a subcentimeter sized thyroid nodule, doubtful clinical significance and cholelithiasis. VTE: Negative DICTATED BY: Lorene Escalear MD DATE/TIME DICTATED:01/24/18945 CIRCULATION LIBRARIAN:CHUY DATE/TIME TRANSCRIBED:01/24/18945 CONFIDENTIAL, DO NOT COPY WITHOUT APPROPRIATE AUTHORIZATION. <Electronically signed in Other Vendor System> SIGNED BY: Lorene Escalera MD [id number] PATIENT: THOMAS BARRIOS PRESENT AGE: 52 PATIENT ACCOUNT NO: [id number] : 67 LOCATION: [facility] ORDERING PHYSICIAN: Toan CRAWFORD SERVICE DATE: 01/23/18 EXAM TYPE: RAD - XRY-PORTABLE CHEST XRAY EXAMINATION: XR PORTABLE CHEST CLINICAL INFORMATION: Chest pain. COMPARISON: Chest x-ray 12/07/2017 TECHNIQUE: Portable frontal view of the chest was obtained. 8:30 PM FINDINGS: Heart size is enlarged. Lung volume is low. There is prominence of the right and left hilum and perivascular lung markings suggesting a congestive heart failure though the expiratory phase of the chest x-ray would accentuate the pulmonary vascular markings. No focal dense consolidation. There is no large pleural effusion. IMPRESSION: Cardiomegaly. Lung volume low. There is central hilar pulmonary vascular congestion. DICTATED BY: Vaughn Lopez MD DATE/TIME DICTATED:01/23/182122 CIRCULATION LIBRARIAN:CHUY DATE/TIME TRANSCRIBED:01/23/182122 CONFIDENTIAL, DO NOT COPY WITHOUT APPROPRIATE AUTHORIZATION. <Electronically signed in Other Vendor System> SIGNED BY: Vaughn Lopez MD 01/23/182128 Assessment/Plan Assessment/Recommendations Assessment: 1. End-stage renal disease. She missed dialysis yesterday. Keep in mind, missing one dialysis yesterday would not lead to nausea nor would lead to positive troponins and certainly would not cause pericarditis. Suspect that this is due to her intrinsic renal disease. 2 coronary artery disease plans per cardiology. She was on dual antiplatelet therapy as an outpatient both on Plavix and aspirin. 3. Anemia continue with the Epogen 4. Secondary hyperparathyroidism. She was on Hectorol as an outpatient. We'll continue with Zemplar while in-house. 5 hypertension. Her home medications per the dialysis unit was clonidine 0.3 mg per 24-hour , Diltiazem 180 mg daily, lisinopril 40 mg daily, I scissor by mononitrate 30 mg daily, labetalol 200 mg, 2 tabs by mouth twice a day 6. Nausea and vomiting? This may be related to her heart issues, however, she was on linens S and plan toe prays all as an outpatient. 7. Hyperlipidemia, her dose of atorvastatin was 40 mg per day Recommendations: 1. Hemodialysis today. Her weight is recorded as being 84 kg. This is a kilogram below target. 2. She will be dialyzed again tomorrow. 3. Anemia. Continue with Epogen.
[2018-01-24 12:00] VITALS: BP 138/76
[2018-01-24 12:12] LABS: PTT 60 SEC (25-37)
[2018-01-24 16:00] VITALS: BP 160/82
[2018-01-24 19:27] LABS: PTT 72 SEC (25-37)
--- NOTE | 2018-01-24 21:06 | ECHOCARDIOGRAM REPORT ---
THOMAS BARRIOS Age: 52 : 1965 Gender: F Exam Date: 01/24/2018 11:06 Exam Location: [facility] Ht (in): 66 Wt (lb): 187 BSA: 2.01 BP: 169 / 91 Ordering Physician: Starla Gusman MD Referring Physician: Starla Gusman MD Technologist: Amos Payton [facility] Room Number: 114-1 Indications: LVF AFTER ACS Rhythm: Sinus Technical Quality: good FINDINGS Left Ventricle Normal left ventricular size with mild left ventricular hypertrophy. Normal systolic function with mild high lateral well hypokinesis. Normal left ventricular diastolic filling pattern for age. The ejection fraction is visually estimated at 60%. Right Ventricle The right ventricle is normal in size and function. Right Atrium The right atrium is normal in size. Left Atrium The left atrium is normal in size. The interatrial septum is intact. Mitral Valve The mitral valve is normal in structure and function. There is no mitral regurgitation. Aortic Valve Structurally normal aortic valve without significant sclerosis or stenosis. There is no aortic regurgitation. Tricuspid Valve The tricuspid valve is normal in structure and function. There is mild tricuspid regurgitation. Pulmonary artery systolic pressure is normal. Pulmonic Valve Structurally normal pulmonic valve. There is mild pulmonic regurgitation. Pericardium Normal pericardium without effusion. No pleural effusion. Great Vessels Normal aortic root dimension. The aortic arch and great vessels are well seen and are normal. CONCLUSIONS 1. Normal EF of 60% with hild high lateral wall hypokinsis. 2. Mild left ventricular hypertrophy. 3. Mild tricuspid regurgitation. 4. Mild pulmonic regurgitation. Luis Daniel Mccormack M.D. (Electronically Signed) Final Date: 24 January 2018 21:03 MEASUREMENTS (Male / Female) Normal Values 2D ECHO LV Diastolic Diameter PLAX 5.1 cm 4.2 - 5.9 / 3.9 - 5.3 cm LV Systolic Diameter PLAX 3.6 cm 2.1 - 4.0 cm LV Fractional Shortening PLAX 29.4 % 25 - 46 % LV Ejection Fraction 2D Teich 56.0 % IVS Diastolic Thickness 1.3 cm LVPW Diastolic Thickness 1.3 cm LV Relative Wall Thickness 0.5 RV Internal Dim ED PLAX 2.9 cm 1.9 - 3.8 cm LVOT Diameter 1.9 cm Aortic Root Diameter 2.2 cm LA Systolic Diameter LX 4.3 cm 3.0 - 4.0 / 2.7 - 3.8 cm LA Volume 40.0 cm 18 - 58 / 22 - 52 cm Ascending Aorta Diameter 2.7 cm DOPPLER AV Peak Velocity 135.0 cm/s AV Peak Gradient 7.3 mmHg AV Mean Velocity 93.8 cm/s AV Mean Gradient 4.0 mmHg AV Velocity Time Integral 26.6 cm LVOT Peak Velocity 79.0 cm/s LVOT Peak Gradient 2.5 mmHg LVOT Mean Velocity 46.7 cm/s LVOT Mean Gradient 1.0 mmHg LVOT Velocity Time Integral 21.3 cm LVOT Stroke Volume 60.4 cm AV Area Cont Eq vti 2.3 cm AV Area Cont Eq pk 1.7 cm MV Peak Velocity 127.0 cm/s MV Peak Gradient 6.5 mmHg MV Mean Velocity 75.2 cm/s MV Mean Gradient 3.0 mmHg Mitral E Point Velocity 104.0 cm/s Mitral A Point Velocity 103.0 cm/s Mitral E to A Ratio 1.0 MV PHT Velocity 130.0 cm/s MV Deceleration Jackson 779.0 cm/s MV Pressure Half Time 50.1 ms MV Area PHT 4.4 cm MV Deceleration Time 577.0 ms TR Peak Velocity 349.0 cm/s TR Peak Gradient 48.7 mmHg Right Atrial Pressure 10.0 mmHg Pulmonary Artery Systolic Pressure 58.7 mmHg Right Ventricular Systolic Pressure 58.7 mmHg PV Peak Velocity 81.3 cm/s PV Peak Gradient 2.6 mmHg PV Mean Velocity 57.8 cm/s PV Mean Gradient 2.0 mmHg PV Velocity Time Integral 17.2 cm LV E' Lateral Velocity 10.5 cm/s Mitral E to LV E' Lateral Ratio 9.9 LV E' Septal Velocity 8.5 cm/s Mitral E to LV E' Septal Ratio 12.3
[2018-01-25] VITALS: BP 98/50
[2018-01-25 06:30] LABS: ABSOLUTE BASOPHIL COUNT 0 /CUMM (0.0-0.2); ABSOLUTE EOSINOPHIL COUNT 0 /CUMM (0.0-0.7); ABSOLUTE GRANULOCYTE CT 13.3 /CUMM (1.4-6.5); ABSOLUTE LYMPH COUNT 0.6 /CUMM (1.2-3.4); ABSOLUTE MONOCYTE COUNT 0.7 /CUMM (0.10-0.60); BASOPHIL % 0 % (0.0-2.0); EOSINOPHIL % 0 % (0-5); MEAN CORPUSCULAR HGB 30.6 PG (27.0-31.0); MEAN CORPUSCULAR HGB CONC 32.8 G/DL (33.0-37.0); MEAN CORPUSCULAR VOLUME 93.1 FL (81.0-99.0); MEAN PLATELET VOLUME 9.4 FL (7.4-10.4); PLATELET COUNT 247 /CUMM (130-400); RBC DISTRIBUTION WIDTH 15.6 % (11.5-14.5); RED BLOOD CELL CT 3.44 /CUMM (4.20-5.40); WHITE BLOOD CELL COUNT 14.5 /CUMM (4.8-10.8)
[2018-01-25 06:45] LABS: PTT 105 SEC (25-37)
--- NOTE | 2018-01-25 06:53 | PN- Resident [facility] ---
Objective Vital Signs & I&O Last 8 Hrs of Vitals and I&O: Intake & Output 01/25 0800 Intake Total 404 Output Total 0 Balance 404 Intake, IV 404 Intake, Oral 0 Output, Urine 0
--- NOTE | 2018-01-25 06:54 | PN- Resident CRCU ---
Subjective HPI/CRCU Issues: 1.CAD s/p multiple caths and stenting, significant atherosclerotic burden 2. ESRD on dialysis M/W/F 3. Elevated troponin without EKG changes 4. Resistent HTN on multiple antihypertensives - now hypotensive 5. Aspirtion pneumonia 6. Colitis - intaractable nausea/vomiting 7. Secondary hyperparathyroidism 8. IDDM 9. anxiety/depression 24 Hour Events: Patient remained nauseous overnight, unable to eat. Chest pain-free, denies any lightheadedness dizziness. Undergoing dialysis at bedside. Objective Vital Signs & I&O Last 8 Hrs of Vitals and I&O: Vital Signs Date Time Temp Pulse Resp B/P B/P Pulse O2 O2 Flow FiO2 Mean Ox Delivery Rate 01/25 0949 94/46 01/25 0949 94/46 01/25 0949 9446 01/25 0000 97.8 102 24 98/50 95 Room Air Room Air 01/24 2059 163/77 01/24 2059 114 163/77 01/24 2000 98 Room Air 01/24 1600 98.4 108 20 160/82 96 Room Air 01/24 1600 98 Room Air 01/24 1200 97.6 102 20 138/76 97 Nasal 2.0L Cannula Intake & Output 01/25 1600 01/25 0800 01/25 0000 Intake Total 404 431.6 Output Total 0 0 Balance 404 431.6 Intake, IV 404 321.6 Intake, Oral 0 110 Output, Urine 0 0 Intake & Output 01/25 0800 Intake Total 404 Output Total 0 Balance 404 Intake, IV 404 Intake, Oral 0 Output, Urine 0 Exam General Appearance: well developed/nourished, alert, awake, comfortable, mild distress, obese Head: atraumatic, normal appearance Neck: normal inspection, supple Respiratory: normal breath sounds, chest non-tender, no respiratory distress, quiet respiration, lungs clear Cardiovascular: regular rate/rhythm, edema, normal peripheral pulses, tachycardia Gastrointestinal: normal bowel sounds, soft, non-tender Extremities: normal inspection, normal capillary refill, normal range of motion Cranial Nerves: normal hearing, normal speech, PERRL IV Drips IV Drips: Heparin Nutrition Nutrition: NPO Current Medications: Current Medications Sig/[place] Start time Last Medication Dose Route Stop Time Status Admin Aspirin 162 MG DAILY 01/24 0900 AC 01/24 PO 844 Atorvastatin Calcium 40 MG QPM 01/24 2100 AC 01/24 PO 2058 Bupropion HCl 150 MG QAM 01/24 0900 AC 01/24 PO 0846 Ceftriaxone Sodium 1,000 MG DAILY 01/24 0915 AC 01/24 IV 1603 Clonidine 1 PAT Q168 01/24 0900 AC 01/24 TOP 0845 Clopidogrel Bisulfate 75 MG DAILY 01/24 0900 AC 01/24 PO 0844 Diltiazem HCl 180 MG DAILY 01/24 0115 AC 01/24 PO 0150 Epoetin José 2,000 UNIT MoWeFr PRN 01/24 1100 AC IV Escitalopram Oxalate 10 MG DAILY 01/24 0900 AC 01/24 PO 0845 Heparin Sodium 0 .STK-MED ONE 01/24 1530 DC (Porcine) .ROUTE Heparin Sodium 25,000 UNIT Q24H 01/23 2130 AC 01/24 (Porcine) IV 2104 Sodium Chloride 500 ML Hydralazine HCl 100 MG TID 01/24 1400 AC 01/24 PO 2058 Insulin Aspart 0 TIDAC 01/24 1200 AC SC Labetalol HCl 400 MG BID 01/24 09 AC 01/24 PO 2058 Lidocaine 1 DEE APPLY TO SKIN 01/24 1100 CAN TOP Lidocaine/Prilocaine See Dose PER PROTOCL PRN 01/24 1115 AC Insts (1) TOP Linaclotide 145 MCG DAILY 01/24 09 AC PO Lisinopril 40 MG DAILY 01/24 09 AC 01/24 PO 843 Metoclopramide HCl 0 .STK-MED ONE 01/24 1953 DC .ROUTE Metoclopramide HCl 10 MG ONCE ONE 01/24 194 DC 01/24 IV 01/24 Metronidazole 500 MG IQ8 01/24 08 AC 01/25 N/A 1 UNIT IV 0947 Minoxidil 5 MG BID 01/24 0900 AC 01/24 PO 2058 Multivitamins 1 TAB DAILY 01/24 0900 AC 01/24 PO 0844 Nitroglycerin 0.5 GM Q6 01/24 2359 AC TOP Pantoprazole Sodium 40 MG DAILY 01/24 0045 AC 01/24 IV 1559 Paricalcitol 6 MCG MoWeFr PRN 01/24 1100 AC IV Promethazine HCl 12.5 MG Q6-PRN PRN 01/24 0815 AC 01/24 IV 01/31 0814 2340 Sevelamer Carbonate 800 MG TID 01/24 0900 AC 01/24 PO 1605 Trimethobenzamide HCl 200 MG Q12H PRN 01/24 1500 AC 01/25 IM 0353 Trimethobenzamide HCl 200 MG Q12H 01/24 0945 DC IM Dose Instructions: (1)Lidocaine/Prilocaine: APPLY Impression/Plan Impression/Problem List Impression: 52-year-old woman with multiple medical problems significant for an extensive cardiovascular h/o multiple cardiac catheterizations with percutaneous intervention and deployment of cardiac stents in the past 6 months on DAPT, ESRD on HD, obesity, hypertension, IDDM presents to [facility] with transient chest pain episode after retching, vomiting for the past few days. She recently travelled from [place] in a car for around 8hrs. She missed her dialysis yesterday and reports significant shortness of breath upon lying down. VS at presentation are afebrile, Pulse 112, BP 203/97mmHg, saturating well on RA. Physical exam did show edema of legs, heart normal S1, S2, lungs clear. Labs did show trop 2 --> 4.8--> 5.8, proBNP of 120,000, AG 19, bicarbonate of 20, BUN/Cr 50/8, GFR 5, negative D-Dimer. Imaging did show mild interstitial edema on CXR, CTA negative for PE but did show right sided infiltrate. CT abdomen and plevis did show mild colitis, rectal impaction, b/l nephrolithiasis. puctate liver calcifications consistent with granulomatous disease. Admitted to ICU and the following is a management Respiratory Aspiration pneumonia Patient had significant shortness of breath at presentation after nausea and vomiting. She might have aspirated. CT chest did show fluffy alveolar infiltrates throughout the right lung. we will cover with IV ceftriaxone for the 5 days. saturating well on 2L. * IV ceftriaxone - 2/5 days. Infectious Possible colitis Bloody stools prior to presenation, none after admission. we will monitor white count and await further bowel movements. Aspiration pneumonia On ceftriaxone. Cardiology CAD s/p multiple caths chest pain free. ACS protocol with IV heparin, aspirin 81mg, Plavix, high intensity statin, PRN nitroglycerine. she was on multiple antihypertensives which were continued as she had significantly elevated HTN at presentation. She did have significant atherosclerotic burden which is not amenable to PCI. ECHO did show high lateral wall hypokinesis. EF 60%. mild TR, MI. No plan for catheterization so far and it is not amenable to PCI. Hematology stable Metabolic ESRD on dialysis Missed dialysis, Underwent consequetive days dialysis for yesterday & today. we will continue her usual scheduel - M//. she is apparently dry per bedscaling and received around +600ml with dialysis given mild hypotension this morning. Secondary hyperparathyroidism continue procalcitriol IDDM continue insulin - levemir and short acting per blood sugars. Accuchecks. Carb consistent 1 diet. Alimentary Intaractable N/V with colitis rectal bleeding, nausea/retching, white count of [address] findings of thickening consistent with colitis. She was on linzess for possible constipation in the past. She did not have any bowel movements since admission. Guiac negative in ER. She continues to have significant nausea, limiting her food intake. Antiemetics. slowly progressing on diet. cotinue ceftriaxone and falgyl for now. ? diarrhea episode yesterday which was not documented, we will monitor for white count and bowel movements for now. Feed as tolerated. Neurology anxiety/depression continue bupropion, escitalopram DVT prophylaxis IV heparin CODE STATUS Full code Problem List: 1. Diabetes mellitus 2. Hypertensive urgency 3. Hypertension 4. GERD (gastroesophageal reflux disease) 5. CAD S/P percutaneous coronary angioplasty 6. Patient is full code 7. DVT prophylaxis 8. Depression 9. Troponin level elevated 10. ESRD (end stage renal disease) Pain Ratin Tomorrow's Labs & Rationales: cbc icu bundle Plan DVT/Prophylaxis: pharmacological
[2018-01-25 07:11] LABS: GRANULOCYTE % 91.4 % (42.2-75.2)
[2018-01-25 08:00] VITALS: BP 122/0
--- NOTE | 2018-01-25 09:14 | PN- CRCU ---
Subjective HPI/Critical Care Issues: The patient is awake and alert. She complains of ongoing nausea despite medications. Her blood pressure is better controlled however she is now in the high 90s. She denies any headache, visual disturbances, syncope, shortness of breath, or abdominal pain. She has no report of vomiting. Her chest pain has resolved. She is currently undergoing dialysis. Objective Current Medications: Current Medications Sig/[place] Start time Last Medication Dose Route Stop Time Status Admin Aspirin 162 MG DAILY 01/24 0900 AC 01/24 PO 0845 Atorvastatin Calcium 40 MG QPM 01/24 2100 AC 01/24 PO 2058 Bupropion HCl 150 MG QAM 01/24 0900 AC 01/24 PO 0846 Ceftriaxone Sodium 1,000 MG DAILY 01/24 0915 AC 01/24 IV 1603 Ciprofloxacin 400 MG Q12 01/24 0900 DC Dextrose/Water 200 ML IV Clonidine 1 PAT Q168 01/24 0900 AC 01/24 TOP 0845 Clopidogrel Bisulfate 75 MG DAILY 01/24 0900 AC 01/24 PO 08 Diltiazem HCl 180 MG DAILY 01/24 0115 AC 01/24 PO 0150 Epoetin José 2,000 UNIT MoWeFr PRN 01/24 1100 AC IV Escitalopram Oxalate 10 MG DAILY 01/24 0900 AC 01/24 PO 45 Gabapentin 100 MG TID 01/24 0900 DC PO Heparin Sodium 0 .STK-MED ONE 01/24 1530 DC (Porcine) .ROUTE Heparin Sodium 25,000 UNIT Q24H 01/23 2130 AC 01/24 (Porcine) IV 2104 Sodium Chloride 500 ML Hydralazine HCl 100 MG TID 01/24 1400 AC 01/24 PO 2058 Insulin Aspart 0 TIDAC 01/24 1200 AC SC Insulin Human Regular 0 Q6 01/24 0045 DC 01/24 SC 0641 Isosorbide Dinitrate 30 MG DAILY 01/24 0900 DC PO Labetalol HCl 400 MG BID 01/24 0900 AC 01/24 PO 2058 Lidocaine 1 DEE APPLY TO SKIN 01/24 1100 CAN TOP Lidocaine/Prilocaine See Dose PER PROTOCL PRN 01/24 1115 AC Insts (1) TOP Linaclotide 145 MCG DAILY 01/24 0900 AC PO Lisinopril 40 MG DAILY 01/24 0900 AC 01/24 PO 0844 Metoclopramide HCl 0 .STK-MED ONE 01/24 1953 DC .ROUTE Metoclopramide HCl 10 MG ONCE ONE 01/24 1945 DC 01/24 IV 01/24 Metronidazole 500 MG IQ8 01/24 08 AC 01/24 N/A 1 UNIT IV 2338 Minoxidil 5 MG BID 01/24 09 AC 01/24 PO 205 Multivitamins 1 TAB DAILY 01/24 09 AC 01/24 PO 0844 Nitroglycerin 0.5 GM Q6 01/24 2359 AC TOP Pantoprazole Sodium 40 MG DAILY 01/24 0045 AC 01/24 IV 1559 Paricalcitol 6 MCG MoWeFr PRN 01/24 1100 AC IV Promethazine HCl 12.5 MG Q6-PRN PRN 01/24 0815 AC 01/24 IV 01/31 814 2340 Sevelamer Carbonate 800 MG TID 01/24 09 AC 01/24 PO 1605 Trimethobenzamide HCl 200 MG Q12H PRN 01/24 1500 AC 01/25 IM 0353 Trimethobenzamide HCl 200 MG Q12H 01/24 0945 DC IM Dose Instructions: (1)Lidocaine/Prilocaine: APPLY Vital Signs & I&O Last 24 Hrs of Vitals and I&O: Vital Signs Date Time Temp Pulse Resp B/P B/P Pulse O2 O2 Flow FiO2 Mean Ox Delivery Rate 01/25 0000 97.8 102 24 98/50 95 Room Air Room Air 01/24 2059 163/77 01/24 2059 114 163/77 01/24 2000 98 Room Air 01/24 1600 98.4 108 20 160/82 96 Room Air 01/24 1600 98 Room Air 01/24 1200 97.6 102 20 138/76 97 Nasal 2.0L Cannula Intake & Output 01/25 1600 01/25 0801/25 0000 Intake Total 404 431.6 Output Total 0 0 Balance 404 431.6 Intake, IV 404 321.6 Intake, Oral 0 110 Output, Urine 0 0 Physical Exam General Appearance: no distress, alert, awake, comfortable Head: atraumatic, normal appearance Eyes: PERRL Neck: normal inspection, supple Respiratory: normal breath sounds, chest non-tender, no respiratory distress Cardiovascular: regular rate/rhythm, edema, normal peripheral pulses, tachycardia Gastrointestinal: normal bowel sounds, soft, non-tender Extremities: normal inspection, normal capillary refill, swelling Results Last 24 Hrs of Lab Results: Laboratory Tests 01/25/18 0600: Anion Gap 18 H, Estimated GFR 8 L, Glucose 217 H, Calcium 9.0, Phosphorus 4.9 H, Magnesium 1.9, Total Bilirubin 0.6, AST 31, ALT 18, Albumin 3.8, APTT 105 *H , CBC w Diff NO MAN DIFF REQ, RBC 3.44 L, MCV 93.1, MCH 30.6, MCHC 32.8 L, RDW 15.6 H, MPV 9.4, Gran % 91.4 H, Lymphocytes % 4.0 L, Monocytes % 4.6, Eosinophils % 0, Basophils % 0, Absolute Granulocytes 13.3 H, Absolute Lymphocytes 0.6 L, Absolute Monocytes 0.7 H, Absolute Eosinophils 0, Absolute Basophils 0, Acetone Level Pending 01/25/18 0002: Troponin I 5.27 *H 01/24/18 1756: Troponin I 5.83 *H, APTT 72 H 01/24/18 1137: Troponin I 5.72 *H, APTT 60 H, D-Dimer High Sensitivty < 200 01/24/18 1102: Potassium Cancelled Impression/Plan Impression/Plan Impression/Plan: 1. NSTEMI, history multiple caths and stenting. On IV heparin, aspirin, Plavix, high intensity statin, and as needed nitroglycerin. 2. ESRD on dialysis. Nephrology following. 3. Uncontrolled hypertension, now with hypotension which may be related to volume depletion. 4. History of HTN on multiple antihypertensives, now with hypertensive urgency. 5. Aspirtion pneumonia versus pneumonitis. 6. Ongoing nausea which may be related to gastroparesis. 7. Secondary hyperparathyroidism. 8. IDDM. 9. Anxiety/depression. 10. Colitis on CT scan, no diarrhea or bloody stools at present. Recommendations: * Patient discussed with cardiology, will make her n.p.o. in anticipation of possible cardiac catheterization. * Continue telemetry monitoring. * IV Protonix. * Start Reglan for possible gastroparesis. * Continue antiemetics. * Monitor CBC every 12 hours. * Guaiac stools and monitor for bleeding. * Continue heparin, aspirin, atorvastatin, Plavix and Cardizem. * Monitor blood pressure closely. Will hold antihypertensives. * If the patient has progressive hypotension, will give a 500 mL bolus as discussed with nephrology. * Dialysis as per nephrology. * Continue Accu-Cheks with sliding scale insulin. * Continue all supportive care. * Continue to monitor in the critical care unit.
--- NOTE | 2018-01-25 09:21 | PN- Nephrology ---
Assessment/Plan Nephrology Assessment: 1. End-stage renal disease. She was dialyzed yesterday. Her usual dialysis is in progress today. 2 coronary artery disease plans per cardiology. She was on dual antiplatelet therapy as an outpatient both on Plavix and aspirin. 3. Anemia continue with the Epogen 4. Secondary hyperparathyroidism. She was on Hectorol as an outpatient. We'll continue with Zemplar while in-house. 5. Hypertension. Her home medications per the dialysis unit was clonidine 0.3 mg per 24-hour , Diltiazem 180 mg daily, lisinopril 40 mg daily, I scissor by mononitrate 30 mg daily, labetalol 200 mg, 2 tabs by mouth twice a day 6. Coronary artery disease. Plans are ultimately for coronary angiography at [facility]. 7. Hyperlipidemia, her dose of atorvastatin was 40 mg per day Suggestion: 1. Next hemodialysis will be on Tuesday. She will receive 500 cc of fluid with dialysis today. 2. Await coronary angiography Subjective Subjective: Patient was slightly hypertensive at the beginning of dialysis. In addition, she is 4 kg below her stated dry. Keep in mind this is a bed scale. Objective Vital Signs and I&Os Vital Signs Date Time Temp Pulse Resp B/P B/P Pulse O2 O2 Flow FiO2 Mean Ox Delivery Rate 01/25 0000 97.8 102 24 98/50 95 Room Air Room Air 01/24 2059 163/77 01/24 2059 114 163/77 01/24 2000 98 Room Air 01/24 1600 98.4 108 20 160/82 96 Room Air 01/24 1600 98 Room Air 01/24 1200 97.6 102 20 138/76 97 Nasal 2.0L Cannula Intake & Output 01/25 0400 01/24 0400 01/23 0400 Intake Total 404 431.6 765 Output Total 0 0 1000 Balance 404 431.6 -235 Intake, IV 404 321.6 515 Intake, Oral 0 110 250 Number 0 Bowel Movements Output, 1000 Dialysate Output, Urine 0 0 0 Patient 187 lb Weight Weight Standing Scale Measurement Method Physical Exam: General Appearance: well developed/nourished, no apparent distress, alert, awake Head: atraumatic, normal appearance Ears, Nose, Throat: hearing grossly normal Neck: normal inspection, supple, trachea mid line Respiratory: normal breath sounds, chest non-tender, no respiratory distress, lungs clear Cardiovascular: regular rate/rhythm, gallop Gastrointestinal: normal bowel sounds, soft, non-tender, no organomegaly Back: no vertebral tenderness, No CVA tenderness Extremities: normal inspection, no edema Neurologic/Psych: no motor/sensory deficits, awake, alert, oriented x 3 Skin: intact, normal color, warm/dry Current Medications: Current Medications Sig/[place] Start time Last Medication Dose Route Stop Time Status Admin Aspirin 162 MG DAILY 01/24 09 AC 01/24 PO 45 Atorvastatin Calcium 40 MG QPM 01/24 2100 AC 01/24 PO 2058 Bupropion HCl 150 MG QAM 01/24 09 AC 01/24 PO 0846 Ceftriaxone Sodium 1,000 MG DAILY 01/24 0915 AC 01/24 IV 1603 Clonidine 1 PAT Q168 01/24 09 AC 01/24 TOP 0845 Clopidogrel Bisulfate 75 MG DAILY 01/24 09 AC 01/24 PO 08 Diltiazem HCl 180 MG DAILY 01/24 0115 AC 01/24 PO 0150 Epoetin José 2,000 UNIT MoWeFr PRN 01/24 1100 AC IV Escitalopram Oxalate 10 MG DAILY 01/24 09 AC 01/24 PO 844 Heparin Sodium 0 .STK-MED ONE 01/24 1530 DC (Porcine) .ROUTE Heparin Sodium 25,000 UNIT Q24H 01/23 2130 AC 01/24 (Porcine) IV 2104 Sodium Chloride 500 ML Hydralazine HCl 100 MG TID 01/24 1400 AC 01/24 PO 2058 Insulin Aspart 0 TIDAC 01/24 1200 AC SC Labetalol HCl 400 MG BID 01/24 09 AC 01/24 PO 2058 Lidocaine 1 DEE APPLY TO SKIN 01/24 1100 CAN TOP Lidocaine/Prilocaine See Dose PER PROTOCL PRN 01/24 1115 AC Insts (1) TOP Linaclotide 145 MCG DAILY 01/24 09 AC PO Lisinopril 40 MG DAILY 01/24 09 AC 01/24 PO 843 Metoclopramide HCl 0 .STK-MED ONE 01/24 1953 DC .ROUTE Metoclopramide HCl 10 MG ONCE ONE 01/24 1945 DC 01/24 IV 01/24 Metronidazole 500 MG IQ8 01/24 08 AC 01/24 N/A 1 UNIT IV 2338 Minoxidil 5 MG BID 01/24 900 AC 01/24 PO 205 Multivitamins 1 TAB DAILY 01/24 09 AC 01/24 PO 0844 Nitroglycerin 0.5 GM Q6 01/24 2359 AC TOP Pantoprazole Sodium 40 MG DAILY 01/24 0045 AC 01/24 IV 1559 Paricalcitol 6 MCG MoWeFr PRN 01/24 1100 AC IV Promethazine HCl 12.5 MG Q6-PRN PRN 01/24 0815 AC 01/24 IV 01/31 0814 2340 Sevelamer Carbonate 800 MG TID 01/24 09 AC 01/24 PO 1605 Trimethobenzamide HCl 200 MG Q12H PRN 01/24 1500 AC 01/25 IM 0353 Trimethobenzamide HCl 200 MG Q12H 01/24 0945 DC IM Dose Instructions: (1)Lidocaine/Prilocaine: APPLY Results Pertinent Lab Results: Laboratory Tests 01/25 01/25 01/25 0855 0600 0002 Chemistry Sodium (137 - 145 mmol/L) 137 Potassium (3.5 - 5.1 mmol/L) 4.5 Chloride (98 - 107 mmol/L) 101 Carbon Dioxide (22 - 30 mmol/L) 18 L Anion Gap (5 - 16) 18 H BUN (7 - 17 mg/dL) 34 H Creatinine (0.5 - 1.0 mg/dL) 5.6 *H Estimated GFR (>60 ml/min) 8 L Glucose (65 - 99 mg/dL) 217 H Calcium (8.4 - 10.2 mg/dL) 9.0 Phosphorus (2.5 - 4.5 mg/dL) 4.9 H Magnesium (1.6 - 2.3 mg/dL) 1.9 Total Bilirubin (0.2 - 1.3 mg/dL) 0.6 AST (14 - 36 U/L) 31 ALT (9 - 52 U/L) 18 Troponin I (< 0.11 ng/ml) 5.27 *H Albumin (3.5 - 5.0 g/dL) 3.8 Coagulation APTT (25 - 37 SEC) Pending 105 *H Hematology CBC w Diff NO MAN DIFF REQ WBC (4.8 - 10.8 /CUMM) 14.5 H RBC (4.20 - 5.40 /CUMM) 3.44 L Hgb (12.0 - 16.0 G/DL) 10.5 L Hct (37 - 47 %) 32.0 L MCV (81.0 - 99.0 FL) 93.1 MCH (27.0 - 31.0 PG) 30.6 MCHC (33.0 - 37.0 G/DL) 32.8 L RDW (11.5 - 14.5 %) 15.6 H Plt Count (130 - 400 /CUMM) 247 MPV (7.4 - 10.4 FL) 9.4 Gran % (42.2 - 75.2 %) 91.4 H Lymphocytes % (20.5 - 51.1 %) 4.0 L Monocytes % (1.7 - 9.3 %) 4.6 Eosinophils % (0 - 5 %) 0 Basophils % (0.0 - 2.0 %) 0 Absolute Granulocytes (1.4 - 6.5 /CUMM) 13.3 H Absolute Lymphocytes (1.2 - 3.4 /CUMM) 0.6 L Absolute Monocytes (0.10 - 0.60 /CUMM) 0.7 H Absolute Eosinophils (0.0 - 0.7 /CUMM) 0 Absolute Basophils (0.0 - 0.2 /CUMM) 0 Toxicology Acetone Level (NEGATIVE) Pending 01/24 01/24 01/24 01/24 1756 1137 1102 0818 Chemistry Potassium (3.5 - 5.1 mmol/L) 4.0 Cancelled Troponin I (< 0.11 ng/ml) 5.83 *H 5.72 *H Coagulation APTT (25 - 37 SEC) 72 H 60 H D-Dimer High Sensitivty (0 - 243 ng/ml) < 200 Cancelled 01/24 01/24 01/24 0758 0600 0400 Chemistry Sodium (137 - 145 mmol/L) 142 Potassium (3.5 - 5.1 mmol/L) 4.1 Chloride (98 - 107 mmol/L) 104 Carbon Dioxide (22 - 30 mmol/L) 20 L Anion Gap (5 - 16) 19 H BUN (7 - 17 mg/dL) 50 H Creatinine (0.5 - 1.0 mg/dL) 8.1 *H Estimated GFR (>60 ml/min) 5 L Glucose (65 - 99 mg/dL) 187 H Calcium (8.4 - 10.2 mg/dL) 9.5 Phosphorus (2.5 - 4.5 mg/dL) 4.3 Magnesium (1.6 - 2.3 mg/dL) 1.7 Total Bilirubin (0.2 - 1.3 mg/dL) 0.8 AST (14 - 36 U/L) 31 ALT (9 - 52 U/L) 18 Troponin I (< 0.11 ng/ml) 4.80 *H [id number] Pept (<125 pg/mL) [id number] H Albumin (3.5 - 5.0 g/dL) 4.5 TSH (0.270 - 4.200 uIU/mL) 0.291 Free T4 (0.64 - 1.79 ng/dL) 1.71 Coagulation PT (9.4 - 12.5 SEC) 11.9 INR (0.90 - 1.19) 1.09 APTT (25 - 37 SEC) 58 H D-Dimer High Sensitivty (0 - 243 ng/ml) < 200 Hematology CBC w Diff NO MAN DIFF REQ WBC (4.8 - 10.8 /CUMM) 21.6 H RBC (4.20 - 5.40 /CUMM) 3.98 L Hgb (12.0 - 16.0 G/DL) 12.3 Hct (37 - 47 %) 36.7 L MCV (81.0 - 99.0 FL) 92.3 MCH (27.0 - 31.0 PG) 30.9 MCHC (33.0 - 37.0 G/DL) 33.5 RDW (11.5 - 14.5 %) 15.1 H Plt Count (130 - 400 /CUMM) 309 MPV (7.4 - 10.4 FL) 9.4 Gran % (42.2 - 75.2 %) 96.6 H Lymphocytes % (20.5 - 51.1 %) 2.3 L Monocytes % (1.7 - 9.3 %) 1.1 L Eosinophils % (0 - 5 %) 0 Basophils % (0.0 - 2.0 %) 0 Absolute Granulocytes (1.4 - 6.5 /CUMM) 20.9 H Absolute Lymphocytes (1.2 - 3.4 /CUMM) 0.5 L Absolute Monocytes (0.10 - 0.60 /CUMM) 0.2 Absolute Eosinophils (0.0 - 0.7 /CUMM) 0 Absolute Basophils (0.0 - 0.2 /CUMM) 0 Toxicology Methadone Screen Cancelled Barbiturate Screen Cancelled Ur Phencyclidine Scrn Cancelled Amphetamines Screen Cancelled U Benzodiazepines Scrn Cancelled Urine Cocaine Screen Cancelled Urine Cannabis Screen Cancelled 01/24 01/23 0115 6355 Chemistry Sodium (137 - 145 mmol/L) 140 Potassium (3.5 - 5.1 mmol/L) 4.3 Chloride (98 - 107 mmol/L) 102 Carbon Dioxide (22 - 30 mmol/L) 21 L Anion Gap (5 - 16) 17 H BUN (7 - 17 mg/dL) 46 H Creatinine (0.5 - 1.0 mg/dL) 8.0 *H Estimated GFR (>60 ml/min) 5 L BUN/Creatinine Ratio (7 - 25 %) 5.8 L Glucose (65 - 99 mg/dL) 212 H Calcium (8.4 - 10.2 mg/dL) 9.9 Total Bilirubin (0.2 - 1.3 mg/dL) 0.6 AST (14 - 36 U/L) 26 ALT (9 - 52 U/L) 16 Alkaline Phosphatase (<127 U/L) 126 Troponin I (< 0.11 ng/ml) 4.26 *H 2.82 *H Total Protein (6.3 - 8.2 g/dL) 8.7 H Albumin (3.5 - 5.0 g/dL) 4.8 Globulin (1.9 - 4.2 gm/dL) 3.9 Albumin/Globulin Ratio (1.1 - 2.2 %) 1.2 Amylase (30 - 110 U/L) 74 Lipase (23 - 300 U/L) 110 Hematology CBC w Diff NO MAN DIFF REQ NO MAN DIFF REQ WBC (4.8 - 10.8 /CUMM) 19.9 H 14.8 H RBC (4.20 - 5.40 /CUMM) 3.82 L 4.20 Hgb (12.0 - 16.0 G/DL) 11.8 L 12.8 Hct (37 - 47 %) 35.5 L 39.4 MCV (81.0 - 99.0 FL) 93.1 93.7 MCH (27.0 - 31.0 PG) 30.8 30.5 MCHC (33.0 - 37.0 G/DL) 33.1 32.5 L RDW (11.5 - 14.5 %) 15.3 H 15.3 H Plt Count (130 - 400 /CUMM) 306 319 MPV (7.4 - 10.4 FL) 9.3 9.2 Gran % (42.2 - 75.2 %) 94.6 H 95.1 H Lymphocytes % (20.5 - 51.1 %) 2.0 L 3.1 L Monocytes % (1.7 - 9.3 %) 3.0 1.7 Eosinophils % (0 - 5 %) 0 0.1 Basophils % (0.0 - 2.0 %) 0.4 0 Absolute Granulocytes (1.4 - 6.5 /CUMM) 18.8 H 14.1 H Absolute Lymphocytes (1.2 - 3.4 /CUMM) 0.4 L 0.5 L Absolute Monocytes (0.10 - 0.60 /CUMM) 0.6 0.3 Absolute Eosinophils (0.0 - 0.7 /CUMM) 0 0 Absolute Basophils (0.0 - 0.2 /CUMM) 0.1 0
[2018-01-25 12:00] VITALS: BP 102/50
[2018-01-25 14:35] LABS: PTT 46 SEC (25-37)
[2018-01-25 16:00] VITALS: BP 130/70
--- NOTE | 2018-01-25 18:15 | PN- Cardiology ---
Subjective Subjective: * This patient complains of persistent nausea. No chest pain or shortness of breath. * cardiac enzymes are coming down. * WBC count elevation is coming down but has not yet normalized. Objective Vital Signs and I&Os Vital Signs Date Time Temp Pulse Resp B/P B/P Pulse O2 O2 Flow FiO2 Mean Ox Delivery Rate 01/25 1701 94/46 08/15 1506 94/46 / 1200 97.7 116 19 102/50 99 Room Air 01/25 0949 94/46 01/25 0800 97.9 120 16 122/0 100 Room Air 01/25 0000 97.8 102 24 98/50 95 Room Air Room Air 01/24 2059 163/77 01/24 2059 114 163/77 01/24 2000 98 Room Air Intake & Output 01/25 1600 01/25 0801/25 0000 01/24 1600 01/24 0800 01/24 0000 Intake Total 938 404 431.6 621 144 Output Total 0 0 0 1000 Balance 938 404 431.6 -379 144 Intake, 600 Dialysate Intake, IV 238 404 321.6 371 144 Intake, Oral 100 0 110 250 Number 0 Bowel Movements Output, 1000 Dialysate Output, Urine 0 0 0 0 Patient 180 lb 187 lb 188 lb Weight Weight Bed scale Standing Scale Measurement Method Physical Exam: General: WD/WN male in NAD; alert and oriented HEENT: NC/AT, PERRL, EOMI Neck: no JVD, no carotid bruit Heart: RRR w/o murmur Lungs: clear bilaterally Abdomen: soft, NT, +ve bowel sounds Extremities: 1+ bilateral leg edema Assessment/Plan Assessment/Plan * I reviewed Patience's cath films today. She has diagonal and LCX disease that is not amenable to percutaneous intervention or bypass. As such, she will be prone to demand ischemia and currently has a type 2 [place]. Severe hypertension will also exacerbate a supply demand mismatch. Her blood pressure is currently better controlled. * Patience report nausea as her most prominent complaint which may be related to a fecal impaction and colitis. Agree with Reglan and antiemetics and consider stool softeners and an enema. * Continue aspirin and Plavix and stop IV heparin. * Continue Labetolol 400mg BID, cardizem as previously prescribed, clonidine patch and hydralazine 100mg TID and Minoxidil 5mg BID. Continue telemetry? Yes
[2018-01-26] VITALS: BP 128/70
[2018-01-26 05:17] LABS: ABSOLUTE BASOPHIL COUNT 0 /CUMM (0.0-0.2); ABSOLUTE EOSINOPHIL COUNT 0 /CUMM (0.0-0.7); ABSOLUTE GRANULOCYTE CT 9.5 /CUMM (1.4-6.5); ABSOLUTE LYMPH COUNT 0.9 /CUMM (1.2-3.4); ABSOLUTE MONOCYTE COUNT 1.3 /CUMM (0.10-0.60); BASOPHIL % 0.3 % (0.0-2.0); EOSINOPHIL % 0.4 % (0-5); GRANULOCYTE % 80.4 % (42.2-75.2); HEMATOCRIT 28.1 % (37-47); MEAN CORPUSCULAR HGB CONC 33.2 G/DL (33.0-37.0); MEAN CORPUSCULAR VOLUME 93.4 FL (81.0-99.0); MEAN PLATELET VOLUME 9.4 FL (7.4-10.4); PLATELET COUNT 241 /CUMM (130-400); RBC DISTRIBUTION WIDTH 15.5 % (11.5-14.5); RED BLOOD CELL CT 3.02 /CUMM (4.20-5.40); WHITE BLOOD CELL COUNT 11.9 /CUMM (4.8-10.8)
--- NOTE | 2018-01-26 06:33 | PN- Resident CRCU ---
Subjective HPI/CRCU Issues: 1.CAD s/p multiple caths and stenting, significant atherosclerotic burden 2. ESRD on dialysis M/W/F 3. Type II AL 4. Resistent HTN on multiple antihypertensives 5. Aspirtion pneumonia 6. Colitis - intaractable nausea/vomiting 7. Secondary hyperparathyroidism 8. IDDM 9. anxiety/depression 24 Hour Events: Remains stable over night. chest pain free. Reports improvement in her nausea. Objective Vital Signs & I&O Last 8 Hrs of Vitals and I&O: Vital Signs Date Time Temp Pulse Resp B/P B/P Pulse O2 O2 Flow FiO2 Mean Ox Delivery Rate 01/26 0830 99 124/66 01/26 0830 98 124/60 01/26 0400 98 Room Air 01/26 0000 98 Room Air 01/26 0000 98.8 06 28 128/70 98 Room Air 01/25 2222 104 118/62 01/25 2110 106 114/60 08/15 1701 94/46 08/15 1600 97.8 106 22 130/70 97 Room Air 01/25 1506 94/46 /15 1200 97.7 116 19 102/50 99 Room Air Intake & Output 01/26 1600 08/16 0800 /16 0000 Intake Total 50 280 Output Total 300 Balance 50 -20 Intake, IV 260 Intake, Oral 50 20 Number 0 Bowel Movements Output, Urine 300 Patient 81.817 kg Weight Intake & Output 01/26 0800 Intake Total 50 Output Total Balance 50 Intake, Oral 50 Exam General Appearance: well developed/nourished, alert, awake, comfortable, mild distress Head: atraumatic, normal appearance Ears, Nose, Throat: normal pharynx Neck: normal inspection, supple Respiratory: normal breath sounds, chest non-tender, no respiratory distress, quiet respiration Cardiovascular: regular rate/rhythm, normal peripheral pulses, tachycardia Gastrointestinal: normal bowel sounds, soft, non-tender Extremities: normal inspection, normal capillary refill, normal range of motion Cranial Nerves: normal hearing, normal speech, PERRL Skin: intact, normal color, warm/dry Skin Temp/Moisture Exam: Warm/Dry Sepsis Skin Exam (color): Normal for Ethnicity IV Drips IV Drips: none Nutrition Nutrition: heart healthy diet Current Medications: Current Medications Sig/[place] Start time Last Medication Dose Route Stop Time Status Admin Aspirin 162 MG DAILY 01/24 0900 AC 01/26 PO 0829 Atorvastatin Calcium 40 MG QPM 01/24 2100 AC 01/25 PO 2111 Bisacodyl 0 .STK-MED ONE 01/25 2109 DC DE Bisacodyl 10 MG ONCE ONE 01/25 1830 DC 01/25 DE 01/25 1831 2108 Bupropion HCl 150 MG QAM 01/24 0900 AC 01/26 PO 0831 Ceftriaxone Sodium 1,000 MG DAILY 01/24 0915 AC 01/26 IV 0829 Clonidine 1 PAT Q168 01/24 0900 AC 01/24 TOP 0845 Clopidogrel Bisulfate 75 MG DAILY 01/24 0900 AC 01/26 PO 0829 Diltiazem HCl 180 MG DAILY 01/24 0115 AC 01/26 PO 0831 Epoetin José 2,000 UNIT MoWeFr PRN 01/24 1100 AC IV Escitalopram Oxalate 10 MG DAILY 01/24 0900 AC 01/26 PO 0829 Heparin Sodium 2,500 UNIT ONCE ONE 01/25 1530 DC 01/25 (Porcine) IV 01/25 1531 1527 Heparin Sodium 0 .STK-MED ONE 01/25 1524 DC (Porcine) .ROUTE Heparin Sodium 25,000 UNIT Q24H 01/23 2130 DC 01/24 (Porcine) IV 2104 Sodium Chloride 500 ML Hydralazine HCl 100 MG TID 01/24 1400 AC 01/26 PO 0830 Insulin Aspart 0 TIDAC 01/24 1200 AC SC Labetalol HCl 400 MG BID 01/24 0900 AC 01/26 PO 0830 Lidocaine/Prilocaine See Dose PER PROTOCL PRN 01/24 1115 AC Insts (1) TOP Linaclotide 145 MCG DAILY 01/24 0900 AC 01/26 PO 0831 Lisinopril 40 MG DAILY 01/24 0900 AC 01/25 PO 1701 Metoclopramide HCl 10 MG Q6P PRN 01/25 1400 AC 01/26 IV 0450 Metronidazole 500 MG IQ8 01/24 0800 AC 01/26 N/A 1 UNIT IV 0829 Minoxidil 5 MG BID 01/24 0900 AC 01/26 PO 0830 Multivitamins 1 TAB DAILY 01/24 0900 AC 01/26 PO 0832 Nitroglycerin 0.5 GM Q6 PRN 01/25 1836 AC TOP Nitroglycerin 0.5 GM Q6 01/24 2359 DC 01/25 TOP 1737 Pantoprazole Sodium 40 MG DAILY 01/24 0045 AC 01/26 IV 0831 Paricalcitol 6 MCG MoWeFr PRN 01/24 1100 AC IV Prochlorperazine 10 MG Q6P PRN 01/25 1615 AC 01/25 IV 2024 Promethazine HCl 12.5 MG Q6-PRN PRN 01/24 0815 DC 01/25 IV 01/31 0814 1236 Sevelamer Carbonate 800 MG TID 01/24 0900 AC 01/26 PO 0829 Sodium Phosphate 1 UNIT ONCE PRN 01/25 1845 AC DE Trimethobenzamide HCl 200 MG Q12H PRN 01/24 1500 AC 01/26 IM 0857 Dose Instructions: (1)Lidocaine/Prilocaine: APPLY Impression/Plan Impression/Problem List Impression: Patient is a 52-year-old woman with multiple medical problems significant for an extensive cardiovascular h/o multiple cardiac catheterizations with percutaneous intervention and deployment of cardiac stents in the past 6 months on DAPT, ESRD on HD, obesity, hypertension, IDDM presents to [facility] with transient chest pain episode after retching, vomiting for the past few days. She recently travelled from [place] in a car for around 8hrs. She missed her dialysis yesterday and reports significant shortness of breath upon lying down. VS at presentation are afebrile, Pulse 112, BP 203/97mmHg, saturating well on RA. Physical exam did show edema of legs, heart normal S1, S2, lungs clear. Labs did show trop 2 --> 4.8--> 5.8, proBNP of 120,000, AG 19, bicarbonate of 20, BUN/Cr 50/8, GFR 5, negative D-Dimer. Imaging did show mild interstitial edema on CXR, CTA negative for PE but did show right sided infiltrate. CT abdomen and plevis did show mild colitis, rectal impaction, b/l nephrolithiasis. puctate liver calcifications consistent with granulomatous disease. Admitted to ICU and the following is a management Respiratory Aspiration pneumonia Patient had significant shortness of breath at presentation after nausea and vomiting. She might have aspirated. CT chest did show fluffy alveolar infiltrates throughout the right lung. we will cover with IV ceftriaxone for the 5 days. repeat CXR did show improvement today. so we will continue IV ceftriaxone - 3/5 days. Infectious Possible colitis Bloody stools prior to presenation, none after admission. we will monitor white count and await further bowel movements. Aspiration pneumonia On ceftriaxone. Cardiology CAD s/p multiple caths chest pain free. ACS protocol with IV heparin , aspirin 81mg, Plavix, high intensity statin, PRN nitroglycerine. she was on multiple antihypertensives which were continued as she had significantly elevated HTN at presentation. She did have significant atherosclerotic burden which is not amenable to PCI. ECHO did show high lateral wall hypokinesis. EF 60%. mild TR, DE. No plan for catheterization so far and it is not amenable to PCI. IV heparin stopped on 01/26. Hematology stable Metabolic ESRD on dialysis Missed dialysis, Underwent consequetive days dialysis for 2 days. we will continue her usual scheduel - M/W/. Back to normal schedule. Next schedule tuesday. Secondary hyperparathyroidism continue procalcitriol IDDM continue insulin - levemir and short acting per blood sugars. Accuchecks. Carb consistent 1 diet. Alimentary Intaractable N/V with colitis rectal bleeding, nausea/retching, white count of [address] findings of thickening consistent with colitis. She was on linzess for possible constipation in the past. She did not have any bowel movements since admission. Guiac negative in ER. She continues to have significant nausea, limiting her food intake. Antiemetics. slowly progressing on diet. cotinue ceftriaxone and falgyl for now. ? diarrhea episode yesterday which was not documented, we will monitor for white count and bowel movements for now. Feed as tolerated. Neurology anxiety/depression continue bupropion, escitalopram DVT prophylaxis SC heparin CODE STATUS Full code Problem List: 1. Generalized weakness 2. Chest pain 3. ESRD (end stage renal disease) 4. ACS (acute coronary syndrome) 5. Hypertension 6. Hypertensive urgency Pain Ratin Tomorrow's Labs & Rationales: cbc icu bundle Plan DVT/Prophylaxis: pharmacological
[2018-01-26 08:00] VITALS: BP 144/60
--- NOTE | 2018-01-26 10:13 | PN- CRCU ---
Subjective HPI/Critical Care Issues: The patient is awake and alert. She reports feeling improved overall. She continues to have nausea as a concern. There were no overnight events reported. Objective Current Medications: Current Medications Sig/[place] Start time Last Medication Dose Route Stop Time Status Admin Aspirin 162 MG DAILY 01/24 0900 AC 01/26 PO 0829 Atorvastatin Calcium 40 MG QPM 01/24 2100 AC 01/25 PO 2111 Bisacodyl 0 .STK-MED ONE 01/25 2109 DC GA Bisacodyl 10 MG ONCE ONE 01/25 1830 DC 01/25 GA 01/25 1831 2108 Bupropion HCl 150 MG QAM 01/24 0900 AC 01/26 PO 0831 Ceftriaxone Sodium 1,000 MG DAILY 01/24 0915 AC 01/26 IV 0829 Clonidine 1 PAT Q168 01/24 09 AC 01/24 TOP 0845 Clopidogrel Bisulfate 75 MG DAILY 01/24 0900 AC 01/26 PO 0829 Diltiazem HCl 180 MG DAILY 01/24 0115 AC 01/26 PO 0831 Epoetin José 2,000 UNIT MoWeFr PRN 01/24 1100 AC IV Escitalopram Oxalate 10 MG DAILY 01/24 0900 AC 01/26 PO 0829 Heparin Sodium 2,500 UNIT ONCE ONE 01/25 1530 DC 01/25 (Porcine) IV 01/25 1531 1527 Heparin Sodium 0 .STK-MED ONE 01/25 1524 DC (Porcine) .ROUTE Heparin Sodium 25,000 UNIT Q24H 01/23 2130 DC 01/24 (Porcine) IV 2104 Sodium Chloride 500 ML Hydralazine HCl 100 MG TID 01/24 1400 AC 01/26 PO 0830 Insulin Aspart 0 TIDAC 01/24 1200 AC SC Labetalol HCl 400 MG BID 01/24 0900 AC 01/26 PO 0830 Lidocaine/Prilocaine See Dose PER PROTOCL PRN 01/24 1115 AC Insts (1) TOP Linaclotide 145 MCG DAILY 01/24 09 AC 01/26 PO 0831 Lisinopril 40 MG DAILY 01/24 0900 AC 01/25 PO 1701 Metoclopramide HCl 10 MG Q6P PRN 01/25 1400 AC 01/26 IV 0450 Metronidazole 500 MG IQ8 01/24 08 AC 01/26 N/A 1 UNIT IV 0829 Minoxidil 5 MG BID 01/24 0900 AC 01/26 PO 0830 Multivitamins 1 TAB DAILY 01/24 0900 AC 01/26 PO 0832 Nitroglycerin 0.5 GM Q6 PRN 01/25 1836 AC TOP Nitroglycerin 0.5 GM Q6 01/24 2359 DC 01/25 TOP 1737 Pantoprazole Sodium 40 MG DAILY 01/24 0045 AC 01/26 IV 0831 Paricalcitol 6 MCG MoWeFr PRN 01/24 1100 AC IV Prochlorperazine 10 MG Q6P PRN 01/25 1615 AC 01/25 IV 2024 Promethazine HCl 12.5 MG Q6-PRN PRN 01/24 0815 DC 01/25 IV 01/31 0814 1236 Sevelamer Carbonate 800 MG TID 01/24 09 AC 01/26 PO 0829 Sodium Phosphate 1 UNIT ONCE PRN 01/25 1845 AC GA Trimethobenzamide HCl 200 MG Q12H PRN 01/24 1500 AC 01/26 IM 0857 Dose Instructions: (1)Lidocaine/Prilocaine: APPLY Vital Signs & I&O Last 24 Hrs of Vitals and I&O: Vital Signs Date Time Temp Pulse Resp B/P B/P Pulse O2 O2 Flow FiO2 Mean Ox Delivery Rate 01/26 0830 99 124/66 01/26 0830 98 124/60 01/26 0400 98 Room Air 01/26 0000 98 Room Air 01/26 0000 98.8 06 28 128/70 98 Room Air 01/25 2222 104 118/62 01/25 2110 106 114/60 01/25 1701 94/46 01/25 1600 97.8 106 22 130/70 97 Room Air 01/25 1506 94/46 01/25 1200 97.7 116 19 102/50 99 Room Air Intake & Output 01/26 1600 01/26 0800 01/26 0000 Intake Total 50 280 Output Total 300 Balance 50 -20 Intake, IV 260 Intake, Oral 50 20 Number 0 Bowel Movements Output, Urine 300 Patient 180 lb Weight Physical Exam General Appearance: no distress, alert, awake, comfortable Head: atraumatic, normal appearance Eyes: PERRL Neck: normal inspection, supple Respiratory: normal breath sounds, chest non-tender, no respiratory distress Cardiovascular: regular rate/rhythm, edema, normal peripheral pulses, tachycardia Gastrointestinal: normal bowel sounds, soft, non-tender Extremities: normal inspection, normal capillary refill, swelling Results Last 24 Hrs of Lab Results: Laboratory Tests 01/26/18 0435: Anion Gap 13, Estimated GFR 10 L, Glucose 143 H, Calcium 8.5, Phosphorus 4.0, Magnesium 1.8, Total Bilirubin 0.5, AST 36, ALT 25, Albumin 3.3 L, CBC w Diff NO MAN DIFF REQ, RBC 3.02 L, MCV 93.4, MCH 31.0, MCHC 33.2, RDW 15.5 H, MPV 9.4, Gran % 80.4 H, Lymphocytes % 7.9 L, Monocytes % 11.0 H, Eosinophils % 0.4, Basophils % 0.3, Absolute Granulocytes 9.5 H, Absolute Lymphocytes 0.9 L, Absolute Monocytes 1.3 H, Absolute Eosinophils 0, Absolute Basophils 0 01/25/18 2100: APTT Cancelled 01/25/18 1320: APTT 46 H 01/25/18 1219: APTT Cancelled Impression/Plan Impression/Plan Impression/Plan: 1. NSTEMI, history multiple caths and stenting. On IV heparin, aspirin, Plavix, high intensity statin, and as needed nitroglycerin. 2. ESRD on dialysis. Nephrology following. 3. Uncontrolled hypertension, now with hypotension which may be related to volume depletion. 4. History of HTN on multiple antihypertensives, now with hypertensive urgency. 5. Aspirtion pneumonia versus pneumonitis. 6. Ongoing nausea which may be related to gastroparesis. 7. Secondary hyperparathyroidism. 8. IDDM. 9. Anxiety/depression. 10. Colitis on CT scan, no diarrhea or bloody stools at present. Recommendations: * Continue telemetry monitoring. * IV Protonix. * Continue Reglan. * Continue antiemetics. * Monitor CBC every 12 hours. * Guaiac stools and monitor for bleeding. * Continue heparin, aspirin, atorvastatin, Plavix and Cardizem. * Monitor blood pressure closely. Will hold antihypertensives. * If the patient has progressive hypotension, will give a 500 mL bolus as discussed with nephrology. * Dialysis as per nephrology. * Continue Accu-Cheks with sliding scale insulin. * Continue all supportive care. * Transfer to telemetry if ok with cardiology.
--- NOTE | 2018-01-26 14:32 | PN- Nephrology ---
Assessment/Plan Nephrology Assessment: 1. End-stage renal disease. She was dialyzed yesterday. Her next dialysis is tomorrow 2 coronary artery disease plans per cardiology. She was on dual antiplatelet therapy as an outpatient both on Plavix and aspirin. Dr. Mccormack's note appreciated. 3. Anemia continue with the Epogen 4. Secondary hyperparathyroidism. She was on Hectorol as an outpatient. We'll continue with Zemplar while in-house. 5. Hypertension. Of interest, she was 4 kg below her previously stated dry yesterday. She was actually given 500 mL of saline with treatment. It may be helpful to obtain a PA and lateral chest to assess as to any signs of CHF. 6. Hyperlipidemia, her dose of atorvastatin was 40 mg per day Suggestion: 1. We'll plan on hemodialysis again tomorrow. 2. Continue with Epogen Subjective Subjective: Patient feels well sitting up in a chair actually a recliner. If the bed scales are to be believed, she is 4 kg below her estimated dry. Objective Vital Signs and I&Os Vital Signs Date Time Temp Pulse Resp B/P B/P Pulse O2 O2 Flow FiO2 Mean Ox Delivery Rate 01/26 0830 99 124/66 01/26 0830 98 124/60 01/26 0400 98 Room Air 01/26 0000 98 Room Air 01/26 0000 98.8 06 28 128/70 98 Room Air 01/25 2222 104 118/62 01/25 2110 106 114/60 /15 1701 94/46 /15 1600 97.8 106 22 130/70 97 Room Air 01/25 1506 94/46 Intake & Output 01/26 1600 01/26 0400 01/25 1600 01/25 0400 01/24 1600 01/24 0400 Intake Total 50 280 1342 431.6 765 Output Total 300 0 0 1000 Balance 50 -20 1342 431.6 -235 Intake, 600 Dialysate Intake, IV 260 642 321.6 515 Intake, Oral 50 20 100 110 250 Number 0 0 Bowel Movements Output, 1000 Dialysate Output, Urine 300 0 0 0 Patient 180 lb 180 lb 187 lb Weight Weight Bed scale Standing Scale Measurement Method Physical Exam: General Appearance: well developed/nourished, no apparent distress, alert, awake Head: atraumatic, normal appearance Ears, Nose, Throat: hearing grossly normal Neck: normal inspection, supple, trachea mid line Respiratory: normal breath sounds anteriorly, no respiratory distress, lungs clear Cardiovascular: regular rate/rhythm, gallop Gastrointestinal: normal bowel sounds, soft, non-tender, no organomegaly Extremities: normal inspection, no edema Neurologic/Psych: no motor/sensory deficits, awake, alert, oriented x 3 Skin: intact, normal color, warm/dry Current Medications: Current Medications Sig/[place] Start time Last Medication Dose Route Stop Time Status Admin Aspirin 162 MG DAILY 01/24 0900 AC 01/26 PO 08 Atorvastatin Calcium 40 MG QPM 01/24 2100 AC 01/25 PO 2111 Bisacodyl 0 .STK-MED ONE 01/25 2109 DC SD Bisacodyl 10 MG ONCE ONE 01/25 1830 DC 01/25 SD 01/25 1831 2108 Bupropion HCl 150 MG QAM 01/24 0900 AC 01/26 PO 0831 Ceftriaxone Sodium 1,000 MG DAILY 01/24 0915 AC 01/26 IV 0829 Clonidine 1 PAT Q168 01/24 0900 AC 01/24 TOP 0845 Clopidogrel Bisulfate 75 MG DAILY 01/24 09 AC 01/26 PO 0829 Diltiazem HCl 180 MG DAILY 01/24 0115 AC 01/26 PO 0831 Epoetin José 2,000 UNIT MoWeFr PRN 01/24 1100 AC IV Escitalopram Oxalate 10 MG DAILY 01/24 0900 AC 01/26 PO 0829 Heparin Sodium 2,500 UNIT ONCE ONE 01/25 1530 DC 01/25 (Porcine) IV 01/25 1531 1527 Heparin Sodium 0 .STK-MED ONE 01/25 1524 DC (Porcine) .ROUTE Heparin Sodium 25,000 UNIT Q24H 01/23 2130 DC 01/24 (Porcine) IV 2104 Sodium Chloride 500 ML Hydralazine HCl 100 MG TID 01/24 1400 AC 01/26 PO 0830 Insulin Aspart 0 TIDAC 01/24 1200 AC SC Labetalol HCl 400 MG BID 01/24 0900 AC 01/26 PO 0830 Lidocaine/Prilocaine See Dose PER PROTOCL PRN 01/24 1115 AC Insts (1) TOP Linaclotide 145 MCG DAILY 01/24 0900 AC 01/26 PO 0831 Lisinopril 40 MG DAILY 01/24 0900 AC 01/25 PO 1701 Metoclopramide HCl 10 MG Q6P PRN 01/25 1400 AC 01/26 IV 0450 Metronidazole 500 MG IQ8 01/24 0800 AC 01/26 N/A 1 UNIT IV 0829 Minoxidil 5 MG BID 01/24 0900 AC 01/26 PO 0830 Multivitamins 1 TAB DAILY 01/24 0900 AC 01/26 PO 0832 Nitroglycerin 0.5 GM Q6 PRN 01/25 1836 AC TOP Nitroglycerin 0.5 GM Q6 01/24 2359 DC 01/25 TOP 1737 Pantoprazole Sodium 40 MG DAILY 01/24 0045 AC 01/26 IV 0831 Paricalcitol 6 MCG MoWeFr PRN 01/24 1100 AC IV Prochlorperazine 10 MG Q6P PRN 01/25 1615 AC 01/25 IV 2024 Sevelamer Carbonate 800 MG TID 01/24 0900 AC 01/26 PO 0829 Sodium Phosphate 1 UNIT ONCE ONE 01/26 1145 CAN SD 01/26 1146 Sodium Phosphate 1 UNIT ONCE PRN 01/25 1845 DC SD Trimethobenzamide HCl 200 MG Q12H PRN 01/24 1500 AC 01/26 IM 0857 Dose Instructions: (1)Lidocaine/Prilocaine: APPLY Results Pertinent Lab Results: Laboratory Tests 01/26 01/25 01/25 0435 2100 1320 Chemistry Sodium (137 - 145 mmol/L) 139 Potassium (3.5 - 5.1 mmol/L) 3.5 Chloride (98 - 107 mmol/L) 99 Carbon Dioxide (22 - 30 mmol/L) 26 Anion Gap (5 - 16) 13 BUN (7 - 17 mg/dL) 27 H Creatinine (0.5 - 1.0 mg/dL) 4.6 H Estimated GFR (>60 ml/min) 10 L Glucose (65 - 99 mg/dL) 143 H Calcium (8.4 - 10.2 mg/dL) 8.5 Phosphorus (2.5 - 4.5 mg/dL) 4.0 Magnesium (1.6 - 2.3 mg/dL) 1.8 Total Bilirubin (0.2 - 1.3 mg/dL) 0.5 AST (14 - 36 U/L) 36 ALT (9 - 52 U/L) 25 Albumin (3.5 - 5.0 g/dL) 3.3 L Coagulation APTT (25 - 37 SEC) Cancelled 46 H Hematology CBC w Diff NO MAN DIFF REQ WBC (4.8 - 10.8 /CUMM) 11.9 H RBC (4.20 - 5.40 /CUMM) 3.02 L Hgb (12.0 - 16.0 G/DL) 9.4 L Hct (37 - 47 %) 28.1 L MCV (81.0 - 99.0 FL) 93.4 MCH (27.0 - 31.0 PG) 31.0 MCHC (33.0 - 37.0 G/DL) 33.2 RDW (11.5 - 14.5 %) 15.5 H Plt Count (130 - 400 /CUMM) 241 MPV (7.4 - 10.4 FL) 9.4 Gran % (42.2 - 75.2 %) 80.4 H Lymphocytes % (20.5 - 51.1 %) 7.9 L Monocytes % (1.7 - 9.3 %) 11.0 H Eosinophils % (0 - 5 %) 0.4 Basophils % (0.0 - 2.0 %) 0.3 Absolute Granulocytes (1.4 - 6.5 /CUMM) 9.5 H Absolute Lymphocytes (1.2 - 3.4 /CUMM) 0.9 L Absolute Monocytes (0.10 - 0.60 /CUMM) 1.3 H Absolute Eosinophils (0.0 - 0.7 /CUMM) 0 Absolute Basophils (0.0 - 0.2 /CUMM) 0 01/25 01/25 1219 0855 Coagulation APTT Cancelled Toxicology Acetone Level (NEGATIVE) POSITIVE AT 1:4 DIL 01/25 01/25 0600 0002 Chemistry Sodium (137 - 145 mmol/L) 137 Potassium (3.5 - 5.1 mmol/L) 4.5 Chloride (98 - 107 mmol/L) 101 Carbon Dioxide (22 - 30 mmol/L) 18 L Anion Gap (5 - 16) 18 H BUN (7 - 17 mg/dL) 34 H Creatinine (0.5 - 1.0 mg/dL) 5.6 *H Estimated GFR (>60 ml/min) 8 L Glucose (65 - 99 mg/dL) 217 H Calcium (8.4 - 10.2 mg/dL) 9.0 Phosphorus (2.5 - 4.5 mg/dL) 4.9 H Magnesium (1.6 - 2.3 mg/dL) 1.9 Total Bilirubin (0.2 - 1.3 mg/dL) 0.6 AST (14 - 36 U/L) 31 ALT (9 - 52 U/L) 18 Troponin I (< 0.11 ng/ml) 5.27 *H Albumin (3.5 - 5.0 g/dL) 3.8 Coagulation APTT (25 - 37 SEC) 105 *H Hematology CBC w Diff NO MAN DIFF REQ WBC (4.8 - 10.8 /CUMM) 14.5 H RBC (4.20 - 5.40 /CUMM) 3.44 L Hgb (12.0 - 16.0 G/DL) 10.5 L Hct (37 - 47 %) 32.0 L MCV (81.0 - 99.0 FL) 93.1 MCH (27.0 - 31.0 PG) 30.6 MCHC (33.0 - 37.0 G/DL) 32.8 L RDW (11.5 - 14.5 %) 15.6 H Plt Count (130 - 400 /CUMM) 247 MPV (7.4 - 10.4 FL) 9.4 Gran % (42.2 - 75.2 %) 91.4 H Lymphocytes % (20.5 - 51.1 %) 4.0 L Monocytes % (1.7 - 9.3 %) 4.6 Eosinophils % (0 - 5 %) 0 Basophils % (0.0 - 2.0 %) 0 Absolute Granulocytes (1.4 - 6.5 /CUMM) 13.3 H Absolute Lymphocytes (1.2 - 3.4 /CUMM) 0.6 L Absolute Monocytes (0.10 - 0.60 /CUMM) 0.7 H Absolute Eosinophils (0.0 - 0.7 /CUMM) 0 Absolute Basophils (0.0 - 0.2 /CUMM) 0 Toxicology Acetone Level (NEGATIVE) POSITIVE : UNDILUTED 01/24 01/24 01/24 01/24 6366 1137 1102 1000 Chemistry Potassium (3.5 - 5.1 mmol/L) 4.0 Cancelled Troponin I (< 0.11 ng/ml) 5.83 *H 5.72 *H Coagulation APTT (25 - 37 SEC) 72 H 60 H D-Dimer High Sensitivty (0 - 243 ng/ml) < 200 Toxicology Methadone Screen Cancelled Barbiturate Screen Cancelled Ur Phencyclidine Scrn Cancelled Amphetamines Screen Cancelled U Benzodiazepines Scrn Cancelled Urine Cocaine Screen Cancelled Urine Cannabis Screen Cancelled 01/24 01/24 01/24 0818 0758 0600 Chemistry Troponin I (< 0.11 ng/ml) 4.80 *H Coagulation D-Dimer High Sensitivty Cancelled Toxicology Methadone Screen Cancelled Barbiturate Screen Cancelled Ur Phencyclidine Scrn Cancelled Amphetamines Screen Cancelled U Benzodiazepines Scrn Cancelled Urine Cocaine Screen Cancelled Urine Cannabis Screen Cancelled 01/24 01/24 0400 0115 Chemistry Sodium (137 - 145 mmol/L) 142 Potassium (3.5 - 5.1 mmol/L) 4.1 Chloride (98 - 107 mmol/L) 104 Carbon Dioxide (22 - 30 mmol/L) 20 L Anion Gap (5 - 16) 19 H BUN (7 - 17 mg/dL) 50 H Creatinine (0.5 - 1.0 mg/dL) 8.1 *H Estimated GFR (>60 ml/min) 5 L Glucose (65 - 99 mg/dL) 187 H Calcium (8.4 - 10.2 mg/dL) 9.5 Phosphorus (2.5 - 4.5 mg/dL) 4.3 Magnesium (1.6 - 2.3 mg/dL) 1.7 Total Bilirubin (0.2 - 1.3 mg/dL) 0.8 AST (14 - 36 U/L) 31 ALT (9 - 52 U/L) 18 Troponin I (< 0.11 ng/ml) 4.26 *H [id number] Pept (<125 pg/mL) 085389 H Albumin (3.5 - 5.0 g/dL) 4.5 TSH (0.270 - 4.200 uIU/mL) 0.291 Free T4 (0.64 - 1.79 ng/dL) 1.71 Coagulation PT (9.4 - 12.5 SEC) 11.9 INR (0.90 - 1.19) 1.09 APTT (25 - 37 SEC) 58 H D-Dimer High Sensitivty (0 - 243 ng/ml) < 200 Hematology CBC w Diff NO MAN DIFF REQ NO MAN DIFF REQ WBC (4.8 - 10.8 /CUMM) 21.6 H 19.9 H RBC (4.20 - 5.40 /CUMM) 3.98 L 3.82 L Hgb (12.0 - 16.0 G/DL) 12.3 11.8 L Hct (37 - 47 %) 36.7 L 35.5 L MCV (81.0 - 99.0 FL) 92.3 93.1 MCH (27.0 - 31.0 PG) 30.9 30.8 MCHC (33.0 - 37.0 G/DL) 33.5 33.1 RDW (11.5 - 14.5 %) 15.1 H 15.3 H Plt Count (130 - 400 /CUMM) 309 306 MPV (7.4 - 10.4 FL) 9.4 9.3 Gran % (42.2 - 75.2 %) 96.6 H 94.6 H Lymphocytes % (20.5 - 51.1 %) 2.3 L 2.0 L Monocytes % (1.7 - 9.3 %) 1.1 L 3.0 Eosinophils % (0 - 5 %) 0 0 Basophils % (0.0 - 2.0 %) 0 0.4 Absolute Granulocytes (1.4 - 6.5 /CUMM) 20.9 H 18.8 H Absolute Lymphocytes (1.2 - 3.4 /CUMM) 0.5 L 0.4 L Absolute Monocytes (0.10 - 0.60 /CUMM) 0.2 0.6 Absolute Eosinophils (0.0 - 0.7 /CUMM) 0 0 Absolute Basophils (0.0 - 0.2 /CUMM) 0 0.1 01/23 1855 Chemistry Sodium (137 - 145 mmol/L) 140 Potassium (3.5 - 5.1 mmol/L) 4.3 Chloride (98 - 107 mmol/L) 102 Carbon Dioxide (22 - 30 mmol/L) 21 L Anion Gap (5 - 16) 17 H BUN (7 - 17 mg/dL) 46 H Creatinine (0.5 - 1.0 mg/dL) 8.0 *H Estimated GFR (>60 ml/min) 5 L BUN/Creatinine Ratio (7 - 25 %) 5.8 L Glucose (65 - 99 mg/dL) 212 H Calcium (8.4 - 10.2 mg/dL) 9.9 Total Bilirubin (0.2 - 1.3 mg/dL) 0.6 AST (14 - 36 U/L) 26 ALT (9 - 52 U/L) 16 Alkaline Phosphatase (<127 U/L) 126 Troponin I (< 0.11 ng/ml) 2.82 *H Total Protein (6.3 - 8.2 g/dL) 8.7 H Albumin (3.5 - 5.0 g/dL) 4.8 Globulin (1.9 - 4.2 gm/dL) 3.9 Albumin/Globulin Ratio (1.1 - 2.2 %) 1.2 Amylase (30 - 110 U/L) 74 Lipase (23 - 300 U/L) 110 Hematology CBC w Diff NO MAN DIFF REQ WBC (4.8 - 10.8 /CUMM) 14.8 H RBC (4.20 - 5.40 /CUMM) 4.20 Hgb (12.0 - 16.0 G/DL) 12.8 Hct (37 - 47 %) 39.4 MCV (81.0 - 99.0 FL) 93.7 MCH (27.0 - 31.0 PG) 30.5 MCHC (33.0 - 37.0 G/DL) 32.5 L RDW (11.5 - 14.5 %) 15.3 H Plt Count (130 - 400 /CUMM) 319 MPV (7.4 - 10.4 FL) 9.2 Gran % (42.2 - 75.2 %) 95.1 H Lymphocytes % (20.5 - 51.1 %) 3.1 L Monocytes % (1.7 - 9.3 %) 1.7 Eosinophils % (0 - 5 %) 0.1 Basophils % (0.0 - 2.0 %) 0 Absolute Granulocytes (1.4 - 6.5 /CUMM) 14.1 H Absolute Lymphocytes (1.2 - 3.4 /CUMM) 0.5 L Absolute Monocytes (0.10 - 0.60 /CUMM) 0.3 Absolute Eosinophils (0.0 - 0.7 /CUMM) 0 Absolute Basophils (0.0 - 0.2 /CUMM) 0
--- NOTE | 2018-01-26 15:17 | RADIOLOGY REPORT ---
EXAMINATION: XR CHEST CLINICAL INFORMATION: White count, cough, history of nausea and vomiting. Follow-up for right lobe infiltrate. COMPARISON: CT scan of the chest dated 01/24/2018. Chest x-ray dated 01/23/2018. TECHNIQUE: 2 views of the chest were obtained on 3 images. FINDINGS: EKG these overlie the chest. The cardiac mediastinal silhouette is enlarged, unchanged. Lungs bilaterally are symmetrically expanded. There is some mild thickening of the central airways and subtle reticular prominence in the lungs bilaterally. The fluffy airspace opacities seen on CT scan in both lungs are not appreciated on this chest x-ray. No focal consolidation or pneumothorax is seen. There is some mild blunting of the posterior CP angles, perhaps due to trace effusions versus pleural thickening. Bony structures are unremarkable IMPRESSION: 1. Cardiomegaly. 2. Fluffy airspace opacities seen on CT scan are poorly appreciated. Slight reticular prominence in the lungs bilaterally is noted. 3. Trace bilateral pleural effusions.
[2018-01-26 16:06] VITALS: BP 146/88
--- NOTE | 2018-01-26 19:34 | PN- Cardiology ---
Subjective Subjective: * Nausea resolved. No lamont pain or shortness of breath. * Improved WBC count to 11.9. * improved blood pressure. Objective Vital Signs and I&Os Vital Signs Date Time Temp Pulse Resp B/P B/P Pulse O2 O2 Flow FiO2 Mean Ox Delivery Rate 01/26 1606 98.0 96 16 146/88 98 Room Air 01/26 1400 100 120/70 / 1200 100 136/70 01/26 0830 99 124/66 01/26 0830 98 124/60 01/26 0800 98.2 100 18 144/60 94 Room Air 01/26 0400 98 Room Air 01/26 0000 98 Room Air 01/26 0000 98.8 06 28 128/70 98 Room Air 01/25 2222 104 118/62 01/25 2110 106 114/60 Intake & Output 01/26 1600 01/26 0800 /16 0000 01/25 1600 01/25 0800 01/25 0000 Intake Total 240 50 280 938 404 431.6 Output Total 300 0 0 0 Balance 240 50 -20 938 404 431.6 Intake, 600 Dialysate Intake, IV 100 260 238 404 321.6 Intake, Oral 140 50 20 100 0 110 Number 0 Bowel Movements Output, Urine 300 0 0 0 Patient 180 lb 180 lb Weight Weight Bed scale Measurement Method Physical Exam: General: WD/WN male in NAD; alert and oriented HEENT: NC/AT, PERRL, EOMI Neck: no JVD, no carotid bruit Heart: RRR w/o murmur Lungs: clear bilaterally Abdomen: soft, NT, +ve bowel sounds Extremities: 1+ bilateral leg edema Assessment/Plan Assessment/Plan * Cath films reviewed. She has diagonal and LCX disease that is not amenable to percutaneous intervention or bypass. As such, she will be prone to demand ischemia and currently has a type 2 CO. Severe hypertension will also exacerbate a supply demand mismatch. Her blood pressure is currently better controlled. * Nausea is improved. * Continue aspirin and Plavix and stop IV heparin. * Continue Labetolol 400mg BID, cardizem as previously prescribed, clonidine patch and hydralazine 100mg TID and Minoxidil 5mg BID. Continue telemetry? Yes
[2018-01-27] VITALS: BP 102/0
--- NOTE | 2018-01-27 06:53 | PN- Resident CRCU ---
Subjective HPI/CRCU Issues: 1.CAD s/p multiple caths and stenting, significant atherosclerotic burden 2. ESRD on dialysis M/W/F 3. Type II [place] 4. Resistent HTN on multiple antihypertensives 5. Aspirtion pneumonia 6. Colitis - intaractable nausea/vomiting 7. Secondary hyperparathyroidism 8. IDDM 9. anxiety/depression 24 Hour Events: Hypotensive this morning without any symptoms. She reports feeling better overall. Her nausea resolved and she had bowel movements for the past 2 days. Objective Vital Signs & I&O Last 8 Hrs of Vitals and I&O: Vital Signs Date Time Temp Pulse Resp B/P B/P Pulse O2 O2 Flow FiO2 Mean Ox Delivery Rate 01/27 0000 98.6 88 18 102/0 98 Room Air 01/26 2145 100 22 117/56 01/26 2140 96 18 104/60 01/26 2000 97 Room Air 01/26 1606 98.0 96 16 146/88 98 Room Air 01/26 1400 100 120/70 01/26 1200 100 136/70 Intake & Output 01/27 1600 01/27 0800 01/27 0000 Intake Total 200 500 Output Total 0 Balance 200 500 Intake, IV 100 100 Intake, Oral 100 400 Output, Urine 0 Exam General Appearance: well developed/nourished, alert, awake, comfortable Head: atraumatic, normal appearance Ears, Nose, Throat: normal pharynx, normal ENT inspection Neck: normal inspection, supple Respiratory: normal breath sounds, chest non-tender, no respiratory distress, quiet respiration Cardiovascular: regular rate/rhythm, normal peripheral pulses Gastrointestinal: normal bowel sounds, soft, non-tender Extremities: normal inspection, normal capillary refill Cranial Nerves: normal speech, PERRL Skin: intact Skin Temp/Moisture Exam: Warm/Dry Sepsis Skin Exam (color): Normal for Ethnicity Nutrition Nutrition: P.O. diet Current Medications: Current Medications Sig/[place] Start time Last Medication Dose Route Stop Time Status Admin Aspirin 162 MG DAILY 01/24 09 AC 01/26 PO 0829 Atorvastatin Calcium 40 MG QPM 01/24 2100 AC 01/26 PO 2140 Bupropion HCl 150 MG QAM 01/24 09 AC 01/26 PO 0831 Ceftriaxone Sodium 1,000 MG DAILY 01/24 0915 AC 01/26 IV 0829 Clonidine 1 PAT Q168 01/24 09 AC 01/24 TOP 0845 Clopidogrel Bisulfate 75 MG DAILY 01/24 0900 AC 01/26 PO 0829 Diltiazem HCl 180 MG DAILY 01/24 0115 AC 01/26 PO 0831 Epoetin José 2,000 UNIT MoWeFr PRN 01/24 1100 AC IV Escitalopram Oxalate 10 MG DAILY 01/24 0900 AC 01/26 PO 0829 Heparin Sodium 5,000 UNIT Q8 01/26 2200 AC 01/27 (Porcine) SC 0633 Hydralazine HCl 100 MG BID 01/27 2100 AC PO Hydralazine HCl 100 MG TID 01/24 1400 DC 01/26 PO 2140 Insulin Aspart 0 TIDAC 01/24 1200 AC SC Labetalol HCl 400 MG BID 01/24 0900 AC 01/26 PO 2145 Lidocaine/Prilocaine See Dose PER PROTOCL PRN 01/24 1115 AC Insts (1) TOP Linaclotide 145 MCG DAILY 01/24 0900 AC 01/26 PO 0831 Lisinopril 40 MG DAILY 01/24 0900 AC 01/26 PO 1200 Melatonin 0 .STK-MED ONE 01/27 0220 DC PO Melatonin 5 MG ONCE ONE 01/27 0215 DC 01/27 PO 01/27 0216 0221 Metoclopramide HCl 10 MG Q6P PRN 01/25 1400 AC 01/26 IV 2041 Metronidazole 500 MG IQ8 01/24 0800 AC 01/27 N/A 1 UNIT IV 0002 Minoxidil 5 MG BID 01/24 0900 AC 01/26 PO 2142 Multivitamins 1 TAB DAILY 01/24 0900 AC 01/26 PO 0832 Nitroglycerin 0.5 GM Q6 PRN 01/25 1836 AC TOP Pantoprazole Sodium 40 MG DAILY 01/24 0045 AC 01/26 IV 0831 Paricalcitol 6 MCG MoWeFr PRN 01/24 1100 AC IV Prochlorperazine 10 MG Q6P PRN 01/25 1615 AC 01/25 IV 2024 Sevelamer Carbonate 800 MG TID 01/24 0900 AC 01/26 PO 2143 Sodium Chloride 500 ML BOLUS ONE 01/27 0730 DC IV 01/27 0829 Sodium Phosphate 1 UNIT ONCE ONE 01/26 1145 CAN MD 01/26 1146 Sodium Phosphate 1 UNIT ONCE PRN 01/25 1845 DC MD Trimethobenzamide HCl 200 MG Q12H PRN 01/24 1500 AC 01/26 IM 0857 Dose Instructions: (1)Lidocaine/Prilocaine: APPLY CXR Findings: 1. Cardiomegaly. 2. Fluffy airspace opacities seen on CT scan are poorly appreciated. Slight reticular prominence in the lungs bilaterally is noted. 3. Trace bilateral pleural effusions. Impression/Plan Impression/Problem List Impression: Patient is a 52-year-old woman with multiple medical problems significant for an extensive cardiovascular h/o multiple cardiac catheterizations with percutaneous intervention and deployment of cardiac stents in the past 6 months on DAPT, ESRD on HD, obesity, hypertension, IDDM presents to [facility] with transient chest pain episode after retching, vomiting for the past few days. She recently travelled from [place] in a car for around 8hrs. She missed her dialysis yesterday and reports significant shortness of breath upon lying down. VS at presentation are afebrile, Pulse 112, BP 203/97mmHg, saturating well on RA. Physical exam did show edema of legs, heart normal S1, S2, lungs clear. Labs did show trop 2 --> 4.8--> 5.8, proBNP of 120,000, AG 19, bicarbonate of 20, BUN/Cr 50/8, GFR 5, negative D-Dimer. Imaging did show mild interstitial edema on CXR, CTA negative for PE but did show right sided infiltrate. CT abdomen and plevis did show mild colitis, rectal impaction, b/l nephrolithiasis. puctate liver calcifications consistent with granulomatous disease. Admitted to ICU and the following is a management Respiratory Aspiration pneumonia Patient had significant shortness of breath at presentation after nausea and vomiting. She might have aspirated. CT chest did show fluffy alveolar infiltrates throughout the right lung. we will cover with IV ceftriaxone for the 5 days. repeat CXR did show improvement today. so we will continue IV ceftriaxone - 4/5 days. Infectious Blood in stools Possibly hemorrhoids She had Blood in stools prior to presenation, none after admission. She had constipation, probably might have sustained hemorrhoidal bleed. She was nausea secondary to difficulty with bowel movements. She did have bowel movements for the past 2 days without any blood in it. Her nausea is much better after the bowel movement. I don't think that is a possibility of colitis at this point and we can safely discontinue Metrogyl. Aspiration pneumonia On ceftriaxone. Cardiology CAD s/p multiple caths chest pain free. ACS protocol with IV heparin , aspirin 81mg, Plavix, high intensity statin, PRN nitroglycerine. she was on multiple antihypertensives which were continued as she had significantly elevated HTN at presentation. She did have significant atherosclerotic burden which is not amenable to PCI. ECHO did show high lateral wall hypokinesis. EF 60%. mild TR, MD. No plan for catheterization so far and it is not amenable to PCI. IV heparin stopped on 01/26. Stable. Labile hypertension with episodes of Hypotension She presented with hypertensive urgency 203/97 mmHg, slowly reduce her blood pressure and hydralazine was added to her home regimen. She sustained episodes of hypotension on 01/25/2018 and today prior to dialysis. She is completely symptomatic during these periods. She got 500 mL of fluid bolus today and she is getting 200 mL of fluid with dialysis. She is on multiple antihypertensive medications. I've reduced hydralazine to twice a day. We will continue to monitor and other differential would be a autonomic dysfunction in the setting of long-standing diabetes. Hematology stable Metabolic ESRD on dialysis Missed dialysis, Underwent consequetive days dialysis for 2 days. we will continue her usual scheduel - M/W/F. Back to normal schedule. Underwent dialysis today. Secondary hyperparathyroidism continue procalcitriol IDDM continue insulin - levemir and short acting per blood sugars. Accuchecks. Carb consistent 1 diet. Alimentary Intaractable N/V with constipation rectal bleeding, nausea/retching, white count of [address] findings of thickening consistent with colitis. She was on linzess for possible constipation in the past. She did have bowel movements for the past 2 days. She felt much better after having a bowel movement. Her blood in stool probably secondary to hemorrhoids. I think we can discontinue metronidazole and continue ceftriaxone for concerns of pneumonia and not colitis. Neurology anxiety/depression continue bupropion, escitalopram DVT prophylaxis SC heparin CODE STATUS Full code Problem List: 1. Hypertensive urgency 2. Diabetes mellitus 3. CAD S/P percutaneous coronary angioplasty 4. Chronic constipation 5. ACS (acute coronary syndrome) 6. Labile hypertension 7. ESRD (end stage renal disease) Pain Ratin Pain Location: n/a Tomorrow's Labs & Rationales: cbc icu bundle Plan DVT/Prophylaxis: pharmacological
[2018-01-27 08:00] VITALS: BP 90/50
--- NOTE | 2018-01-27 09:08 | PN- Nephrology ---
Assessment/Plan Nephrology Assessment: 1. End-stage renal disease. Dialysis underway. She was seen with dialysis in progress. 2 coronary artery disease plans per cardiology. She was on dual antiplatelet therapy as an outpatient both on Plavix and aspirin. Dr. Mccormack's note appreciated. 3. Anemia continue with the Epogen 4. Secondary hyperparathyroidism. She was on Hectorol as an outpatient. On Zemplar while in hospital. 5. Hypertension. If anything, she is now hypotensive. Of interest, she is 3 kg below her previously stated dry yesterday. Given blood pressure, we'll give 500 mL with dialysis today 6. Hyperlipidemia, her dose of atorvastatin was 40 mg per day Suggestion: 1. Next hemodialysis will be on Tuesday 2. It would not be surprising if some of the antihypertensives need to be decreased Subjective Subjective: Patient says she feels better. Objective Vital Signs and I&Os Vital Signs Date Time Temp Pulse Resp B/P B/P Pulse O2 O2 Flow FiO2 Mean Ox Delivery Rate 01/27 0800 98.0 88 18 90/50 100 Room Air 01/27 0400 98 Room Air 01/27 0000 98 Room Air 01/27 0000 98.6 88 18 102/0 98 Room Air 01/26 2145 100 22 117/56 01/26 2140 96 18 104/60 01/26 2000 97 Room Air 01/26 1606 98.0 96 16 146/88 98 Room Air 01/26 1400 100 120/70 01/26 1200 100 136/70 Intake & Output 01/27 1600 01/27 0400 01/26 1600 01/26 0400 01/25 1600 01/25 0400 Intake Total 200 500 756 596 5615 431.6 Output Total 0 300 0 0 Balance 200 500 290 -20 1342 431.6 Intake, 600 Dialysate Intake, IV 100 100 100 260 642 321.6 Intake, Oral 100 400 190 20 100 110 Number 0 Bowel Movements Output, Urine 0 300 0 0 Patient 180 lb 180 lb Weight Weight Bed scale Measurement Method Physical Exam: General Appearance: well developed/nourished, no apparent distress, alert, awake Head: atraumatic, normal appearance Ears, Nose, Throat: hearing grossly normal Neck: normal inspection, supple, trachea mid line Respiratory: normal breath sounds anteriorly, no respiratory distress, lungs clear Cardiovascular: regular rate/rhythm, gallop Gastrointestinal: normal bowel sounds, soft, non-tender, no organomegaly Extremities: normal inspection, no edema Neurologic/Psych: no motor/sensory deficits, awake, alert, oriented x 3 Skin: intact, normal color, warm/dry Current Medications: Current Medications Sig/[place] Start time Last Medication Dose Route Stop Time Status Admin Aspirin 162 MG DAILY 01/24 0900 AC 01/26 PO 0829 Atorvastatin Calcium 40 MG QPM 01/24 2100 AC 01/26 PO 2140 Bupropion HCl 150 MG QAM 01/24 0900 AC 01/26 PO 0831 Ceftriaxone Sodium 1,000 MG DAILY 01/24 0915 AC 01/26 IV 0829 Clonidine 1 PAT Q168 01/24 0900 AC 01/24 TOP 0845 Clopidogrel Bisulfate 75 MG DAILY 01/24 09 AC 01/26 PO 0829 Diltiazem HCl 180 MG DAILY 01/24 0115 AC 01/26 PO 0831 Epoetin José 2,000 UNIT MoWeFr PRN 01/24 1100 AC IV Escitalopram Oxalate 10 MG DAILY 01/24 0900 AC 01/26 PO 0829 Heparin Sodium 5,000 UNIT Q8 01/26 2200 AC 01/27 (Porcine) SC 0633 Hydralazine HCl 100 MG BID 01/27 2100 AC PO Hydralazine HCl 100 MG TID 01/24 1400 DC 01/26 PO 2140 Insulin Aspart 0 TIDAC 01/24 1200 AC SC Labetalol HCl 400 MG BID 01/24 0900 AC 01/26 PO 2145 Lidocaine/Prilocaine See Dose PER PROTOCL PRN 01/24 1115 Insts (1) TOP Linaclotide 145 MCG DAILY 01/24 0900 AC 01/26 PO 0831 Lisinopril 40 MG DAILY 01/24 0900 AC 01/26 PO 1200 Melatonin 0 .STK-MED ONE 01/27 0220 DC PO Melatonin 5 MG ONCE ONE 01/27 0215 DC 01/27 PO 01/27 0216 0221 Metoclopramide HCl 10 MG Q6P PRN 01/25 1400 AC 01/26 IV 2041 Metronidazole 500 MG IQ8 01/24 0800 AC 01/27 N/A 1 UNIT IV 0002 Minoxidil 5 MG BID 01/24 0900 AC 01/26 PO 2142 Multivitamins 1 TAB DAILY 01/24 0900 AC 01/26 PO 0832 Nitroglycerin 0.5 GM Q6 PRN 01/25 1836 AC TOP Pantoprazole Sodium 40 MG DAILY 01/24 0045 AC 01/26 IV 0831 Paricalcitol 6 MCG MoWeFr PRN 01/24 1100 AC IV Prochlorperazine 10 MG Q6P PRN 01/25 1615 AC 01/25 IV 2024 Sevelamer Carbonate 800 MG TID 01/24 0900 AC 01/26 PO 2143 Sodium Chloride 500 ML BOLUS ONE 01/27 0730 DC IV 01/27 0829 Sodium Phosphate 1 UNIT ONCE ONE 01/26 1145 CAN NC 01/26 1146 Sodium Phosphate 1 UNIT ONCE PRN 01/25 1845 DC NC Trimethobenzamide HCl 200 MG Q12H PRN 01/24 1500 AC 01/26 IM 0857 Dose Instructions: (1)Lidocaine/Prilocaine: APPLY Results Pertinent Lab Results: Laboratory Tests 01/27 01/26 0900 0435 Chemistry Sodium (137 - 145 mmol/L) 136 L 139 Potassium (3.5 - 5.1 mmol/L) 3.3 L 3.5 Chloride (98 - 107 mmol/L) 100 99 Carbon Dioxide (22 - 30 mmol/L) 23 26 Anion Gap (5 - 16) 14 13 BUN (7 - 17 mg/dL) 43 H 27 H Creatinine (0.5 - 1.0 mg/dL) 7.4 *H 4.6 H Estimated GFR (>60 ml/min) 6 L 10 L Glucose (65 - 99 mg/dL) 147 H 143 H Calcium (8.4 - 10.2 mg/dL) 8.3 L 8.5 Phosphorus (2.5 - 4.5 mg/dL) 4.2 4.0 Magnesium (1.6 - 2.3 mg/dL) 1.7 1.8 Total Bilirubin (0.2 - 1.3 mg/dL) 0.4 0.5 AST (14 - 36 U/L) 26 36 ALT (9 - 52 U/L) 24 25 Albumin (3.5 - 5.0 g/dL) 3.2 L 3.3 L Hematology CBC w Diff NO MAN DIFF REQ NO MAN DIFF REQ WBC (4.8 - 10.8 /CUMM) 10.2 11.9 H RBC (4.20 - 5.40 /CUMM) 2.88 L 3.02 L Hgb (12.0 - 16.0 G/DL) 8.9 L 9.4 L Hct (37 - 47 %) 27.0 L 28.1 L MCV (81.0 - 99.0 FL) 93.7 93.4 MCH (27.0 - 31.0 PG) 31.0 31.0 MCHC (33.0 - 37.0 G/DL) 33.1 33.2 RDW (11.5 - 14.5 %) 15.1 H 15.5 H Plt Count (130 - 400 /CUMM) 259 241 MPV (7.4 - 10.4 FL) 9.5 9.4 Gran % (42.2 - 75.2 %) 78.0 H 80.4 H Lymphocytes % (20.5 - 51.1 %) 8.7 L 7.9 L Monocytes % (1.7 - 9.3 %) 11.2 H 11.0 H Eosinophils % (0 - 5 %) 1.8 0.4 Basophils % (0.0 - 2.0 %) 0.3 0.3 Absolute Granulocytes (1.4 - 6.5 /CUMM) 8.0 H 9.5 H Absolute Lymphocytes (1.2 - 3.4 /CUMM) 0.9 L 0.9 L Absolute Monocytes (0.10 - 0.60 /CUMM) 1.1 H 1.3 H Absolute Eosinophils (0.0 - 0.7 /CUMM) 0.2 0 Absolute Basophils (0.0 - 0.2 /CUMM) 0 0 01/25 01/25 01/25 01/25 2100 1320 1219 0855 Coagulation APTT (25 - 37 SEC) Cancelled 46 H Cancelled Toxicology Acetone Level (NEGATIVE) POSITIVE AT 1:4 DIL 01/25 01/25 0600 0002 Chemistry Sodium (137 - 145 mmol/L) 137 Potassium (3.5 - 5.1 mmol/L) 4.5 Chloride (98 - 107 mmol/L) 101 Carbon Dioxide (22 - 30 mmol/L) 18 L Anion Gap (5 - 16) 18 H BUN (7 - 17 mg/dL) 34 H Creatinine (0.5 - 1.0 mg/dL) 5.6 *H Estimated GFR (>60 ml/min) 8 L Glucose (65 - 99 mg/dL) 217 H Calcium (8.4 - 10.2 mg/dL) 9.0 Phosphorus (2.5 - 4.5 mg/dL) 4.9 H Magnesium (1.6 - 2.3 mg/dL) 1.9 Total Bilirubin (0.2 - 1.3 mg/dL) 0.6 AST (14 - 36 U/L) 31 ALT (9 - 52 U/L) 18 Troponin I (< 0.11 ng/ml) 5.27 *H Albumin (3.5 - 5.0 g/dL) 3.8 Coagulation APTT (25 - 37 SEC) 105 *H Hematology CBC w Diff NO MAN DIFF REQ WBC (4.8 - 10.8 /CUMM) 14.5 H RBC (4.20 - 5.40 /CUMM) 3.44 L Hgb (12.0 - 16.0 G/DL) 10.5 L Hct (37 - 47 %) 32.0 L MCV (81.0 - 99.0 FL) 93.1 MCH (27.0 - 31.0 PG) 30.6 MCHC (33.0 - 37.0 G/DL) 32.8 L RDW (11.5 - 14.5 %) 15.6 H Plt Count (130 - 400 /CUMM) 247 MPV (7.4 - 10.4 FL) 9.4 Gran % (42.2 - 75.2 %) 91.4 H Lymphocytes % (20.5 - 51.1 %) 4.0 L Monocytes % (1.7 - 9.3 %) 4.6 Eosinophils % (0 - 5 %) 0 Basophils % (0.0 - 2.0 %) 0 Absolute Granulocytes (1.4 - 6.5 /CUMM) 13.3 H Absolute Lymphocytes (1.2 - 3.4 /CUMM) 0.6 L Absolute Monocytes (0.10 - 0.60 /CUMM) 0.7 H Absolute Eosinophils (0.0 - 0.7 /CUMM) 0 Absolute Basophils (0.0 - 0.2 /CUMM) 0 Toxicology Acetone Level (NEGATIVE) POSITIVE : UNDILUTED 01/25 1756 Chemistry Troponin I (< 0.11 ng/ml) 5.83 *H Coagulation APTT (25 - 37 SEC) 72 H
--- NOTE | 2018-01-27 09:22 | PN- Pulmonary ---
Subjective HPI/Critical Care Issues: The patient is awake and alert. She continues to feel improved overall. Her blood pressure is borderline low, and she is going to receive fluid during dialysis as per nephrology. There were no overnight events reported. The patient complains of ongoing nausea however this is a chronic complaint and has not worsened. Objective Current Medications: Current Medications Sig/[place] Start time Last Medication Dose Route Stop Time Status Admin Aspirin 162 MG DAILY 01/24 0900 AC 01/26 PO 08 Atorvastatin Calcium 40 MG QPM 01/24 2100 AC 01/26 PO 2140 Bupropion HCl 150 MG QAM 01/24 0900 AC 01/26 PO 0831 Ceftriaxone Sodium 1,000 MG DAILY 01/24 0915 AC 01/26 IV 0829 Clonidine 1 PAT Q168 01/24 09 AC 01/24 TOP 0845 Clopidogrel Bisulfate 75 MG DAILY 01/24 09 AC 01/26 PO 0829 Diltiazem HCl 180 MG DAILY 01/24 0115 AC 01/26 PO 0831 Epoetin José 2,000 UNIT MoWeFr PRN 01/24 1100 AC IV Escitalopram Oxalate 10 MG DAILY 01/24 0900 AC 01/26 PO 0829 Heparin Sodium 5,000 UNIT Q8 01/26 2200 AC 01/27 (Porcine) SC 0633 Hydralazine HCl 100 MG BID 01/27 2100 AC PO Hydralazine HCl 100 MG TID 01/24 1400 DC 01/26 PO 2140 Insulin Aspart 0 TIDAC 01/24 1200 AC SC Labetalol HCl 400 MG BID 01/24 0900 AC 01/26 PO 2145 Lidocaine/Prilocaine See Dose PER PROTOCL PRN 01/24 1115 AC Insts (1) TOP Linaclotide 145 MCG DAILY 01/24 0900 AC 01/26 PO 0831 Lisinopril 40 MG DAILY 01/24 0900 AC 01/26 PO 1200 Melatonin 0 .STK-MED ONE 01/27 022 DC PO Melatonin 5 MG ONCE ONE 01/27 0215 DC 01/27 PO 01/27 0216 0221 Metoclopramide HCl 10 MG Q6P PRN 01/25 1400 AC 01/26 IV 2041 Metronidazole 500 MG IQ8 01/24 0800 AC 01/27 N/A 1 UNIT IV 0002 Minoxidil 5 MG BID 01/24 0900 AC 01/26 PO 214 Multivitamins 1 TAB DAILY 01/24 0900 AC 01/26 PO 0832 Nitroglycerin 0.5 GM Q6 PRN 01/25 1836 AC TOP Pantoprazole Sodium 40 MG DAILY 01/24 0045 AC 01/26 IV 0831 Paricalcitol 6 MCG MoWeFr PRN 01/24 1100 AC IV Prochlorperazine 10 MG Q6P PRN 01/25 1615 AC 01/25 IV 2024 Sevelamer Carbonate 800 MG TID 01/24 0900 AC 01/26 PO 2143 Sodium Chloride 500 ML BOLUS ONE 01/27 0730 DC IV 01/27 0829 Sodium Phosphate 1 UNIT ONCE ONE 01/26 1145 CAN W[place] 01/26 1146 Sodium Phosphate 1 UNIT ONCE PRN 01/25 1845 DC WV Trimethobenzamide HCl 200 MG Q12H PRN 01/24 1500 AC 01/26 IM 0857 Dose Instructions: (1)Lidocaine/Prilocaine: APPLY Vital Signs & I&O Last 24 Hrs of Vitals and I&O: Vital Signs Date Time Temp Pulse Resp B/P B/P Pulse O2 O2 Flow FiO2 Mean Ox Delivery Rate 01/27 0800 98.0 88 18 90/50 100 Room Air 01/27 0400 98 Room Air 01/27 0000 98 Room Air 01/27 0000 98.6 88 18 102/0 98 Room Air 01/26 2145 100 22 117/56 01/26 2140 96 18 104/60 01/26 2000 97 Room Air 01/26 1606 98.0 96 16 146/88 98 Room Air 01/26 1400 100 120/70 01/26 1200 100 136/70 Intake & Output 01/27 1600 01/27 0800 01/27 0000 Intake Total 200 500 Output Total 0 Balance 200 500 Intake, IV 100 100 Intake, Oral 100 400 Output, Urine 0 Physical Exam General Appearance: no distress, alert, awake, comfortable Head: atraumatic, normal appearance Eyes: PERRL Neck: normal inspection, supple Respiratory: normal breath sounds, chest non-tender, no respiratory distress Cardiovascular: regular rate/rhythm, edema, normal peripheral pulses, tachycardia Gastrointestinal: normal bowel sounds, soft, non-tender Extremities: normal inspection, normal capillary refill, swelling Results Last 24 Hrs of Lab Results: No current labs available. Impression/Plan Impression/Plan Impression/Plan: 1. NSTEMI, history multiple caths and stenting. On IV heparin, aspirin, Plavix, high intensity statin, and as needed nitroglycerin. 2. ESRD on dialysis. Nephrology following. 3. Uncontrolled hypertension, now with hypotension which may be related to volume depletion. 4. History of HTN on multiple antihypertensives, now with hypertensive urgency. 5. Aspirtion pneumonia versus pneumonitis. 6. Ongoing nausea which may be related to gastroparesis. 7. Secondary hyperparathyroidism. 8. IDDM. 9. Anxiety/depression. 10. Colitis on CT scan, no diarrhea or bloody stools at present. Recommendations: * Continue telemetry monitoring. * Protonix and Reglan to continue. * Continue antiemetics. * Guaiac stools and monitor for bleeding. * Continue aspirin, atorvastatin, Plavix and Cardizem. * Monitor blood pressure closely. Will hold antihypertensives and follow-up cardiology recommendations. * Dialysis as per nephrology. * Continue Accu-Cheks with sliding scale insulin. * Increase activity/ambulate. * Continue all supportive care.
[2018-01-27 10:17] LABS: ABSOLUTE BASOPHIL COUNT 0 /CUMM (0.0-0.2); ABSOLUTE EOSINOPHIL COUNT 0.2 /CUMM (0.0-0.7); ABSOLUTE LYMPH COUNT 0.9 /CUMM (1.2-3.4); ABSOLUTE MONOCYTE COUNT 1.1 /CUMM (0.10-0.60); BASOPHIL % 0.3 % (0.0-2.0); EOSINOPHIL % 1.8 % (0-5); MEAN CORPUSCULAR HGB CONC 33.1 G/DL (33.0-37.0); MEAN CORPUSCULAR VOLUME 93.7 FL (81.0-99.0); MEAN PLATELET VOLUME 9.5 FL (7.4-10.4); PLATELET COUNT 259 /CUMM (130-400); RBC DISTRIBUTION WIDTH 15.1 % (11.5-14.5); RED BLOOD CELL CT 2.88 /CUMM (4.20-5.40); WHITE BLOOD CELL COUNT 10.2 /CUMM (4.8-10.8)
[2018-01-27 16:00] VITALS: BP 120/70
--- NOTE | 2018-01-27 17:53 | PN- Cardiology ---
Subjective Subjective: * Patient is much improved without chest discomfort or shortness of breath. Her nausea has abated. * WBC count is now in the normal range. Objective Vital Signs and I&Os Vital Signs Date Time Temp Pulse Resp B/P B/P Pulse O2 O2 Flow FiO2 Mean Ox Delivery Rate 01/27 1352 80 118/70 01/27 1334 80 118/70 01/27 0800 98.0 88 18 90/50 100 Room Air 01/27 0400 98 Room Air 01/27 0000 98 Room Air 01/27 0000 98.6 88 18 102/0 98 Room Air 01/26 2145 100 22 117/56 01/26 2140 96 18 104/60 01/26 2000 97 Room Air Intake & Output 01/27 1600 01/27 0800 01/27 0000 01/26 1600 01/26 0801/26 0000 Intake Total 640 200 500 240 50 280 Output Total 0 300 Balance 640 200 500 240 50 -20 Intake, IV 100 100 100 100 260 Intake, Oral 540 100 400 140 50 20 Number 0 Bowel Movements Output, Urine 0 300 Patient 180 lb Weight Physical Exam: General: WD/WN male in NAD; alert and oriented HEENT: NC/AT, PERRL, EOMI Neck: no JVD, no carotid bruit Heart: RRR w/o murmur Lungs: clear bilaterally Abdomen: soft, NT, +ve bowel sounds Extremities: no leg edema Assessment/Plan Assessment/Plan * Cath films reviewed. She has diagonal and LCX disease that is not amenable to percutaneous intervention or bypass. As such, she will be prone to demand ischemia and currently has a type 2 [place]. Severe hypertension will also exacerbate a supply demand mismatch. Her blood pressure is currently better controlled. * Nausea is improved. * Continue aspirin and Plavix. * Continue Labetolol 400mg BID, cardizem as previously prescribed, clonidine patch and hydralazine 100mg TID and Minoxidil 5mg BID. * Patient is stable from a cardiac standpoint. Continue telemetry? No
[2018-01-27 22:56] VITALS: BP 110/56
[2018-01-28 06:23] VITALS: BP 102/52
[2018-01-28 08:38] VITALS: BP 122/78
[2018-01-28 08:38] LABS: ABSOLUTE BASOPHIL COUNT 0.1 /CUMM (0.0-0.2); ABSOLUTE EOSINOPHIL COUNT 0.5 /CUMM (0.0-0.7); ABSOLUTE GRANULOCYTE CT 6.5 /CUMM (1.4-6.5); ABSOLUTE LYMPH COUNT 1.6 /CUMM (1.2-3.4); ABSOLUTE MONOCYTE COUNT 1.3 /CUMM (0.10-0.60); BASOPHIL % 0.7 % (0.0-2.0); EOSINOPHIL % 5.3 % (0-5); HEMATOCRIT 26.3 % (37-47); MEAN CORPUSCULAR HGB 31.3 PG (27.0-31.0); MEAN CORPUSCULAR HGB CONC 33.9 G/DL (33.0-37.0); MEAN CORPUSCULAR VOLUME 92.3 FL (81.0-99.0); MEAN PLATELET VOLUME 9.5 FL (7.4-10.4); PLATELET COUNT 266 /CUMM (130-400); RBC DISTRIBUTION WIDTH 14.8 % (11.5-14.5); RED BLOOD CELL CT 2.85 /CUMM (4.20-5.40); WHITE BLOOD CELL COUNT 9.9 /CUMM (4.8-10.8)
--- NOTE | 2018-01-28 08:44 | PN- Housestaff ---
Assessment/Plan Consulting Request: Consulting Specialty: Cardiology Consulting Physician: Reason for Consult: elevated troponin
--- NOTE | 2018-01-28 08:58 | PN- Housestaff ---
Assessment/Plan Consulting Request: Consulting Specialty: Cardiology Consulting Physician: Reason for Consult: elevated troponin
--- NOTE | 2018-01-28 11:47 | Patient Discharge Instructions ---
Discharge Instructions General Discharge Information Special Instructions: - Please follow up with your cable machine operator and air cargo ground crew supervisor within 1-2 weeks of discharge. - Please follow up with your primary care physician within 1-2 weeks of discharge. Inform your primary care physician of this admission to [facility]. - Continue your current medications per discharge instructions. - Please watch for these problems: Fever, Chills, Nausea, Vomiting, Shortness of Breath, Productive Cough, Chest Pain/Discomfort, Abdominal Pain, Active Bleeding or Bloody urine/stool. Diet Continue normal diet: Yes Recommended Diet: Renal Dialysis Acute Coronary Syndrome Inclusion Criteria At DC or during hospital stay patient has or had the following: ACS DIAGNOSIS No Discharge Core Measures Meds if any: Prescribed or Continued at Discharge Meds if any: NOT Prescribed or Continued at Discharge Congestive Heart Failure Inclusion Criteria At DC or during hospital stay patient has or had the following: CHF DIAGNOSIS No Discharge Core Measures Meds if any: Prescribed or Continued at Discharge Meds if any: NOT Prescribed or Continued at Discharge Cerebrovascular accident Inclusion Criteria At DC or during hospital stay patient has or had the following: CVA/TIA Diagnosis No Discharge Core Measures Meds if any: Prescribed or Continued at Discharge Meds if any: NOT Prescribed or Continued at Discharge Venous thromboembolism Inclusion Criteria VTE Diagnosis No VTE Type NONE VTE Confirmed by (Test) NONE Discharge Core Measures - Per Current guidelines, there needs to be overlap - treatment for the first 5 days of Warfarin therapy. - If discharged on Warfarin prior to 5 days of - overlap therapy, the patient will need to be - assessed for post discharge needs including - *Post discharge parental anticoagulation - *Warfarin and/or parental anticoagulation education - *Follow up date to check INR post discharge At least 5 days overlap therapy as Inpatient No Meds if any: Prescribed or Continued at Discharge Note: Overlap Therapy is Warfarin and Anticoagulant Meds if any: NOT Prescribed or Continued at Discharge
--- NOTE | 2018-01-28 11:55 | PN- Cardiology ---
Subjective Subjective: * Doing well today without chest discomfort or shortness of breath. * sinus rhythm * BP is now in the normal range Objective Vital Signs and I&Os Vital Signs Date Time Temp Pulse Resp B/P B/P Pulse O2 O2 Flow FiO2 Mean Ox Delivery Rate 01/28 0838 92 122/78 01/28 0838 92 122/78 01/28 0623 99.0 91 20 102/52 97 Room Air 01/27 2256 99.0 96 20 110/56 97 01/27 2039 92 118/70 01/27 2000 95 Room Air 01/27 1600 98.0 88 18 120/70 100 Room Air 01/27 1352 80 118/70 01/27 1334 80 118/70 Intake & Output 01/28 1600 01/28 0800 01/28 0000 01/27 1600 01/27 0800 01/27 0000 Intake Total 50 640 200 500 Output Total 0 Balance 50 640 200 500 Intake, IV 100 100 100 Intake, Oral 50 540 100 400 Output, Urine 0 Physical Exam: General: WD/WN male in NAD; alert and oriented HEENT: NC/AT, PERRL, EOMI Neck: no JVD, no carotid bruit Heart: RRR w/o murmur Lungs: clear bilaterally Abdomen: soft, NT, +ve bowel sounds Extremities: no leg edema Assessment/Plan Assessment/Plan * Cath films reviewed. She has diagonal and LCX disease that is not amenable to percutaneous intervention or bypass. As such, she will be prone to demand ischemia and had a type 2 [place] on this admission. Severe hypertension will also exacerbate a supply demand mismatch. Her blood pressure is currently better controlled and is in the low normal range after dialysis. * Nausea is improved. * Continue aspirin and Plavix. * Continue Labetolol 400mg BID, cardizem as previously prescribed, clonidine patch and hydralazine 100mg TID and Minoxidil 5mg BID. * Patient is stable from a cardiac standpoint. Follow up in the office in one week. Continue telemetry? No
--- NOTE | 2018-01-28 12:22 | PN- Housestaff ---
Daquan De La Cruz 01/28/18 1217: Subjective Follow-up For: NSTEMI Subjective: No acute events overnight, afebrile. Patient denies chest pain, palpitations, headaches, dizziness, shortness of breath with exercise. Review of Systems Constitutional: Reports: see HPI. Objective Last 24 Hrs of Vital Signs/I&O Vital Signs Date Time Temp Pulse Resp B/P B/P Pulse O2 O2 Flow FiO2 Mean Ox Delivery Rate 01/28 0838 92 122/78 01/28 0838 92 122/78 01/28 0623 99.0 91 20 102/52 97 Room Air 01/27 2256 99.0 96 20 110/56 97 01/27 2039 92 118/70 01/27 2000 95 Room Air 01/27 1600 98.0 88 18 120/70 100 Room Air 01/27 1352 80 118/70 01/27 1334 80 118/70 Intake & Output 01/28 1600 01/28 0800 01/28 0000 Intake Total 50 Output Total Balance 50 Intake, Oral 50 Physical Exam General Appearance: Alert, Oriented X3, Cooperative Cardiovascular: Regular Rate, Normal S1, Normal S2 Lungs: Clear to Auscultation, Normal Air Movement Assessment/Plan Assessment: Patient is a 52-year-old woman with multiple medical problems significant for an extensive cardiovascular h/o multiple cardiac catheterizations with percutaneous intervention and deployment of cardiac stents in the past 6 months on DAPT, ESRD on HD, obesity, hypertension, IDDM presents to [place] with transient chest pain episode after retching, vomiting for the past few days. She recently travelled from [place] in a car for around 8hrs. She missed her dialysis yesterday and reports significant shortness of breath upon lying down. VS at presentation are afebrile, Pulse 112, BP 203/97mmHg, saturating well on RA. Physical exam did show edema of legs, heart normal S1, S2, lungs clear. Labs did show trop 2 --> 4.8--> 5.8, proBNP of 120,000, AG 19, bicarbonate of 20, BUN/Cr 50/8, GFR 5, negative D-Dimer. Imaging did show mild interstitial edema on CXR, CTA negative for PE but did show right sided infiltrate. CT abdomen and plevis did show mild colitis, rectal impaction, b/l nephrolithiasis. puctate liver calcifications consistent with granulomatous disease. Assessment and Plan: 1. NSTEMI, history multiple caths and stenting. On IV heparin, aspirin, Plavix, high intensity statin, and as needed nitroglycerin. 2. ESRD on dialysis. Nephrology following. 3. History of HTN on multiple antihypertensives, now with hypertensive urgency- on Hydralazine, Nitroglycerin, Labetalol, Lisinopril, and clonidine 4. Ongoing nausea which may be related to gastroparesis- on reglan 5. Secondary hyperparathyroidism. 6. IDDM. 7. Anxiety/depression- on escitalopram 8. Colitis on CT scan, no diarrhea or bloody stools at present. Patient is stable from cardiac standpoint, she is currently asymptomatic. Patient will discharged today. DVT prophylaxis SC heparin CODE STATUS Full code Problem List: 1. NSTEMI (non-ST elevated myocardial infarction) Pain Ratin Pain Location: n/a Pain Goal: Remain pain free Pain Plan: tylenol Tomorrow's Labs & Rationales: n/a Consulting Request: Consulting Specialty: Cardiology Consulting Physician: Reason for Consult: elevated troponin Taj Ewing 01/28/18 1428: Attending MD Review Statement Attending Statement Attending MD Statement: examined this patient, discuss w/resident/PA/DIRECTIONAL SURVEY DRAFTER, agreed w/resident/PA/DIRECTIONAL SURVEY DRAFTER, reviewed EMR data (avail) Attending Assessment/Plan: Laboratory Tests 01/28/18 0620: Anion Gap 12, Estimated GFR 9 L, Glucose 119 H, Calcium 8.5, Phosphorus 3.2, Magnesium 1.7, Total Bilirubin 0.3, AST 23, ALT 25, Albumin 3.2 L, CBC w Diff NO MAN DIFF REQ, RBC 2.85 L, MCV 92.3, MCH 31.3 H, MCHC 33.9, RDW 14.8 H, MPV 9.5, Gran % 65.0, Lymphocytes % 16.0 L, Monocytes % 13.0 H, Eosinophils % 5.3 H, Basophils % 0.7, Absolute Granulocytes 6.5, Absolute Lymphocytes 1.6, Absolute Monocytes 1.3 H, Absolute Eosinophils 0.5, Absolute Basophils 0.1 Vital Signs Date Time Temp Pulse Resp B/P B/P Pulse O2 O2 Flow FiO2 Mean Ox Delivery Rate 01/28 838 92 122/78 01/28 08 92 122/78 01/28 0623 99.0 91 20 102/52 97 Room Air 01/27 2256 99.0 96 20 110/56 97 01/27 2039 92 118/70 01/27 2000 95 Room Air 01/27 1600 98.0 88 18 120/70 100 Room Air pt with esrd on hd who missed her dialysis and was admitted to ICU with increased trop and high probnp and sob. pt is stable from cardiac standpoint for discharge. plan is to dc her today and she will f/u with cardiology in one week time as an outpatient and will also f/u with renal for her HD> dw/ pt the care plan.
== END 2018-01-28 13:58 | disposition home health service (06) | DRG 177 ==
LOC: ERH 18:21 → 1NO 22:32 → CRI 22:32 → ERHI 22:32 → ENRESERV 23:05 → CRI 01-24 00:46 → ENTRNSPT 01-27 21:43 → EDTRNSPT 01-27 22:05 → EDTRNSPTSTS 01-27 22:05 → CMPTRNSPT 01-27 22:19 → 1NO 01-27 22:54 → ENPENDDIS 01-28 13:30 → ENTRNSPT 01-28 13:31 → EDTRNSPT 01-28 13:51 → EDTRNSPTSTS 01-28 13:51 → 1NO 01-28 13:58 → CMPTRNSPT 01-28 14:02
PROVIDERS: Emergency Medicine; Internal Medicine; Student in an Organized Health Care Education/Training Program
PROC: 5A1D70Z Performance of Urinary Filtration, Intermittent, Less than 6 Hours Per Day (ICD-10-PCS; principal; 2018-01-24)
DX: J69.0 Pneumonitis due to inhalation of food and vomit (principal); I21.A1 Myocardial infarction type 2; N18.6 End stage renal disease; N25.81 Secondary hyperparathyroidism of renal origin; I12.0 Hypertensive chronic kidney disease with stage 5 chronic kidney disease or end stage renal disease; E11.22 Type 2 diabetes mellitus with diabetic chronic kidney disease; I25.2 Old myocardial infarction; E11.65 Type 2 diabetes mellitus with hyperglycemia; E78.5 Hyperlipidemia, unspecified; Z99.2 Dependence on renal dialysis; K21.9 Gastro-esophageal reflux disease without esophagitis; E04.1 Nontoxic single thyroid nodule; E66.9 Obesity, unspecified; Z68.30 Body mass index [BMI] 30.0-30.9, adult; I16.0 Hypertensive urgency; K64.9 Unspecified hemorrhoids; I25.10 Atherosclerotic heart disease of native coronary artery without angina pectoris; F32.9 Major depressive disorder, single episode, unspecified; F41.9 Anxiety disorder, unspecified; K52.9 Noninfective gastroenteritis and colitis, unspecified; K59.09 Other constipation; Z91.14 Patient's other noncompliance with medication regimen; Z79.4 Long term (current) use of insulin; Z95.5 Presence of coronary angioplasty implant and graft
CPT/HCPCS: 1NP; CCU; ERO; 36415; 36592; 71045; 71046; 74176; 80307; 82436; 87015; 87045; 87328; 87329; 87899; 87899-59; 93005; 93010; 93306; 96374; 96375; 99291; J0696; J0744; J0780; J0885; J1644; J1815; J2405; J2501; J2550; J2765; J3101; J3250; J3490; J7040; J7060

== ENCOUNTER 2018-02-28 10:03 | Inpatient (IN) | payer OTHER, MEDICARE ==
[~2018-02-28] VITALS: Ht 167.6 cm; Wt 86.4 kg
[~2018-02-28 10:03] MED LIST changes: +PROMETHAZI25 MG/1 M1 IV
--- NOTE | 2018-02-28 10:35 | ED GENERAL ADULT ---
History of Present Illness General Chief Complaint: Sore Throat, Dental Pain Stated Complaint: BIBA JAW PAIN Source: patient, old records Exam Limitations: no limitations Allergies Coded Allergies: NO KNOWN ALLERGIES (NONE 09/19/17) Reconcile Medications Aspirin (Aspirin*) 81 MG TAB.CHEW 2 TAB PO DAILY HEART HEALTH (Reported) Atorvastatin Calcium 40 MG TABLET 1 TAB PO QPM CHOLESTEROL (Reported) Bupropion HCl (Bupropion XL) 150 MG TAB.ER.24H 1 TAB PO QAM MENTAL HEALTH ( Reported) Clonidine 0.3 MG/24 HOUR PATCH.TDWK 1 PAT TOP QSUN HEART (Reported) Clopidogrel Bisulfate (Clopidogrel) 75 MG TABLET 1 TAB PO DAILY BLOOD THINNER (Reported) Diltiazem HCl (Diltiazem 24HR Cd) 180 MG CAP.ER.24H 180 MG PO DAILY HTN Epoetin José (Epogen) 4,000 UNIT/ML VIAL 4,000 UNIT IV MoWeFr PRN WITH HEMODIALYSIS w dialysis MWF Escitalopram Oxalate 20 MG TABLET 1 TAB PO DAILY MENTAL HEALTH (Reported) Gabapentin 100 MG CAPSULE 1 CAP PO TID NEUROPATHY (Reported) Hydralazine HCl 100 MG TABLET 1 TAB PO TID HEART (Reported) Insulin Aspart, Recombinant (Novolog Flexpen) 100 UNIT/ML INSULN.PEN 1 UNIT SC SEE SLIDING SCALE DIABETES (Reported) BEFORE MEALS Blood Insulin Sugar Units <80 0 81-100 1 101-200 2 201-250 6 251-300 8 301-350 10 351-400 12 >400 Call Doctor AT BEDTIME Blood Insulin Sugar Units <80 0 81-100 0 101-200 0 201-250 2 251-300 3 301-350 4 351-400 5 >400 Call Doctor Insulin Glargine,Hum.rec.anlog (Lantus Solostar) 100 UNIT/ML (3 ML) INSULN.PEN 20 UNIT SC BID DM (Reported) Isosorbide Dinitrate 30 MG TABLET 1 TAB PO DAILY CHEST PAIN (Reported) Labetalol HCl 200 MG TABLET 2 TAB PO BID HEART (Reported) Linaclotide (Linzess) 145 MCG CAPSULE 1 CAP PO DAILY PRN CONSTIPATION ( Reported) Lisinopril 40 MG TABLET 1 TAB PO DAILY HTN (Reported) Minoxidil 2.5 MG TABLET 5 MG PO BID HTN Pantoprazole Sodium (Protonix) 40 MG TABLET.DR 1 TAB PO DAILY ACID REFLUX ( Reported) Sevelamer Carbonate (Renvela) 800 MG TABLET 1 TAB PO TID KIDNEY (Reported) TAKE THIS MEDICATION WITH MEALS Triage Note: PT BIBA FROM HOME FOR C/O JAW PAIN SINCE LAST NIGHT. H/O MULTIPLE AL'S WITH MULTIPLE STENTS. STATES WHEN SHE HAS HAD AN AL IN THE PAST SHE PRESENTED WITH JAW PAIN. CURRENTLY DENIES C/P. WAS ADVISED TO COME TO ED BY VISITING NURSE. VSS. EKG IN PROGRESS. AWAITING PROVIDER EVAL. Triage Nurses Notes Reviewed? yes Onset: Abrupt Duration: day(s): (1), changing over time, continues in ED, intermittent Timing: recent history Injury Environment: home Severity: mild, moderate Severity Numbers: 5 No Modifying Factors: none LMP (ages 10-50): post menopausal, unknown : No Patient currently breastfeeds: No HPI: 52-year-old female past medical history of end-stage renal disease on dialysis Tuesday, atrial fibrillation, coronary artery disease status post stents presents for evaluation of right-sided jaw pain. Patient reports symptoms started yesterday and have been intermittent. The pain is located in the right side of the upper jaw and radiates into the neck. Patient reports symptoms are similar to previous AL. Patient was recently admitted here with significantly elevated troponins in the ICU about 1 month ago. Patient denies shortness of breath hemoptysis or lower extremity edema. She is a patient of Dr. Dixon. (Jimbo Krishnan) Vital Signs & Intake/Output Vital Signs & Intake/Output Vital Signs Date Time Temp Pulse Resp B/P B/P Pulse O2 O2 Flow FiO2 Mean Ox Delivery Rate 02/28 1430 98.0 83 18 111/524 02/28 1407 98.0 83 18 111/524 99 Room Air 02/28 1331 98.0 84 20 123/61 99 Room Air 02/28 1150 83 20 131/67 96 Room Air 02/28 1118 100 Room Air 02/28 1006 98.3 87 20 131/61 100 Room Air (Moreno ORTEGA,Felipe) Past History Travel History Traveled to [place] past 21 day No Medical History Any Pertinent Medical History? see below for history Neurological: peripheral neuropathy EENT: NONE Cardiovascular: AFIB, CAD, hypertension, hyperlipidemia, myocardial infarction, NSTEMI, 10 CARDIAC STENTS Respiratory: pneumonia Gastrointestinal: constipation Hepatic: NONE Renal: ESRD on HD Musculoskeletal: NONE Psychiatric: depression Endocrine: diabetes, GERD thyroid nodule Blood Disorders: anemia Cancer(s): NONE SCRAPPER/Reproductive: uterine fibriods History of MRSA: No History of VRE: No History of CDIFF: No Surgical History Surgical History: STENTS X4 aVF Michel catheter S/P AV SHUNT AVF MANUEL Psychosocial History Who do you live with Significant Other Services at Home Patient previously had home health aide and nursing services but these services were recently discontinued What is your primary language Belarusian Tobacco Use: Never used ETOH Use: denies use Illicit Drug Use: denies illicit drug use Family History Family History, If Any: MOTHER Chronic renal disease uncle Chronic renal disease Relation not specified for: FH: CAD (coronary artery disease) FH: cancer FH: diabetes mellitus FH: HTN (hypertension) FH: schizophrenia Hx Contributory? No (Jimbo Krishnan) Review of Systems Review of Systems Constitutional: Reports: no symptoms. EENTM: Reports: no symptoms. Respiratory: Reports: no symptoms. Cardiovascular: Reports: see HPI, chest pain. GI: Reports: no symptoms. Genitourinary: Reports: no symptoms. Musculoskeletal: Reports: no symptoms. Skin: Reports: no symptoms. Neurological/Psychological: Reports: no symptoms. Hematologic/Endocrine: Reports: no symptoms. Immunologic/Allergic: Reports: no symptoms. All Other Systems: Reviewed and Negative (Jimbo Krishnan) Physical Exam Physical Exam General Appearance: well developed/nourished, no apparent distress, alert, awake Head: atraumatic, normal appearance Eyes: Bilateral: normal appearance, PERRL, EOMI. Ears, Nose, Throat: normal pharynx, normal ENT inspection, hearing grossly normal Neck: normal inspection, supple, full range of motion Respiratory: normal breath sounds, chest non-tender, no respiratory distress, lungs clear Cardiovascular: regular rate/rhythm, normal peripheral pulses Peripheral Pulses: 2+ radial (R), 2+ radial (L) Gastrointestinal: soft, non-tender Back: normal inspection, normal range of motion, no vertebral tenderness Extremities: normal inspection, normal range of motion, no edema Neurologic/Psych: no motor/sensory deficits, awake, alert, oriented x 3, normal mood/affect Skin: intact, normal color, warm/dry Lymphatic: no anterior cervical dinah Core Measures ACS in differential dx? Yes CVA/TIA Diagnosis: No Sepsis Present: No Sepsis Focused Exam Completed? No (Jimbo Krishnan) Progress Differential Diagnoses I considered the following diagnoses in my evaluation of the patient: [Acute coronary syndrome, unstable angina, pneumonia, PE, CHF exacerbation, TMJ, muscle strain] Diagnostic Imaging: Viewed by Me: Radiology Read. Discussed w/RAD: Radiology Read. CXR Impression: PATIENT: THOMAS BARRIOS PRESENT AGE: 52 PATIENT ACCOUNT NO: [id number] : 67 LOCATION: [facility] ORDERING PHYSICIAN: Jimbo CRAWFORD SERVICE DATE: 02/28/18 EXAM TYPE: RAD - XRY-PORTABLE CHEST XRAY EXAMINATION: XR PORTABLE CHEST CLINICAL INFORMATION: Right-sided pain (jaw and neck), similar to previous myocardial infarction. COMPARISON: 2017 and 01/26/2018 TECHNIQUE: Portable frontal view of the chest was obtained. FINDINGS: Lungs are symmetrically expanded. Again noted is cardiomegaly. Mild prominence of peribronchial interstitium is noted. This suggests possibility of mild edema of the central/axial interstitium. The edema remains markedly improved compared to a prior chest radiograph from 01/23/2018. No focal consolidation or overt pleural effusion. The visualized bones are intact. IMPRESSION: - Cardiomegaly. - Mild interstitial edema is suspected. DICTATED BY: Jimmy Hurd MD DATE/TIME DICTATED:02/28/181107 WORKPLACE TRAINER AND ASSESSOR:CHUY DATE/TIME TRANSCRIBED:02/28/181107 CONFIDENTIAL, DO NOT COPY WITHOUT APPROPRIATE AUTHORIZATION. <Electronically signed in Other Vendor System> SIGNED BY: Jimmy Hurd MD 02/28/18 1119 Initial ED EKG: nonspecific ST T wave chg (DIFFUSE ), SINUS RHYTHM LBBB, LEFT ATRIUAL ABN (Jimbo Krishnan) Plan of Care: Orders Procedure Date/time Status TROPONIN LEVEL 03/01 0100 Active EKG 03/01 0100 Active Renal Dialysis Diet 02/28 D Active PARTIAL THROMBOPLASTIN TIME 02/28 1810 Active TROPONIN LEVEL 02/28 1700 Active EKG 02/28 1700 Active Pathway - chart 02/28 1355 Active House Staff 02/28 1355 Active Patient Data 02/28 1355 Active Code Status 02/28 1355 Active Lab Add-on Test 02/28 1325 Active ED Holding Orders 02/28 1254 Active Admit to inpatient 02/28 1254 Active Vital Signs 02/28 1254 Active Code Status 02/28 1254 Complete Patient Data 02/28 1216 Active Add-on Test (ER Only) 02/28 1201 Active Add-on Test (ER Only) 02/28 1034 Active Telemetry/Select [employer]er 02/28 1034 Active PARTIAL THROMBOPLASTIN TIME 02/28 1031 Complete PROTHROMBIN TIME 02/28 1031 Complete THYROID STIMULATING HORMONE 02/28 1030 Complete TOTAL TRIODOTHYROXINE 02/28 1030 Complete HUMAN BETA HCG SCREEN 02/28 1030 Complete GLYCOSYLATED HGB 02/28 1030 Complete FREE T4 02/28 1030 Complete B-TYPE NATRIURETIC PEP (BNP) 02/28 1030 Complete URINALYSIS 02/28 1007 Active TROPONIN LEVEL 02/28 1007 Complete MAGNESIUM 02/28 1007 Complete LIPASE 02/28 1007 Complete COMPREHENSIVE METABOLIC PANEL 02/28 1007 Complete CBC WITHOUT DIFFERENTIAL 02/28 1007 Complete Intake & Output 02/28 1005 Active EKG 02/28 1005 Active Lab Add-on Test 02/28 UNK Active VTE Mechanical Prophylaxis 02/28 UNK Active Vital Signs 02/28 UNK Active Telemetry/[employer] 02/28 UNK Active Intake & Output 02/28 UNK Active Activity/Ambulation 02/28 UNK Active Current Medications Sig/[place] Start time Last Medication Dose Stop Time Status Admin Aspirin 162 MG DAILY 03/01 900 UNVr (Aspirin) Bupropion HCl 150 MG QAM 03/01 900 UNVr (Wellbutrin XL) Clopidogrel Bisulfate 75 MG DAILY 03/01 900 UNVr (Plavix) Diltiazem HCl 180 MG DAILY 03/01 900 UNVr (Cardizem CD) Escitalopram Oxalate 20 MG DAILY 03/01 900 UNVr (Lexapro) Insulin Detemir 10 UNITS DAILY 03/01 900 UNVr (Levemir) Isosorbide 30 MG DAILY 03/01 900 UNVr Mononitrate (Imdur) Lisinopril 40 MG DAILY 03/01 900 UNVr (Prinivil) Omeprazole 40 MG DAILY AC 03/01 07 UNVr (Prilosec) Atorvastatin Calcium 40 MG QPM 02/28 2100 UNVr (Lipitor) Labetalol HCl 400 MG BID 02/28 2100 UNVr (Trandate-Normodyne 200MG Tab) Minoxidil 5 MG BID 02/28 2100 UNVr (Minoxidil 2.5 MG Tab) Nitroglycerin 0.5 GM Q6 02/28 1800 UNVr (Nitro-Bid) Insulin Aspart 0 TIDAC 02/28 1700 UNVr (NovoLOG) Gabapentin 100 MG TID 02/28 1400 AC 02/28 (Neurontin) 1430 Hydralazine HCl 100 MG TID 02/28 1400 AC 02/28 (Apresoline) 1430 Morphine Sulfate 2 MG Q4P PRN 02/28 1400 UNVr 02/28 (MORPHINE SULFATE) 1414 Sevelamer Carbonate 800 MG TID 02/28 1400 AC 02/28 (Renvela) 1430 Heparin Sodium 25,000 UNIT Q24H 02/28 1200 UNVr 02/28 (Porcine) 1207 (Heparin) Sodium Chloride 500 ML Laboratory Tests 02/28/18 1031: PT 11.9, INR 1.09, APTT 31 02/28/18 1030: Anion Gap 13, Estimated GFR 7 L, BUN/Creatinine Ratio 2.8 L, Glucose 91, Hemoglobin A1c 6.3 H, Calcium 9.6, Magnesium 1.5 L, Total Bilirubin 0.4, AST 17, ALT 6 L, Alkaline Phosphatase 65, Troponin I 0.91 *H, Fsr-Y-Uikaytrkyca Pept 20053 H, Total Protein 6.8, Albumin 3.9, Globulin 2.9, Albumin/Globulin Ratio 1.3, Lipase 101, TSH 0.808, Free T4 1.64, Total T3 1.21, Total Beta HCG NEGATIVE, CBC w Diff NO MAN DIFF REQ, RBC 3.15 L, MCV 92.8, MCH 31.0, MCHC 33.4 , RDW 15.9 H, MPV 8.4, Gran % 81.6 H, Lymphocytes % 8.6 L, Monocytes % 7.3, Eosinophils % 2.5, Basophils % 0, Absolute Granulocytes 8.6 H, Absolute Lymphocytes 0.9 L, Absolute Monocytes 0.8 H, Absolute Eosinophils 0.3, Absolute Basophils 0 Patient is here for evaluation of right-sided jaw pain that she describes as being similar to her previous AL. Symptoms started yesterday been intermittent. On initial evaluation patient states she is not having any symptoms. The jaw pain comes on randomly without triggering events. She denies shortness of breath. Her vital signs are stable. Initial EKG is grossly abnormal however it appears improved from the previous EKG 1 month ago she still does have some flat T waves in the chest leads. She has no chest pain or shortness of breath currently. Labs are ordered. Patient was medicated with aspirin. Blood work shows a troponin of 0.91. Previous results for troponin are all elevated. Last month she was elevated to greater than 5. Spoke with Dr. Mccormack who recommends the patient come in to rule out acute coronary syndrome he recommends heparinizing the patient. There is a small amount of interstitial edema on the chest x-ray. Patient is a dialysis patient and her BNP is elevated. She was given topical nitro. Patient will be admitted to telemetry for further evaluation and treatment of acute coronary syndrome. case discussed laurenmaximilian dunlap he agrees. (Jimbo Krishnan) (Felipe Dunlap MD) Departure Departure Disposition: STILL A PATIENT Condition: Stable Clinical Impression Primary Impression: Acute coronary syndrome Referrals: Violetta Reddy APRN (PCP/Family) Departure Forms: Customer Survey General Discharge Information Admission Note Spoke With: Ginny Rivera MD Documentation of Exam: Documentation of any treatments & extenuating circumstances including Concerns Regarding Discharge (functional status, medication knowledge or non-compliance, living conditions, etc.) that warrant an admission rather than observation: [ Serial labs, serial EKGs, telemetry, cardiology, echocardiogram, IV heparin, medication adjustment] (Jimbo Krishnan) PA/LABOR RELATIONS DIRECTOR Co-Sign Statement Statement: ED Attending supervision documentation- x I saw and evaluated the patient. I have also reviewed all the pertinent lab results and diagnostic results. I agree with the findings and the plan of care as documented in the PA's/LABOR RELATIONS DIRECTOR's documentation. Negative for significant ECG changes. Chronically elevated trop. Negative for chest wall tenderness. High risk patient. Admit to telemetry. [] I have reviewed the ED Record and agree with the PA's/LABOR RELATIONS DIRECTOR's documentation. [] Additions or exceptions (if any) to the PAs/LABOR RELATIONS DIRECTOR's note and plan are summarized below: [] (Felipe Dunlap MD) Critical Care Note Critical Care Note Critical Care Time: 75-104 min (Jimbo Krishnan)
[2018-02-28 10:39] LABS: ABSOLUTE BASOPHIL COUNT 0 /CUMM (0.0-0.2); ABSOLUTE EOSINOPHIL COUNT 0.3 /CUMM (0.0-0.7); ABSOLUTE GRANULOCYTE CT 8.6 /CUMM (1.4-6.5); ABSOLUTE LYMPH COUNT 0.9 /CUMM (1.2-3.4); ABSOLUTE MONOCYTE COUNT 0.8 /CUMM (0.10-0.60); BASOPHIL % 0 % (0.0-2.0); EOSINOPHIL % 2.5 % (0-5); GRANULOCYTE % 81.6 % (42.2-75.2); HEMATOCRIT 29.3 % (37-47); MEAN CORPUSCULAR HGB CONC 33.4 G/DL (33.0-37.0); MEAN CORPUSCULAR VOLUME 92.8 FL (81.0-99.0); MEAN PLATELET VOLUME 8.4 FL (7.4-10.4); PLATELET COUNT 309 /CUMM (130-400); RBC DISTRIBUTION WIDTH 15.9 % (11.5-14.5); RED BLOOD CELL CT 3.15 /CUMM (4.20-5.40); WHITE BLOOD CELL COUNT 10.6 /CUMM (4.8-10.8)
[2018-02-28] MEDS ORDERED: HYDRALAZINE HC100 M1 PO (11:02)
--- NOTE | 2018-02-28 11:19 | RADIOLOGY REPORT ---
EXAMINATION: XR PORTABLE CHEST CLINICAL INFORMATION: Right-sided pain (jaw and neck), similar to previous myocardial infarction. COMPARISON: 01/23/2018 and 01/26/2018 TECHNIQUE: Portable frontal view of the chest was obtained. FINDINGS: Lungs are symmetrically expanded. Again noted is cardiomegaly. Mild prominence of peribronchial interstitium is noted. This suggests possibility of mild edema of the central/axial interstitium. The edema remains markedly improved compared to a prior chest radiograph from 01/23/2018. No focal consolidation or overt pleural effusion. The visualized bones are intact. IMPRESSION: - Cardiomegaly. - Mild interstitial edema is suspected.
[2018-02-28 12:16] LABS: PT 11.9 SEC (9.4-12.5); PTT 31 SEC (25-37)
--- NOTE | 2018-02-28 13:52 | History & Physical ---
Timmy ORTEGA,Carriesharmila 02/28/18 1325: General Information and HPI MD Statement: I have seen and personally examined THOMAS BARRIOS and documented this H&P. The patient is a 52 year old F who presented with a patient stated chief complaint of [JAW PAIN]. Source of Information: patient, old records Exam Limitations: no limitations History of Present Illness: This is a 52 yo female wiht PMH of HTN, HLD, DM, ESRD s/p R. AVF, thyroid nodule, uterine fibroids, anemia, GERD and multiple angioplasties with >10 stents (pt states she has lost count). She comes in for CC of jaw pain , which is reminescent of the pain "I had last time I had a heart attack." She describes it as a l. sided jaw pain which started around 8-9 pm last night. It waxed and waned all night (about 5-6 on a pain scale) and radiates down her l. neck. She spoke with for [facility] this AM who contacted pt's head inspector and center marker and was suggested to come in for further work up. She now endorses some mild chest pressure which was not there last night. Nitro did not improve her C/P jawpain but tylenol made a slight difference for her this AM. Notably, pt was here last month with similar complaint and had troponin up to 5.83. Her last dialysis was yesterday. Allergies/Medications Allergies: Coded Allergies: NO KNOWN ALLERGIES (NONE 09/19/17) Home Med list Aspirin (Aspirin*) 81 MG TAB.CHEW 2 TAB PO DAILY HEART HEALTH (Reported) Atorvastatin Calcium 40 MG TABLET 1 TAB PO QPM CHOLESTEROL (Reported) Bupropion HCl (Bupropion XL) 150 MG TAB.ER.24H 1 TAB PO QAM MENTAL HEALTH ( Reported) Clonidine 0.3 MG/24 HOUR PATCH.TDWK 1 PAT TOP QSUN HEART (Reported) Clopidogrel Bisulfate (Clopidogrel) 75 MG TABLET 1 TAB PO DAILY BLOOD THINNER (Reported) Diltiazem HCl (Diltiazem 24HR Cd) 180 MG CAP.ER.24H 180 MG PO DAILY HTN Epoetin José (Epogen) 4,000 UNIT/ML VIAL 4,000 UNIT IV MoWeFr PRN WITH HEMODIALYSIS w dialysis MWF Escitalopram Oxalate 20 MG TABLET 1 TAB PO DAILY MENTAL HEALTH (Reported) Gabapentin 100 MG CAPSULE 1 CAP PO TID NEUROPATHY (Reported) Hydralazine HCl 100 MG TABLET 1 TAB PO TID HEART (Reported) Insulin Aspart, Recombinant (Novolog Flexpen) 100 UNIT/ML INSULN.PEN 1 UNIT SC SEE SLIDING SCALE DIABETES (Reported) BEFORE MEALS Blood Insulin Sugar Units <80 0 81-100 1 101-200 2 201-250 6 251-300 8 301-350 10 351-400 12 >400 Call Doctor AT BEDTIME Blood Insulin Sugar Units <80 0 81-100 0 101-200 0 201-250 2 251-300 3 301-350 4 351-400 5 >400 Call Doctor Insulin Glargine,Hum.rec.anlog (Lantus Solostar) 100 UNIT/ML (3 ML) INSULN.PEN 20 UNIT SC BID DM (Reported) Isosorbide Dinitrate 30 MG TABLET 1 TAB PO DAILY CHEST PAIN (Reported) Labetalol HCl 200 MG TABLET 2 TAB PO BID HEART (Reported) Linaclotide (Linzess) 145 MCG CAPSULE 1 CAP PO DAILY PRN CONSTIPATION ( Reported) Lisinopril 40 MG TABLET 1 TAB PO DAILY HTN (Reported) Minoxidil 2.5 MG TABLET 5 MG PO BID HTN Pantoprazole Sodium (Protonix) 40 MG TABLET.DR 1 TAB PO DAILY ACID REFLUX ( Reported) Sevelamer Carbonate (Renvela) 800 MG TABLET 1 TAB PO TID KIDNEY (Reported) TAKE THIS MEDICATION WITH MEALS Compliance With Home Meds: GOOD Past History Travel History Traveled to [place] past 21 day No Medical History Neurological: peripheral neuropathy EENT: NONE Cardiovascular: AFIB, CAD, hypertension, hyperlipidemia, myocardial infarction, NSTEMI, 10 CARDIAC STENTS Respiratory: pneumonia Gastrointestinal: constipation Hepatic: NONE Renal: ESRD on HD Musculoskeletal: NONE Psychiatric: depression Endocrine: diabetes, GERD thyroid nodule Blood Disorders: anemia Cancer(s): NONE 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 significant other, child Services at Home: Patient previously had home health aide and nursing services but these services were recently discontinued Primary Language: S[place] ETOH Use: denies use Illicit Drug Use: denies illicit drug use Functional Ability ADLs Independent: dressing, eating, toileting, bathing. Ambulation: independent Review of Systems Review of Systems Constitutional: Reports: see HPI. Exam & Diagnostic Data Last 24 Hrs of Vital Signs/I&O Vital Signs Date Time Temp Pulse Resp B/P B/P Pulse O2 O2 Flow FiO2 Mean Ox Delivery Rate 02/28 1331 98.0 84 20 123/61 99 Room Air 02/28 1150 83 20 131/67 96 Room Air 02/28 1118 100 Room Air 02/28 1006 98.3 87 20 131/61 100 Room Air Intake & Output 02/28 1600 02/28 0800 02/28 0000 Intake Total Output Total Balance Patient 84.822 kg Weight Weight Reported by Patient Measurement Method Physical Exam General Appearance Alert, Oriented X3, Cooperative, No Acute Distress Skin No Significant Lesion HEENT Atraumatic, PERRLA, EOMI Neck Supple Cardiovascular Regular Rate, Normal S1, Normal S2, No Murmurs Lungs Normal Air Movement Abdomen Soft, No Tenderness Extremities trace edema Last 24 Hrs of Labs/Michi: Laboratory Tests 02/28/18 1031: PT 11.9, INR 1.09, APTT 31 02/28/18 1030: Anion Gap 13, Estimated GFR 7 L, BUN/Creatinine Ratio 2.8 L, Glucose 91, Calcium 9.6, Magnesium 1.5 L, Total Bilirubin 0.4, AST 17, ALT 6 L, Alkaline Phosphatase 65, Troponin I 0.91 *H, Frx-F-Dxfobatooam Pept 36230 H, Total Protein 6.8, Albumin 3.9, Globulin 2.9, Albumin/Globulin Ratio 1.3, Lipase 101, Total Beta HCG Pending, CBC w Diff NO MAN DIFF REQ, RBC 3.15 L, MCV 92.8, MCH 31.0, MCHC 33.4, RDW 15.9 H, MPV 8.4, Gran % 81.6 H, Lymphocytes % 8.6 L, Monocytes % 7.3, Eosinophils % 2.5, Basophils % 0, Absolute Granulocytes 8.6 H, Absolute Lymphocytes 0.9 L, Absolute Monocytes 0.8 H, Absolute Eosinophils 0.3 , Absolute Basophils 0 Assessment/Plan Assessment: This is a 52 yo AA female with PMH of HTN, HLD, DM, ESRD s/p R. AVF, thyroid nodule, uterine fibroids, anemia, GERD and multiple angioplasties with >10 stents with CC of jaw pain. Her EDVIN score is 5 giving her "26% risk at 14 days of: all-cause mortality, new or recurrent AR, or severe recurrent ischemia requiring urgent revascularization." She has + trops and EKG with LBBB will admit to Tele for trt of NSTEMI. --- PLAN: NSTEMI: Pt has Trops of .91 this AM. Her EKG shows LBBB; it doesn't seem new looking at previous EKG from 01/25/2018. In ED she was started on heparin drip, ASA, and Plavix. * Con't monitor EKG and trop; next at 4:30 PM and midnight. Last echo in Jan 2018 showed mild LVH, mmild lat wall hypokinesis, mild TR, SC and EF =60%. * ASA * Statin * BB * ACEi * Nitro * Appreciate cardio recs ESRD: Cr is 6.4; last dialysis yesterday. Usually MWF dialysis. * Nephro consult for dialysis in hospital Anemia: Seems chronic; seems like it was previously presumed to be from her fibroids and ESRD status. She has not had a period in several months. * con't monitor * goal >8 to transfuse Mild interstitial Edema: Improved from last month Thyroid nodule: Supposedly has hx of ??nodule in thyroid gland and thyromegaly. This was seen in thyroid US in 2012. She has had no f/u. * TFT DM: * Check a1c * RISS * FS FC Heparin Dialysis diet As Ranked By This Provider Problem List: 1. NSTEMI (non-ST elevated myocardial infarction) Core Measures/Misc (02/27) Acute Coronary Syndrome ACS Diagnosis: Yes Last Known EF % 65 Congestive Heart Failure Congestive Heart Failure Diagnosis No Cerebrovascular Accident CVA/TIA Diagnosis: No VTE (View Protocol) VTE Risk Factors Acute Medical Illness No Mechanical VTE Prophylaxis d/t N/A MechProphylax Ordered No VTE Pharm Prophylaxis d/t NA PharmProphylax ordered Sepsis (View protocol) Sepsis Present: No If YES complete Sepsis Event Note If YES complete Sepsis Event Note Ginny Rivera MD 02/28/18 1518: Core Measures/Misc (02/27) Sepsis (View protocol) If YES complete Sepsis Event Note If YES complete Sepsis Event Note Attending MD Review Statement Attending Statement Attending MD Statement: examined this patient, discuss w/resident/PA/SHANK SKINNER, agreed w/resident/PA/SHANK SKINNER, reviewed EMR data (avail) Attending Assessment/Plan: 52F PMH HTN, HLD, DM, ESRD s/p R. AVF, thyroid nodule, uterine fibroids, anemia, GERD and multiple angioplasties with >10 stents presenting with left jaw pain radiating to her left neck that started at rest last night and is not associated with any other symptoms. This presentation is consistent with prior AR's. She is currently pain free, as the pain has been waxing and waning. She has no other complaints. EKG is NSR with LBBB (unchanged). Troponin 0.91. 1. NSTEMI 2. ESRD on HD Plan - Admit to telemetry - Serial troponin and EKG - Will transfer for cath if troponin elevated - Follow cardiology recommendations - Heparin drip - ASA, Plavix, Metoprolol, Statin, Nitropaste - Continue home medications - Nephrology for continuation of HD
--- NOTE | 2018-02-28 15:20 | Cons- Nephrology ---
General Information and HPI Consulting Request Date of Consult: 02/28/18 Requested By: Ginny Rivera MD Reason for Consult: Evaluation and management of end-stage renal disease Source of Information: patient, family, old records Exam Limitations: no limitations History of Present Illness: This 52-year-old woman has a history of end-stage renal disease for the last 2 years full top she has a history of diabetes, coronary artery disease, neuropathy and depression. She presents now to the emergency room on the instruction of the visiting nurse since she was experiencing jaw pain. This is similar to her previous known episodes of angina pectoris which presented likewise with jaw pain. It was not relieved by nitro. She says it is better when she is lying perfectly still. It is not as intense as in previous episodes. Currently, she says her blood pressure was in the low side after dialysis. Otherwise her dialysis has been uneventful. Also of note, she her mother was on dialysis. Likewise, her uncle is on dialysis. She denies any fevers or chills. She has not had any shortness of breath with this. Allergies/Medications Allergies: Coded Allergies: NO KNOWN ALLERGIES (NONE 09/19/17) Home Med List: Aspirin (Aspirin*) 81 MG TAB.CHEW 2 TAB PO DAILY HEART HEALTH (Reported) Atorvastatin Calcium 40 MG TABLET 1 TAB PO QPM CHOLESTEROL (Reported) Bupropion HCl (Bupropion XL) 150 MG TAB.ER.24H 1 TAB PO QAM MENTAL HEALTH ( Reported) Clonidine 0.3 MG/24 HOUR PATCH.TDWK 1 PAT TOP QSUN HEART (Reported) Clopidogrel Bisulfate (Clopidogrel) 75 MG TABLET 1 TAB PO DAILY BLOOD THINNER (Reported) Diltiazem HCl (Diltiazem 24HR Cd) 180 MG CAP.ER.24H 180 MG PO DAILY HTN Epoetin José (Epogen) 4,000 UNIT/ML VIAL 4,000 UNIT IV MoWeFr PRN WITH HEMODIALYSIS w dialysis MWF Escitalopram Oxalate 20 MG TABLET 1 TAB PO DAILY MENTAL HEALTH (Reported) Gabapentin 100 MG CAPSULE 1 CAP PO TID NEUROPATHY (Reported) Hydralazine HCl 100 MG TABLET 1 TAB PO TID HEART (Reported) Insulin Aspart, Recombinant (Novolog Flexpen) 100 UNIT/ML INSULN.PEN 1 UNIT SC SEE SLIDING SCALE DIABETES (Reported) BEFORE MEALS Blood Insulin Sugar Units <80 0 81-100 1 101-200 2 201-250 6 251-300 8 301-350 10 351-400 12 >400 Call Doctor AT BEDTIME Blood Insulin Sugar Units <80 0 81-100 0 101-200 0 201-250 2 251-300 3 301-350 4 351-400 5 >400 Call Doctor Insulin Glargine,Hum.rec.anlog (Lantus Solostar) 100 UNIT/ML (3 ML) INSULN.PEN 20 UNIT SC BID DM (Reported) Isosorbide Dinitrate 30 MG TABLET 1 TAB PO DAILY CHEST PAIN (Reported) Labetalol HCl 200 MG TABLET 2 TAB PO BID HEART (Reported) Linaclotide (Linzess) 145 MCG CAPSULE 1 CAP PO DAILY PRN CONSTIPATION ( Reported) Lisinopril 40 MG TABLET 1 TAB PO DAILY HTN (Reported) Minoxidil 2.5 MG TABLET 5 MG PO BID HTN Pantoprazole Sodium (Protonix) 40 MG TABLET.DR 1 TAB PO DAILY ACID REFLUX ( Reported) Sevelamer Carbonate (Renvela) 800 MG TABLET 1 TAB PO TID KIDNEY (Reported) TAKE THIS MEDICATION WITH MEALS Current Medications: Current Medications Sig/[place] Start time Last Medication Dose Route Stop Time Status Admin Aspirin 162 MG DAILY 03/01 900 UNVr PO Aspirin 325 MG ONCE ONE 02/28 1045 DC 02/28 PO 02/28 1046 1039 Aspirin 0 .STK-MED ONE 02/28 1036 DC PO Atorvastatin Calcium 40 MG QPM 02/28 2100 UNVr PO Bupropion HCl 150 MG QAM 03/01 0900 UNVr PO Clopidogrel Bisulfate 75 MG DAILY 03/01 0900 UNVr PO Clopidogrel Bisulfate 75 MG ONCE ONE 02/28 1130 DC 02/28 PO 02/28 1131 1128 Diltiazem HCl 180 MG DAILY 03/01 09 UNVr PO Escitalopram Oxalate 20 MG DAILY 03/01 900 UNVr PO Gabapentin 100 MG TID 02/28 1400 AC PO Heparin Sodium 0 .STK-MED ONE 02/28 1204 DC (Porcine) .ROUTE Heparin Sodium 5,000 UNIT ONCE ONE 02/28 1200 DC 02/28 (Porcine) IV 02/28 1201 1207 Heparin Sodium 25,000 UNIT Q24H 02/28 1200 UNVr 02/28 (Porcine) IV 1207 Sodium Chloride 500 ML Hydralazine HCl 100 MG TID 02/28 1400 AC PO Insulin Aspart 0 TIDAC 02/28 1700 UNVr SC Insulin Detemir 10 UNITS DAILY 03/01 900 UNVr SC Isosorbide 30 MG DAILY 03/01 900 UNVr Mononitrate PO Labetalol HCl 400 MG BID 02/28 2100 UNVr PO Lisinopril 40 MG DAILY 03/01 09 UNVr PO Minoxidil 5 MG BID 02/28 2100 UNVr PO Morphine Sulfate 2 MG Q4P PRN 02/28 1400 UNVr 02/28 IV 1414 Nitroglycerin 0.5 GM Q6 02/28 1800 UNVr TOP Nitroglycerin 0 .STK-MED ONE 02/28 1156 DC TOP Nitroglycerin 1 GM ONCE ONE 02/28 1130 DC 02/28 TOP 02/28 1131 1156 Omeprazole 40 MG DAILY AC 03/01 07 UNVr PO Sevelamer Carbonate 800 MG TID 02/28 1400 AC PO Review of Systems Review of Systems Constitutional: Denies: chills, diaphoresis, fever, malaise, unexplained weight loss. EENTM: Denies: blurred vision, double vision, eye pain, epistaxis. Cardiovascular: Reports: chest pain. Denies: orthopena, palpitations, peripheral edema. Respiratory: Denies: cough, orthopnea, short of breath. GI: Denies: constipation, diarrhea, distention, melena, bloody stool. Musculoskeletal: Reports: no symptoms. Skin: Reports: no symptoms. Neurological/Psychological: Reports: no symptoms. Hematologic/Endocrine: Reports: no symptoms. Past History Travel History Traveled to [place] past 21 day No Medical History Neurological: peripheral neuropathy EENT: NONE Cardiovascular: AFIB, CAD, hypertension, hyperlipidemia, myocardial infarction, NSTEMI, 10 CARDIAC STENTS Respiratory: pneumonia Gastrointestinal: constipation Hepatic: NONE Renal: ESRD on HD (since November 2015) Musculoskeletal: NONE Psychiatric: depression Endocrine: diabetes, GERD thyroid nodule Blood Disorders: anemia Cancer(s): NONE RHIA/Reproductive: uterine fibriods Surgical History Surgical History: Several PCI's prior to 2015. December 2017, Michel catheter S/P AV SHUNT AVF MANUEL, avf Family History Relations & Conditions If Any: MOTHER Chronic renal disease uncle Chronic renal disease Relation not specified for: FH: CAD (coronary artery disease) FH: cancer FH: diabetes mellitus FH: HTN (hypertension) FH: schizophrenia Psychosocial History Who Do You Live With? significant other, child Services at Home: Patient previously had home health aide and nursing services but these services were recently discontinued Primary Language: Polish ETOH Use: denies use Illicit Drug Use: denies illicit drug use Functional Ability ADLs Independent: dressing, eating, toileting, bathing. Ambulation: independent Exam & Diagnostic Data Vital Signs and I&O Vital Signs Date Time Temp Pulse Resp B/P B/P Pulse O2 O2 Flow FiO2 Mean Ox Delivery Rate 02/28 1430 98.0 83 18 111/524 02/28 1407 98.0 83 18 111/524 99 Room Air 02/28 1331 98.0 84 20 123/61 99 Room Air 02/28 1150 83 20 131/67 96 Room Air 02/28 1118 100 Room Air 02/28 1006 98.3 87 20 131/61 100 Room Air Intake & Output 02/28 1600 02/28 0400 02/27 1600 02/27 0400 02/26 1600 02/26 0400 Intake Total Output Total Balance Patient 187 lb Weight Weight Reported by Patient Measurement Method Physical Exam General Appearance: well developed/nourished, no apparent distress, alert, awake , comfortable Head: atraumatic, normal appearance Eyes: Bilateral: PERRL, EOMI, pale conjunctivae. Ears, Nose, Throat: normal pharynx, normal ENT inspection, hearing grossly normal Neck: normal inspection, supple, full range of motion, trachea mid line Respiratory: normal breath sounds, chest non-tender, lungs clear Cardiovascular: regular rate/rhythm, edema Peripheral Pulses: 2+ popliteal (R), 2+ popliteal (L), 2+ tibialis posterior (R), 2+ tibialis posterior (L), 2+ dorsalis pedis (R), 2+ dorsalis pedis (L) Gastrointestinal: normal bowel sounds, soft, non-tender Back: normal inspection Neurologic/Psych: no motor/sensory deficits, awake, alert, oriented x 3, stock grader II- XII nml as tested Skin: intact, normal color, warm/dry Results Pertinent Lab Results: Laboratory Tests 02/28 02/28 1031 1030 Chemistry Sodium (137 - 145 mmol/L) 141 Potassium (3.5 - 5.1 mmol/L) 4.0 Chloride (98 - 107 mmol/L) 102 Carbon Dioxide (22 - 30 mmol/L) 26 Anion Gap (5 - 16) 13 BUN (7 - 17 mg/dL) 18 H Creatinine (0.5 - 1.0 mg/dL) 6.4 *H Estimated GFR (>60 ml/min) 7 L BUN/Creatinine Ratio (7 - 25 %) 2.8 L Glucose (65 - 99 mg/dL) 91 Hemoglobin A1c (4.2 - 5.8 %) 6.3 H Calcium (8.4 - 10.2 mg/dL) 9.6 Magnesium (1.6 - 2.3 mg/dL) 1.5 L Total Bilirubin (0.2 - 1.3 mg/dL) 0.4 AST (14 - 36 U/L) 17 ALT (9 - 52 U/L) 6 L Alkaline Phosphatase (<127 U/L) 65 Troponin I (< 0.11 ng/ml) 0.91 *H [id number]-[id number] Pept (<125 pg/mL) [address] H Total Protein (6.3 - 8.2 g/dL) 6.8 Albumin (3.5 - 5.0 g/dL) 3.9 Globulin (1.9 - 4.2 gm/dL) 2.9 Albumin/Globulin Ratio (1.1 - 2.2 %) 1.3 Lipase (23 - 300 U/L) 101 TSH (0.270 - 4.200 uIU/mL) Pending Free T4 (0.64 - 1.79 ng/dL) 1.64 Total T3 (0.97 - 1.69 ng/mL) Pending Total Beta HCG (NEGATIVE) NEGATIVE Coagulation PT (9.4 - 12.5 SEC) 11.9 INR (0.90 - 1.19) 1.09 APTT (25 - 37 SEC) 31 Hematology CBC w Diff NO MAN DIFF REQ WBC (4.8 - 10.8 /CUMM) 10.6 RBC (4.20 - 5.40 /CUMM) 3.15 L Hgb (12.0 - 16.0 G/DL) 9.8 L Hct (37 - 47 %) 29.3 L MCV (81.0 - 99.0 FL) 92.8 MCH (27.0 - 31.0 PG) 31.0 MCHC (33.0 - 37.0 G/DL) 33.4 RDW (11.5 - 14.5 %) 15.9 H Plt Count (130 - 400 /CUMM) 309 MPV (7.4 - 10.4 FL) 8.4 Gran % (42.2 - 75.2 %) 81.6 H Lymphocytes % (20.5 - 51.1 %) 8.6 L Monocytes % (1.7 - 9.3 %) 7.3 Eosinophils % (0 - 5 %) 2.5 Basophils % (0.0 - 2.0 %) 0 Absolute Granulocytes (1.4 - 6.5 /CUMM) 8.6 H Absolute Lymphocytes (1.2 - 3.4 /CUMM) 0.9 L Absolute Monocytes (0.10 - 0.60 /CUMM) 0.8 H Absolute Eosinophils (0.0 - 0.7 /CUMM) 0.3 Absolute Basophils (0.0 - 0.2 /CUMM) 0 Assessment/Plan Assessment/Recommendations Assessment: 1. Jaw pain. Patient describes this as being similar to her previous episodes. She does note that it is less severe. She tried Tylenol for this, and tried sublingual nitro. 2. End-stage renal disease secondary to diabetic nephropathy. She is due for dialysis tomorrow. That will be arranged. 3. Hypertension. She has been admitted in the past with accelerated hypertension. 4. Coronary artery disease. She is undergone numerous percutaneous coronary interventions. 5. Hyperlipidemia 6. History of neuropathy. 7. Anemia. Due to chronic disease related to her end-stage renal disease. Most recent hemoglobin was 9.3. 8. Diabetes mellitus. 9. Congestive heart failure. Her most recent EF was 60%. She did have hypokinesis of the lateral wall 10. Secondary hyperparathyroidism. Recommendations: 1. We will plan on hemodialysis tomorrow. 2. She was on 5 mcg of Hectorol. She will received 8 mcg of paricalcitol 3 times a week with hemodialysis 3. Please make sure she is on a 2 g sodium 2 g potassium no concentrated sweet low animal fat diet with a 1000 cc fluid restriction 4. She needs to be weighed before and after hemodialysis as well as each and every day. 5. Continue with Epogen with each hemodialysis
[2018-02-28 17:54] LABS: PTT 71 SEC (25-37)
--- NOTE | 2018-02-28 21:10 | Cons- Cardiology ---
General Information and HPI Consulting Request Date of Consult: 02/28/18 Requested By: Ginny Rivera MD History of Present Illness: Patience is a 52 year old female who carries a history of hypertension, dyslipidemia, and diabetes mellitus which she has had for approximately 22 years. I initially saw this patient for chest discomfort and she is now s/p multiple angioplasties. Patience presents to the ER for evaluation of a left chest discomfort that radiates toward her left neck. I began yesterday and now seems to be constant although less intense than when it started. There is no associated nausea, vomiting or diaphoresis and she denies shortness of breath, lightheadedness or palpitations. Her first troponin is mildly elevated. The patient was recently admitted to [facility] for chest discomfort with positive cardiac enzymes. We attempted to treat her medically since her prior cardiac catheterization showed disease that was not amenable to percutaneous intervention. In particular , her ostial diagonal branch did not significantly improve following POBA. Prior to the above this patient underwent a POBA to a 70% long first diagonal lesion, a 4.0 x 12mm Resolute stent was placed in the 75% proximal LAD lesion, the OM1 underwent POBA and the OM2 underwent POBA with placement of a 2.5 x 8mm Resolute stent. Both OM lesions were in the 90% range. To review this patient's prior history, she underwent a stress test is response to exertional chest pain which was abnormal and was followed by PCI which occured while she was traveling in [place]. Patience was previously in the hospital for hypertension, renal failure and another NSTEMI. She is now on dialysis which is going well. It should be recalled that this patient has also had a prior PCI of the RCA, LCX and LAD. She now feels better than she has is years although she has been fatigued over the past several days. This tireness was initially attributed to Minoxidil which I recently prescribed for her hypertension; but she has been off this medication and continues to be tired. Previously, Patience was very inactive and this was attributed to a lack of motivation and depression. On last visit she reported some occasional lightheadedness that occurs about an hour after she takes her medications and lasts for about an hour at a time. Otherwise, lightheadedness is not a major problem. On a previous visit, the patient reported that walking half a block, even at a slow pace, would get her winded, but she feels she can do a bit more now. Her diabetes has also been under somewhat suboptimal control. The patients latest stress test is from 08/2013. It showed a hyperdynamic EFof 83% with no regional wall motion abnormalities. There was a small region of inferoapical ischemia without Regadenoson induced symptoms. A prior cardiac catheterization prompted by chest pain and positive enzymes resulted in angioplasty to the PDA with a 50% residual stenosis. At that time, I did not feel that this vessel was amenable to stent placement due to its tortuosity. The LAD, however, did receive a 2.5 x 18 mm [place] stent with zero percent residual stenosis and the patient was brought back a second time for angioplasty to the left circumflex with placement of a 2.75 x 20 mm Taxus stent with plain balloon angioplasty to the ostium of the Obtuse Marginal-1. This resulted in zero percent residual stenosis in the AV groove left circumflex and a 20% non-flow limiting residual stenosis in the Obtuse Marginal-1. Postprocedure, there remained a 50-60% mid non-flow limiting stenosis in the LAD. There was also a 50% non-flow limiting ostial stenosis of the diagonal branch. Lastly, it should be noted that renal angiography was performed at that time and there was no evidence of renal artery stenosis. Her EF was 55% with anterior wall hypokinesis. In consideration of the above mentioned symptoms with recurrent non-ST elevation MN, I did risk stratify the patient with a stress test which was abnormal and therefore repeated her cardiac catheterization. This study showed the following anatomy: Her left main was short and patent. The left circumflex was diminutive in the AV groove distally. It parented a large obtuse marginal one vessel with a 40% ostial to proximal stenosis. The obtuse marginal two is also a large vessel with luminal irregularities. The LAD was a large vessel that wrapped around the apex. It harbored a 70% mid stenosis just after the take-off of the first diagonal branch. There are luminal irregularities throughout its course. The first diagonal branch is a small vessel with an 80% ostial stenosis superimposed on diffuse disease. The right coronary artery is dominant with a 50% ostial posterior lateral branch lesion. The PDA has a 40% ostial and 50% mid lesion. Repeat angiography showed no significant stenosis bilaterally. In consideration of the above, I directly stented the LAD with placement of a 3.5 x 24 mm Taxus stent and a plain balloon angioplasty was done on the diagonal branch with a 2.0 x 12 mm [place] balloon. This resulted in zero percent residual stenosis in the LAD and an 80% diagonal one lesion with zero percent postprocedure. Finally, it should be recalled that the patient was found to have a 7 x 6 x 4 mm hypoechoic nodule extrinsic to the lower pole of the left lobe of thyroid gland that was considered to be a lymph node on extrinsic nodule vs. a parathyroid adenoma. The thyroid gland was also enlarged. The patient was asked to followup with Dr. Schmidt regarding this problem but she has not seen him recently. Patience has also had heavy periods and was noted to have uterine fibroids. She was also noted to have microcytic anemia which is being treated with iron supplements. I believe she is following up with a pr manager at this point in time. Allergies/Medications Allergies: Coded Allergies: NO KNOWN ALLERGIES (NONE 09/19/17) Home Med List: Aspirin (Aspirin*) 81 MG TAB.CHEW 2 TAB PO DAILY HEART HEALTH (Reported) Atorvastatin Calcium 40 MG TABLET 1 TAB PO QPM CHOLESTEROL (Reported) Bupropion HCl (Bupropion XL) 150 MG TAB.ER.24H 1 TAB PO QAM MENTAL HEALTH ( Reported) Clonidine 0.3 MG/24 HOUR PATCH.TDWK 1 PAT TOP QSUN HEART (Reported) Clopidogrel Bisulfate (Clopidogrel) 75 MG TABLET 1 TAB PO DAILY BLOOD THINNER (Reported) Diltiazem HCl (Diltiazem 24HR Cd) 180 MG CAP.ER.24H 180 MG PO DAILY HTN Epoetin José (Epogen) 4,000 UNIT/ML VIAL 4,000 UNIT IV MoWeFr PRN WITH HEMODIALYSIS w dialysis MWF Escitalopram Oxalate 20 MG TABLET 1 TAB PO DAILY MENTAL HEALTH (Reported) Gabapentin 100 MG CAPSULE 1 CAP PO TID NEUROPATHY (Reported) Hydralazine HCl 100 MG TABLET 1 TAB PO TID HEART (Reported) Insulin Aspart, Recombinant (Novolog Flexpen) 100 UNIT/ML INSULN.PEN 1 UNIT SC SEE SLIDING SCALE DIABETES (Reported) BEFORE MEALS Blood Insulin Sugar Units <80 0 81-100 1 101-200 2 201-250 6 251-300 8 301-350 10 351-400 12 >400 Call Doctor AT BEDTIME Blood Insulin Sugar Units <80 0 81-100 0 101-200 0 201-250 2 251-300 3 301-350 4 351-400 5 >400 Call Doctor Insulin Glargine,Hum.rec.anlog (Lantus Solostar) 100 UNIT/ML (3 ML) INSULN.PEN 20 UNIT SC BID DM (Reported) Isosorbide Dinitrate 30 MG TABLET 1 TAB PO DAILY CHEST PAIN (Reported) Labetalol HCl 200 MG TABLET 2 TAB PO BID HEART (Reported) Linaclotide (Linzess) 145 MCG CAPSULE 1 CAP PO DAILY PRN CONSTIPATION ( Reported) Lisinopril 40 MG TABLET 1 TAB PO DAILY HTN (Reported) Minoxidil 2.5 MG TABLET 5 MG PO BID HTN Pantoprazole Sodium (Protonix) 40 MG TABLET.DR 1 TAB PO DAILY ACID REFLUX ( Reported) Sevelamer Carbonate (Renvela) 800 MG TABLET 1 TAB PO TID KIDNEY (Reported) TAKE THIS MEDICATION WITH MEALS Review of Systems Review of Systems: A review of symptoms is unremarkable. 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 December 2017, Michel catheter S/P AV SHUNT AVF MANUEL avf Family History Relations & Conditions If Any: MOTHER Chronic renal disease uncle Chronic renal disease Relation not specified for: FH: CAD (coronary artery disease) FH: cancer FH: diabetes mellitus FH: HTN (hypertension) FH: schizophrenia Psychosocial History Who Do You Live With? significant other, child Services at Home: Patient previously had home health aide and nursing services but these services were recently discontinued Primary Language: [place] Timorese ETOH Use: denies use Illicit Drug Use: denies illicit drug use Functional Ability ADLs Independent: dressing, eating, toileting, bathing. Ambulation: independent Exam & Diagnostic Data Vital Signs and I&O Vital Signs Date Time Temp Pulse Resp B/P B/P Pulse O2 O2 Flow FiO2 Mean Ox Delivery Rate 02/28 2057 98.6 78 16 92/52 94 Room Air 02/28 1822 98.4 74 20 106/60 96 Room Air 02/28 1540 75 16 100/56 98 Room Air 02/28 1430 98.0 83 18 111/524 18 1407 98.0 83 18 111/52 99 Room Air 02/28 1331 98.0 84 20 123/61 99 Room Air 02/28 1150 83 20 131/67 96 Room Air 02/28 1118 100 Room Air 02/28 1006 98.3 87 20 131/61 100 Room Air Intake & Output 02/28 1600 18 0800 02/28 0000 02/27 1600 02/27 0800 02/27 0000 Intake Total Output Total Balance Patient 187 lb Weight Weight Reported by Patient Measurement Method Physical Exam: General: WD/WN male in NAD; alert and oriented HEENT: NC/AT, PERRL, EOMI Neck: no JVD, no carotid bruit Heart: RRR w/o murmur Lungs: clear bilaterally Abdomen: soft, NT, +ve bowel sounds Extremities: 1+ bilateral leg edema Assessment/Plan Assessment/Plan * This patient underwent PCI a few months ago and may have restenosis. The ostial diagonal branch was not amenable to balloon dilitation and medical therapy has been pursued. Unfortunately, this patient continues to have recurrent episodes of chest pain with positive cardiac enzymes. She does not have any ST changes at this time, but on her recent hospital admission three weeks ago she did demonstrate lateral ST depressions. We will follow cardiac enzymes until they peak. She will be anticoagulated with aspirin, Plavix and IV heparin and we will begin NTG paste 1/2 inch Q 6 hours. Continue her Labetolol and add IV metoprolol as needed to control her heart rate. Anticipate a cardiac catheterization if her chest pain continues and her enzymes go up. * Obtain an echocardiogram. * Continue Labetolol 400mg BID, cardizem as previously prescribed, clonidine patch and hydralazine 100mg TID and Minoxidil 5mg BID. * Obtain a renal consult for dialysis. Consult Acknowledgment - Thank you for your consult request.
[2018-02-28 23:06] VITALS: BP 106/60
[2018-03-01 07:11] VITALS: BP 108/58
[2018-03-01 08:16] LABS: PTT 39 SEC (25-37)
--- NOTE | 2018-03-01 08:32 | PN- Cardiology ---
Subjective Subjective: * Chest pain is gone this morning. * troponin is 1.67 with upward trend Objective Vital Signs and I&Os Vital Signs Date Time Temp Pulse Resp B/P B/P Pulse O2 O2 Flow FiO2 Mean Ox Delivery Rate 03/01 0711 98.8 80 20 108/58 94 Room Air 02/28 2306 98.3 79 20 106/60 96 Room Air 02/28 2201 77 100/70 02/28 2201 77 100/70 02/28 2159 77 100/70 02/28 2057 98.6 78 16 92/52 94 Room Air 02/28 1822 98.4 74 20 106/60 96 Room Air 02/28 1540 75 16 100/56 98 Room Air 02/28 1430 98.0 83 18 111/524 02/28 1407 98.0 83 18 111/52 99 Room Air 02/28 1331 98.0 84 20 123/61 99 Room Air 02/28 1150 83 20 131/67 96 Room Air 02/28 1118 100 Room Air 02/28 1006 98.3 87 20 131/61 100 Room Air Intake & Output 03/01 1600 03/01 0800 03/01 0000 02/28 1600 02/28 0800 02/28 0000 Intake Total Output Total Balance Patient 190 lb 187 lb Weight Weight Bed scale Reported by Patient Measurement Method Physical Exam: General: WDWN female in NAD; alert and oriented x 3 HEENT: NC/AT, PERRL, EOMI Neck; no jvd, no carotid bruit Heart: RRR w/o murmur Lungs: clear bilaterally ABdomen: soft, NT, +ve bowel sounds Extremities: no edema Assessment/Plan Assessment/Plan * This patient underwent PCI a few months ago and may have restenosis. The ostial diagonal branch was not amenable to balloon dilitation and medical therapy has been pursued. Unfortunately, this patient continues to have recurrent episodes of chest pain with positive cardiac enzymes. She does not have any ST changes at this time, but on her recent hospital admission three weeks ago she did demonstrate lateral ST depressions. We will follow cardiac enzymes until they peak. She will be anticoagulated with aspirin, Plavix and IV heparin and we will begin NTG paste 1/2 inch Q 6 hours. Continue her Labetolol and a statin. A cardiac catheterization is planned for later today by Dr. Vernon Nowak at [facility]. * Follow renals recommendations for dialysis. * Blood pressure is borderline in the 90 systolic range without lightheadedness. Hold Imdur and Minoxidil. Continue telemetry? Yes
--- NOTE | 2018-03-01 09:01 | PN- Nephrology ---
Assessment/Plan Nephrology Assessment: 1. Jaw pain/angina. Patient describes this as being similar to her previous episodes. Per possible cardiac cath 2. End-stage renal disease secondary to diabetic nephropathy. She is due for dialysis today. 3. Hypertension. She has been admitted in the past with accelerated hypertension. 4. Coronary artery disease. She is undergone numerous percutaneous coronary interventions. See problem #1 5. Hyperlipidemia 6. History of neuropathy. 7. Anemia. Due to chronic disease related to her end-stage renal disease. Most recent hemoglobin was 9.3. 8. Diabetes mellitus. 9. Congestive heart failure. Her most recent EF was 60%. She did have hypokinesis of the lateral wall 10. Secondary hyperparathyroidism. Suggestion: 1. Dialysis this afternoon 2. Continue Epogen 3. Await cardiac cath Subjective Subjective: Chest pain is gone. Awaiting dialysis think reticulocyte cath. Objective Vital Signs and I&Os Vital Signs Date Time Temp Pulse Resp B/P B/P Pulse O2 O2 Flow FiO2 Mean Ox Delivery Rate 03/01 0830 92/50 03/01 0829 92/50 03/01 0828 80 92/50 03/01 0827 80 92/50 03/01 0711 98.8 80 20 108/58 94 Room Air 02/28 2306 98.3 79 20 106/60 96 Room Air 02/28 2201 77 100/70 02/28 2201 77 100/70 02/28 2159 77 100/70 02/28 2057 98.6 78 16 92/52 94 Room Air 02/28 1822 98.4 74 20 106/60 96 Room Air 02/28 1540 75 16 100/56 98 Room Air 02/28 1430 98.0 83 18 111/524 02/28 1407 98.0 83 18 111/52 99 Room Air 02/28 1331 98.0 84 20 123/61 99 Room Air 02/28 1150 83 20 131/67 96 Room Air Intake & Output 03/01 1600 03/01 0400 02/28 1600 02/28 0400 02/27 1600 02/27 0400 Intake Total Output Total Balance Patient 190 lb 187 lb Weight Weight Bed scale Reported by Patient Measurement Method Physical Exam: General Appearance: well developed/nourished, no apparent distress, alert, awake , comfortable Head: atraumatic, normal appearance Eyes:Bilateral: PERRL, EOMI, pale conjunctivae. Neck: normal inspection, supple, full range of motion, trachea mid line Respiratory: normal breath sounds, chest non-tender, lungs clear Cardiovascular: regular rate/rhythm, edema Gastrointestinal: normal bowel sounds, soft, non-tender, no organomegaly Back: normal inspection Neurologic/Psych: no motor/sensory deficits, awake, alert, oriented x 3, Skin: intact, normal color, warm/dry Current Medications: Current Medications Sig/[place] Start time Last Medication Dose Route Stop Time Status Admin Aspirin 162 MG DAILY 03/01 900 AC 03/01 PO 08 Aspirin 325 MG ONCE ONE 02/28 1045 DC 02/28 PO 02/28 1046 1039 Aspirin 0 .STK-MED ONE 02/28 1036 DC PO Atorvastatin Calcium 40 MG QPM 02/28 2100 AC 02/28 PO 220 Bupropion HCl 150 MG QAM 03/01 900 AC 03/01 PO 0828 Clopidogrel Bisulfate 75 MG DAILY 03/01 09 AC 03/01 PO 0829 Clopidogrel Bisulfate 75 MG ONCE ONE 02/28 1130 DC 02/28 PO 02/28 1131 1128 Diltiazem HCl 180 MG DAILY 03/01 900 AC 03/01 PO 0828 Escitalopram Oxalate 20 MG DAILY 03/01 09 AC 03/01 PO 0826 Gabapentin 100 MG TID 02/28 1400 AC 03/01 PO 0828 Heparin Sodium 0 .STK-MED ONE 02/28 1204 DC (Porcine) .ROUTE Heparin Sodium 5,000 UNIT ONCE ONE 02/28 1200 DC 02/28 (Porcine) IV 02/28 1201 1207 Heparin Sodium 25,000 UNIT Q24H 02/28 1200 AC 02/28 (Porcine) IV 1207 Sodium Chloride 500 ML Hydralazine HCl 100 MG TID 02/28 1400 AC 03/01 PO 0830 Insulin Aspart 0 TIDAC 02/28 1700 AC SC Insulin Detemir 10 UNITS DAILY 03/01 09 AC SC Isosorbide 30 MG DAILY 03/01 09 AC Mononitrate PO Labetalol HCl 400 MG BID 02/28 2100 AC 03/01 PO 0828 Lisinopril 40 MG DAILY 03/01 09 AC 03/01 PO 0829 Minoxidil 5 MG BID 02/28 2100 AC 02/28 PO 2201 Morphine Sulfate 2 MG Q4P PRN 02/28 1400 AC 02/28 IV 1414 Nitroglycerin 0 .STK-MED ONE 02/28 1826 DC TOP Nitroglycerin 0.5 GM Q6 02/28 1800 AC 03/01 TOP 0634 Nitroglycerin 0 .STK-MED ONE 02/28 1156 DC TOP Nitroglycerin 1 GM ONCE ONE 02/28 1130 DC 02/28 TOP 02/28 1131 1156 Omeprazole 40 MG DAILY AC 03/01 0700 AC 03/01 PO 0633 Sevelamer Carbonate 800 MG TID 02/28 1400 AC 02/28 PO 2201 Results Pertinent Lab Results: Laboratory Tests 03/01 03/01 03/01 02/28 02/28 0653 0627 0100 1737 1031 Chemistry Troponin I (< 0.11 ng/ml) Pending 1.67 *H 1.23 *H Coagulation PT (9.4 - 12.5 SEC) 11.9 INR (0.90 - 1.19) 1.09 APTT (25 - 37 SEC) 39 H 71 H 31 02/28 1030 Chemistry Sodium (137 - 145 mmol/L) 141 Potassium (3.5 - 5.1 mmol/L) 4.0 Chloride (98 - 107 mmol/L) 102 Carbon Dioxide (22 - 30 mmol/L) 26 Anion Gap (5 - 16) 13 BUN (7 - 17 mg/dL) 18 H Creatinine (0.5 - 1.0 mg/dL) 6.4 *H Estimated GFR (>60 ml/min) 7 L BUN/Creatinine Ratio (7 - 25 %) 2.8 L Glucose (65 - 99 mg/dL) 91 Hemoglobin A1c (4.2 - 5.8 %) 6.3 H Calcium (8.4 - 10.2 mg/dL) 9.6 Magnesium (1.6 - 2.3 mg/dL) 1.5 L Total Bilirubin (0.2 - 1.3 mg/dL) 0.4 AST (14 - 36 U/L) 17 ALT (9 - 52 U/L) 6 L Alkaline Phosphatase (<127 U/L) 65 Troponin I (< 0.11 ng/ml) 0.91 *H [id number] Pept (<125 pg/mL) 63108 H Total Protein (6.3 - 8.2 g/dL) 6.8 Albumin (3.5 - 5.0 g/dL) 3.9 Globulin (1.9 - 4.2 gm/dL) 2.9 Albumin/Globulin Ratio (1.1 - 2.2 %) 1.3 Lipase (23 - 300 U/L) 101 TSH (0.270 - 4.200 uIU/mL) 0.808 Free T4 (0.64 - 1.79 ng/dL) 1.64 Total T3 (0.97 - 1.69 ng/mL) 1.21 Total Beta HCG (NEGATIVE) NEGATIVE Hematology CBC w Diff NO MAN DIFF REQ WBC (4.8 - 10.8 /CUMM) 10.6 RBC (4.20 - 5.40 /CUMM) 3.15 L Hgb (12.0 - 16.0 G/DL) 9.8 L Hct (37 - 47 %) 29.3 L MCV (81.0 - 99.0 FL) 92.8 MCH (27.0 - 31.0 PG) 31.0 MCHC (33.0 - 37.0 G/DL) 33.4 RDW (11.5 - 14.5 %) 15.9 H Plt Count (130 - 400 /CUMM) 309 MPV (7.4 - 10.4 FL) 8.4 Gran % (42.2 - 75.2 %) 81.6 H Lymphocytes % (20.5 - 51.1 %) 8.6 L Monocytes % (1.7 - 9.3 %) 7.3 Eosinophils % (0 - 5 %) 2.5 Basophils % (0.0 - 2.0 %) 0 Absolute Granulocytes (1.4 - 6.5 /CUMM) 8.6 H Absolute Lymphocytes (1.2 - 3.4 /CUMM) 0.9 L Absolute Monocytes (0.10 - 0.60 /CUMM) 0.8 H Absolute Eosinophils (0.0 - 0.7 /CUMM) 0.3 Absolute Basophils (0.0 - 0.2 /CUMM) 0
--- NOTE | 2018-03-01 10:28 | Patient Discharge Instructions ---
Discharge Instructions General Discharge Information You were seen/treated for: chest pain You had these procedures: 1. heparin drip Special Instructions: 1. follow up with your pivot end polisher after hospitalization 2. follow up with pcp 3. continue routine dialysis regimen Diet Continue normal diet: No Recommended Diet: Renal Dialysis Activity Activity Self Limited: Yes Acute Coronary Syndrome Inclusion Criteria At DC or during hospital stay patient has or had the following: ACS DIAGNOSIS Yes Discharge Core Measures Meds if any: Prescribed or Continued at Discharge Meds if any: NOT Prescribed or Continued at Discharge Congestive Heart Failure Inclusion Criteria At DC or during hospital stay patient has or had the following: CHF DIAGNOSIS No Discharge Core Measures Meds if any: Prescribed or Continued at Discharge Meds if any: NOT Prescribed or Continued at Discharge Cerebrovascular accident Inclusion Criteria At DC or during hospital stay patient has or had the following: CVA/TIA Diagnosis No Discharge Core Measures Meds if any: Prescribed or Continued at Discharge Meds if any: NOT Prescribed or Continued at Discharge Venous thromboembolism Inclusion Criteria VTE Diagnosis No VTE Type NONE VTE Confirmed by (Test) NONE Discharge Core Measures - Per Current guidelines, there needs to be overlap - treatment for the first 5 days of Warfarin therapy. - If discharged on Warfarin prior to 5 days of - overlap therapy, the patient will need to be - assessed for post discharge needs including - *Post discharge parental anticoagulation - *Warfarin and/or parental anticoagulation education - *Follow up date to check INR post discharge At least 5 days overlap therapy as Inpatient No Meds if any: Prescribed or Continued at Discharge Note: Overlap Therapy is Warfarin and Anticoagulant Meds if any: NOT Prescribed or Continued at Discharge
--- NOTE | 2018-03-01 10:31 | PN- Housestaff ---
Timmy ORTEGA,Maurizio 03/01/18 1030: Subjective Follow-up For: chest pain Subjective: pt has persistent chest and jaw pain. However, it is better than yesterday. Her trops have continued to trend up wards up to 1.97 Review of Systems Constitutional: Denies: chills, fever, weakness. EENTM: Reports: no symptoms. Cardiovascular: Denies: chest pain. Respiratory: Reports: no symptoms. Gastrointestinal: Reports: no symptoms. Genitourinary: Reports: no symptoms. Musculoskeletal: Reports: no symptoms. Objective Last 24 Hrs of Vital Signs/I&O Vital Signs Date Time Temp Pulse Resp B/P B/P Pulse O2 O2 Flow FiO2 Mean Ox Delivery Rate 03/01 0830 50 03/01 0829 03/01 0828 80 03/01 0827 80 03/01 0711 98.8 80 20 108/58 94 Room Air 02/28 2306 98.3 79 20 106/60 96 Room Air 02/28 2201 77 100/70 02/28 2201 77 100/70 02/28 2159 77 100/70 02/28 2057 98.6 78 16 92/52 94 Room Air 02/28 1822 98.4 74 20 106/60 96 Room Air 02/28 1540 75 16 100/56 98 Room Air 02/28 1430 98.0 83 18 111/524 02/28 1407 98.0 83 18 111/52 99 Room Air 02/28 1331 98.0 84 20 123/61 99 Room Air 02/28 1150 83 20 131/67 96 Room Air 02/28 1118 100 Room Air Intake & Output 03/01 1600 03/01 0800 03/01 0000 Intake Total Output Total Balance Patient 86.353 kg Weight Weight Bed scale Measurement Method Physical Exam General Appearance: Alert, Oriented X3, Cooperative, No Acute Distress HEENT: Atraumatic, PERRLA, EOMI Cardiovascular: Regular Rate, Normal S1, Normal S2, No Murmurs Lungs: Normal Air Movement Abdomen: Soft, No Tenderness Extremities: No Edema Assessment/Plan Assessment: This is a 52 yo AA female with PMH of HTN, HLD, DM, ESRD s/p R. AVF, thyroid nodule, uterine fibroids, anemia, GERD and multiple angioplasties with >10 stents with CC of jaw pain. Her EDVIN score is 5 giving her "26% risk at 14 days of: all-cause mortality, new or recurrent MT, or severe recurrent ischemia requiring urgent revascularization." She has + trops and EKG with LBBB will admit to Tele for trt of NSTEMI. --- PLAN: NSTEMI: Pt trops peaked at 1.9 this AM. Plan is to transfer for cath to [facility] with Dr. Nowak. Trops started trending down so will stop checkin. Last echo in Jan 2018 showed mild LVH, mmild lat wall hypokinesis, mild TR, [place] and EF =60%. * ASA * Statin * BB * ACEi * Nitro * Appreciate cardio recs Hypertension: Pt on hydralazine, minoxidil, BB, CCB, but her BP this AM is 90/ 50. She is asymptomatic. * Hold all bp meds for BP less than 90/60 ESRD: Cr is 6.4; last dialysis yesterday. Usually MWF dialysis. * Nephro consult for dialysis in hospital Anemia: Seems chronic; seems like it was previously presumed to be from her fibroids and ESRD status. She has not had a period in several months. * con't monitor * goal >8 to transfuse Mild interstitial Edema: Improved from last month Thyroid nodule: Supposedly has hx of ??nodule in thyroid gland and thyromegaly. This was seen in thyroid US in 2012. She has had no f/u. * TFT DM: * Check a1c * RISS * FS FC Heparin Dialysis diet Problem List: 1. NSTEMI (non-ST elevated myocardial infarction) Pain Ratin Pain Location: none Pain Goal: Remain pain free Pain Plan: none Tomorrow's Labs & Rationales: cbc bep Ginny Rivera MD 03/01/18 1149: Attending MD Review Statement Attending Statement Attending MD Statement: examined this patient, discuss w/resident/PA/[facility], agreed w/resident/PA/[facility], reviewed EMR data (avail) Attending Assessment/Plan: 52F PMH HTN, HLD, DM, ESRD s/p R. AVF, HFrEF, thyroid nodule, uterine fibroids, anemia, GERD and multiple angioplasties with >10 stents presenting with left jaw pain radiating to her left neck that started at rest last night and is not associated with any other symptoms. This presentation is consistent with prior MT's. She is currently pain free, as the pain has been waxing and waning. She has no other complaints. EKG is NSR with LBBB (unchanged). Troponin 1.65. 1. NSTEMI 2. ESRD on HD Plan - Will transfer for cardiac catheterization - Follow cardiology recommendations - Heparin drip - ASA, Plavix, Metoprolol, Statin, Nitropaste - Continue home medications - Nephrology for continuation of HD
--- NOTE | 2018-03-01 12:05 | Discharge Summary ---
Visit Information Visit Dates Admission Date: 02/28/18 Discharge Date: 03/01/2018 Hospital Course Course Attending Physician: Ginny Rivera MD Primary Care Physician: Violetta Reddy APRN Hospital Course: This is a 52 yo AA female with PMH of HTN, HLD, DM, ESRD due DM s/p R. AVF, thyroid nodule, uterine fibroids, anemia, GERD and multiple angioplasties (pt states that she has had over 10 stents, but I cannot find data to support this, speaking with psychiatric arnp he does endorse multiple stent placements) with CC of jaw pain. Her EDVIN score is 5 giving her and She has + trops and EKG with LBBB will admit to [facility] for trt of NSTEMI. --- PLAN: NSTEMI: Pt trops peaked at 1.9 this AM. Plan is to transfer for cath to [facility] with Dr. Nowak. Trops started trending down so will stop checkin. Last echo in Jan 2018 showed mild LVH, mmild lat wall hypokinesis, mild TR, [place] and EF =60% . Continued on ASA, Statin, BB, ACEi, Nitro. She was seen by cardiology here and started on heparin drip. Her EKG shows some LBBB but looks old. Infact EKG this time looks better than one month ago when she came in for similar complaint of CP and found to have elevated trops up to 5. ESRD: Usually MWF dialysis. Dialysis planned prior to cath. Cr 8.6 today. * Con't phos binders etc Anemia: Seems chronic; seems like it was previously presumed to be from her fibroids and ESRD status. She has not had a period in several months. * con't monitor * goal >8 to transfuse Mild interstitial Edema: Improved from last month Thyroid nodule: Supposedly has hx of ??nodule in thyroid gland and thyromegaly. This was seen in thyroid US in 2012. She has had no f/u. * TFT DM: * Check a1c * RISS * FS Hypertension: Pt on hydralazine, minoxidil, BB, CCB, but her BP this AM is 90/ 50. She is asymptomatic. * Hold all bp meds for BP less than 90/60 Allergies: Coded Allergies: NO KNOWN ALLERGIES (NONE 09/19/17) Significant Procedures: heparin drip Pertinent Lab Results: Intake & Output 03/01 1600 03/01 0800 03/01 0000 Intake Total Output Total Balance Patient 86.353 kg Weight Weight Bed scale Measurement Method Laboratory Tests 03/01 03/01 03/01 02/28 0653 0627 0100 1737 Chemistry Sodium (137 - 145 mmol/L) 138 Potassium (3.5 - 5.1 mmol/L) 4.6 Chloride (98 - 107 mmol/L) 102 Carbon Dioxide (22 - 30 mmol/L) 22 Anion Gap (5 - 16) 14 BUN (7 - 17 mg/dL) 26 H Creatinine (0.5 - 1.0 mg/dL) 8.6 *H Estimated GFR (>60 ml/min) 5 L BUN/Creatinine Ratio (7 - 25 %) 3.0 L Troponin I (< 0.11 ng/ml) 1.65 *H 1.67 *H 1.23 *H Coagulation APTT (25 - 37 SEC) 39 H 71 H Disposition Summary Disposition Principal Diagnosis: ACS Additional Diagnosis: ESRD Discharge Disposition: other general hospital Discharge Instructions General Discharge Information Code Status: Full Code Patient's Diet: RENAL DIALYSIS Patient's Activity: TOLERATED Follow-Up Instructions/Appts: TOLERATED Medications at Discharge Discharge Medications: Stop taking the following medications: Clonidine (Clonidine) 0.3 MG/24 HOUR PATCH.TDWK On the skin EVERY TUESDAY Diltiazem HCl (Diltiazem 24HR Cd) 180 MG CAP.ER.24H ORAL DAILY Qty = 60 Lisinopril (Lisinopril) 40 MG TABLET ORAL DAILY Isosorbide Dinitrate (Isosorbide Dinitrate) 30 MG TABLET ORAL DAILY Minoxidil (Minoxidil) 2.5 MG TABLET ORAL TWICE DAILY Qty = 10 Hydralazine HCl (Hydralazine HCl) 100 MG TABLET ORAL THREE TIMES DAILY Qty = 90 Continue taking these medications: Labetalol HCl (Labetalol HCl) 200 MG TABLET 2 Tablet ORAL TWICE DAILY Comments: Last Taken: 01/28/18 Time: 0838 Clopidogrel Bisulfate (Clopidogrel) 75 MG TABLET 1 Tablet ORAL DAILY Comments: Last Taken: 01/28/18 Time: 0837 Gabapentin (Gabapentin) 100 MG CAPSULE 1 Capsule ORAL THREE TIMES DAILY Comments: NOT GIVEN IN HOSPITAL Pantoprazole Sodium (Protonix) 40 MG TABLET.DR 1 Tablet ORAL DAILY Comments: Last Taken:01/28/18 Time:0838 Linaclotide (Linzess) 145 MCG CAPSULE 1 Capsule ORAL DAILY as needed for CONSTIPATION Comments: Last Taken:01/28/18 Time:0838 Insulin Aspart, Recombinant (Novolog Flexpen) 100 UNIT/ML INSULN.PEN 1 Unit SC SEE SLIDING SCALE Instructions: BEFORE MEALS Blood Insulin Sugar Units <80 0 81-100 1 101-200 2 201-250 6 251-300 8 301-350 10 351-400 12 >400 Call Doctor AT BEDTIME Blood Insulin Sugar Units <80 0 81-100 0 101-200 0 201-250 2 251-300 3 301-350 4 351-400 5 >400 Call Doctor Comments: Last Taken: 01/28/18 Time: 1200 Atorvastatin Calcium (Atorvastatin Calcium) 40 MG TABLET 1 Tablet ORAL Every night Qty = 90 Comments: Last Taken: 01/27/18 Time: 2040 Bupropion HCl (Bupropion XL) 150 MG TAB.ER.24H 1 Tablet ORAL Every Morning Qty = 30 Comments: Last Taken: 01/28/18 Time: 0837 Escitalopram Oxalate (Escitalopram Oxalate) 20 MG TABLET 1 Tablet ORAL DAILY Comments: Last Taken: 01/28/18 Time: 0837 Sevelamer Carbonate (Renvela) 800 MG TABLET 1 Tablet ORAL THREE TIMES DAILY Qty = 150 Instructions: TAKE THIS MEDICATION WITH MEALS Comments: Last Taken: 01/28/18 Time: 0838 Insulin Glargine,Hum.rec.anlog (Lantus Solostar) 100 UNIT/ML (3 ML) INSULN.PEN 20 Unit SC TWICE DAILY Comments: DID NOT RECEIVE IN HOSPITAL- RECEIVED LEVEMIR 15 UNITS 1000 Aspirin (Aspirin*) 81 MG TAB.CHEW 2 Tablet ORAL DAILY Comments: Last Taken:01/28/18 Time:0836 Epoetin José (Epogen) 4,000 UNIT/ML VIAL 4,000 Unit IV MoWeFr as needed for WITH HEMODIALYSIS Qty = 30 Instructions: w dialysis MWF Copies To: Apergis MD,Ginny
[2018-03-01 13:38] LABS: ABSOLUTE BASOPHIL COUNT 0.1 /CUMM (0.0-0.2); ABSOLUTE EOSINOPHIL COUNT 0.2 /CUMM (0.0-0.7); ABSOLUTE GRANULOCYTE CT 6.9 /CUMM (1.4-6.5); ABSOLUTE LYMPH COUNT 1.3 /CUMM (1.2-3.4); ABSOLUTE MONOCYTE COUNT 0.8 /CUMM (0.10-0.60); BASOPHIL % 0.6 % (0.0-2.0); EOSINOPHIL % 2.1 % (0-5); GRANULOCYTE % 75.1 % (42.2-75.2); MEAN CORPUSCULAR HGB 30.7 PG (27.0-31.0); MEAN CORPUSCULAR HGB CONC 33.1 G/DL (33.0-37.0); MEAN CORPUSCULAR VOLUME 92.7 FL (81.0-99.0); MEAN PLATELET VOLUME 9.3 FL (7.4-10.4); PLATELET COUNT 290 /CUMM (130-400); WHITE BLOOD CELL COUNT 9.3 /CUMM (4.8-10.8)
[2018-03-01 14:55] VITALS: BP 96/48
== END 2018-03-01 15:38 | disposition short-term general hospital (02) | DRG 280 ==
LOC: ERH 10:03 → ERHI 12:54 → 1NO 12:54 → ENRESERV 14:15 → ENTRNSPT 22:03 → EDTRNSPTSTS 22:18 → 1NO 22:26 → CMPTRNSPT 22:33 → ENPENDDIS 03-01 14:49 → 1NO 03-01 15:38
PROVIDERS: Internal Medicine; Physician Assistant Medical; Student in an Organized Health Care Education/Training Program
DX: I21.4 Non-ST elevation (NSTEMI) myocardial infarction (principal); N18.6 End stage renal disease; N25.81 Secondary hyperparathyroidism of renal origin; I13.2 Hypertensive heart and chronic kidney disease with heart failure and with stage 5 chronic kidney disease, or end stage renal disease; I50.20 Unspecified systolic (congestive) heart failure; E11.42 Type 2 diabetes mellitus with diabetic polyneuropathy; E11.22 Type 2 diabetes mellitus with diabetic chronic kidney disease; Z99.2 Dependence on renal dialysis; Z79.4 Long term (current) use of insulin; K59.09 Other constipation; I25.10 Atherosclerotic heart disease of native coronary artery without angina pectoris; I25.2 Old myocardial infarction; K21.9 Gastro-esophageal reflux disease without esophagitis; I48.91 Unspecified atrial fibrillation; Z79.01 Long term (current) use of anticoagulants; E78.5 Hyperlipidemia, unspecified; R68.84 Jaw pain; E04.1 Nontoxic single thyroid nodule; D63.1 Anemia in chronic kidney disease; I44.7 Left bundle-branch block, unspecified; F32.9 Major depressive disorder, single episode, unspecified; E11.21 Type 2 diabetes mellitus with diabetic nephropathy; Z98.61 Coronary angioplasty status
CPT/HCPCS: 1NSP; 36415; 36592; 71045; 82436; 93005; 93010; 96374; 99291; J1644; J3490